=== PATIENT | female | born 1950 | race Caucasian/White ===

== ENCOUNTER 2019-07-18 16:20 | Emergency (ER) | payer MEDICARE, MEDICAID, SELFPAY ==
[2019-07-18 16:39] VITALS: BP 160/96; PULSE 93; RESP 16; TEMP 37.2; O2SAT 97; BMI 32.0
--- NOTE | 2019-07-18 17:11 | ED_ITS ---
Entered by Nicole Mejias, acting as scribe for Jul 18, 2019 16:20 HPI - Extremity Problem General: Chief complaint: Extremity Injury, Upper Stated complaint: LEFT ARM PAIN Time Seen by Provider: 07/18/19 17:11 Source: patient and family Mode of arrival: ambulatory Limitations: no limitations History of Present Illness: HPI Narrative: 69 yo female presents to ED with complaints of pain in her L bicep. She said she was getting inside her son's truck several times on (2 days ago) and reached up to pull herself into the truck and felt a pull on her L bicep. She has had a knot in her bicep. She said she has had no pain in the L shoulder or L elbow. MD Complaint: extremity pain Onset (ago): day(s) (2) Pain Consistency: constant Location: left and upper extremity Severity scale (1-10): 3 Quality: aching Radiation: none Relieving factors: rest Exacerbating factors: range of motion Associated symptoms: Reports no associated symptoms; Deny chest pain, fever(s) or rash Review of Systems Const: Denies: fever or chills Eyes: Denies: change in vision ENMT: Denies: throat pain or mouth pain Card: Denies: chest pain Resp: Denies: shortness of breath GI: Denies: abdominal pain, nausea, vomiting or diarrhea : Denies: difficulty urinating Musc: Denies: back pain or joint pain Skin/Breast: Denies: rash Neuro: Denies: headache or behavioral changes Psych: Denies: depression Endo: Denies: excessive urination Nilesh/Lymph: Denies: easy bruising All/Imm: Denies: hives PFSH ED PFSH: Statuses (acute, chronic, etc) shown below reflect problem list status as previously entered and may not be historically accurate Social History Smoking and tobacco status: current every day smoker Physical Exam Const: COMMON NORMALS: no apparent distress and healthy appearing HENMT: COMMON NORMALS: normocephalic and external nose normal HEAD & SCALP: normocephalic NOSE: external nose normal and no nasal discharge (nasal dischage) Eye: COMMON NORMALS: PERRL PUPIL: Yes PERRL Neck/C-Spine: COMMON NORMALS: full ROM and no lymphadenopathy Chest: COMMONS NORMALS: inspection of chest normal Resp: COMMON NORMALS: normal respiratory effort and clear to auscultation bilaterally AUSCULTATION: clear to auscultation bilaterally Cardio: COMMON NORMALS: regular rate and regular rhythm RATE: regular rate RHYTHM: regular rhythm GI: COMMON NORMALS: soft to palpation PALPATION: Yes soft Extremity: COMMON NORMALS: normal to inspection, full ROM and normal capillary refill OTHER: Tenderness to left bicep with no signs of tendon rupture. Patient has full range of motion. She has no bony tenderness. Psych: COMMON NORMALS: mental status grossly normal and cooperative Skin: COMMON NORMALS: no rashes or lesions noted GENERAL SKIN EXAM: no rashes or lesions noted Course Vital Signs: Vital signs: Vital Signs Temperature 98.9 F 07/18/19 16:39 Pulse Rate 87 07/18/19 17:23 Respiratory Rate 18 07/18/19 17:23 Blood Pressure 180/88 07/18/19 17:23 Pulse Oximetry 97 07/18/19 17:23 MDM - Extremity (Nontraumatic) MDM Narrative: Medical decision making narrative: Patient presents here with likely muscle strain of left biceps. Patient is well-appearing here and has no signs of tendon rupture or bony fracture. Patient is to ice area and is to fo llow-up with primary care doctor in 1 week and return if worsening. She understands and agrees to plan. Discharge Plan Discharge Patient Disposition: Home, Self-Care Clinical Impression: Biceps muscle strain Qualifiers: Encounter type: initial encounter Laterality: left Qualified Code(s): S46.212A - Strain of muscle, fascia and tendon of other parts of biceps, left arm, initial encounter Condition: Stable Discharge Orders: Discharge Order (Routine); Ordered 07/18/19 Ordered By: Varsha Fitzgerald Discharge Diet: Advance as tolerated Discharge Activity: Increase activity as tolerated Patient Instructions: Muscle Strain (ED) Discharge Date/Time: 07/18/19 17:20 Coding Level of Care Code ED Relay Telegrapher for Tyesha Crum The documentation recorded by the Randell choudhury Valerie R accurately reflects the service I personally performed and the decisions made by Amilcar joseph Korby, MD Jul 18, 2019 16:20
[2019-07-18 17:23] VITALS: BP 180/88; PULSE 87; RESP 18; O2SAT 97
== END 2019-07-18 17:20 | disposition home or self-care (01) ==
PROVIDERS: Emergency Provider Emergency Medicine
DX: S46.212A Strain of muscle, fascia and tendon of other parts of biceps, left arm, initial encounter (principal); X50.9XXA Other and unspecified overexertion or strenuous movements or postures, initial encounter; F17.210 Nicotine dependence, cigarettes, uncomplicated
CPT/HCPCS: 99281

== ENCOUNTER 2025-02-20 12:55 | Emergency (ER) | payer MEDICARE, MEDICAID, SELFPAY ==
--- OUTSIDE RECORDS SUMMARY | 2025-02-15 07:48 | XMS_ITS | Encounter Summary ---
Author Organization [facility] Address 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 Name Role Phone Steven Olivo MD Primary Care Provider [phone] Reason for Visit * Auth/Cert (Routine) Specialty Diagnoses / Procedures Referred By Maxx coello Referred To Contact Perioperative Diagnoses Diverticulitis of large intestine with abscess without bleeding Diverticulitis of large intestine with abscess without bleeding Procedures IA LAPS COLECTOMY PRTL W/COLOPXTSTMY LW ANAST IA LAPS COLECTMY PRTL W/COLOPXTSTMY LW ANAST W/CLST HCHG NEEDLE ECHO 20GAX5.0CM IA LAPS MOBLJ SPLENIC FLXR PFRMD W/PRTL COLECTOMY SIGMOID COLON RESECTION ROBOTIC XI SIGMOID COLON RESECTION ROBOTIC XI Nurys Pineda DO [address] [facility] [facility] [address] [place] [address] Phone: tel: fax: [facility] Operating Room [address] [place] [id number] Phone: tel: fax: Referral ID Status Reason Start Date Expiration Date Visits Re quested Visits Authorized [id number] 1 1 Encounter Details Date Type Department Care Team (Latest Contact Info) Description 02/15/2025 7:48 AM CDT - 02/19/2025 2:20 PM CDT Hospital Encounter [facility] 5B Gynecology [address] [place] [address] Nurys Pineda DO [address] [place] [address] JOVANI (acute kidney injury) Discharge Disposition: Home or Self Care Social History Tobacco Use Types Packs/Day Years Used Date Smoking Tobacco: Every Day Cigarettes Last attempted to quit: 03/23/2021 Passive Smoke Exposure: Past Smokeless Tobacco: Never Comments:A couple of cigaret gladys a day Alcohol Use Standard Drinks/Week Comments No 0 (1 standard drink = 0.6 oz pur e alcohol) Social Connections Answer Date Recorded In a typical week, how many times do you talk on the phone with family, friends, or neighbors? More than three times a week 06/06/2020 How often do you get togethe r with friends or relatives? More than three times a week 06/06/2020 How often do you attend [facility] or jainism services? Never 06/06/2020 Do you belong to any clubs o r organizations such as baptist groups, unions, fraternal or athletic groups, or school groups? Yes 06/06/2020 Attends Club or Organization Meetings Not on marek e 06/06/2020 Marital Status Not on file 06/06/2020 Financial Resource Strain Answer Date R ecorded How hard is it for you to pa y for the very basics like food, housing, medical care, and heating? Not hard at all 08/17/2022 Food Insecurity Answer Date Recorded In the past 12 months, have you worried that your food would run out before you had money to buy more? Never true 08/17/2022 In the past 12 months, did y ou run out of food and didn't have money to buy more? Never true 08/17/2022 Transportation Needs Answer Date Record ed In the past 12 months, has l ack of transportation kept you from medical appointments or from getting medications? No 08/17/2022 Lack of Transportation (Non-Medical) Not on file 08/17/2022 Feeling Safe Answer Date Recorded Are you in a relationship wi th someone who hurts you emotionally and/or physically? 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 Gender Identity Not on file Sexual Orientation Not on file documented as of this encounter Last Filed Vital Signs Vital Sign Reading Time Taken Comments Blood Pressure 157/96 02/19/2025 11:40 AM CDT Pulse 80 02/19/2025 11:40 AM CDT Temperature 37.1 C (98.8 F) 02/19/2025 11:40 AM CDT Respiratory Rate 16 02/19/2025 11:4 0 AM CDT Oxygen Saturation 93% 02/19/2025 11: 40 AM CDT Inhaled Oxygen Concentration - - Weight 66.6 kg (146 lb 14.4 oz) 02/15/2025 2:00 PM CDT Height 157.5 cm (5' 2 ) 02/15/2025 8:08 AM CDT Body Mass Index 26.87 02/15/2025 8:08 AM CDT documented in this encounter Discharge Summaries * Tiff Odom FNP - 02/19/2025 4:04 PM CDT Patient: Valerie Ferro / 74 y.o. / female : 1950 Admit date: 02/15/2025 Discharge date: 02/19/2025 Final Diagnosis: history of perforated diverticulitis Secondary diagnoses and conditions treated: Active Hospital Problems Diagnosis History of diverticulitis Ileostomy status ([facility]) S/P colon resection JOVANI (acute kidney injury) Resolved Hospital Problems No resolved problems to display. Attending Physician: Dr. Nurys Pineda, Colorectal Surgery Procedures Performed: With Dr. Pinedaaaaa; 1. Robotic low anterior resection with coloproctostomy 2. Mobilization of the splenic flexure 3. Diverting loop ileostomy 4. Flexible sigmoidoscopy 5. Bilateral TAP blocks With Dr. Ernandez: Cystoscopy with left retrograde pyelogram with interpretation Left ureter stent insertion Hospital Course: The patient was taken to the operating room on the day of admission where she underwent the above procedure, which she tolerated well. Postoperatively she was taken to the PACU and then the floor where she recovered. Elevated creatinine noted on labs. Urology and nephrology consulted. Patient underwent cystogram with left ureter stent placement for narrowing of the ureter and hydroureteronephrosis. Berger placed. Creatine improving. Ostomy teaching completed with ostomy nurse. she was able to quickly advance her diet, and had her pain well controlled, first on IV pain medication and then transitioned to PO pain medication. At the time of discharge the patient is able to ambulate without assistance, she is voiding urine without difficulty, demonstrating appropriate bowel function, tolerating her diet, and has her pain well controlled with oral pain medication. Discharge Condition: good. Disposition: home. Discharge medications: Medication List START taking these medications HYDROcodone-acetaminophen 5-325 mg tablet Commonly known as: NORCO Take 1 Tablet by mouth every 4 hours as needed for Pain, Moderate. Max Daily Amount: 6 Tablets Signed by: Nurse Practitioner Nestor Odom Quantity: 30 Tablet Refills: 0 walker Length of Need: 99 months Ht Readings from Last 1 Encounters: 02/15/25 : 5' 2 (1.575 m) , Weight: 66.6 kg (146 lb 14.4 oz) (02/15/25 1400). If over 300 lbs, patient requires heavy duty. Type of walker:walker with wheels Signed by: Dr. Tu Pineda Quantity: 1 Each Refills: 0 CONTINUE taking these medications ondansetron 4 mg Tablet, Rapid Dissolve Commonly known as: ZOFRAN ODT Take 1 Tablet (4 mg) by mouth every 8 hours as needed for Nausea/Emesis. Dissolve tablet on top of tongue, then swallow with saliva. Signed by: Nurse Lina Odom Quantity: 15 Tablet Refills: 0 STOP taking these medications levoFLOXacin 500 mg tablet Commonly known as: LEVAQUIN metroNIDAZOLE 500 mg tablet Commonly known as: FLAGYL neomycin 500 mg tablet Commonly known as: MYCIFRADIN peg 3350-electrolytes 236-22.74-6.74 -5.86 gram Recon Soln Commonly known as: GOLYTELY sodium, potassium and magnesium SULFATES 17.5-3.13-1.6 gram Recon Soln Commonly known as: Suprep Bowel Prep Kit Where to Get Your Medications These medications were sent to [address] [address] Hours: Saturday - Saturday: 7 am - 9 pm; Saturday - Saturday: 8 am - 4 pm HYDROcodone-acetaminophen 5-325 mg tablet ondansetron 4 mg Tablet, Rapid Dissolve walker Patient instructions: 1. Discharge to home. 2. Follow-up weeks with HEVER Patel 3. May shower without restrictions. 4. Routine wound care/teach wound care if applicable. 5. Activity no lifting greater than 10 pounds for 6 weeks. 6. Prescription on chart. Please give to patient. 7. Call if temperature is greater than 101.5, severe pain, nausea, vomiting, wound drainage, questions or concerns. 8. Diet: No restriction. Signed: SUN Alvarez 02/19/2025, 4:07 PM Cosigned by Nurys Pineda DO at 02/19/2025 5:11 PM CDT documented in this encounter Discharge Instructions * Discharge Instructions* Tiff Odom FNP - 02/19/2025 10:38 AM CDT [facility] Colorectal Surgery [address] [place] [address] [address] [place] [address] Follow up in 2-3 weeks with HEVER Patel. Please call the office at the above number to make an appointment. Berger up with urology for berger removal. Repeat BMP (lab) at follow up. Colon Surgery Post Operative Discharge Instructions Diet Low roughage diet (avoid raw vegetables and fibrous fruits like pineapple) and avoid constipating foods for 5-7 days. Then transition to a high fiber diet. Drink plenty of fluids, 64 oz (8 glasses) of water or other non-sugary fluids daily. Activity At least 30 minutes of physical activity daily such as brisk walking is recommended. Avoid heavy lifting (>15 lbs) or straining for 6 weeks after surgery to allow incisions time to heal fully and decrease risk of hernia. Pain Control Tylenol 650 mg every 6 hours as needed for pain relief. Prescribed pain medication maycontain Tylenol (acetaminophen); do not take more than 4000 mg in 24 hours. Ibuprofen 400 mg every 6 hours as needed for pain relief. Take with food to avoid GI upset and ulcers. Do not take if significant bleeding occurs. May combine with prescription pain medication. Take prescribed pain medication only when needed. Prescribed pain medication can be addictive. Do not drive while taking prescription pain medication. Bowel Function Monitor ileostomy output. Want around 1 Liter or less in 24 hours. Take imodium, 1-2tabs up to 4 times daily as needed to titrate. Take a stool softener (Docusate, Colace, Dulcolax, Generic) 100 mg 1-2 times daily while taking theprescription pain medication, as it can be constipating. You may add a fiber supplement (Metamucil, Benefiber) 1 tbsp daily. A small amount of blood in the first few bowel movements can be normal. Take Simethicone (Gas X) 80 mg every 6 hours if needed for gas pains. If no bowel movement for 2-3 days and feeling constipated, you may take prune juice, Miralax, or Milk of Magnesia per instructions daily until regular bowel habits resume. Wound Care If there is purple glue over your incisions, this will peel off in 5- 7 days. The stitches are beneath the skin and will absorb. You may shower 24h after surgery. If there is gauze or Bandaids over your incisions, you may remove these 24 hours after surgery, leaving the small white tapes (Steristrips) beneath. You may shower 48h after surgery. The Steristrips will fall off in 5-7 days. If you have karly, these will be removed in the office at the post-operative visit. You may keep these covered with a bandaid or gauze and tape to prevent snagging on clothing. Some bruising at the incision sites is normal. A small amount of bleeding or clear/yellow/pink drainage from the incisions can also be normal. Avoid swimming or soaking the incisions for 2 weeks after surgery. Medications Resume all home medications as previously prescribed. Do not take Plavix, Coumadin, Eloquis or other blood thinners for 5 days unless otherwise directed by your physician. Take an oral probiotic (Florastor, Culturelle, Align, etc) daily if you are taking antibiotics after discharge. Continue for 1-2 days after finishing the antibiotics, and then discontinue. If you have fever >101F, increasing abdominal pain, increased swelling, redness or drainage fromincisions, nausea/vomiting, constipation not relieved with medication, a large amount of rectal bleeding, shortness of breath, chest pain, leg pain or swelling, or difficulty urinating, please call the office or go to the emergency department for further evaluation. KEEP IN TOUCH WITH Robby Please consider using [email or web address] to communicate with Dr. Pineda's office. Messages are received inreal time by the nurse as fast, or faster, than phone messages, and you may expect a prompt reply. AFTER HOURS Prescriptions are not refilled after business hours. If you are in need of additional medications, call the office on the next business day at [phone]. There is a physician on-call after hours for emergency reasons only. DO NOT SMOKE AND AVOID SECOND-HAND SMOKE. Tobacco smoke can delay the healing process by decreasingthe oxygen supply to your wound, & may increase your risk of infection. Smoking irritates the breathing passages and increases the risk of pneumonia, bronchitis, asthma and risk of blood clots. * Attachments The following attachments cannot be sent through Care Everywhere. * Acute Kidney Injury (Panamanian) * Hydronephrosis: General Info (Panamanian) * Indwelling Urinary Catheter Care: General Info (Panamanian) * Caring for Your Urinary Catheter: Video (Panamanian) * Ureteral Stent Placement: Post op (Panamanian) * Hydrocodone Combination Products (Panamanian) * Ondansetron (Panamanian) documented in this encounter Medications at Time of Discharge HYDROcodone-acet aminophen (NORCO) 5-325 mg tabletIndication s:Acute diverticulitis,A KI (acute kidney injury) Take 1 Tablet by mouth every 4 hours as needed for Pain, Moderate. Max Daily Amount: 6 Tablets 30 Tablet 02/19/2025 11:22 AM CDT 02/19/2025 ondansetron (ZOFRAN ODT) 4 mg Tablet, Rapid Dissolve Take 1 Tablet (4 mg) by mouth every 8 hours as needed for Nausea/Emesis. Dissolve tablet on top of tongue, then swallow with saliva. 15 Tablet 02/19/2025 11:22 AM CDT 02/19/2025 walker Length of Need: 99 months Ht Readings from Last 1 Encounters: 02/15/25 : 5' 2 (1.575 m) , Weight: 66.6 kg (146 lb 14.4 oz) (02/15/25 1400). If over 300 lbs, patient requires heavy duty. Type of walker:walker with wheels 1 Each 02/17/2025 02/24/2025 documented as of this encounter Progress Notes * Vicki Trimble RN - 02/19/2025 8:09 PM CDT Valerie Ferro will be discharged via wheelchair to home. Valerie Ferro is accompaniedby family member(s) and will be transported via private vehicle. Provided verbal and written home care, medications (including side effects), and follow up instructions. Patient verbalized understanding. * Vicki Trimble RN - 02/19/2025 8:04 PM CDT As preceptor I have reviewed and agree with Luly Renee RN charting. * Ermelinda Austin RD - 02/19/2025 1:49 PM CDT Patient seen/chart reviewed during routine patient care/meal rounds. Nutritional status/assessment: PO intake is variable 0-100%. Pt is wanting to go home today. If pt stays and can offer supplement as meal replacement as needed. Following. Recommendation/Plan for follow up: Will continue to follow during weekly patient care/meal rounds, assisting with intake needs as appropriate. Current diet/nutrition support: DIET GENERAL Effective Now Food/Meal: Breakfast;Patient declined (02/19/25819),Intake (%): (!) 0% (02/19/25819) Weight status/changes: Weight: 66.6 kg (146 lb 14.4 oz) (02/15/25 1400) Admission :Weight: 64 kg (141 lb) (02/11/25 1138) Height: 5' 2 (157.5 cm) (02/15/25 0808) Body mass index is 26.87 kg/m??. Wt Readings from Last 8 Encounters: 02/15/25 66.6 kg (146 lb 14.4 oz) 12/30/24 68.9 kg (152 lb) 12/17/24 68.9 kg (152 lb) 12/09/24 68.9 kg (152 lb) 11/13/24 69.1 kg (152 lb 5.4 oz) 11/12/24 69.1 kg (152 lb 6.4 oz) 10/30/24 75.9 kg (167 lb 5.3 oz) 10/05/24 72.6 kg (160 lb) Additional assessment indices: Richie Score: 20 (02/19/25 0358) Last Bowel Movement (mm/dd/yyyy): (ostomy present) (02/18/25 0730) Allergies Allergies Allergen Reactions Penicillins Other (See Comments) Passed out Labs: Lab Results Component Value Date GLUCOSE 132 (H) 02/19/2025 * Luly Guerrero RN - 02/19/2025 1:[address] Ernandez called to speak with patient and she declined. Patient requested son speak with him. Patients son spoke with Awais for a short period before he refused to continue the conversation with Dr Ernandez. Son handed the phone to LEONARD Mauricio. Dr Ernandez stated that he shared with the son that complications from removing the berger catheter can lead to renal failure and . Nurse shared information to son and patient. Son was stating on the side that he wanted to remove the berger catheter because it is what his mom is wanting to happen. Dr Ernandez suggested to the nurse to let the patientand son know that they are welcome to seek out another Urologist for further evaluations. Son and patient were agreeable to the recommendation. * Moisés Ernandez MD - 02/19/2025 1:00 PM CDT Our nurse practitioner, Lucy Hall NP was called by nursing staff indicating this patient refused to leave the hospital with the catheter in place. I am out of town but was asked to get involved.I called the nurse on 5B and asked to speak with patient so I could reiterate the operative findings yesterday, but patient declined and had me talk to her son. I spoke with the son for a short time.I tried to explain the rationale for the berger and stent and maximal drainage in the setting of ureter stricture in a solitary kidney and how tenuous the situation is. Ultimately, he indicated he only wanted me to listen to what he had to say. He declined to speak with me further after stating his mother's wish was to have the berger removed and the stent removed in 2 weeks. I expressed my concernthat she could have worsening renal function, electrolyte abnormalities which could lead to cardiacarrhythmias and ultimately . Still, he indicated that the patient will have the catheter out and that for now, might still return to the clinic to discuss stent removal. I am still willing to see this patient in follow-up, but if none of my recommendations or medical/surgical advice is followed, it may be better for her to find a different urologist. Her ureter stricture is likely to persist and will probably require more surgical involvement. Will discuss further at follow-up. * Vicki Trimble RN - 02/19/2025 12:27 PM CDT Patient demanding to have berger catheter removed. Tried to educate patient on need for berger and stent to remain in place. Patient again stated she wants it removed now. Per patient she was told it would be removed prior to discharge and stent would be left in for awhile. Patient also requesting to speak with Dr. Ernandez. 2002 Dr. Ernandez returned call. Transferred phone call to [facility] phone Phone was given to son Kirill Ferro at request of patient. * Tiff Odom FNP - 02/19/2025 9:50 AM CDT Colon & Rectal Surgery Patient awake in bed. Pain controlled, tolerating PO. Ostomy working. Berger in place with good urine output. No acute events overnight. Vitals: 02/19/25 0820 BP: (!) 151/77 Pulse: 72 Resp: 18 Temp: 98.1 ??F (36.7 ??C) SpO2: 94% Gen: NAD, A&O Cardio: RRR Pulm: Nonlabored respirations Abd: Soft, ND, appropriate TTP. Incisions intact w/ dermabond applied. Skin well approximated w/ nodrainage/swelling/erythema. Ostomy intact and viable with output. Ext: Warm, well perfused, no edema Neuro: Neurologically intact A/P -general diet -Cr improving s/p cysto with stent placement. Nephrology following -Multimodal analgesics -Encourage ambulation, OOBTC -Ostomy teaching, monitor output Ppx: Heparin, SCDs Dispo: home today. Discussed with nephrology, ok for discharge as well. Continue berger, follow up with urology. All questions answered to patients satisfaction. Current hospital problem list: Active Hospital Problems Diagnosis JOVANI (acute kidney injury) Resolved Hospital Problems No resolved problems to display. HEVER Patel Cosigned by Nurys Pineda DO at 02/19/2025 10:36 AM CDT * Debra Sal FNP - 02/19/2025 9:31 AM CDT Admit Date: 02/15/2025 Length of Stay: 4 Reason for Consult: acute kidney injury Hospital Summary: Valerie Ferro is a 74 y.o. female seen in consultation for jovani due to obstruction as requested by Dr. Pineda. she is a 74 y.o. female admitted by Dr. Pineda for diverticulitis with colovaginal fistula on 02/15/2025. Had loop ileostomy on 02/15. At that time she had noted jovani with a creat of 3.5, her baseline is 9.9. On day of consult creat 3.12. 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 Noted to have hydroureter in November. She still has same and it is unchanged. She had normal gfr in October, no labs until this admit. No hydron on ct in October. Subjective: Patient awake in bed, eager to go home. ROS: Review of Systems Respiratory: Negative for shortness of breath. Gastrointestinal: Negative for abdominal pain. Genitourinary: Negative for dysuria. Objective: Vital Signs: BP (!) 151/77 (BP Location: Right arm, Patient Position (BP): Sitting) Comment: Rn notified Pulse 72 Temp 98.1 ??F (36.7 ??C) (Temporal) Resp 18 Ht 5' 2 (1.575 m) Wt 66.6 kg (146 lb 14.4 oz) SpO2 94% No BMI 26.87 kg/m?? The range of BP in the last 24 hours is: BP: (111-151)/(57-78) In and Out over last 24 hrs: Intake/Output Summary (Last 24 hours) at 02/19/2025 0931 Last data filed at 02/19/2025 0358 Gross per 24 hour Intake 1350 ml Output 2500 ml Net -1150 ml Medications: Reviewed in MAR by me today Physical Exam Constitutional: No distress. HENT: Nose: Nose normal. Mouth/Throat: Oropharynx is clear. Eyes: Pupils are equal, round, and reactive to light. Pulmonary/Chest: Effort normal. Musculoskeletal: General: No edema. Neurological: She is alert and oriented to person, place, and time. Skin: Skin is warm and dry. Labs and Imaging Reviewed: Lab Results Component Value Date NA 141 02/19/2025 K 3.9 02/19/2025 CL 107 02/19/2025 CO2 19 (L) 02/19/2025 CA 9.5 02/19/2025 BUN 47 (H) 02/19/2025 CREAT 2.66 (H) 02/19/2025 GLUCOSE 132 (H) 02/19/2025 ANIONGAP 15 02/19/2025 PO4 3.3 02/19/2025 ALBUMIN 3.2 (L) 02/19/2025 Lab Results Component Value Date WBC 17.2 (H) 02/17/2025 HGB 8.2 (L) 02/17/2025 HCT 24.2 (L) 02/17/2025 PLT 298 02/17/2025 MCV 91.0 02/17/2025 Assessment and Plan: Acute kidney injury - due to obstruction- the hydro has been there since November. She may have or be developing atn- unclear S/p cysto with left ureter stent and left retrograde pyelogram per urology Renal function with improvement today, Cr 2.66 with GFR 19 ml/min 1.6L UO /24 hrs recorded Continue Berger catheter per urology Avoid nsaids Stable for discharge from renal standpoint. BMP in 1 week if continues to improve to baseline, can follow up with PCP & urology Acidosis - mild, on LR SUN Bashir [facility] 02/19/25, 9:31 AM Cosigned by Maude Mayorga MD at 02/19/2025 11:07 AM CDT * Lucy Hall FNP - 02/19/2025 8:05 AM CDT 02/19/2025 Patient: Valerie Sosaaff / 74 y.o. / female : 1950 Urology Daily Progress Note Subjective: History of JOVANI, solitary left kidney, left hydronephrosis, nausea and vomiting. S/p Cystoscopy withleft retrograde pyelogram with interpretation, Left ureter stent insertion w Dr Ernandez 02/18/2025. No acute issues overnight. Her catheter is draining clear yellow fluid. Cr continues to improve. Objective: Intake/Output Summary (Last 24 hours) at 02/19/2025 0805 Last data filed at 02/19/2025 0358 Gross per 24 hour Intake 1350 ml Output 2900 ml Net -1550 ml Physical Exam General: Awake, alert, and in NAD. Lungs: Unlabored respirations on room air. No audible wheezes. Abdomen: Soft, appropriately tender : Catheter draining clear yellow urine Extremities: No LE edema or erythema. Skin: Warm, dry. Labs Recent Labs 02/17/25 0337 02/18/25 0612 02/19/25 0628 NA 139 139 141 K 3.4* 3.6 3.9 CL 106 104 107 CO2 19* 19* 19* CA 9.0 9.7 9.5 BUN 47* 45* 47* CREAT 3.53* 3.12* 2.66* GLUCOSE 155* 149* 132* Recent Labs 02/17/25 033 WBC 17.2* HGB 8.2* HCT 24.2* PLT 298 Imaging None recent Assessment 74-year-old female with history of solitary left kidney, recurrent diverticulitis and pelvic abscess. Underwent low anterior resection with elevated creatinine send surgery. Status post cystoscopy, left ureter stent insertion and left retrograde pyelogram. 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 No acute ureter or bladder injury from resection was seen. Will continue Berger catheter for the next couple of weeks and monitor creatinine to galen. She will likely need stent long-term and plan for 3-month exchanges. Will plan for renal bladder ultrasound outpatient if patient is discharged and follow-up in office to discuss ongoing plan of care. Plan: - Continue Berger catheter and stent to creatinine galen - Repeat renal ultrasound - Will send message to staff to follow-up within 2 weeks with ultrasound and blood work prior SUN Taylor 8:05 AM Portions of this document were created using DEQworkers compensation claims assistant software. Cosigned by Moisés Ernandez MD at 02/19/2025 12:10 PM CDT Associated attestation - Moisés Ernandez MD - 02/19/2025 12:10 PM CDT Agree with plan. All work can be done outpatient if she is being discharged. * Dianne Hinojosa, RN - 02/18/2025 1:56 PM CDT Physician was called through the OR. Notified That wound/ostomy nurse made this nurse and primary nurse aware that there was concerned about the characteristics of the ileostomy output that is was urine like and pictures are in the patient chart. Physician made aware, no new orders at this time. * Mai Metcalf, Manager Category - 02/18/2025 9:46 AM CDT Attempted to see patient for OT treatment. Patient unavailable for therapy session due to off floorat OR. Will continue with attempts for evaluation/established plan of care. Thank you, MAI METCALF, Manager Category * Nurys Pineda DO - 02/18/2025 7:20 AM CDT Colon & Rectal Surgery Patient awake in bed. Pain controlled, tolerating PO. Emesis x1 overnight, per her report due to taking a pain med. Denies nausea at this time. No acute events overnight. Vitals: 02/18/25 0220 BP: 115/62 Pulse: 62 Resp: 18 Temp: 97.4 ??F (36.3 ??C) SpO2: 98% Gen: NAD, A&O Cardio: RRR Pulm: Nonlabored respirations Abd: Soft, ND, appropriate TTP. Incisions intact w/ dermabond applied. Skin well approximated w/ nodrainage/swelling/erythema. Ostomy intact and viable with output. Ext: Warm, well perfused, no edema Neuro: Neurologically intact A/P -NPO for cysto today, Urology consulted -Cr elevated, small improvement today, will consult nephrology -Multimodal analgesics -Encourage ambulation, OOBTC -Ostomy teaching, monitor output Ppx: Heparin, SCDs Dispo: continue inpatient care Current hospital problem list: Active Hospital Problems Diagnosis JOVANI (acute kidney injury) Resolved Hospital Problems No resolved problems to display. Nurys Pineda DO * David Mann, Physical Therapist - 02/17/2025 12:43 PM CDT [facility] - Therapy Services 3K Ph. Acute Physical Therapy Evaluation 02/17/2025 Room: [address] [place] [address] Name: Valerie Ferro Age: 74 y.o. Date of : 1950 Insurance: Payor: [employer] MEDICARE ADVANTAGE / Plan: [employer] DSNP MCR / Product Type: HMO / Patient Class: Inpatient Onset of illness/injury or date of surgery: 02/15/2025 Subjective Information/History Subjective Information Provided By: Patient, Nurse, and Chart review Patient supine in bed when PT arrived to room. Son and daughter in law at bedside. Patient agreed to PT evaluation. Son lives right across the street. Patient states that sister lives next door. Prior level of Function: ADLS- independent IADLS- independent Patient does drive Functional mobility : independent without AD Patient does not report a history of falls - patient denies any falls in the last 6 months Home Environment: 2-Story home 3-4 steps into home no hand railing Tub/shower Available Adaptive Equipment: None Assistance available: an assist with ostomy care. Self-care assist available at home: Pt lives at home alone and states she has several family members who can provide daily assistance. Patient/Family Goals Statement: to be able to reduce my pain and go home Pain: Refer to Doc Flowsheet for documented pain levels. Consent To Treatment Given By: Patient and Nurse Safety Awareness Orientation: Person, Place, Date, and Situation Command Following: good Safety Awareness: Good Precautions Patient Precautions: Fall Risk, Abdominal and log roll in bed Bracing/Orthotics: none Weight Bearing: No Restrictions Objective Information/Examination Muscle Tone: Normal Coordination: Normal Sensation: Intact to light touch ROM: Right UE: Active: WFL Left UE: Active: WFL Right LE: Active: WFL Left LE: Active: WFL Strength: Right UE: 4+/5 Left UE: 4+/5 Right LE: 4/5 Left LE: 4/5 Functional Mobility: Rolling: supervision reviewed log roll technique Scooting: supervision use of bed railing Supine to sit: supervision log rolling techniques; use of bed rail bed at 30 degrees Sit to supine: supervision Sit to stand: supervision with verbal cues to press off sitting surface with 1 hand other hand on 2WW - keep abdominal tight Bed to chair: supervision verbal cues to back up to sitting surface reach back with 1 arm and sit down slowly Gait Trainin feet with rolling walker. supervision for safety / balance ,patient needing to rest in wheelchair prior to doing stairs . Deficits affecting function/Deviations noted: forward flexed posture , verbal cues to stand up straight as possible Gait training : 100 ft with 2 WW supervision for safety / balance Patient required verbal cues energy conservation, proper breathing techniques, proper techniques for ADL's and functional transfers, use of UE's in transfers, proper log roll technique, to get centerof gravity over KYLEIGH, and gait training cues provided Balance: Sitting: patient sat EOB x 4 min with good balance / safety supervision / independent Standing: patient able to stand with 2 WW with supervision Vitals Patient on room air Vital signs stable throughout session [facility] AM-PAC Basic Mobility How much help from another person does the patient currently need? Score 1. Turning from your back to your side while in a flat bed without using bedrails? 3 - A little (supervision to min assist) 2. Moving from lying on your back to sitting on the side of a flat bed without using bedrails? 3 - A little (supervision to min assist) 3. Moving to and from a bed to a chair (including a wheelchair)? 3 - A little (supervision to min assist) 4. Standing up from a chair using your arms (e.g., wheelchair, or bedside chair)? 3 - A little (supervision to min assist) 5. Walking in hospital room? 3 - A little (supervision to min assist) 6. Climbing 3-5 steps with a railing? 3 - A little (supervision to min assist) Total score 18/24 0-16 - indicates likely facility discharge 17-24 indicates likely community discharge * scores determined based on patient report, observation or professional expertise Assessment/Plan Valerie Ferro is a 74 y.o. female is referred for physical therapy following admission for diverticulitis of large intestine with abscess without bleeding. . Based on objective findings above,the patient presents with the following impairments: balance deficits, decreased activity tolerance, decreased strength, gait disturbance, pain, and risk for falls which impacts safety , functional mobility / independence. Additional pertinent diagnoses and past medical history related to this hospital stay are present in physician H&P and physician daily notes. Patient is currently functioning below her prior level of function. Patient would benefit from continued skilled acute care PT visits for gait training, functional transfer training, LE strengthening, HEP, equipment training, fall prevention, home safety instruction,patient / caregiver education Plan will include but is not limited to: Gait Training, Transfer Training, Patient/Family Education, Stair Training, Home & Safety Instruction, Balance Training, Neuromuscular Re-education, Equipment Training, and Functional Strengthening. Specific focus for next treatment session: gait training with 2 WW, functional transfer training , stair training, LE strengthening . PT Evaluation: low complexity Recommendations During acute hospitalization, recommend high frequency treatment (5-7 times per week). Current planof care to continue until goals met or patient discharges from facility. Functional Prognosis: Based on prior level of function and deficits, anticipate good. Based on PT assessment of and/or progress with physical function, AM-PAC Basic Mobility score, potential for improvement, available home support, participation in therapeutic intervention, tolerance for activity, and safety , anticipated discharge disposition once medically ready: Home with supervision;Home with assistance;Home with home health PT (02/17/25 1243). Pt needs intensive skilled PT services. Patient is actively engaged in therapy, has the potential to make progress toward goals * The final discharge location is determined through physician, case management, and patient/caregiver input along with insurance authorization of skilled services when appropriate Plan of care and/or discharge recommendations shared with: Patient, Artillery Specialist, and Nurse PT Recommended DME: Front Wheeled Walker (02/17/25 1243). Daily activity recommendations: Up with 1 assist, Ambulate to bathroom with staff, and Up in chair for meals Recommendations for referral to another service: none Education/Training Provided Education provided: basic time frames for healing, daily activity with nursing staff, discharge planning, functional mobility, home exercise program, plan of care, pain management, precautions duringhealing, proper body mechanics, rehabilitation principles, safety, and use of assistive device Exercise training provided: sitting: ankle pumps, hip flexion, hip abduction, hip adduction, and long arc quads Learner, method of education, and response to learning listed in Education tab in Epic. Reviewed with patient abdominal precautions ( log roll, hold pillow across abdomen and apply pressure to abdomen when coughing, sneezing), fall prevention, PT plan of care, PT HEP - patient able to verbalize understanding Disposition At start of session, patient found lying in bed At end of session, patient left seated in chair, call light in reach, phone in reach, multiple family members in room present in room, and staff notified of patient's location Current Diagnoses/Past Medical History Pertinent diagnoses and past medical history related to this hospital stay are present in physicianH&P and physician daily notes. Prior to PT session a thorough chart review was completed including prior PT notes as applicable. Further treatment notes and therapeutic goals can be found in Care Plan Notes. If the patient discharges from the facility before another therapy visit, this shall serve as the therapy discharge summary. Thank you for this referral, David Mann, Physical Therapist * Tiff Odom FNP - 02/17/2025 11:55 AM CDT Colon & Rectal Surgery Patient awake in bed. Pain controlled, tolerating PO. Ostomy working. Reports urinating without concerns. No acute events overnight. Vitals: 02/17/25 0836 BP: 127/49 Pulse: 72 Resp: 16 Temp: 98.2 ??F (36.8 ??C) SpO2: 94% Gen: NAD, A&O Cardio: RRR Pulm: Nonlabored respirations Abd: Soft, ND, appropriate TTP. Incisions intact w/ dermabond applied. Skin well approximated w/ nodrainage/swelling/erythema. Ostomy intact and viable with output. Ext: Warm, well perfused, no edema Neuro: Neurologically intact A/P -general diet -Cr elevated, renal US ordered to evaluate -Multimodal analgesics -Encourage ambulation, OOBTC -Ostomy teaching, monitor output Ppx: Heparin, SCDs Dispo: continue inpatient care Current hospital problem list: Active Hospital Problems Diagnosis JOVANI (acute kidney injury) Resolved Hospital Problems No resolved problems to display. HEVER Patel Cosigned by Nurys Pineda DO at 02/18/2025 9:28 AM CDT * Sr Nita Estefania - 02/17/2025 11:42 AM CDT Reason for Visit: Priority Patient List Patient spiritual issues identified summary of patient???s most significant issue(s): Valerie said she was in pain but doing better after surgery. She has problem with colon. Family: Valerie has 4 children and has good support. Wendy/values: Valerie is Restorationism. Needs/hopes resources: Valerie hoped pain gone soon Spiritual interventions Utilized presence and active listening to explore feelings, stressors, perceptions, questions/concerns, and coping patterns of Valerie . Comfort/reassurance provided;Emotional support; Prayer provided Introduction of Spiritual Care 14/01. DUMP GRADER???S ASSESSMENT OF PATIENT???S LEVEL OF DISTRESS: mild Outcomes of Care Patient was feel comfort and very appreciated for visit and prayer Goals of Spiritual Care Bring comfort for patient Social Science Analyst Plan: I will follow up patient and family to provide support and comfort or refer to evening clinical project coordinator to follow Spiritual Care Services remain available for referral PRN. Recommendations for Healthcare Team As spiritual needs/distress arise, please contact Spiritual Care Services. We will follow up as needed. Thank you for this referral. Social Science Analyst Sr. Estefania Moya Spiritual Care Team [phone] * Toño Damon, Occupational Therapist - 02/17/2025 9:50 AM CDT [facility] - Therapy Services Ph. Acute Occupational Therapy Evaluation 02/17/2025 Room: [facility]/02 Name: Valerie Ferro Age: 74 y.o. Patient Class: Inpatient Date of : 1950 Insurance: Payor: [facility] MEDICARE ADVANTAGE / Plan: [employer] DSNP MCR / Product Type: HMO / Prior to OT session thorough chart review completed, including prior OT notes as applicable. Consent to evaluate provided by patient and nurse Date of admission: 02/15/2025 SUBJECTIVE Occupational Profile Information provided by: patient, nurse, and chart Prior Level of Function ADLs: independent IADLs: independent Patient does drive Functional mobility: independent without AD Falls: None Home Information Employment/daily routine: Retired. Pt states her a few years ago and I lost all interest in leisure activities. Pt states she enjoys spending time with her family. Pt reports she has 4 kids, 11 grandkids, and 14 great-grandkids. Pt reports one [facility] [place], one son lives across the street as well, and another son lives right next door--also has a [id number] (Vanesa) who is an RNand lives in [place] (~ 10-12 miles away) who can assist with ostomy care. Self-care assist available at home: Pt lives at home alone and states she has several family members who can provide daily assistance. Home environment: Pt lives alone in a 2-level home (can live on main level), 3 TRUMAN with no HR, in [place], [place].Pt reports she has a full flight of stairs + 2 railings to ascend to 2nd floor, however, she does not typically need to go up there. Tub/shower and standard toilet. [facility]. Durable medical equipment already in home: None Additional Information Patient/family statement/goal(s): Be able to get up without pain. Comments: Pt supine in bed upon OT arrival and agreeable to OT evaluation. Pain: Refer to flowsheet for documentation of pain and interventions. OBJECTIVE Cognition Level of alertness: alert Orientation: x4 WNL Command following: good Safety awareness: good Memory: WFL conversationally Vision: wears glasses at baseline UE Function UE Assessment Right Left ROM Active: WFL Active: WFL Strength WFL; 4+/5 WFL; 4+/5 All additional UE assessments (including tone, coordination, sensation, and edema) not indicated ordeemed WFL. Occupational Performance Activities of Daily Living Feeding: NT; anticipate independent Grooming: NT; anticipate minimal assistance standing at sink Upper extremity dressing: minimal assistance for jacket style to bring gown around back side Lower extremity dressing: NT; anticipate moderate assistance to thread BLE through pants/briefs; patient able to don personal slide on shoes with setup/supervision while seated EOB Toileting: NT; anticipate supervision on toilet; pt/nursing report she has been completing urination in bathroom with supervision Toilet transfer: NT; anticipate supervision sit < > stand from toilet with 2ww All tasks not tested with anticipated assist levels are based on observed tasks and movement patterns. Functional Mobility All mobility completed with gait belt, walker, and personal shoes Bed mobility: supervision supine < > sit EOB with good carryover of log rolling techniques; use of bed rail and HOB mildly elevated Sit to stand: supervision from EOB Functional ambulation: supervision x 200 feet with 2ww; no overt LOB episodes, mildly flexed trunk posture d/t pain guarding in abdomen with activity. Patient requires the use of a 2ww to safely complete ambulation tasks and will need 2ww upon discharge to home. Chair transfer: NT; anticipate supervision with 2ww Sitting balance: supervision for static tasks and dynamic tasks Standing balance: supervision for static tasks and dynamic tasks with BUE support on AD Shower transfer: NT; anticipate minimal assistance for to step in/out of tub Patient required verbal cues for safety due to impulsivity and problem solving. [facility] Daily Activity How much help from another person does the patient currently need? Score 1. Putting on and taking off regular lower body clothing? 2 - A lot (max to mod assist) 2. Bathing (including washing, rinsing, drying)? 2 - A lot (max to mod assist) 3. Toileting, which includes using toilet, bedpan or urinal? 3 - A little (supervision to min assist) 4. Putting on and taking off regular upper body clothing? 3 - A little (supervision to min assist) 5. Taking care of personal grooming such as brushing teeth? 3 - A little (supervision to min assist) 6. Eating meals? 4 - None (independent) Total score 17/24 0-19 indicates likely facility discharge 19-24 indicates likely community discharge *Scores determined based on patient report, observation or professional expertise* Vitals Current O2 requirement: room air Vital signs stable throughout. Precautions Patient precautions: fall, abdominal, and log rolling in bed. Patient bracing: none Weight bearing: no restrictions ASSESSMENT & PLAN Evaluation Details Valerie Ferro is a 74 y.o. female referred for OT following admission for diverticulitis of large intestine with abscess without bleeding. Additional pertinent diagnoses and past medical history related to this hospital stay are present in physician H&P and physician daily notes. OT evaluation: Low complexity Assessment Patient is currently functioning near her prior level of function. Patient presents with acute functional deficits including: Functional balance Safety awareness Decreased endurance Pain Medical complexity Decreased knowledge of novel precautions These deficits impact patient ability to complete: Functional mobility Bathing Toileting Dressing Personal hygiene/grooming Home management Health management Meal preparation Community access Driving Patient would benefit from continued skilled OT services in order to increase occupational performance through modification and remediation approaches such as ADL training, endurance training, strength training, functional transfer training, home safety education, patient education, and equipment training Plan During acute hospitalization, recommend high frequency treatment (5-7 times/week). Current plan of care to continue until goals met or patient discharges from facility Anticipate ongoing OT treatment sessions with specific focus on home safety, ADL/MRADL engagement, balance challenges, pt education, AD/AE training, and d/c planning. Recommendations Based on OT assessment of patient's ability to complete self care tasks, AM-PAC Daily Activity Score, and available home support, anticipated discharge disposition, once medically ready: Home with assistance;Home with Home Health OT (02/17/25 0950). Rationale: Patient needs home environment assessment, DME recommendations, and modifications to improve functional performance for ADLs and IADLs within their typical environment. Assistance recommended for bathing, ostomy care, and IADLs from family as indicated. * The final discharge location is determined through physician, case management, and patient/caregiver input along with insurance authorization of skilled services when appropriate. Plan of care and discharge recommendations shared with patient, ocular care technician, PT, and nurse OT recommended DME and AE upon discharge: Tub/Shower Transfer Bench with a back;Shower Chair with a back (02/17/25 0950) Other (comment in note) (2WW) (02/17/25 0950) Education provided to patient regarding OT recommendations and plan of care, role of OT, d/c recommendations, log rolling techniques, abdominal precautions, ambulate/OOBTC with 2ww and staff supervision, and orientation to call light. Education response: verbalized understanding, would benefit from reinforcement, demonstrated understanding, and performed teach back Nursing Staff Mobility Recommendations Recommended daily activity during admission: toileting in bathroom, up with supervision, and up to chair for meals with 2ww Disposition At start of session, patient found lying in bed At end of session, patient left in bed, call light in reach, and phone in reach Further treatment notes and therapeutic goals can be found in Care Plan Notes. If the patient discharges from facility before another therapy visit, this shall serve as therapy discharge summary. Thank you for this referral, Karen Ochoa, Student Therapist * Nurys Pineda DO - 02/16/2025 7:33 AM CDT Colon & Rectal Surgery Patient sleeping in bed. Pain controlled, tolerating PO. Small amount of liquid stool in appliance.No acute events overnight. Vitals: 02/16/25 0404 BP: 111/46 Pulse: 78 Resp: 18 Temp: 97.7 ??F (36.5 ??C) SpO2: 96% Gen: NAD, A&O Cardio: RRR Pulm: Nonlabored respirations Abd: Soft, ND, appropriate TTP. Incisions intact w/ dermabond applied. Skin well approximated w/ nodrainage/swelling/erythema. Ostomy intact and viable with output. Ext: Warm, well perfused, no edema Neuro: Neurologically intact A/P -ADAT -Multimodal analgesics -Encourage ambulation, OOBTC -Ostomy teaching, monitor output Ppx: Lovenox, SCDs Dispo: D/c home tomorrow after more ostomy teaching Current hospital problem list: There are no hospital problems to display for this patient. Nurys Pineda DO * Marianna Valente RN - 02/15/2025 6:12 PM CDT Critical Labor Standards Director Note Sepsis Protocol Orders Entered: Laboratory Orders: Initial LA STAT and Blood Culture Panel STAT Marianna Valente RN * Ab Harkins RN - 02/15/2025 5:59 PM CDT Sepsis Coordinator Progress Note 02/15/25 6:01 PM Valerie Ferro [id number] Last documented weight: Weight: 66.6 kg (146 lb 14.4 oz) (02/15/25 1400) Body mass index is 26.87 kg/m??. ADT events: Sepsis alert called for elevated RR, elevated WBC, and elevated creatinine. R/O abdominal infection. Heart Rate >90 no Respiratory Rate >20 yes WBC >97938 or <4000 yes Temp >100.9 or <96.8 no Physician: Dr. Pineda Primary Nurses: LEONARD Samaniego Questionable SEVERE SEPSIS/SEPTIC SHOCK: yes TIME ZERO (V-Sepsis) IS: 1737 Bundle Elements: Lactic Acid / Repeat lactic acid (if 1st was >= 2): Initial LA Time: 1828 Result: 1.3 2nd LA Time: Result: Blood Cultures Drawn: 02/15/2025 Time: 1819, 1828 Antibiotics Administered: Yes 1. Antibiotic: Flagyl Ordered Time: 1232 Start Time: 1726 2. Antibiotic: Ancef Ordered Time: 0755 Start Time: 1002 3. Antibiotic: Flagyl Ordered Time: 0755 Start Time: 0915 30mL/kg IVF bolus (use IBW if BMI>30): Volume ordered: Volume administered: Start Time: End Time: Tissue perfusion re assessment completed by: Time: Vasopressors started: Time: * Ember Godinez RN - 02/15/2025 5:56 PM CDT [facility] Sepsis Surveillance note A positive vSepsis screen does not imply diagnosis. Potential vSepsis Time Zero: Yes (CR) (02/15/251737) Clinical Criteria documented at time of alert: Criteria A - Questionable Infection Present?: Yes (02/15/251737) Questionable source of infection: Risk for Abdominal Infection (02/15/251737) SIRS Criteria: Respiration > 20/min;WBC > 12 k/mcL (02/15/251737) Organ Dysfunction Criteria: Creatinine > 2.0 (02/15/251737) Questionable Severe Sepsis/Questionable Septic Shock/Other?: Questionable Severe Sepsis (per cms) (02/15/251737) Initial Lactic Acid?: Ordered - No (02/15/251737) [facility] SEP-1 Bundle Elements at time of alert: Blood Cultures?: Ordered - No (02/15/251737) Antibiotics?: Ordered - Yes;Administered - Yes (Within time frame) (prior to TZ) (02/15/251737) [facility] has notified the bedside team via secure chat. Please call [facility] if any assistance is needed. Please call [facility] if the patient does not have severe sepsis / septic shock and the sepsis alert needs to be cancelled. [facility] Ember Godinez RN documented in this encounter H&P Notes * Nurys PinedaDO - 02/15/2025 9:30 AM CDT Addendum: No interval changes, ready for OR today. All questions answered, consent obtained. Patient: Valerie Ferro / 74 y.o. / female : 1950 Chief Complaint: History of complicated diverticulitis History of Present Illness: Valerie Ferro is a very pleasant 74 y.o. female who presents with a history of complicated diverticulitis. Patient presented to the ED with 10/2024 for pain in the lower abdomen. CT abd/pelvis 10/30/24 revealed a 3 x 1.8 cm pericolonic abscess and a 4.6 x 1.9 cm fluid collection adjacent to the sigmoid colon and bladder. Patient underwent aspiration of the abscess and was managed conservatively on abx. Patient states she continues to do well. She is eating and having bowel function. She states there is still some pain in the lower abdomen, mostly with movement and then quickly resolves. She has not had a prior colonoscopy and denies a family history of colorectal cancer. Her abdominalsurgical history includes a hysterectomy. She denies a history of MT/stroke and is not on blood thinners. Past Medical Hx: Past Medical History Past Medical History: Diagnosis Date Diverticulitis of intestine with abscess 10/2024 GERD (gastroesophageal reflux disease) Past Surgical Hx: Past Surgical History Past Surgical History: Procedure Laterality Date HX KNEE ARTHROSCOPY 1981 HX VAGINAL HYSTERECTOMY W/ ANTERIOR AND POSTERIOR VAGINAL REPAIR 1981 IA CYSTO W/INSERT URETERAL STENT Left 10/31/2024 CYSTOURETHROSCOPY URETERAL STENT INSERTION performed by Romeo Mathias MD at [facility] MAIN OR XR RETROGRADE PYELOGRM W WO KUB Left 10/31/2024 PYELOGRAM RETROGRADE performed by Romeo Mathias MD at [facility] MAIN OR Medications: Current Medications Current Outpatient Medications Medication Sig Dispense Refill levoFLOXacin (LEVAQUIN) 500 mg tablet Take 1 Tablet (500 mg) by mouth daily. 10 Tablet 0 metroNIDAZOLE (FLAGYL) 500 mg tablet Take 1 Tablet (500 mg) by mouth 3 times daily. 30 Tablet 0 aspirin (CATHLEEN CHEWABLE) 81 mg Tablet, Chewable Take 81 mg by mouth daily. Current Facility-Administered Medications Medication Dose Route Frequency Provider Last Rate Last Admin ciprofloxacin HCl (CIPRO) tablet 500 mg 500 mg Oral ONE time only Julieta Roth FNP Allergies: Allergies Allergies Allergen Reactions Penicillins Other (See Comments) Passed out Family Hx: Family History Family History Problem Relation Name Age of Onset Colon Cancer Neg Hx Social Hx: Social History Socioeconomic History Marital status: Spouse name: Not on file Number of children: Not on file Years of education: Not on file Highest education level: Not on file Occupational History Not on file Tobacco Use Smoking status: Every Day Current packs/day: 0.00 Types: Cigarettes Last attempt to quit: 03/23/2021 Years since quittin.7 Passive exposure: Past Smokeless tobacco: Never Tobacco comments: A couple of cigarettes a day Vaping Use Vaping status: Never Used Substance and Sexual Activity Alcohol use: No Drug use: No Sexual activity: Not Currently Other Topics Concern Not on file Social History Narrative Not on file Social Drivers of Health Food Insecurity: Not on file (10/27/2024) Transportation Needs: No Transportation Needs (10/27/2024) Transportation Needs Patient needs follow up regarding:: 1 Feeling Safe: Not At Risk (10/27/2024) Feeling Safe Patient has indicated abuse: : No Housing Stability: Not on file Review of Systems: Complete review of systems was performed, empty boxes indicate negative responses. Gastrointestinal [] Constipation [] Blood in stool [] Diarrhea [x] Abdominal pain [] Nausea [] Vomiting Constitutional [] Fatigue [] fever [] Weakness [] Weight loss Genitourinary [] Blood in urine [] Frequency [] Painful urination [] Urgency Skin [] Itching [] Jaundice / Yellow skin [] Psoriasis / Ecxema [] Rash Musculoskeletal [] Back pain [] Joint pain [] Muscle weakness [] Neck pain Head/ENT [] Congestion [] Headaches [] Hearing loss [] Nose Bleeds [] Sore throat Hematologic [] Abnormal bleeding [] Abnormal brusing [] Enlarged lymph nodes [] Use of blood thinners Respiratory [] Cough [] Shortness of breath [] Sputum production [] Wheezing Neurological [] Dizziness [] Loss of consiousness [] Seizures [] Speech chage Cardiovascular [] Chest pain [] Heart failure [] Leg cramps with walking [] Palpitations Psychiatric [] Alcohol use [] Depression [] Nervousness / Anxiety [] Sleep disturbance Physical Exam: Vitals Vitals: 12/30/24 1247 BP: (!) 142/84 BP Location: Right arm Patient Position (BP): Sitting BP Cuff Size: Adult Pulse: 63 Temp: 98.3 ??F (36.8 ??C) TempSrc: Temporal SpO2: 98% Weight: 68.9 kg (152 lb) Height: 5' 2 (1.575 m) General appearance: awake, alert, oriented, answers questions appropriately. Body mass index is 27.8 kg/m??. Head: atraumatic, Normocephalic, without obvious abnormality Eyes: conjunctivae/corneas clear, sclera non icteric Neck: neck is supple, trachea is midline. No masses identified. Lungs: normal respiratory effort Heart: No JVD Abdomen: Soft, non-distended Extremities: extremities normal, atraumatic, no cyanosis or edema Neurologic: Grossly normal Musculoskeletal: no deformity or swelling Skin: Warm and dry without jaundice Anal: deferred Procedures: none Labs: Lab Results Component Value Date WBC 9.6 11/01/2024 HGB 9.4 (L) 11/01/2024 HCT 29.2 (L) 11/01/2024 PLT 385 11/01/2024 MCV 91.5 11/01/2024 Lab Results Component Value Date NA 141 11/01/2024 K 3.6 11/01/2024 CL 108 (H) 11/01/2024 CO2 22 11/01/2024 CA 8.3 (L) 11/01/2024 BUN 11 11/01/2024 CREAT 0.99 (H) 11/01/2024 GLUCOSE 133 (H) 11/01/2024 TOTALPROTEIN 6.1 (L) 11/01/2024 ALBUMIN 2.3 (L) 11/01/2024 BILITOTAL <0.2 11/01/2024 ALKPHOS 139 (H) 11/01/2024 AST 42 (H) 11/01/2024 ALT 19 11/01/2024 ANIONGAP 11 11/01/2024 Results for orders placed during the hospital encounter of 10/27/24 CT ABSCESS DRAIN PERCUTANEOUS Impression : Please see below. Date: 10/30/2024 11:11 AM . Reason For Exam: abscess, Other - Please see comments. Diagnosis: See Reason for Exam. . Insight Leader: Dr. Rivera . Moderate (conscious) sedation for this procedure was performed with continuous physician supervision. Medical history, physical exam, drug dosages, routes of drug administration, monitoring data, and precise times of service are documented in the medical record on the [facility]-approved form, 'Sedative/Analgesic Administration for Diagnostic and Therapeutic Procedures'. Please see separate nursing documentation for duration and drug dosages. PROCEDURE AND FINDINGS: Successful CT guided aspiration of a small fluid collection interposed between the sigmoid colon and bladder. . Access site: Left lower quadrant . Contrast: None. . Complication/s: None.. Estimated Blood Loss: Minimal. . Technique: Prior to the procedure, the risks of bleeding, infection, and damage to adjacent structures were explained to the patient. The patient stated an understanding of these risks and wished to continue with the procedure at that time. A time-out was obtained prior to procedure. The patient was placed supine on the CT table and the fluid collection between the sigmoid colon and bladder was localized under CT guidance. The patient was prepped and draped in the usual sterile fashion. 5 cc of 1% lidocaine was utilized to anesthetize the overlying skin and soft tissues. Thereafter, a 5 [place]gr[place] Yueh catheter was advanced through the skin and soft tissues to the fluid collection without difficulty. 5 to 6 mL of serous fluid was aspirated. The collection largely resolved. Given its small size and serous nature, no drain was placed. The Yueh catheter was removed. The patient tolerated the procedure well. ++++++++++++++++++++ IMPRESSION: Successful CT-guided aspiration of the small fluid collection between the sigmoid colon and bladder. Culture and gram stain of the aspirated material were sent. Assessment: 74 y.o.Female (BMI:Body mass index is 27.8 kg/m??.) with a history of complicated diverticulitis Plan: We had a lengthy discussion about the nature and treatment of diverticulitis. Specifically wediscussed situations in which surgery may be advisable. Severe attacks, especially those complicated by perforation or abscess, multiply recurrent attacks, or chronic diverticulitis are all acceptable indications. she does meet criteria to consider surgery for divertculitis We also discussed what surgery for diverticulitis entails. We discussed risks and benefits of a minimally invasive sigmoid colectomy. Risks including but not limited to bleeding, infection, damage toother structures (particularly the ureters), anastomotic leak resulting in sepsis/ostomy/, from medical or surgical problems. We also discussed that surgery decreases the risk of future diverticulitis but does not eliminate it entirely. I have emphasized that this is a major surgical procedure. Recovery discussed. The patient was given the option of avoiding the procedure. All questions answered. Consent obtained. Medical Decision Making: High complexity Signed: Nurys Pineda DO Colon & Rectal Surgery Office: documented in this encounter Procedure Notes * Colton Barry RN - 02/16/2025 1:26 AM CDT VASCULAR ACCESS NOTE Midline PATIENT NAME: Valerie Ferro DATE OF : 1950 [facility]: [id number] DATE: 02/16/2025 Room: [address] [place] [address] Admit Date: 02/15/2025 Hospital day: LOS: 1 day LINE STATUS: A Midline catheter was successfully inserted and can be used Adult Midline Catheter 02/16/25125 Left: basilic vein (Active) 02/16/25125 basilic vein Earliest Known Present: Present on Admission: Orientation: Left: Size: Number of Insertion Attempts: 1 Insertion: Patient Tolerance: tolerated well Insertion: Pain Prevention: distraction Power Injectable Compatable: Yes Earliest Known Removed: Removal Indication: Removal Interventions: *Procedural Assist Insertion of Midline catheter WO SQ port >5 yrs 02/16/25125 Midline Catheter (WDL) WDL 02/16/25125 Extremity Circumference, Mid-Upper (cm) 31 02/16/25125 Patency flushes w/o difficulty;positive blood return 02/16/25125 Line Interventions system flushed;antimicrobial cap/s in place or applied to line and/or tubing;IV capped;aspirate returned 02/16/25125 Dressing Type/Securement transparent semipermeable dressing;secured with tape;site adhesive 02/16/25125 Dressing Changed Date 02/16/25 02/16/25125 Needleless Connector Changed Date 02/16/25 02/16/25125 Line Criteria Poor venous access 02/16/25125 Number of days: 0 MIDLINE PROCEDURE A Time Out process was completed prior to the midline placement procedure confirming correct patient, correct procedure site, and correct procedure being performed. Ultrasound assessment was performed to assess adequacy of vascular anatomy Adequate vessel was located with less than 45% catheter to vein ratio. Insertion site cleansed for 30 seconds with Chlora-prep Allowed to dry before initial needle stick. A midline was inserted in the basilic vein of the left upper arm using ultrasound guidance under sterile technique. 18 gauge, 10 cm Secure port adhesive used Yes 1 attempts 45 minutes required to complete procedure Positive blood return visualized. Neutral pressure cap applied Catheter flushed easily with 5ml of Normal Saline Transparent antimicrobial stabilization dressing applied Antimicrobial cap placed Dressing with date, time and initials of RN Patient tolerated procedure well. Primary care nurse notified of catheter placement Colton Asha, RN CARE AND MAINTENANCE This is not a central line. NO BLOOD PRESSURES on arm with powerglide Requires physician order for blood draws The midline is indicated for use as a peripheral IV access only Can remain in place UP TO 29 DAYS as long as catheter insertion site and extremity remain asymptomatic The midline is CT injectable with a maximum pressure of 325psi with rate of 5ml/sec (20 gauge), and7ml/sec (18 gauge) Securely apply neutral OR positive pressure cap when not in use. Flush catheter with 10ml normal saline before blood draw, after every use, and EVERY 12 HOURS for all in-patients Flush catheter once weekly when not in use(outpatient setting). Flush catheter using pulsating start-stop technique Always use 10ml syringe After blood sampling, flush catheter with 20ml normal saline Change dressing every 7 days and as needed using sterile technique documented in this encounter Consult Notes * Silvia Weathers RN - 02/19/2025 3:18 PM CDT Images from the original note were not included. Ostomy Team Note Today's Date: 02/19/2025 Name: Valerie Frero Date of : 1950 Date/time of admission: 02/15/2025 7:48 AM Hospital day: LOS: 4 days Room: [address] [place] [address] Patient Seen For: Education Troubleshooting Site Evaluation Ileostomy 02/15/25 (Active) Stoma Appearance red;moist;protruding above skin level 02/19/25 1315 Appliance 2-piece;changed;per protocol 02/19/25 1315 Accessories/Skin Care cleansed w/ soap and water 02/19/25 1315 Stoma Function stool 02/19/25 1315 Peristomal Skin intact w/o breakdown 02/19/25 1315 Ileostomy Output (mL) 50 mL 02/19/25 1315 Stool Color-Ileostomy light brown 02/19/25 1315 Stool Consistency-Ileostomy seedy;liquid 02/19/25 1315 Tolerance no signs/symptoms of discomfort 02/19/25 1315 Number of days: 4 Current products used 2 piece coloplast red flat with ring Pt/caregiver Education Evaluation Legend 1 - patient and/or caregiver and do independently 2 - needs some help 3 - needs a lot of help, Recommend home care Skills Check-off Nurse evaluation Empty the pouch a. Empty pouch when it is 1/3 to ?? full b. Assemble supplies before emptying: toilet paper, pouch c. Raise and open the pouch d. Lower the opening into the toilet and empty e. Wipe the opening before resealing g. Close the pouch 1 Remove the old pouch a. Assemble supplies for pouch change: new pouch, towel, scissors, disposable bag b. Remove the outer adhesive by starting at one corner c. Place one hand on skin and push down while your other hand lifts up the barrier d. Place the old pouch in a garbage bag 1 Clean and inspect the skin a. Check the skin for color, bleeding, and irritation b. Clean the skin around the stoma with warm water c. Pat the skin dry 1 Measure and cut the Appliance c. Use the template to trace the correct size on the back of the pouch barrier d. Cut the traced opening e. Check for fit: center the pouch over stoma, ensuring it is close to the stoma edge 1 Apply the New Pouch a. Remove the backing from the pouch barrier b. Keep the backing to use as your next template d. Remove gauze or tissue placed over the stoma e. Center and apply the pouch skin barrier around the stoma f. Gently press onto the skin for at least 60 seconds, smoothing any creases g. Correctly close the bottom of the pouch 1 [place] for an ostomy program - contact one of the following companies [employer]: , www.[employer] Coloplast: , [email or web address]: , secure.[employer] Order supplies by contacting a DME company of your choice Notes: Patient did not want to participate in ostomy teaching or even look at ostomy at all. She did not want to know how to empty, burp, change, or order supplies. She stated son's girlfriend was going to care for ostomy. I explained the appliance may need to be emptied about 5 times or maybe more daily.She still did not want any education. Son and son's daughter live across the street from patient. Son's girlfriend did well with ostomy change and she asked appropriate questions. Reviewed sample/order sheet. Extra supplies at bedside. Reviewed how to use blaine supplies also. Bridge removed. Time with patient: 35 minutes Silvia Weathers RN Please call hospital long lines operator to have seafood service team member paged with questions or needs. [phone] * Shira Ramos RN - 02/18/2025 2:10 PM CDT Images from the original note were not included. Ostomy Team Note Today's Date: 02/18/2025 Name: Valerie Ferro Date of : 1950 Date/time of admission: 02/15/2025 7:48 AM Hospital day: LOS: 3 days Room: [address] [place] [address] Patient Seen For: Education Troubleshooting Supply Needs Site Evaluation Ileostomy 02/15/25 (Active) Stoma Appearance moist;swollen;pink;protruding above skin level;bridge in place 02/18/25 1400 Appliance 2-piece;intact;no leakage 02/18/25 1400 Peristomal Skin unable to assess, covered by appliance 02/18/25 1400 Ileostomy Output (mL) 275 ml 02/18/25 1400 Color-Ileostomy Watery yellow 02/18/25 1400 Tolerance no signs/symptoms of discomfort 02/18/25 1400 Number of days: 3 Current products used Coloplast red flat with barrier ring, Patient may benefit from Blaine product due to possible difficulty in applying pouch to wafer. Family caregiver Education Evaluation Legend 1 - patient and/or caregiver and do independently 2 - needs some help 3 - needs a lot of help, Recommend home care Skills Check-off Nurse evaluation Empty the pouch a. Empty pouch when it is 1/3 to ?? full b. Assemble supplies before emptying: toilet paper, pouch c. Raise and open the pouch d. Lower the opening into the toilet and empty e. Wipe the opening before resealing g. Close the pouch 2 Remove the old pouch a. Assemble supplies for pouch change: new pouch, towel, scissors, disposable bag b. Remove the outer adhesive by starting at one corner c. Place one hand on skin and push down while your other hand lifts up the barrier d. Place the old pouch in a garbage bag 2 Clean and inspect the skin a. Check the skin for color, bleeding, and irritation b. Clean the skin around the stoma with warm water c. Pat the skin dry 2 Measure and cut the Appliance c. Use the template to trace the correct size on the back of the pouch barrier d. Cut the traced opening e. Check for fit: center the pouch over stoma, ensuring it is close to the stoma edge 2 Apply the New Pouch a. Remove the backing from the pouch barrier b. Keep the backing to use as your next template d. Remove gauze or tissue placed over the stoma e. Center and apply the pouch skin barrier around the stoma f. Gently press onto the skin for at least 60 seconds, smoothing any creases g. Correctly close the bottom of the pouch 2 Order supplies by contacting a [employer] company of your choice 3 Notes: Ostomy nurse present in room for ostomy assessment. The bag was almost full of watery yellow fluid.Patient denies any discomfort at this time. Patient also has a Berger catheter present with yellow urine, but requested that staff notify Dr. Pineda or other provider of yellow appearing drainage. Patienthad just come back recently from a urologic procedure, but unaware of what her ostomy drainage looked like prior to procedure. Photos were taken and are in media tab. No family present today, but family had changed appliance yesterday . Patient has already stated that they will be able to help her when she is discharged to home. Patient states that she and her sonboth have very weak stomachs and she still thinks she will not be able to take care of it herself. Patient states that her family should be coming in tomorrow morning for additional education and shehopes to be discharged. Asked staff to have skin/ostomy team paged once family arrives tomorrow. Noquestions or concerns from patient. Skin and Ostomy Team will continue to follow for teaching opportunities. Patient would benefit from home health care to assist with patient and family ostomy care Time with patient: 45 minutes Jovana Ramos RN Please call hospital long lines operator to have seafood service team member paged with questions or needs. [phone] Fluid from ostomy Fluid from ostomy * Shira Ramos RN - 02/18/2025 10:09 AM CDT Ostomy nurse on 5B and attempted to see patient for Ostomy education. Patient is presently off floor for a procedure. Ostomy nurse will attempt to see patient later today. Jovana Ramos RN Ostomy/Skin/Burn Please call long lines operator at [phone] to page skin/ostomy team if needed. * Moisés Ernandez MD - 02/18/2025 9:13 AM CDT UROLOGY CONSULT/HISTORY & PHYSICAL EXAM Patient: Valerie Ferro / 74 y.o. / female : 1950 Chief Complaint: Left hydronephrosis, elevated creatinine post colon surgery History of Present Illness: Valerie Ferro is a 74 y.o. year-old female admitted following low anterior resection with diverting loop ileostomy on 02/15/2025. She has a known solitary left kidney and underwent ureter stentinsertion with retrograde pyelogram while admitted for abscess and acute diverticulitis a few months ago. The stent was then removed a few weeks later in our office. At that time, retrograde pyelogram showed a dilated ureter down to about the level of the juncture near the mid and distal region. Creatinine has been elevated since her colon surgery during this hospitalization but was normal at theend of her hospital stay in October. There are no comparisons since the previous hospitalization regarding her creatinine. There is low suspicion of ureter or bladder injury, but urology was consulted due to the solitary kidney and pelvic surgery. This morning, patient is having nausea and vomiting andfeels very poorly. She denies significant flank pain. 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 [place] COLONOSCOPY W/BIOPSY SINGLE/MULTIPLE N/A 01/06/2025 COLONOSCOPY performed by Nurys Pineda DO at [facility] [place] COLSC FLX W/RMVL OF TUMOR POLYP LESION SNARE TQ N/A 01/06/2025 COLONOSCOPY performed by Nurys Pineda DO at [facility] [place] CYSTO W/INSERT URETERAL STENT Left 10/31/2024 CYSTOURETHROSCOPY URETERAL STENT INSERTION performed by Romeo Mathias MD at [facility] MA[facility] OR XR RETROGRADE PYELOGRM W WO KUB Left 10/31/2024 PYELOGRAM RETROGRADE performed by Romeo Mathias MD at [facility] MA[facility] OR No current facility-administered medications on file prior to encounter. Current Outpatient Medications on File Prior to Encounter Medication Sig Dispense Refill metroNIDAZOLE (FLAGYL) 500 mg tablet Take 1 Tablet (500 mg) by mouth 3 times daily. 30 Tablet 0 levoFLOXacin (LEVAQUIN) 500 mg tablet Take 1 Tablet (500 mg) by mouth daily. 10 Tablet 0 Allergies Allergen Reactions Penicillins Other (See Comments) Passed out Family History Problem Relation Name Age of Onset Colon Cancer Neg Hx Social History Socioeconomic History Marital status: Spouse name: Not on file Number of children: Not on file Years of education: Not on file Highest education level: Not on file Occupational History Not on file Tobacco Use Smoking status: Every Day Current packs/day: 0.00 Types: Cigarettes Last attempt to quit: 03/23/2021 Years since quittin.9 Passive exposure: Past Smokeless tobacco: Never Tobacco comments: A couple of cigarettes a day Vaping Use Vaping status: Never Used Substance and Sexual Activity Alcohol use: No Drug use: No Sexual activity: Not Currently Other Topics Concern Not on file Social History Narrative Not on file Social Drivers of Health Food Insecurity: Not on file (10/27/2024) Transportation Needs: No Transportation Needs (10/27/2024) Transportation Needs Patient needs follow up regarding:: 1 Feeling Safe: Not At Risk (02/15/2025) Feeling Safe Patient has indicated abuse: : No Housing Stability: Not on file Review of Systems: 12 point ROS otherwise negative. Physical Examination: Constitutional: Nontoxic appearing. No acute distress. Head: Normocephalic, atraumatic. Eyes: Extraocular movements intact, no scleral icterus. Neck: Normal range of motion. Pulmonary: Respirations unlabored on room air. No audible wheezes. Back: No abnormal lesions or CVA tenderness. Abdomen: Soft, non-tender, mildly distended. No guarding or rebound tenderness. Incisions clean dryand intact. Dermabond in place. Neurological: Alert and awake. Skin: Skin is warm and dry. No petechiae or rashes. Psychiatric: Appropriate mood and affect. Normal behavior. Labs: Chemistry Lab Results Component Value Date NA 139 02/18/2025 K 3.6 02/18/2025 CL 104 02/18/2025 CO2 19 (L) 02/18/2025 CA 9.7 02/18/2025 BUN 45 (H) 02/18/2025 CREAT 3.12 (H) 02/18/2025 GLUCOSE 149 (H) 02/18/2025 ANIONGAP 16 02/18/2025 Hematology Lab Results Component Value Date WBC 17.2 (H) 02/17/2025 HGB 8.2 (L) 02/17/2025 HCT 24.2 (L) 02/17/2025 PLT 298 02/17/2025 MCV 91.0 02/17/2025 Imaging: Renal ultrasound and prior CT scans reviewed. Assessment: 74-year-old female with solitary left kidney, recurrent diverticulitis with pelvic abscess who underwent a low anterior resection a couple of days ago. Her creatinine has been significantly elevated since surgery, and she is having nausea and vomiting. Urology consulted for endoscopic evaluation. Idiscussed with the patient that there is concern for potential of ureter or bladder injury and absorption of creatinine into the abdomen through a urine leak. However, there may be obstruction as well given her prior retrograde pyelogram findings. Acute kidney injury from a medical perspective is also in the differential. Patient understands that there is a wide range of possibilities, and we will address those in the operating room. It could be as simple as left ureter stent insertion but could be as complex as cystorrhaphy or ureteral reimplantation. Patient verbalized understanding and elects to proceed. Plan: Cystoscopy, left retrograde pyelogram, ureter stent insertion Robotic cystorrhaphy and left ureteral reimplant, if indicated Signed: Moisés Ernandez MD 02/18/2025, 9:13 AM Portions of this document were created using DE[employer]workers compensation claims assistant software. * Génesis Bethea DO - 02/18/2025 8:44 AM CDT Nephrology Consult Patient is seen in consultation for jovani due to obstruction as requested by Dr. Pineda. she is a 74 y.o.female admitted by Dr. Pineda for diverticulitis with colovaginal fistula on 02/15/2025. Had loop ileostomy on 02/15. At that time she had noted jovani with a creat of 3.5, her baseline is 9.9. On day of consult creat 3.12. 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 Noted to have hydroureter in November. She still has same and it is unchanged. She had normal gfr in October, no labs until this admit. No hydron on ct in October. No urine studies available to review. Meds and allergies reviewed. Chart and problem list reviewed. Labs that are available reviewed. Past Surgical History: Procedure Laterality Date HX KNEE ARTHROSCOPY 1981 HX VAGINAL HYSTERECTOMY W/ ANTERIOR AND POSTERIOR VAGINAL REPAIR 1981 [place] COLONOSCOPY FLX DX W/COLLJ SPEC WHEN PFRMD N/A 01/06/2025 COLONOSCOPY performed by Nurys Pineda DO at [facility] [place] IA COLONOSCOPY W/BIOPSY SINGLE/MULTIPLE N/A 01/06/2025 COLONOSCOPY performed by Nurys Pineda DO at [facility] [place] IA COLSC FLX W/RMVL OF TUMOR POLYP LESION SNARE TQ N/A 01/06/2025 COLONOSCOPY performed by Nurys Pineda DO at [facility] [place] IA CYSTO W/INSERT URETERAL STENT Left 10/31/2024 CYSTOURETHROSCOPY URETERAL STENT INSERTION performed by Romeo Mathias MD at [facility] MAIN OR XR RETROGRADE PYELOGRM W WO KUB Left 10/31/2024 PYELOGRAM RETROGRADE performed by Romeo Mathias MD at [facility] MAIN OR Past Medical History: Diagnosis Date Diverticulitis of intestine with abscess 10/2024 GERD (gastroesophageal reflux disease) Single kidney has left kidney, right one missing by Social History Tobacco Use Smoking status: Every Day Current packs/day: 0.00 Types: Cigarettes Last attempt to quit: 03/23/2021 Years since quittin.9 Passive exposure: Past Smokeless tobacco: Never Tobacco comments: A couple of cigarettes a day Substance Use Topics Alcohol use: No Family History Problem Relation Name Age of Onset Colon Cancer Neg Hx Facility-Administered Medications Prior to Admission Medication Dose Route Frequency Provider Last Rate Last Admin ciprofloxacin HCl (CIPRO) tablet 500 mg 500 mg Oral ONE time only Julieta Roth FNP Medications Prior to Admission Medication Sig Dispense Refill Last Dose/Taking sodium, potassium and magnesium SULFATES (Suprep Bowel Prep Kit) 17.5-3.13-1.6 gram Recon Soln Follow directions from clinic 354 mL 0 02/14/2025 neomycin (MYCIFRADIN) 500 mg tablet Day before surgery take 1 tablet at 1pm, 2pm, 10pm 3 Tablet 0 02/14/2025 metroNIDAZOLE (FLAGYL) 500 mg tablet Take 1 Tablet (500 mg) by mouth 3 times daily. 30 Tablet 0 02/14/2025 peg 3350-electrolytes (GOLYTELY) 236-22.74-6.74 -5.86 gram Recon Soln Please follow instructions from clinic 1 Each 0 ondansetron (ZOFRAN ODT) 4 mg Tablet, Rapid Dissolve Take 1 Tablet (4 mg) by mouth every 8 hours asneeded for Nausea/Emesis. Dissolve tablet on top of tongue, then swallow with saliva. 6 Tablet 0 levoFLOXacin (LEVAQUIN) 500 mg tablet Take 1 Tablet (500 mg) by mouth daily. 10 Tablet 0 has a current medication list which includes the following prescription(s): walker, sodium, potassium and magnesium sulfates, neomycin, metronidazole, peg 3350-electrolytes, ondansetron, and levofloxacin, and the following Facility- Administered Medications: famotidine PF (PEPCID) 40 mg in sodium chloride 0.9% 10 mL injection, calcium as carbonate, sodium chloride, sodium chloride, heparin, naloxone, acetaminophen, ondansetron, prochlorperazine maleate, prochlorperazine maleate, magnesium oxide,alvimopan, oxycodone, oxycodone, and hydromorphone (pf). Review of Systems - General ROS: positive for - fatigue Respiratory ROS: negative for cough, shortness of breath, or wheezing Cardiovascular ROS: negative for chest pain or dyspnea on exertion Gastrointestinal ROS: positive for - nausea/vomiting Genito-Urinary ROS: negative for dysuria, trouble voiding, or hematuria Musculoskeletal ROS: negative for back pain, neck pain or joint pain or swelling All others are negative Physical Exam BP (!) 146/84 (BP Location: Right arm, Patient Position (BP): Supine) Pulse 82 Temp 98.3 ??F (36.8 ??C) (Temporal) Resp 16 Ht 5' 2 (1.575 m) Wt 66.6 kg (146 lb 14.4 oz) SpO2 95% No BMI 26.87 kg/m?? Intake/Output Summary (Last 24 hours) at 02/18/2025 0845 Last data filed at 02/18/2025 0220 Gross per 24 hour Intake 200 ml Output 1325 ml Net -1125 ml BP (!) 146/84 (BP Location: Right arm, Patient Position (BP): Supine) Pulse 82 Temp 98.3 ??F (36.8 ??C) (Temporal) Resp 16 Ht 5' 2 (1.575 m) Wt 66.6 kg (146 lb 14.4 oz) SpO2 95% No BMI 26.87 kg/m?? General: Alert, cooperative, no distress, appears stated age. Head: Normocephalic, without obvious abnormality, atraumatic. Eyes: Conjunctivae/corneas clear. PERRL, EOMs intact. Neck: Supple, symmetrical, trachea midline, no adenopathy, thyroid: no enlargment/tenderness/nodules, no carotid bruit and no JVD. Lungs: Clear to auscultation bilaterally. Chest wall: No deformity or tenderrnss Heart: Regular rate and rhythm, S1, S2 normal, no murmur, click, rub or gallop. Abdomen: Soft, non-tender. Bowel sounds normal. No masses, No organomegaly. : deferrd Extremities: Extremities normal, atraumatic, no cyanosis or edema. Pulses: 2+ and symmetric all extremities. Skin: Skin color, texture, turgor normal. No rashes or lesions. NEURO: nonfocal BACK: no kyphosis or scoliosis ASSESMENT/PLAN Jovani- due to obstruction- the hydro has been there since November. She may have or be developing atn- unclear Needs cysto per urology- this is planned Avoid nsaids Daily I and o Daily lab 2. Hypokalemia-repaced and improving Check mag 3. Acidosis - mild- getting lr, -continue bolus Génesis Bethea DO * Lainey Culver RN - 02/17/2025 2:27 PM CDT Images from the original note were not included. Ostomy Team Note Today's Date: 02/17/2025 Name: Valerie Ferro Date of : 1950 Date/time of admission: 02/15/2025 7:48 AM Hospital day: LOS: 2 days Room: [address] [place] [address] Patient Seen For: Education Troubleshooting Supply Needs Site Evaluation Ileostomy 02/15/25 (Active) Stoma Appearance moist;protruding above skin level;bridge in place;cocopah appearance 02/17/25 1215 Appliance 2-piece;changed 02/17/25 1215 Stoma Function flatus;stool 02/17/25 1215 Peristomal Skin intact w/o breakdown 02/17/25 1215 Ileostomy Output (mL) 25 mL 02/17/25 1215 Stool Color-Ileostomy light brown 02/17/25 1215 Stool Consistency-Ileostomy liquid 02/17/25 1215 Tolerance no signs/symptoms of discomfort 02/17/25 1215 Number of days: 2 Current products used 2 piece, Coloplast red flat with ring Pt/caregiver Education Evaluation Legend 1 - patient and/or caregiver and do independently 2 - needs some help 3 - needs a lot of help, Recommend home care Skills Check-off Nurse evaluation Empty the pouch a. Empty pouch when it is 1/3 to ?? full b. Assemble supplies before emptying: toilet paper, pouch c. Raise and open the pouch d. Lower the opening into the toilet and empty e. Wipe the opening before resealing g. Close the pouch 1 Remove the old pouch a. Assemble supplies for pouch change: new pouch, towel, scissors, disposable bag b. Remove the outer adhesive by starting at one corner c. Place one hand on skin and push down while your other hand lifts up the barrier d. Place the old pouch in a garbage bag 1 Clean and inspect the skin a. Check the skin for color, bleeding, and irritation b. Clean the skin around the stoma with warm water c. Pat the skin dry 1 Measure and cut the Appliance c. Use the template to trace the correct size on the back of the pouch barrier d. Cut the traced opening e. Check for fit: center the pouch over stoma, ensuring it is close to the stoma edge 1 Apply the New Pouch a. Remove the backing from the pouch barrier b. Keep the backing to use as your next template d. Remove gauze or tissue placed over the stoma e. Center and apply the pouch skin barrier around the stoma f. Gently press onto the skin for at least 60 seconds, smoothing any creases g. Correctly close the bottom of the pouch 1 [place] for an ostomy program - contact one of the following companies [employer]: , www.[employer] Coloplast: , www.[employer] Blaine: , [employer] 1 Order supplies by contacting a DME company of your choice 1 Notes: Patient's sons girlfriend, Breanne did ostomy appliance change with some coaching. She also had watched videos and did practice cutting of wafer yesterday. She has done the emptying of appliance and feels comfortable with that. I reviewed with her and patient when appliance needs emptying and when it needs to be changed completely. Also reviewed stoma care and when to notify physician. Reviewed ordering of samples and supplies and also ordered supplies from [facility] for first few weeks at home. Skin and Ostomy Team will continue to follow for teaching opportunities. Time with patient: 45 Lainey Culver RN Please call hospital long lines operator to have seafood service team member paged with questions or needs. [phone] * Shira Ramos RN - 02/16/2025 6:00 PM CDT Ostomy Team Note Today's Date: 02/16/2025 Name: Valerie Ferro Date of : 1950 Date/time of admission: 02/15/2025 7:48 AM Hospital day: LOS: 1 day Room: [address] [place] [address] Ostomy nurse was present in unit to give patient an ostomy teaching kit and family were present at bedside, requesting education. Patient feels like and plans to not take care of her ostomy. She and family states that they live very close , next door to her, so they will learn how to take care of ostomy and assist patient. Site Evaluation Current products used Salida 2 piece Pt/caregiver Education Evaluation Legend 1 - patient and/or caregiver and do independently 2 - needs some help 3 - needs a lot of help, Recommend home care Skills Check-off Nurse evaluation Empty the pouch a. Empty pouch when it is 1/3 to ?? full b. Assemble supplies before emptying: toilet paper, pouch c. Raise and open the pouch d. Lower the opening into the toilet and empty e. Wipe the opening before resealing g. Close the pouch 3 Remove the old pouch a. Assemble supplies for pouch change: new pouch, towel, scissors, disposable bag b. Remove the outer adhesive by starting at one corner c. Place one hand on skin and push down while your other hand lifts up the barrier d. Place the old pouch in a garbage bag 3 Clean and inspect the skin a. Check the skin for color, bleeding, and irritation b. Clean the skin around the stoma with warm water c. Pat the skin dry 3 Measure and cut the Appliance c. Use the template to trace the correct size on the back of the pouch barrier d. Cut the traced opening e. Check for fit: center the pouch over stoma, ensuring it is close to the stoma edge 3 Apply the New Pouch a. Remove the backing from the pouch barrier b. Keep the backing to use as your next template d. Remove gauze or tissue placed over the stoma e. Center and apply the pouch skin barrier around the stoma f. Gently press onto the skin for at least 60 seconds, smoothing any creases g. Correctly close the bottom of the pouch 3 [place] for an ostomy program - contact one of the following companies [employer]: , www.[email or web address] Coloplast: , [email or web address] [employer]'m Here Salida: , [employer] 3 Order supplies by contacting a DME company of your choice 3 Notes: Education provided to family regarding emptying and changing appliance. Her son's significant otheris the one who is planning to help take care of her, but will also try to get others involved sinceshe works. She was given ostomy appliance samples so she can take home to practice. She was given ademonstration of emptying the appliance and will plan to practice that when possible. Discussed Salida and Coloplast, and they feel Salida might be easier to do. Supplies were ordered from [facility] . Discussed how to order samples and supplies with them, but they might need assistance, since this is the first day post op and first time they have received education. Skin and Ostomy Team will continue to follow for teaching opportunities. Time with patient: 45 minutes Jovana Ramos RN Please call hospital long lines operator to have seafood service team member paged with questions or needs. [phone] * Shira Ramos RN - 02/16/2025 11:40 AM CDTAssociated Order(s): IP CONSULT TO OSTOMY NURSE Ostomy Team Note Today's Date: 02/16/2025 Name: Valerie Ferro Date of : 1950 Date/time of admission: 02/15/2025 7:48 AM Hospital day: LOS: 1 day Room: 5168/02 Patient Seen For: Education Site Evaluation Ileostomy 02/15/25 (Active) Stoma Appearance swollen;moist;pink;bridge in place;protruding above skin level 02/16/251124 Appliance 2-piece;intact;no leakage 02/16/251124 Stoma Function stool 02/16/251124 Peristomal Skin unable to assess, covered by appliance 02/16/251124 Stool Color-Ileostomy brown 02/16/251124 Stool Consistency-Ileostomy watery 02/16/25 112 Current products used Two piece [place], flat . Has bridge in place Pt/caregiver Education Evaluation Legend 1 - patient and/or caregiver and do independently 2 - needs some help 3 - needs a lot of help, Recommend home care Skills Check-off Nurse evaluation Empty the pouch a. Empty pouch when it is 1/3 to ?? full b. Assemble supplies before emptying: toilet paper, pouch c. Raise and open the pouch d. Lower the opening into the toilet and empty e. Wipe the opening before resealing g. Close the pouch 3 Remove the old pouch a. Assemble supplies for pouch change: new pouch, towel, scissors, disposable bag b. Remove the outer adhesive by starting at one corner c. Place one hand on skin and push down while your other hand lifts up the barrier d. Place the old pouch in a garbage bag 3 Clean and inspect the skin a. Check the skin for color, bleeding, and irritation b. Clean the skin around the stoma with warm water c. Pat the skin dry 3 Measure and cut the Appliance c. Use the template to trace the correct size on the back of the pouch barrier d. Cut the traced opening e. Check for fit: center the pouch over stoma, ensuring it is close to the stoma edge 3 Apply the New Pouch a. Remove the backing from the pouch barrier b. Keep the backing to use as your next template d. Remove gauze or tissue placed over the stoma e. Center and apply the pouch skin barrier around the stoma f. Gently press onto the skin for at least 60 seconds, smoothing any creases g. Correctly close the bottom of the pouch 3 [place] for an ostomy program - contact one of the following [employer]: , [email or web address] [employer]'m Here Coloplast: , [email or web address] Blaine: , secure.[employer] 3 Order supplies by contacting a [employer] company of your choice 3 Notes: Patient stated that she has been in a lot of pain, but doesn't want to take pain pills because she has heard of what those do to people . Patient did take Tylenol recently. Patient states she is having a hard time getting out of bed due to the pain. Discussed pain management with patient , but patient still declines any other pain management options. Patient was instructed on how to splint with pillow to help when she needs to cough . Patient was encouraged to discuss pain management issues with her nurse and physician. Patient states that she doesn't have anyone at home to help her with her ostomy care. Discussed possible home health nurse option and encouraged patient to also speak with staff regarding her options for assistance upon discharge. Teaching kit given to patient. Skin and Ostomy Team will continue to follow for teaching opportunities. Total time:45 minutes Jovana Ramos RN Please call hospital long lines operator to have seafood service team member paged with questions or needs. [phone] * Colton Barry RN - 02/16/2025 12:54 AM CDTAssociated Order(s): IP CONSULT TO IV TEAM VASCULAR ACCESS CONSULT PATIENT NAME: Valerie Ferro DATE OF : 1950 CSN: [id number] DATE: 02/16/2025 Room: [address] [place] [address] Admit Date: 02/15/2025 Hospital day: LOS: 1 day INDICATION: Poor Access, continuous IV fluids, IV fluid bolus ordered, IV antibiotics EXCLUSIONS/CONSIDERATIONS: none noted in chart LAST RECORDED TEMP: Temp: 97.2 ??F (36.2 ??C) (02/15/25 0236)] Assessment Allergies Allergen Reactions Penicillins Other (See Comments) Passed out Lab Results Component Value Date/Time CREAT 3.58 (H) 02/15/2025 04:45 PM BUN 51 (H) 02/15/2025 04:45 PM NA 138 02/15/2025 04:45 PM K 3.6 02/15/2025 04:45 PM CL 102 02/15/2025 04:45 PM CO2 17 (L) 02/15/2025 04:45 PM GFR 13 02/15/2025 04:45 PM Lab Results Component Value Date/Time WBC 14.2 (H) 02/15/2025 04:45 PM HGB 8.6 (L) 02/15/2025 04:45 PM HCT 26.4 (L) 02/15/2025 04:45 PM PLT 303 02/15/2025 04:45 PM MCV 95.0 02/15/2025 04:45 PM Lab Results Component Value Date/Time INR 1.3 (H) 10/30/2024 08:30 AM INR 0.97 12/28/2017 12:00 AM INR ^ 12/28/2017 12:00 AM INR ^ 12/28/2017 12:00 AM PT 17.0 (H) 10/30/2024 08:30 AM PT 13.0 12/28/2017 12:00 AM PT ^ 12/28/2017 12:00 AM Past Medical History: Diagnosis Date Diverticulitis of intestine with abscess 10/2024 GERD (gastroesophageal reflux disease) Single kidney has left kidney, right one missing by Past Surgical History: Procedure Laterality Date HX KNEE ARTHROSCOPY 1981 HX VAGINAL HYSTERECTOMY W/ ANTERIOR AND POSTERIOR VAGINAL REPAIR 1981 [place] COLONOSCOPY FLX DX W/COLLJ SPEC WHEN PFRMD N/A 01/06/2025 COLONOSCOPY performed by Nurys Pineda DO at [facility] [place] COLONOSCOPY W/BIOPSY SINGLE/MULTIPLE N/A 01/06/2025 COLONOSCOPY performed by Nurys Pineda DO at [facility] [place] IA COLSC FLX W/RMVL OF TUMOR POLYP LESION SNARE TQ N/A 01/06/2025 COLONOSCOPY performed by Nurys Pineda DO at [facility] [place] IA CYSTO W/INSERT URETERAL STENT Left 10/31/2024 CYSTOURETHROSCOPY URETERAL STENT INSERTION performed by Romeo Mathias MD at [facility] MAIN OR XR RETROGRADE PYELOGRM W WO KUB Left 10/31/2024 PYELOGRAM RETROGRADE performed by Romeo Mathias MD at [facility] MAIN OR Current Facility-Administered Medications: sodium chloride 0.9 % bolus solution 500 mL, 500 mL, IV, ONE time only, Javier Chavez PA-C lactated ringers infusion, , IV, continuous, Javire Chavez PA-C [COMPLETED] acetaminophen (TYLENOL) tablet 1,000 mg, 1,000 mg, Oral, pre-proc one time, Nurys Pineda DO, 1,000 mg at 02/15/25 08 [COMPLETED] celecoxib (CeleBREX) capsule 200 mg, 200 mg, Oral, pre-proc one time, Nurys Pineda DO,200 mg at 02/15/25 08 [COMPLETED] alvimopan (ENTEREG) capsule 12 mg, 12 mg, Oral, pre-proc one time, Nurys Pineda DO, 12mg at 02/15/25827 [COMPLETED] heparin injection 5,000 Units, 5,000 Units, subCUT, intra-proc ONE time, Nurys Pineda DO, 5,000 Units at 02/15/25 1007 [COMPLETED] ceFAZolin in sterile water (ANCEF) 2 gram/20 mL IV Syringe (PREMIX) 2,000 mg, 2,000 mg,IV, pre-proc one time, 2,000 mg at 02/15/25 1002 AND [COMPLETED] metroNIDAZOLE (FLAGYL) IVPB 500 mg, 500 mg, IV, pre-proc one time, Nurys Pineda DO, Stopped at 02/15/25 0945 naloxone (NARCAN) 0.4 mg/mL injection 0.1-0.4 mg, 0.1-0.4 mg, IV, see admin instructions, Adnrew Mancini DO [COMPLETED] ondansetron (ZOFRAN) 4 mg/2 mL injection 4 mg, 4 mg, IV, post-proc one time PRN, Andrew Mancini DO, 4 mg at 02/15/25 1244 acetaminophen (TYLENOL) tablet 650 mg, 650 mg, Oral, every 6 hours, Nurys Pineda DO ondansetron (ZOFRAN) 4 mg/2 mL injection 4 mg, 4 mg, IV, every 6 hours PRN, Nurys Pineda DO prochlorperazine maleate (COMPAZINE) tablet 10 mg, 10 mg, Oral, every 6 hours PRN, Nurys Pineda DO prochlorperazine maleate (COMPAZINE) tablet 10 mg, 10 mg, Oral, every 6 hours PRN, Nurys Pineda DO magnesium OXIDE (MAG-OX) tablet 400 mg, 400 mg, Oral, daily, Nurys Pineda DO, 400 mg at 02/15/25 2219 alvimopan (ENTEREG) capsule 12 mg, 12 mg, Oral, BID, Nurys Pineda DO oxyCODONE (ROXICODONE) tablet 5 mg, 5 mg, Oral, every 4 hours PRN, Nurys Pineda DO oxyCODONE (ROXICODONE) tablet 10 mg, 10 mg, Oral, every 4 hours PRN, Nurys Pineda DO HYDROmorphone (PF) (DILAUDID) injection 0.5 mg, 0.5 mg, IV, every 1 hour PRN, Nurys Pineda DO, 0.5mg at 02/15/25 1425 enoxaparin (LOVENOX) injection 40 mg, 40 mg, subCUT, see admin instructions, Nurys Pineda DO [COMPLETED] levoFLOXacin (LEVAQUIN) 500 mg/100 mL in D5W IVPB 500 mg, 500 mg, IV, every 24 hours, Nurys Pineda DO, Stopped at 02/15/25 1654 metroNIDAZOLE (FLAGYL) IVPB 500 mg, 500 mg, IV, every 8 hours, Nurys Pineda DO, Stopped at 02/16/25 0030 [DISCONTINUED] lactated ringers infusion, , IV, continuous, Nurys Pineda DO, Stopped at 02/15/25 1401 [DISCONTINUED] sodium chloride flush injection 10 mL, 10 mL, IV, see admin instructions, Nurys Pineda DO [DISCONTINUED] lactated ringers infusion, , IV, post-proc continuous, Andrew Mancini DO [DISCONTINUED] fentaNYL PF (SUBLIMAZE) 50 mcg/mL injection 50 mcg, 50 mcg, IV, post-proc every 3 minutes PRN, Andrew Mancini DO [DISCONTINUED] HYDROmorphone (PF) (DILAUDID) injection 0.5 mg, 0.5 mg, IV, post- proc every 5 minutes PRN, Andrew Mancini DO [DISCONTINUED] BUPivacaine PF (SENSORCAINE MPF) 30 mL, sodium chloride 0.9 % 100 mL INJECTION, , , intra-proc PRN, Nurys Pineda DO, 130 mL at 02/15/25 1025 Facility-Administered Medications Ordered in Other Encounters: [DISCONTINUED] phenylephrine syringe, , IV, intra-proc PRN, Murphy Reynoso [employer]IOR CORPORATE ACCOUNTANT, 300 mcg at 02/15/25 1135 [DISCONTINUED] midazolam (VERSED) injection, , IV, intra-proc PRN, LeonidasnMurphy SENIOR CORPORATE ACCOUNTANT, 2mg at 02/15/25 0948 [DISCONTINUED] fentaNYL PF (SUBLIMAZE) 50 mcg/mL injection, , IV, intra-proc PRN, SilviaalanMurphy, SENIOR CORPORATE ACCOUNTANT, 50 mcg at 02/15/25 1227 [DISCONTINUED] lidocaine 2 % (XYLOCAINE) injection, , IV, intra-proc PRN, SilviaalanMurphy, SENIOR CORPORATE ACCOUNTANT, 20 mg at 02/15/25 1025 [DISCONTINUED] propofoL (DIPRIVAN) injection, , IV, intra-proc PRN, Murphy Reynoso, SENIOR CORPORATE ACCOUNTANT, 100 mg at 02/15/25 0957 [DISCONTINUED] rocuronium injection, , IV, intra-proc PRN, SilviaalanMurphy, SENIOR CORPORATE ACCOUNTANT, 10 mg at 02/15/25 1025 [DISCONTINUED] albumin, human (BUMINATE) 5 % injection, , IV, intra-proc PRN, Murphy Reynoso SENIOR CORPORATE ACCOUNTANT, Stopped at 02/15/25 1150 [DISCONTINUED] glycopyrrolate (ROBINUL) injection, , IV, intra-proc PRN, Murphy Reynoso, SENIOR CORPORATE ACCOUNTANT, 0.4 mg at 02/15/25 1206 [DISCONTINUED] neostigmine (BLOXIVERZ) 1 mg/mL injection, , IV, intra-proc PRN, BandalanMurphy, SENIOR CORPORATE ACCOUNTANT, 2 mg at 02/15/25 1210 [DISCONTINUED] acetaminophen (OFIRMEV) 10 mg/mL injection, , IV, intra-proc PRN, BandMurphy luke, SENIOR CORPORATE ACCOUNTANT, Stopped at 02/15/25 1225 PLAN Insert PIV Addendum: No adequate veins for a PIV. Left basilic vein good for a midline IV. New order received for a midline IV. Colton Barry RN documented in this encounter OR Notes * Operative Report - Moisés Ernandez MD - 02/18/2025 10:43 AM CDT Valerie Ferro 1950 [id number] OPERATIVE REPORT Procedure Date: 02/18/2025 Pre-op Diagnosis: Acute kidney injury Solitary left kidney Left hydronephrosis Nausea and vomiting Post-op Diagnosis: Same Procedures Performed: Cystoscopy with left retrograde pyelogram with interpretation Left ureter stent insertion Surgeon: Moisés Ernandez MD Pediatric Audiologist: None Anesthesia: General Estimated Blood Loss: 0 mL Drains: None Specimens: None Implants: 6 Montenegrin by 26 Demeter left double-J ureteral stent without strings Complications: None apparent Disposition: To recovery room Condition: Stable Findings: Normal bladder without evidence of perforation or injury. Urine seen effluxing from the left ureteric orifice on initial examination. Retrograde pyelogram showed similar findings seen back in October at the time of her stent insertion which included a mostly normal caliber distal ureter with narrowing at the juncture of the mid and distal ureter with upstream hydroureteronephrosis. There was no extravasation of contrast or evidence of ureter injury. Description of Procedure: After informed consent was obtained, the patient was taken to the OR and placed in supine position.Ancef antibiotic prophylaxis was administered. General anesthesia was administered. Patient was then transferred to the low lithotomy position, and the genitalia were prepped and draped in usual sterile fashion. A time out was performed verifying correct patient, procedure, and laterality. First, a 22 Montenegrin rigid cystoscope was advanced into the bladder without difficulty. There were noabnormalities of the urethra or bladder. The bladder was emptied of its urine. The bladder was thendistended with the irrigation fluid from the cystoscope. Careful examination was performed. The mucosa was intact. There was no ecchymosis, lesions, masses, suture material, or other concerning findings of the bladder mucosa. I do not suspect a bladder injury. We then examined the left ureteric orifice. On careful observation, it was effluxing clear urine. There was no blood. A left retrograde pyelogram was performed with a 5 Montenegrin open-ended ureteral catheter. There was normal filling of the distal ureter, and near the juncture of the mid and distal ureter, there was narrowing in relatively short segment and then upstream significant hydroureteronephrosis. When compared to the prior exam findings back in 10/2024 at the time of her initial stent insertion, it appears essentially unchanged. There was no evidence of contrast extravasation. A wire wasadvanced up to the kidney. The 5 Montenegrin catheter was then advanced into the proximal ureter. A retrograde pyelogram was performed here as well demonstrating moderately dilated renal pelvis and calyces. We instilled more contrast in the mid to proximal region of the ureter to ensure there was no extravasation here and there was not. A wire was then advanced up into the upper pole calyx. After this, a 6 Fr x 26 cm double J ureteral stent without strings was deployed under fluoroscopic guidance. There was good coil under fluoroscopy in the upper pole calyx and directly visualized coil within thebladder on cystoscopy. The bladder was drained and the scope was removed. A Uro-Jet was instilled into the urethra and an 18 Montenegrin catheter was placed. This was left to gravity drainage. This concluded the procedure. Patient was cleaned, awakened, extubated, and transferred to PACU in stable condition. Plan: - Continue Berger catheter and stent to creatinine galen. - We will then repeat a renal ultrasound to see if there has been any improvement in hydronephrosis. 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 Portions of this document were created using [employer] compensation claims assistant software. * Operative Report - Nurys Pineda DO - 02/15/2025 12:33 PM CDT Preoperative diagnosis: Hx of perforated diverticulitis Postoperative diagnosis: Chronic diverticulitis and colovaginal fistula Procedure(s) performed: 1. Robotic low anterior resection with coloproctostomy 2. Mobilization of the splenic flexure 3. Diverting loop ileostomy 4. Flexible sigmoidoscopy 5. Bilateral TAP blocsk Surgeon: Nurys Pineda DO Pediatric Audiologist: Tiff Odom NP Pediatric Audiologist Role: Bedside robotic assist, suction, retraction, incision closure. Anesthesia: General endotracheal anesthesia EBL: 15cc Drains: None Complications: None Specimens: Sigmoid and rectum Findings: Severe thickening of the distal sigmoid colon to the level of the rectosigmoid junction. Colon was greatly adherent to the left pelvic wall. Colovaginal fistula noted. This was a dirty/infected case for an abscess found the time of surgery with purulent fluid and focal peritonitis. Details of procedure: The patient was brought to the operating room and positioned supine on the operating room table. Preoperative antibiotics were given and general endotracheal anesthesia was induced. The patient was placed in lithotomy position. Care was taken to pad all pressure points. The abdomen was prepped and draped in the usual sterile fashion. A preoperative time-out was conducted. A Pfannenstiel incision for extraction site was created using monopolar cautery. The Gavino wound protector was inserted. The abdomen was insufflated to 15mmHg. Under direct visualization, four 8 mm robotic trocars and a 12mm robotic trochar were placed. Bilateral TAP block was placed under direct laparoscopic visualization. The robot was then docked to the patient. The patient was moved into reverse trendelenburg. Splenic flexure mobilization was performed by the splenic flexure of the colon from its lateral and posterior attachments using the vessel-sealer for hemostasis. The lateral aspect of the omentum was also off the transverse colon to provide additional mobility and complete the splenic flexure mobilization. The patient was placed in Trendelenburg position with the left side up. The omentum and small bowelwere retracted into the right upper quadrant, and the da Franco robot was docked. Dissection commenced in medial to lateral fashion beginning at the sacral promontory. A small window in the mesentery was created adjacent to the vessels and the peritoneum was opened cranially and caudally in a superficial fashion using the monopolar cautery. A sub-mesenteric plane was developed medially, directed towards the lateral wall. The ureter and the vessels were able to be identified and dissected posteriorly away from the resection plane. The ISAÍAS was then isolated from surrounding mesenteric fat proximal to the origin of the left colic artery by sweeping associated román tissue toward the specimen, and taken by triply ligating using a bipolar vessel- sealer and then dividing between. Adequate hemostasis was noted after division of the vessels. Dissection proceeded superiorly in medial to lateral fashion underneath the mesentery up the left paracolic gutter towards the splenic flexure, taking care to protect critical structures in the retroperitoneum. Attention was then turned to the lateral aspect of the dissection, accomplished by the colon from its abdominal wall attachments along the white line of Toldt using monopolar cautery. Attention was then turned back towards the pelvis. The peritoneum was scored down to the peritonealreflection on both sides of the mesentery with difficulty given significant disease and infection of the distal sigmoid colon. The colon was greatly adherent to the left pelvic wall and a colovaginalfistula was encountered. There was a contained abscess in this area with purulent fluid and focal peritonitis. This was a dirty/infected case. Care was taken to identify and protect the ureters throughout the course of this dissection. The posterior mesentery and mesorectum were taken using the vessel-sealer for hemostasis. Care was taken to avoid entering the presacral venous plexus and to avoidviolation of the mesorectal envelope. Hypogastric nerves were identified and preserved. Dissection was carried laterally and the anteriorly at each level until the rectum had been freed to an adequate margin below the area of disease at the upper rectum. At this selected point of distal transection, the remaining mesentery was minimal, and was divided using the vessel-sealer off of the bowel wall. The rectum was divided using 1 firing of the green load 60 mm robotic stapler. Proximal colon was then reexamined, and an appropriate point of proposed proximal transection was identified within soft, normal appearing colon which reached easily into the pelvis. The proximal mesentery was divided with the vessel sealer for hemostasis up to the level of the bowel wall at this site. The distal aspect of the divided specimen was grasped through the opening gently with a Zainab grasper and the specimen and proximal colon were extracorporealized through the extraction site. The colon divided at the previously marked proximal transection point and passed off the table as a specimen for pathology. Prolene pursestring was placed with a purse string clamp and the anvil of a 29 mm EEA stapler device was then placed in the end of the proximal colon and the purse-string suture tiedsnugly around the anvil. Remaining mesentery was gently cleared from the proposed circular staple line using Bovie electrocautery for hemostasis. Proximal colon containing the anvil was then returned into the intraperitoneal cavity. The distal rectal stump was identified and the EEA stapler was inserted through the anus and advanced under direct laparoscopic visualization. The spike was then advanced through the rectal stump andcoupled to the anvil, taking care to maintain appropriate orientation of the colon. The stapler wasthen closed and fired. Two complete anastomotic doughnuts were noted after withdrawal of stapler, and these were also passed off the table as specimen for pathology. The pelvis was filled with fluid and a colonoscope was inserted using insufflation. The mucosa was inspected for ischemic changes andthe anastomosis was inspected endoluminally as well as for air leak. No bubbling was noted and the anastomosis appeared to be patent. Intraperitoneal fluid was then suctioned. The anastomosis was noted to be low at approximately 5cm from the anal verge. Given infection, poor bowel prep and low anastomosis, it was decided to divert with a loop ileostomy. A distal portion of small bowel was chosen for the site. A circular excision of skin was made and the abdomen was entered. The small bowel was delivered through the site, tension free. Gowns and gloves were changed and the patient was redraped for closing. The peritoneum at the extraction site was closed using a running Vicryl. The fascia of the extraction site was closed using a running suture of 1 PDS. The subcutaneous tissues of all incision sites were irrigated and hemostasisachieved with Bovie electrocautery.The skin over all trocar sites were then closed using interrupted subcuticular sutures of 4-0 Monocryl, and the skin over the extraction site was closed using a running subcuticular suture of 4-0 Monocryl. Dermabond was placed. An incision was made in the ileostomy and the ostomy was everted and brooked with interrupted 3-0 vicryl suture. The ostomy was patent an d viable at the end of the case. An ostomy appliance was applied. The patient was awakened from general endotracheal anesthesia and extubated having tolerated this operation well, and was transferred to the PACU in stable condition. Nurys Pineda DO Colorectal Surgery documented in this encounter Miscellaneous Notes * Care Plan - Mague John, Manager Category - 02/19/2025 9:48 AM CDT [facility] - Therapy Services 3K Ph. Acute Occupational Therapy Treatment 02/19/2025 Room: [address] [place] [address] Name: Valerie Ferro Age: 74 y.o. Patient Class: Inpatient Date of : 1950 Insurance: Payor: [employer] MEDICARE ADVANTAGE / Plan: [employer] HMO DSNP MCR / Product Type: HMO / Prior to OT session thorough chart review completed, including prior OT notes as applicable. Consent to treat provided by patient and nurse Date of admission: 02/15/2025 SUBJECTIVE Patient Statements Information provided by: patient Patient/family comments: Pt lying in bed upon arrival, agreeable to therapy session. Pt stating that she hopes to go home today. Two different physicians entered room during session to discuss followup information. Pain: Refer to flowsheet for documentation of pain and interventions. OBJECTIVE Cognition Level of alertness: alert Orientation: x4 WNL Command following: good Safety awareness: good Memory: WFL conversationally Occupational Performance Activities of Daily Living Feeding: independent Grooming: modified independent standing at sink to wash face and brush teeth/partial Lower extremity dressing: modified independent seated EOB and in standing to don slip on shoes Toileting: dependent assistance with berger catheter Functional Mobility All mobility completed with gait belt and non-skid socks Bed mobility: independent supine < > sit EOB Sit to stand: modified independent from EOB Functional ambulation: modified independent x ~30 feet with 2WW, pt required VC for safety d/t impulse and forgetting catheter. Standing balance: supervision for dynamic tasks including reaching outside KYLEIGH and retrieving itemsfrom floor level. Patient required verbal cues for attention to task, safety awareness while retrieving items from floor and performing dynamic standing tasks, and safety due to impulsivity. [facility] Daily Activity How much help from another person does the patient currently need? Score 1. Putting on and taking off regular lower body clothing? 4 - None (independent) 2. Bathing (including washing, rinsing, drying)? 3 - A little (supervision to min assist) 3. Toileting, which includes using toilet, bedpan or urinal? 1 - Total assist or cannot do at all 4. Putting on and taking off regular upper body clothing? 4 - None (independent) 5. Taking care of personal grooming such as brushing teeth? 4 - None (independent) 6. Eating meals? 4 - None (independent) Total score 20/24 0-19 indicates likely facility discharge 19-24 indicates likely community discharge *Scores determined based on patient report, observation or professional expertise* Additional Interventions No additional treatment provided during this session Education provided to patient regarding treatment plan, session goals, and BUE HEP to maintain and improve UB strength and endurance once returning home. Education response: verbalized understanding Vitals Current O2 requirement: room air Vital signs stable throughout. Additional vitals comments: Patient resting comfortably. Precautions Patient precautions: fall Patient bracing/orthotics: none Weight bearing: no restrictions ASSESSMENT & PLAN Assessment Patient is progressing towards care plan goals. Patient is currently functioning near her prior level of function. Plan Continue with plan of care as previously established until patient goals are met or the patient discharges as decreased activity tolerance, decreased safety awareness, and pain continue to limit patient's occupational performance. Anticipate ongoing OT treatment sessions with specific focus on dynamic standing balance and safetyawareness. For ongoing assessment of current treatment plan: chart, goals and treatment plan reviewed. Goals, treatment plan and plan of care frequency remain appropriate. Recommendations Based on OT assessment of patient's ability to complete self-care tasks and their [facility] Daily Activity Score, anticipated discharge disposition: Home with assistance;Home with Home Health OT (02/19/251048) Rationale: Patient needs home environment assessment, DME recommendations, and modifications to improve functional performance for ADLs and IADLs within their typical environment.. * The final discharge location is determined through physician, case management, and patient/caregiver input along with insurance authorization of skilled services when appropriate OT recommended DME and AE upon discharge: Shower Chair with a back (08/29/25 1049) Grab Bars (02/19/25 1049) Nursing Staff Mobility Recommendations Recommended daily activity during admission: toileting in bathroom and up to chair for meals Disposition At start of session, patient found lying in bed At end of session, patient left seated EOB, call light in reach, phone in reach, and staff notifiedof patient location/events of session Further treatment notes and therapeutic goals can be found in Care Plan Notes. If the patient discharges from facility before another therapy visit, this shall serve as therapy discharge summary. Thank you for this referral, Mague John, Manager Category * Care Plan - Aneta Graf Precision Agronomist - 02/19/2025 8:41 AM CDT [facility] - Therapy Services 3K Ph. Acute Physical Therapy Treatment 02/19/2025 Room: [address] [place] [address] Name: Valerie Ferro Age: 74 y.o. Date of : 1950 Insurance: Payor: [employer] MEDICARE ADVANTAGE / Plan: [employer] HMO DSNP MCR / Product Type: HMO / Subjective Information Comments: Patient is agreeable to therapy. Nausea reported intermittently throughout session. Pain: Refer to Doc. Flowsheet for documented pain levels. Vitals Patient on room air Vital signs stable throughout session Functional Mobility/Treatment Functional Mobility: Supine to sit: supervision for safety Sit to supine: supervision for safety Sit to stand: minimal assistance to reach upright position Gait Trainin' feet with rolling walker. supervision for safety. Deficits affecting function/Deviations noted: deviated path, decreased pace Patient required verbal cues energy conservation, proper posture, proper techniques for ADL's and functional transfers, use of UE's in transfers, for assistive device placement with regards to feet/trunk, and gait training cues provided Stair Trainin steps with minimal assistance. Handrails: right. Minimal assistance for line management and steadying Functional exercise: Functional exercise: sit to stand x 1, with minimal assistance Balance exercise: sitting: at EOB x 5 minutes: supervision verbal and tactile cues required to perform exercises correctly [facility] Basic Mobility How much help from another person does the patient currently need? Score 1. Turning from your back to your side while in a flat bed without using bedrails? 3 - A little (supervision to min assist) 2. Moving from lying on your back to sitting on the side of a flat bed without using bedrails? 3 - A little (supervision to min assist) 3. Moving to and from a bed to a chair (including a wheelchair)? 3 - A little (supervision to min assist) 4. Standing up from a chair using your arms (e.g., wheelchair, or bedside chair)? 3 - A little (supervision to min assist) 5. Walking in hospital room? 3 - A little (supervision to min assist) 6. Climbing 3-5 steps with a railing? 3 - A little (supervision to min assist) Total score 18/24 0-16 - indicates likely facility discharge 17-24 indicates likely community discharge * scores determined based on patient report, observation or professional expertise Assessment and Plan Functional Progress: Patient is progressing towards the goal(s) for improved ambulation and transfer ability. Patient does require skilled PT. Specific focus for next treatment session: BLE strengthening, transfer training. Continue with plan of care as previously established until goals met or patient discharges from facility Recommendations Based on PT assessment of and/or progress with physical function and [facility] Basic Mobility score, anticipated discharge disposition: Home with supervision;Home with assistance;Home with home health PT (02/19/25 3341). Safety concerns if patient is without supervision/assistance. . * The final discharge location is determined through physician, case management, and patient/caregiver input along with insurance authorization of skilled services when appropriate PT Recommended DME: Front Wheeled Walker (02/17/25 1243). No new recommendations Daily activity recommendations: Up with 1 assist, Ambulate to bathroom with staff, and Up in chair for meals Precautions Patient Precautions: Fall Risk and abdominal Bracing/Orthotics: none Weight Bearing: No Restrictions Education/Training Provided Additional education provided: basic time frames for healing, daily activity with nursing staff, discharge planning, plan of care, rehabilitation principles, safety, and use of assistive device Learner, method of education, and response to learning listed in Education tab in Epic. Disposition At start of session, patient found lying in bed At end of session, patient left lying in bed, call light in reach, phone in reach, and staff notified of patient's location Consent to treatment given by: Patient and Nurse Prior to PT session a thorough chart review was completed, including prior therapy notes, as applicable. Further treatment notes and therapeutic goals can be found in Care Plan Notes. If the patient discharges from the facility before another therapy visit, this shall serve as the therapy discharge summary. Thank you for this referral, Aneta Graf Precision Agronomist Problem: Physical Mobility, Impaired Goal: Mobility goal: Improve transfer ability by discharge Description: Patient will transfer supine to sit with independent. Patient will transfer bed to/from chair and to/from toilet with modified independent. Outcome: Progressing Goal: Mobility goal: Improve ambulation by discharge Description: Patient will ambulate 300 feet on level surface, using rolling walker assistive device, with modified independent so patient can navigate discharge environment. Outcome: Progressing * Care Plan - Mai Metcalf, Manager Category - 02/18/2025 4:00 PM CDT [facility] - Therapy Services 3K Ph. Acute Occupational Therapy Treatment 02/18/2025 Room: [address] [place] [address] Name: Valerie Ferro Age: 74 y.o. Patient Class: Inpatient Date of : 1950 Insurance: Payor: T MEDICARE ADVANTAGE / [facility] / Product Type: HMO / Prior to OT session thorough chart review completed, including prior OT notes as applicable. Consent to treat provided by patient and nurse Date of admission: 02/15/2025 SUBJECTIVE Patient Statements Information provided by: patient Patient/family comments: Pt lying in bed upon arrival to room. Pt agreeable to OT Tx. Pain: Refer to flowsheet for documentation of pain and interventions. OBJECTIVE Cognition Level of alertness: alert Orientation: x4 WNL Command following: good Safety awareness: good Memory: WFL conversationally Occupational Performance Activities of Daily Living Feeding: independent for [id number]-[id number] excursion Grooming: independent standing at sink performing oral care and facial hygiene Lower extremity dressing: independent seated EOB to doff socks and to don slip on sandals Toileting: dependent assistance with berger and ostomy Functional Mobility All mobility completed with gait belt and non-skid socks Pt ambulated up in room and hallway ~400 with use of FWW for steadying throughout. No LOB noted. Ptstood at sink for ~5 minutes during grooming tasks. Pt completed chair transfer with modified independence with use of FWW for steadying while loweringself down. V/c provided to reach back for arm rests of recliner. [facility] Daily Activity How much help from another person does the patient currently need? Score 1. Putting on and taking off regular lower body clothing? 4 - None (independent) 2. Bathing (including washing, rinsing, drying)? 3 - A little (supervision to min assist) 3. Toileting, which includes using toilet, bedpan or urinal? 2 - A lot (max to mod assist) 4. Putting on and taking off regular upper body clothing? 4 - None (independent) 5. Taking care of personal grooming such as brushing teeth? 4 - None (independent) 6. Eating meals? 4 - None (independent) Total score 21/24 0-19 indicates likely facility discharge 19-24 indicates likely community discharge *Scores determined based on patient report, observation or professional expertise* Additional Interventions No additional treatment provided during this session Education provided to patient regarding treatment plan and session goals Education response: verbalized understanding Vitals Current O2 requirement: room air Vital signs stable throughout. Precautions Patient precautions: fall and ostomy Patient bracing/orthotics: none Weight bearing: no restrictions ASSESSMENT & PLAN Assessment Patient is progressing towards care plan goals. Patient is currently functioning near her prior level of function. Plan Continue with plan of care as previously established until patient goals are met or the patient discharges as decreased activity tolerance continue to limit patient's occupational performance. Anticipate 1 more OT treatment session with specific focus on shower, item retrieval task. Recommendations Based on OT assessment of patient's ability to complete self-care tasks and their [facility] Daily Activity Score, anticipated discharge disposition: Home with assistance;Home with Home Health OT (02/18/25 1600) Rationale: Assistance recommended for ADLs PRN.. * The final discharge location is determined through physician, case management, and patient/caregiver input along with insurance authorization of skilled services when appropriate OT recommended DME and AE upon discharge: Shower Chair with a back (02/18/25 1600) No new additional adaptive equipment necessary (02/18/25 1600) Nursing Staff Mobility Recommendations Recommended daily activity during admission: up to chair for meals Disposition At start of session, patient found lying in bed At end of session, patient left seated in chair, call light in reach, phone in reach, and patient instructed not to get up without staff assistance Further treatment notes and therapeutic goals can be found in Care Plan Notes. If the patient discharges from facility before another therapy visit, this shall serve as therapy discharge summary. Thank you for this referral, MAI METCALF, Manager Category * Care Plan - Aneta Graf Precision Agronomist - 02/18/2025 1:15 PM CDT [facility] - Therapy Services 3K Ph. Acute Physical Therapy Treatment 02/18/2025 Room: [address] [place] [address] Name: Valerie Ferro Age: 74 y.o. Date of : 1950 Insurance: Payor: [employer] MEDICARE ADVANTAGE / Plan: [employer] DSNP MCR / Product Type: HMO / Subjective Information Comments: Patient is agreeable to therapy. Pain: Refer to Doc. Flowsheet for documented pain levels. Vitals Patient on room air Vital signs stable throughout session Functional Mobility/Treatment Functional Mobility: Supine to sit: supervision for safety Sit to supine: supervision for safety Sit to stand: supervision for safety Gait Trainin feet with rolling walker. supervision for safety. Deficits affecting function/Deviations noted: varied pace, varied step size, patient hyperextends LLE, patient pace slows as she fatigues Patient required verbal cues energy conservation, proper posture, proper techniques for ADL's and functional transfers, use of UE's in transfers, for assistive device placement with regards to feet/trunk, and gait training cues provided Functional exercise: Functional exercise: sit to stand x 1, with supervision timed standin minutes with rolling walker, supervision for safety Balance exercise: sitting: at EOB x 3 minutes: supervision verbal and tactile cues required to perform exercises correctly [employer] [facility] Basic Mobility How much help from another person does the patient currently need? Score 1. Turning from your back to your side while in a flat bed without using bedrails? 3 - A little (supervision to min assist) 2. Moving from lying on your back to sitting on the side of a flat bed without using bedrails? 3 - A little (supervision to min assist) 3. Moving to and from a bed to a chair (including a wheelchair)? 3 - A little (supervision to min assist) 4. Standing up from a chair using your arms (e.g., wheelchair, or bedside chair)? 3 - A little (supervision to min assist) 5. Walking in hospital room? 3 - A little (supervision to min assist) 6. Climbing 3-5 steps with a railing? 3 - A little (supervision to min assist) Total score 18/24 0-16 - indicates likely facility discharge 17-24 indicates likely community discharge * scores determined based on patient report, observation or professional expertise Assessment and Plan Functional Progress: Patient is progressing towards the goal(s) for improved ambulation and transfer ability. Patient does require skilled PT. Specific focus for next treatment session: stair training, BLE strengthening, gait training. Continue with plan of care as previously established until goals met or patient discharges from facility Recommendations Based on PT assessment of and/or progress with physical function, -[facility] Basic Mobility score, available home support, and safety , anticipated discharge disposition: Home with supervision;Home with assistance;Home with home health PT (02/18/25 1315). Safety concerns if patient is without supervision/assistance. . * The final discharge location is determined through physician, case management, and patient/caregiver input along with insurance authorization of skilled services when appropriate PT Recommended DME: Front Wheeled Walker (02/17/25 1243). No new recommendations Daily activity recommendations: Up with 1 assist, Ambulate to bathroom with staff, and Up in chair for meals Precautions Patient Precautions: Fall Risk, log roll, and abdominal precautions Bracing/Orthotics: none Weight Bearing: No Restrictions Education/Training Provided Additional education provided: basic time frames for healing, daily activity with nursing staff, discharge planning, home exercise program, plan of care, rehabilitation principles, safety, and use ofassistive device Learner, method of education, and response to learning listed in Education tab in Epic. Disposition At start of session, patient found lying in bed At end of session, patient left lying in bed, call light in reach, phone in reach, Ostomy care staff present in room, and staff notified of patient's location Consent to treatment given by: Patient and Nurse Prior to PT session a thorough chart review was completed, including prior therapy notes, as applicable. Further treatment notes and therapeutic goals can be found in Care Plan Notes. If the patient discharges from the facility before another therapy visit, this shall serve as the therapy discharge summary. Thank you for this referral, Aneta Graf Precision Agronomist Problem: Physical Mobility, Impaired Goal: Mobility goal: Improve transfer ability by discharge Description: Patient will transfer supine to sit with independent. Patient will transfer bed to/from chair and to/from toilet with modified independent. Outcome: Progressing Goal: Mobility goal: Improve ambulation by discharge Description: Patient will ambulate 300 feet on level surface, using rolling walker assistive device, with modified independent so patient can navigate discharge environment. Outcome: Progressing * Care Plan - Shira Vera RN - 02/16/2025 12:00 PM CDT Problem: Discharge Planning Goal: Identify discharge needs upon admission and through discharge Description: Outcome: Progressing Artillery Specialist Discharge Planning Progress: Patient admitted for chronic diverticulitis and colovaginal fistula. S/P robotic low anterior resection with coloproctostomy, diverting loop ileostomy on 02/15. Plan: Awaiting PT/OT recommendations. Patient lives alone and does not have anyone to help her. Patient is alert and oriented. CM spoke with her about potential discharge to [facility] and home with home healthcare. List provide of SNF and [facility] for her to review. Prior to admission the patient lives independently at home alone. CM will continue to follow and assist with discharge. Expected Discharge Date Feb 17, 2025 Plan Discharge To: Shelter Facility (02/16/25 1208) Plan Discharge To - Alternate: Home Health Services (02/16/25 1208) Referrals Status: Preferred Pharmacy: [facility] - [facility] [address] [facility] [address] [place] [address] [address] Patient / Family Communications: Patient/Family Communications: Plan Discharge To Update (02/16/25 120) Discharge Plan Agreed Upon: Patient (02/16/251207) Resources Provided: Resource List Given: Home health agencies;Care facilities (SNF) (02/16/25 1208) Information Given Concerning: Medicare benefits (02/16/25 120) Transportation Plan TBD Follow Up Appointments Scheduled Shira Vera RN * Care Plan - Colton Barry RN - 02/16/2025 1:38 AM CDT Problem: Infection, Risk/Actual (Adult) Goal: Infection, Risk/Actual: Infection Prevention/Resolution/Control Description: Patient will demonstrate the desired outcomes. Note: Valerie 's midline IV will remain free from infection. * Care Plan - Ninfa Weber RN - 02/15/2025 8:09 AM CDT Clinical documentation reviewed. Comprehensive Discharge Planning Risk Assessment was completed. Documentation Related to CDPA score CDPA Documentation Ambulation: independent Transferring: independent Toileting: independent Bathing: independent Dressing: independent Eating: independent Communication: understands/communicates w/o difficulty Weight-Bearing Status: no weight-bearing restrictions Living Arrangements: Lives alone Total Score of 9 or below does not identify immediate needs for discharge. CDPA Risk Assessment Total Score: 9 6 Age 5 Prior Living Status Criteria that do not apply: Self-reported walking limitation Disability Please place consult if needs for discharge are identified. Care Management will continue to follow for discharge planning. documented in this encounter Plan of Treatment Upcoming Encounters Date Type Department Care Team (Late st Contact Info) Description 02/23/2025 12:00 PM CDT Appointment [facility] Nuclear Medicine [address] [place] [phone] Julieta Roth, [facility] [address] [place] [address] 03/04/2025 8:00 AM CDT Office Visit [facility] Gen Spec Surg [place] [address] [place] [address] Tiff Odom, [facility] [address] [place] [address] Pending Results Name Type Priority Associated Diagnoses Date /Time BLOOD CULTURE Microbiology Stat 5 6:20 PM CDT BLOOD CULTURE Microbiology Stat 5 6:29 PM CDT BLOOD CULTURE Microbiology Stat 5 6:20 PM CDT BLOOD CULTURE Microbiology Stat 5 6:29 PM CDT Scheduled Orders Name Type Priority Associated Diagnoses Orde r Schedule BLOOD CULTURE Microbiology Stat ONE TIME for 1 Occurrences starting 02/15/2025 until 02/15/2025 BLOOD CULTURE Microbiology Stat ONE TIME for 1 Occurrences starting 02/15/2025 until 02/15/2025 documented as of this encounter Procedures Procedure Name Priority Date/Time Associated Diagnosis Comments RENAL FUNCTION PANEL Routine 02/19/2025 6:28 AM CDT POC GLUCOSE Routine 02/18/2025 2:28 PM CDT POC GLUCOSE Routine 02/18/2025 10:53 AM CDT XR FLUORO LESS THAN 1 HOUR Routine 02/18/2025 10:29 AM CDT IA CYSTO W/INSERT URETERAL STENT 02/18/2025 8:35 AM CDT PYELOGRAM RETROGRADE 02/18/2025 8:35 AM CDT URIC ACID Routine 02/18/2025 6:12 AM CDT BASIC METABOLIC PANEL Stat 02/18/2025 6:12 AM CDT US RENAL Stat 02/17/2025 2:21 PM CDT CBC WITH DIFFERENTIAL Routine 02/17/2025 3:37 AM CDT BASIC METABOLIC PANEL Routine 02/17/2025 3:37 AM CDT CBC WITH DIFFERENTIAL Routine 02/16/2025 4:19 AM CDT BASIC METABOLIC PANEL Routine 02/16/2025 4:19 AM CDT LACTIC ACID Stat 02/15/2025 6:29 PM CDT BLOOD CULTURE Stat 02/15/2025 6:29 PM CDT BLOOD CULTURE Stat 02/15/2025 6:20 PM CDT CBC WITHOUT DIFFERENTIAL Routine 02/15/2025 4:45 PM CDT BASIC METABOLIC PANEL Routine 02/15/2025 4:45 PM CDT POC GLUCOSE Routine 02/15/2025 4:00 PM CDT POC GLUCOSE Routine 02/15/2025 12:37 PM CDT PATHOLOGY Pathology 02/15/2025 11:10 AM CDT Diverticulitis of large intestine with abscess without bleeding URINE CULTURE Routine 02/15/2025 10:51 AM CDT Diverticulitis of large intestine with abscess without bleeding EKG 12-LEAD Routine 02/15/2025 8:29 AM CDT VERIFICATION BLOOD GROUP Stat 02/15/2025 8:29 AM CDT CBC WITHOUT DIFFERENTIAL Routine 02/15/2025 8:25 AM CDT TYPE AND SCREEN Stat 02/15/2025 8:20 AM CDT PREPARE RED BLOOD CELLS Routine 02/15/2025 7:55 AM CDT PREPARE RED BLOOD CELLS Routine 02/15/2025 7:55 AM CDT documented in this encounter Results * (ABNORMAL) RENAL FUNCTION PANEL (02/19/2025 6:28 AM CDT) SODIUM 141 136 - 145 mmol/L 02/19/2025 7:23 AM T [facility] POTASSIUM 3.9 3.5 - 5.1 mmol/L 02/19/2025 7:23 AM [facility] CHLORIDE 107 98 - 107 mmol/L 02/19/2025 7:23 AM [facility] CO2 19(L) 22 - 29 mmol/L 02/19/2025 7:23 AM [facility] CALCIUM 9.5 8.8 - 10.2 mg/dL 02/19/2025 7:23 AM [facility] BUN 47(H) 8 - 23 mg/dL 02/19/2025 7:23 AM [facility] CREATININE 2.66(H) 0.51 - 0.95 mg/dL 02/19/2025 7:23 AM [facility] Comment:The GFR result is no t clinically significant on patients <18 or >70 years of age. GLUCOSE 132(H) 74 - 99 mg/dL 02/19/2025 7:23 AM [facility] ALBUMIN 3.2(L) 3.5 - 5.2 g/dL 02/19/2025 7:23 AM [facility] PHOSPHORUS 3.3 2.5 - 4.5 mg/dL 02/19/2025 7:23 AM [facility] GFR 19 mL/min/1. 73 sq meter 02/19/2025 7:23 AM [facility] Comment:eGFR calculated with 2020 CKD-EPI equation. Vegetarian diet, extremely high or low muscle mass, and may affect results. Cystatin C with Glomerular Filtration Rate is a suitable alternative for these patients. ANION GAP 15 9 - 20 mmol/L 02/19/2025 7:23 AM CDT [facility] Blood Venipuncture / Unknown 02/19/2025 6:28 AM CDT 02/19/2025 6:42 AM CDT Moisés Ernandez MD CHEMISTRY ORDERABLES Final Result Performing Organization Address [facility] Co de Phone Number [facility] CLIA # [id number] [address] [address] [place] [address] * (ABNORMAL) POC GLUCOSE (02/18/2025 2:28 PM CDT) GLUCOSE POC 157(H) 74 - 99 mg/dL 02/18/2025 2:28 PM CDT [facility] SPECIMEN SOURCE, GLUCOSE POC Capillary 02/18/2025 2:28 PM CDT [facility] Blood, whole 02/18/2025 2:28 PM CDT 02/18/2025 2:39 PM CDT us Nurys Pineda DO POINT OF CARE TESTING Final Resu lt Performing Organization Address [facility] Co de Phone Number [facility] CLIA # [id number] [address] [address] * (ABNORMAL) POC GLUCOSE (02/18/2025 10:53 AM CDT) GLUCOSE POC 114(H) 74 - 99 mg/dL 02/18/2025 10:53 AM CDT [facility] SPECIMEN SOURCE, GLUCOSE POC Capillary 02/18/2025 10:53 AM CDT [facility] Blood, whole 02/18/2025 10:5 3 AM CDT 02/18/2025 11:01 AM CDT Nurys Pineda DO POINT OF CARE TESTING Final Resu lt Performing Organization Address [facility]/ZIP Co de Phone Number [facility] Define [employer] [facility] CLIA # [id number] [address] [id number] * XR FLUORO LESS THAN 1 HOUR (02/18/2025 10:29 AM CDT) Narrative 02/18/2025 10:29 AM CDT Order information only. Exam was auto-finalized. Moisés Ernandez MD DIAGNOSTIC IMAGING O RDERABLES Final Result * (ABNORMAL) URIC ACID (02/18/2025 6:12 AM CDT) URIC ACID 5.8(H) 2.4 - 5.7 mg/dL 02/18/2025 9:22 AM CDT [facility] [employer] [facility] Blood Venipuncture / Unknown 02/18/2025 6:12 AM CDT 02/18/2025 6:17 AM CDT Génesis Bethea DO CHEMISTRY ORDERABLES Final Resu lt Performing Organization Address [facility] Co de Phone Number [facility] [employer] [facility] CLIA # [id number] [facility] [address] * (ABNORMAL) BASIC METABOLIC PANEL (02/18/2025 6:12 AM CDT) SODIUM 139 136 - 145 mmol/L 02/18/2025 7:05 AM CDT [facility] [employer] [facility] POTASSIUM 3.6 3.5 - 5.1 mmol/L 02/18/2025 7:05 AM CDT [facility] [employer] [facility] CHLORIDE 104 98 - 107 mmol/L 02/18/2025 7:05 AM CDT [facility] [employer] [facility] CO2 19(L) 22 - 29 mmol/L 02/18/2025 7:05 AM CDT [facility] CALCIUM 9.7 8.8 - 10.2 mg/dL 02/18/2025 7:05 AM T [facility] BUN 45(H) 8 - 23 mg/dL 02/18/2025 7:05 AM T [facility] CREATININE 3.12(H) 0.51 - 0.95 mg/dL 02/18/2025 7:05 AM T [facility] Comment:The GFR result is no t clinically significant on patients <18 or >70 years of age. GLUCOSE 149(H) 74 - 99 mg/dL 02/18/2025 7:05 AM T [facility] GFR 15 mL/min/1. 73 sq meter 02/18/2025 7:05 AM T [facility] Comment:eGFR calculated with 2020 CKD-EPI equation. Vegetarian diet, extremely high or low muscle mass, and may affect results. Cystatin C with Glomerular Filtration Rate is a suitable alternative for these patients. ANION GAP 16 9 - 20 mmol/L 02/18/2025 7:05 AM T [facility] Blood Venipuncture / Unknown 02/18/2025 6:12 AM CDT 02/18/2025 6:17 AM CDT us Nurys Pineda DO CHEMISTRY ORDERABLES Final Resul t [facility] CLIA # [id number] [address] [place] [phone] * US RENAL (02/17/2025 2:21 PM CDT) Anatomical Region Laterality Modality Abdomen Ultrasound 02/17/2025 2:21 PM CDT Impressions 02/17/2025 3:00 PM CDT IMPRESSION: 1. Mild grade 1 left hydronephrosis, unchanged since 12/14/2024. 2. Right kidney is congenitally absent. Narrative 02/17/2025 3:00 PM CDT Exam: US RENAL Date/Time of Exam: 02/17/2025 2:21 PM Reason For Exam: Other - Please see comments Diagnosis: Acute diverticulitis; Diverticulitis of large intestine with abscess without bleeding An ultrasound study was performed on the kidneys. Comparison is to a study from 12/14/2024. The right kidney apparently is congenitally absent. Mild grade 1 hydronephrosis is present in the left kidney, similar to that seen in the prior study. The left renal parenchyma shows normal echogenicity and parenchymal thickness is well maintained throughout. There is no evidence of shadowing renal stones, renal soft tissue masses in the left kidney. Procedure Note Adolph Hu MD - 02/17/2025 Exam: US RENAL Date/Time of Exam: 02/17/2025 2:21 PM Reason For Exam: Other - Please see comments Diagnosis: Acute diverticulitis; Diverticulitis of large intestine with abscess without bleeding An ultrasound study was performed on the kidneys. Comparison is to a study from 12/14/2024. The right kidney apparently is congenitally absent. Mild grade 1 hydronephrosis is present in the left kidney, similar to that seen in the prior study. The left renal parenchyma shows normal echogenicity and parenchymal thickness is well maintained throughout. There is no evidence of shadowing renal stones, renal soft tissue masses in the left kidney. IMPRESSION: 1. Mild grade 1 left hydronephrosis, unchanged since 12/14/2024. 2. Right kidney is congenitally absent. Tiff Odom [facility] US ORDERABLES Final Res ult * (ABNORMAL) BASIC METABOLIC PANEL (02/17/2025 3:37 AM CDT) SODIUM 139 136 - 145 mmol/L 02/17/2025 4:26 AM CDT [facility] [place] POTASSIUM 3.4(L) 3.5 - 5.1 mmol/L 02/17/2025 4:26 AM CDT [facility] CHLORIDE 106 98 - 107 mmol/L 02/17/2025 4:26 AM CDT [facility] CO2 19(L) 22 - 29 mmol/L 02/17/2025 4:26 AM CDT [facility] CALCIUM 9.0 8.8 - 10.2 mg/dL 02/17/2025 4:26 AM T [facility] BUN 47(H) 8 - 23 mg/dL 02/17/2025 4:26 AM T [facility] CREATININE 3.53(H) 0.51 - 0.95 mg/dL 02/17/2025 4:26 AM T [facility] Comment:The GFR result is no t clinically significant on patients <18 or >70 years of age. GLUCOSE 155(H) 74 - 99 mg/dL 02/17/2025 4:26 AM T [facility] GFR 13 mL/min/1. 73 sq meter 02/17/2025 4:26 AM T [facility] Comment:eGFR calculated with 2020 CKD-EPI equation. Vegetarian diet, extremely high or low muscle mass, and may affect results. Cystatin C with Glomerular Filtration Rate is a suitable alternative for these patients. ANION GAP 14 9 - 20 mmol/L 02/17/2025 4:26 AM T [facility] Blood Venipuncture / Unknown 02/17/2025 3:37 AM CDT 02/17/2025 3:54 AM CDT us Nurys Pineda DO CHEMISTRY ORDERABLES Final Resul t [facility] CLIA # [id number] [address] [place] [id number] * (ABNORMAL) CBC WITH DIFFERENTIAL (02/17/2025 3:37 AM CDT) WBC 17.2(H) 4.8 - 10.8 K/uL 02/17/2025 4:00 AM T [facility] RBC 2.66(L) 4.20 - 5.40 M/uL 02/17/2025 4:00 AM T [facility] HEMOGLOBIN 8.2(L) 12.0 - 16.0 g/dL 02/17/2025 4:00 AM [facility] HEMATOCRIT 24.2(L) 36.0 - 46.0 % 02/17/2025 4:00 AM [facility] MCV 91.0 84.0 - 103.0 fL 02/17/2025 4:00 AM [facility] MCH 30.8 27.0 - 34.0 pg 02/17/2025 4:00 AM [facility] MCHC 33.9 30.0 - 35.0 g/dL 02/17/2025 4:00 AM [facility] PLATELETS 298 140 - 440 K/uL 02/17/2025 4:00 AM [facility] MPV 9.4 8.9 - 12.8 fL 02/17/2025 4:00 AM [facility] RDW 16.0(H) 11.0 - 14.5 % 02/17/2025 4:00 AM [facility] RDW-STDEV 53.1 37.0 - 54.0 fL 02/17/2025 4:00 AM [facility] NEUTROPHILS 89(H) 42 - 75 % 02/17/2025 4:00 AM [facility] LYMPHOCYTES 6(L) 24 - 44 % 02/17/2025 4:00 AM [facility] MONOCYTES 4 2 - 10 % 02/17/2025 4:00 AM [facility] EOSINOPHILS 0 0 - 7 % 02/17/2025 4:00 AM [facility] BASOPHILS 0 0 - 1 % 02/17/2025 4:00 AM [facility] IMMATURE GRANULOCYTES 1 0 - 2 % 02/17/2025 4:00 AM [facility] NEUTROPHIL ABSOLUTE 15.29(H) 2.00 - 8.00 K/uL 02/17/2025 4:00 AM [facility] LYMPHOCYTE ABSOLUTE 1.10(L) 1.20 - 4.00 K/uL 02/17/2025 4:00 AM CDT [facility] MONOCYTE ABSOLUTE 0.62(H) 0.10 - 0.60 K/uL 02/17/2025 4:00 AM T [facility] EOSINOPHIL ABSOLUTE 0.00 0.00 - 0.70 K/uL 02/17/2025 4:00 AM T [facility] BASOPHILS ABSOLUTE 0.02 0.00 - 0.20 K/uL 02/17/2025 4:00 AM [facility] IMMATURE GRANULOCYTES ABSOLUTE 0.13(H) 0.00 - 0.10 K/uL 02/17/2025 4:00 AM [facility] SMEAR REVIEWED: NA - Not Applicable 02/17/2025 4:00 AM [facility] Blood Venipuncture / Unknown 02/17/2025 3:37 AM CDT 02/17/2025 3:54 AM CDT us Nurys Pineda DO HEMATOLOGY ORDERABLES Final Resu lt [facility] CLIA # [id number] [address] [place] [address] [id number] * (ABNORMAL) BASIC METABOLIC PANEL (02/16/2025 4:19 AM CDT) SODIUM 140 136 - 145 mmol/L 02/16/2025 5:05 AM [facility] POTASSIUM 3.6 3.5 - 5.1 mmol/L 02/16/2025 5:05 AM [facility] CHLORIDE 106 98 - 107 mmol/L 02/16/2025 5:05 AM [facility] CO2 15(L) 22 - 29 mmol/L 02/16/2025 5:05 AM [facility] CALCIUM 8.6(L) 8.8 - 10.2 mg/dL 02/16/2025 5:05 AM [facility] BUN 49(H) 8 - 23 mg/dL 02/16/2025 5:05 AM CDT [facility] CREATININE 3.51(H) 0.51 - 0.95 mg/dL 02/16/2025 5:05 AM T [facility] Comment:The GFR result is no t clinically significant on patients <18 or >70 years of age. GLUCOSE 124(H) 74 - 99 mg/dL 02/16/2025 5:05 AM T [facility] GFR 13 mL/min/1. 73 sq meter 02/16/2025 5:05 AM T [facility] Comment:eGFR calculated with 2020 CKD-EPI equation. Vegetarian diet, extremely high or low muscle mass, and may affect results. Cystatin C with Glomerular Filtration Rate is a suitable alternative for these patients. ANION GAP 19 9 - 20 mmol/L 02/16/2025 5:05 AM T [facility] Blood Venipuncture / Unknown 02/16/2025 4:19 AM CDT 02/16/2025 4:29 AM CDT us Nurys Pineda DO CHEMISTRY ORDERABLES Final Resul t [facility] CLIA # [id number] [address] [place] [address] * (ABNORMAL) CBC WITH DIFFERENTIAL (02/16/2025 4:19 AM CDT) WBC 13.4(H) 4.8 - 10.8 K/uL 02/16/2025 4:34 AM T [facility] RBC 2.55(L) 4.20 - 5.40 M/uL 02/16/2025 4:34 AM T [facility] HEMOGLOBIN 7.9(L) 12.0 - 16.0 g/dL 02/16/2025 4:34 AM T [facility] HEMATOCRIT 23.6(L) 36.0 - 46.0 % 02/16/2025 4:34 AM [facility] MCV 92.5 84.0 - 103.0 fL 02/16/2025 4:34 AM [facility] MCH 31.0 27.0 - 34.0 pg 02/16/2025 4:34 AM [facility] MCHC 33.5 30.0 - 35.0 g/dL 02/16/2025 4:34 AM [facility] PLATELETS 265 140 - 440 K/uL 02/16/2025 4:34 AM [facility] MPV 9.0 8.9 - 12.8 fL 02/16/2025 4:34 AM [facility] RDW 15.7(H) 11.0 - 14.5 % 02/16/2025 4:34 AM [facility] RDW-STDEV 52.9 37.0 - 54.0 fL 02/16/2025 4:34 AM [facility] NEUTROPHILS 87(H) 42 - 75 % 02/16/2025 4:34 AM [facility] LYMPHOCYTES 6(L) 24 - 44 % 02/16/2025 4:34 AM [facility] MONOCYTES 6 2 - 10 % 02/16/2025 4:34 AM [facility] EOSINOPHILS 0 0 - 7 % 02/16/2025 4:34 AM [facility] BASOPHILS 0 0 - 1 % 02/16/2025 4:34 AM [facility] IMMATURE GRANULOCYTES 1 0 - 2 % 02/16/2025 4:34 AM [facility] NEUTROPHIL ABSOLUTE 11.67(H) 2.00 - 8.00 K/uL 02/16/2025 4:34 AM [facility] LYMPHOCYTE ABSOLUTE 0.85(L) 1.20 - 4.00 K/uL 02/16/2025 4:34 AM [facility] MONOCYTE ABSOLUTE 0.80(H) 0.10 - 0.60 K/uL 02/16/2025 4:34 AM [facility] EOSINOPHIL ABSOLUTE 0.00 0.00 - 0.70 K/uL 02/16/2025 4:34 AM CDT [facility] BASOPHILS ABSOLUTE 0.01 0.00 - 0.20 K/uL 02/16/2025 4:34 AM CDT [facility] IMMATURE GRANULOCYTES ABSOLUTE 0.09 0.00 - 0.10 K/uL 02/16/2025 4:34 AM CDT [facility] SMEAR REVIEWED: NA - Not Applicable 02/16/2025 4:34 AM CDT [facility] Blood Venipuncture / Unknown 02/16/2025 4:19 AM CDT 02/16/2025 4:29 AM CDT Nurys Pineda DO HEMATOLOGY ORDERABLES Final Resu lt Performing Organization Address [facility] Co de Phone Number [facility] CLIA # [id number] [address] [address] * LACTIC ACID (02/15/2025 6:29 PM CDT) LACTIC ACID 1.3 <=2.0 mmol/L 02/15/2025 7:19 PM CDT [facility] Blood Venipuncture / Unknown 02/15/2025 6:29 PM CDT 02/15/2025 6:34 PM CDT Nurys Pineda DO CHEMISTRY ORDERABLES Final Resul t Performing Organization Address [facility] Co de Phone Number [facility] CLIA # [id number] [address] [place] [address] * (ABNORMAL) CBC WITHOUT DIFFERENTIAL (02/15/2025 4:45 PM CDT) WBC 14.2(H) 4.8 - 10.8 K/uL 02/15/2025 5:11 PM CDT [facility] RBC 2.78(L) 4.20 - 5.40 M/uL 02/15/2025 5:11 PM CDT [facility] HEMOGLOBIN 8.6(L) 12.0 - 16.0 g/dL 02/15/2025 5:11 PM CDT [facility] HEMATOCRIT 26.4(L) 36.0 - 46.0 % 02/15/2025 5:11 PM CDT [facility] MCV 95.0 84.0 - 103.0 fL 02/15/2025 5:11 PM CDT [facility] MCH 30.9 27.0 - 34.0 pg 02/15/2025 5:11 PM CDT [facility] MCHC 32.6 30.0 - 35.0 g/dL 02/15/2025 5:11 PM CDT [facility] PLATELETS 303 140 - 440 K/uL 02/15/2025 5:11 PM CDT [facility] MPV 9.0 8.9 - 12.8 fL 02/15/2025 5:11 PM CDT [facility] RDW 15.7(H) 11.0 - 14.5 % 02/15/2025 5:11 PM CDT [facility] RDW-STDEV 55.1(H) 37.0 - 54.0 fL 02/15/2025 5:11 PM CDT [facility] Blood Venipuncture / Unknown 02/15/2025 4:45 PM CDT 02/15/2025 5:01 PM CDT us Lex Morales MD HEMATOLOGY ORDERABLES Final Res ult [facility] CLIA # [id number] [address] [address] [place] [address] * (ABNORMAL) BASIC METABOLIC PANEL (02/15/2025 4:45 PM CDT) SODIUM 138 136 - 145 mmol/L 02/15/2025 5:38 PM CDT [facility] POTASSIUM 3.6 3.5 - 5.1 mmol/L 02/15/2025 5:38 PM T [facility] CHLORIDE 102 98 - 107 mmol/L 02/15/2025 5:38 PM T [facility] CO2 17(L) 22 - 29 mmol/L 02/15/2025 5:38 PM T [facility] CALCIUM 8.8 8.8 - 10.2 mg/dL 02/15/2025 5:38 PM CDT [facility] BUN 51(H) 8 - 23 mg/dL 02/15/2025 5:38 PM T [facility] CREATININE 3.58(H) 0.51 - 0.95 mg/dL 02/15/2025 5:38 PM T [facility] Comment:The GFR result is no t clinically significant on patients <18 or >70 years of age. GLUCOSE 126(H) 74 - 99 mg/dL 02/15/2025 5:38 PM T [facility] GFR 13 mL/min/1. 73 sq meter 02/15/2025 5:38 PM [facility] Comment:eGFR calculated with 2020 CKD-EPI equation. Vegetarian diet, extremely high or low muscle mass, and may affect results. Cystatin C with Glomerular Filtration Rate is a suitable alternative for these patients. ANION GAP 19 9 - 20 mmol/L 02/15/2025 5:38 PM T [facility] Blood Venipuncture / Unknown 02/15/2025 4:45 PM CDT 02/15/2025 5:02 PM CDT us Lex Morales MD CHEMISTRY ORDERABLES Final Resu lt [facility] CLIA # [id number] [address] [place] [address] * (ABNORMAL) POC GLUCOSE (02/15/2025 4:00 PM CDT) GLUCOSE POC 111(H) 74 - 99 mg/dL 02/15/2025 4:00 PM CDT [facility] SPECIMEN SOURCE, GLUCOSE POC Capillary 02/15/2025 4:00 PM CDT [facility] Blood, whole 02/15/2025 4:00 PM CDT 02/15/2025 4:08 PM CDT Nurys Pineda DO POINT OF CARE TESTING Final Resu lt Performing Organization Address [facility]/ZIP Co de Phone Number [facility] CLIA # [id number] [address] [address] * (ABNORMAL) POC GLUCOSE (02/15/2025 12:37 PM CDT) GLUCOSE POC 151(H) 74 - 99 mg/dL 02/15/2025 12:37 PM CDT [facility] SPECIMEN SOURCE, GLUCOSE POC Capillary 02/15/2025 12:37 PM CDT [facility] Blood, whole 02/15/2025 12:3 7 PM CDT 02/15/2025 12:45 PM CDT Nurys Pineda DO POINT OF CARE TESTING Final Resu lt Performing Organization Address City/[facility]/ZIP Co de Phone Number [facility] CLIA # [id number] [address] [address] * PATHOLOGY (02/15/2025 11:10 AM CDT) CASE REPORT Surgical Pathology Report Case: [id number] Authorizing Provider: Nurys Pineda DO Collected: 02/15/2025 11:10 AM Ordering Location: [facility] Received: 02/15/2025 12:37 PM Operating Room Pathologist: Parveen Moura MD Specimen: Sigmoid colon and rectum 1:12 PM T [facility] FINAL DIAGNOSIS A. Sigmoid colon and rectum, low anterior resection - perforated diverticulitis with pericolonic abscess - resection margins viable. Parveen Moura MD [id number] 1:12 PM T [facility] at 1312 CDT GROSS DESCRIPTION A. Received in a container of formalin labeled [place] -sigmoid colon and rectum is a 21 cm in length by 4.8 cm in diameter segment of sigmoid colon/proximal rectum. The serosa is remarkable for a large approximately 10 cm in greatest dimension area of dense hemorrhagic and purulent adhesions with roughened pericolonic fat. There is significant surrounding erythema and fibrinous exudate extending throughout the entirety of the serosal surface. Opening reveals pale-vital, smooth and distended mucosa with submucosal edema. The mucosa is serially sectioned to reveal a perforated abscess cavity that is directly communicating with the roughened serosa. Due to the extensive amount of abscess and inflammatory debris, a discrete diverticulum is difficult to appreciate. The bowel wall is diffusely thickened and tortuous. No discrete masses or polyps are appreciated. Separately within the container on a silver-metallic anastomotic ring is a single mucosal donut. Spare Person sections are submitted as follows: A1-proximal margin, en face A2-distal margin, en face A3-mucosal donut [id number]-thickness cross-section of perforated abscess, bisected (bisected point inked blue) A6-thickened bowel wall with abscess Grossed by: Zamzam Pino MS, PA ([facility])CM2 5 1:12 PM T [facility] OPERATIVE PROCEDURE 1: SIGMOID COLON RESECTION ROBOTIC XI 2: TRANSVERSUS ABDOMINIS PLANE BLOCK: BILATERAL 3: ILEOSTOMY ROBOTIC XI 4: SIGMOIDOSCOPY FLEXIBLE 5: SPLENIC FLEXURE MOBILIZATION 5 1:12 PM T [facility] CLINICAL INFORMATION K57.20-Diverticulitis of large intestine with abscess without bleeding 5 1:12 PM T [facility] COMMENT The Dragon voice-activated dictation system may have been used in the creation of this report. Inherent to this system is the possibility of errors in syntax, grammar, punctuation, or other areas that could impact interpretation. If there are interpretive questions about the report, please contact the performing pathologist. Unless gross only is specified in the diagnosis, the microscopic examination substantiates the above cited diagnosis. The performance characteristics of all immunohistochemical stains cited in this report (if any) were determined by the Diagnostic Immunohistochemistry Laboratory of [facility] in compliance with CLIA'88 regulations. Some of these tests rely on the use of analyte specific reagents and are subject to specific labeling requirements by the FDA. All controls show appropriate reactivity. This testing was developed by the Diagnostic Immunohist[facility] of [facility]. It has not been cleared or approved by the FDA. The FDA has determined that such clearance or approval is not necessary. 1:12 PM CDT [facility] Tissue Collection / Unknown 02/15/2025 11:10 AM CDT 02/15/2025 12:37 PM CDT Comment:OR 6 us Nurys Pineda DO PATHOLOGY/CYTOLOGY ORDERABLES Fi nal Result Performing Organization Address City/[facility]/ZIP Co de Phone Number [facility] CLIA # [id number] [address] [facility] [place] [address] * URINE CULTURE (02/15/2025 10:51 AM CDT) CULTURE No growth 02/16/2025 8:21 AM CDT [facility] Urine (Urine, indwelling (Berger) catheter) Collection / Unknown 02/15/2025 10:51 AM CDT 02/15/2025 10:58 AM CDT Comment:OR 6 Nurys Pineda DO MICROBIOLOGY - GENERAL ORDERABLE S Final Result [facility] CLIA # [id number] [address] [place] [address] * EKG 12-LEAD (02/15/2025 8:29 AM CDT) 02/15/2025 8:29 AM CDT Narrative INTERFACE SYSTEM - 02/15/2025 7:11 [place] [address] Test Date: 2025-02-15 Pat Name: [facility] Department: 12 Room: PREOP LOCATED [facility]IN [facility] PREOP PHAS 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 Department: 12 Room: PREOP LOCATED [facility]IN [facility] PREOP PHAS Gender: Female Mill Worker: [id number] : 1950 Requested By: Order Number: [id number] Reading MD: Serge Hutchins Measurements Intervals Wagner Rate: 75 P: 80 IA: 162 QRS: 13 QRSD: 86 T: 40 QT: 376 QTc: 419 Interpretive Statements Normal sinus rhythm T wave abnormality, consider anterolateral ischemia Abnormal ECG Electronically Signed On 02-15-2025 19:11:02 CDT by Serge Hutchins us Nurys Pineda DO ECG ORDERABLES Final Result INTERFACE SYSTEM Refer to clinic/hospital department * VERIFICATION BLOOD GROUP (02/15/2025 8:29 AM CDT) Pathologist [facility] ABO GROUP A 02/15/2025 8:57 AM CDT [facility] [employer] [facility] RH (D) TYPE Positive 02/15/2025 8:57 AM CDT [facility] [employer] [facility] Blood Venipuncture / Unknown 02/15/2025 8:29 AM CDT 02/15/2025 8:33 AM CDT us Nurys Pineda DO BLOOD BANK ORDERABLES Final Resu lt [facility] [employer] [facility] CLIA#[id number] [address] [place] [address], * (ABNORMAL) CBC WITHOUT DIFFERENTIAL (02/15/2025 8:25 AM CDT) Pathologist [facility] WBC 12.5(H) 4.8 - 10.8 K/uL 02/15/2025 8:34 AM CDT [facility] RBC 3.31(L) 4.20 - 5.40 M/uL 02/15/2025 8:34 AM CDT [facility] HEMOGLOBIN 10.2(L) 12.0 - 16.0 g/dL 02/15/2025 8:34 AM T [facility] HEMATOCRIT 30.6(L) 36.0 - 46.0 % 02/15/2025 8:34 AM CDT [facility] [employer] [facility] MCV 92.4 84.0 - 103.0 fL 02/15/2025 8:34 AM CDT [facility] MCH 30.8 27.0 - 34.0 pg 02/15/2025 8:34 AM CDT [facility] MCHC 33.3 30.0 - 35.0 g/dL 02/15/2025 8:34 AM CDT [facility] PLATELETS 370 140 - 440 K/uL 02/15/2025 8:34 AM T [facility] [employer] [facility] MPV 8.9 8.9 - 12.8 fL 02/15/2025 8:34 AM CDT [facility] [employer] [facility] RDW 15.9(H) 11.0 - 14.5 % 02/15/2025 8:34 AM CDT [facility] [employer] [facility] RDW-STDEV 53.7 37.0 - 54.0 fL 02/15/2025 8:34 AM CDT [facility] [place] Blood Venipuncture / Unknown 02/15/2025 8:25 AM CDT 02/15/2025 8:28 AM CDT Nurys Pineda DO HEMATOLOGY ORDERABLES Final Resu lt [facility] [employer] [facility] CLIA # [id number] [address] [place] [address] * TYPE AND SCREEN (02/15/2025 8:20 AM CDT) ANTIBODY SCREEN Negative 02/15/2025 9:37 AM CDT [facility] LAB[facility]ORY [facility] ABO GROUP A 02/15/2025 9:37 AM CDT [facility] [employer] [facility] RH (D) TYPE Positive 02/15/2025 9:37 AM CDT [facility] [employer] [facility] Blood Venipuncture / Unknown 02/15/2025 8:20 AM CDT 02/15/2025 8:28 AM CDT Nurys Pineda DO BLOOD BANK ORDERABLES Edited Res ult - Final [facility] [employer] [facility] CLIA#[id number] [facility] [place] [address], * PREPARE RED BLOOD CELLS (02/15/2025 7:55 AM CDT) COMPONENT TYPE [id number] [facility] [employer] [facility] COMPONENT IDENTIFICATION [id number] [facility] [place] UNIT ABO A [employer] [facility]ORATORY SERVICES -- [place] UNIT RH POS [facility] [place] CROSSMATCH Compatible [facility] [place] COMPONENT STATUS Returned [facility] [place] COMPONENT EXPIRATION DATE/TIME [phone] [facility] [place] COMPONENT CODING SYSTEM 6200 [facility] [place] VOLUME, BLOOD PRODUCT 350 [facility] [place] 02/15/2025 7:55 AM CDT Nurys Pineda DO LAB TRANSFUSION ORDERABLES Edite d Result - Final Performing Organization Address City/[facility]/ZIP Co de Phone Number [facility] [place] CLIA#[id number] [address] [place] [address], [place] [phone] * PREPARE RED BLOOD CELLS (02/15/2025 7:55 AM CDT) [facility] COMPONENT TYPE [id number] [facility] [place] COMPONENT IDENTIFICATION [id number] [facility] [place] UNIT ABO A [facility] [place] UNIT RH POS [facility] [place] CROSSMATCH Compatible [facility] [place] COMPONENT STATUS Returned [facility] -- [place] COMPONENT EXPIRATION DATE/TIME [id number] [facility] [place] COMPONENT CODING SYSTEM 6200 [facility] [place] VOLUME, BLOOD PRODUCT 350 [facility] [place] Other, specify 02/15/2025 7: 55 AM CDT Nurys Pineda DO LAB TRANSFUSION ORDERABLES Edite d Result - Final Performing Organization Address City/[facility]/ZIP Co de Phone Number [facility] [employer] SERVICES -- [place] CLIA#[id number] [address] [place] [address], [place] [phone] documented in this encounter Visit Diagnoses Diagnosis Acute diverticulitis- Primary Diverticulitis of large intestine with abscess without bleeding JOVANI (acute kidney injury) Acute kidney failure, unspecified JOVANI (acute kidney injury) Acute kidney failure, unspecified documented in this encounter Administered Medications Inactive Administered Medications - up to 3 most recent administrations Medication Order MAR Action Action Date Dose Rate Site acetaminophen (TYLENOL) tablet 1,000 mg 1,000 mg, Oral, PRE-PROCEDURE ONCE, 1 dose, Starting on Sat02/15/25 at 0755, Until Sat02/15/25 at 0828, Routine, Pre-opIndications:Diverticulitis of large intestine with abscess without bleeding Given 02/15/2025 8:28 AM CDT 1,000 mg acetaminophen (TYLENOL) tablet 650 mg 650 mg, Oral, EVERY 6 HOURS, First dose on Sat02/15/25 at 1800, Until Discontinued, Routine Given 02/19/2025 8:27 AM CDT 650 mg Given 02/19/2025 3:58 AM CDT 650 mg Given 02/18/2025 9:09 PM CDT 650 mg alvimopan (ENTEREG) capsule 12 mg 12 mg, Oral, PRE-PROCEDURE ONCE, 1 dose, Starting on Sat02/15/25 at 0755, Until Sat02/15/25 at 0828, Routine, Pre-op, The ordering provider acknowledges review of the [employer]S education on the benefits and risks of alvimopan? (see reference links above): YesIndications:Diverticulitis of large intestine with abscess without bleeding Given 02/15/2025 8:28 AM CDT 12 m g alvimopan (ENTEREG) capsule 12 mg 12 mg, Oral, TWO TIMES DAILY, 14 doses, First dose on Sat02/16/25 at 0900, Last dose on Sat02/22/25 at 2100, Routine, The ordering provider acknowledges review of the REMS education on the benefits and risks of alvimopan? (see reference links above): Yes Given 02/19/2025 8:27 AM CDT 12 mg Given 02/17/2025 9:09 PM CDT 12 mg Given 02/17/2025 8:20 AM CDT 12 mg calcium as CARBONATE (TUMS) 500 mg (200 mg elemental) chewable tablet 300 mg 300 mg, Oral, EVERY 6 HOURS PRN, Starting on Tiffanie 02/18/25 at 0555, Until Sat02/19/25 at 1713, Indigestion, Routine Given 02/18/2025 11:40 PM CDT 300 mg celecoxib (CeleBREX) capsule 200 mg 200 mg, Oral, PRE-PROCEDURE ONCE, 1 dose, Starting on Sat02/15/25 at 0755, Until Sat02/15/25 at 0828, Routine, Pre-opIndications:Diverticulitis of large intestine with abscess without bleeding Given 02/15/2025 8:28 AM CDT 200 mg famotidine PF (PEPCID) 40 mg in sodium chloride 0.9% 10 mL injection 40 mg, IV, DAILY, First dose on Sat02/18/25 at 0600, Until Discontinued, Routine Given 02/19/2025 8:27 AM CDT 40 mg Given 02/18/2025 6:01 AM CDT 40 mg heparin injection 5,000 Units 5,000 Units, subCUT, EVERY 8 HOURS, First dose on Sat02/16/25 at 1300, Until Discontinued, Routine Given 02/19/2025 6:32 AM CDT 5,000 Units Abdomen, Left Lower Quadrant Given 02/18/2025 9:09 PM CDT 5,000 Units A bdomen, Left Lower Quadrant Given 02/18/2025 5:25 AM CDT 5,000 Units A bdomen, Left Lower Quadrant HYDROmorphone (PF) (DILAUDID) injection 0.5 mg 0.5 mg, IV, EVERY 1 HOUR PRN, Starting on Sat02/15/25 at 1401, Until Sat02/19/25 at 1713, Pain, Break-Through, Routine Given 02/16/2025 8:46 PM CDT 0.5 mg Given 02/16/2025 4:22 PM CDT 0.5 mg Given 02/15/2025 2:25 PM CDT 0.5 mg lactated ringers bolus solution 1,000 mL 1,000 mL, IV, ONE TIME ONLY, 1 dose, On Sat02/18/25 at 0730, at 2,000 mL/hr, Administer over 30 Minutes, Stat New Bag 02/18/2025 7:36 AM CDT 1,000 mL 2000 mL/hr lactated ringers infusion IV, at 75 mL/hr, CONTINUOUS, Starting on Sat02/15/25 at 0800, Until Sat02/15/25 at 1401, Stat, Pre-op New Bag 02/15/2025 11:50 AM CDT 75 mL/hr Continue from Pre-Op 02/15/2025 9:45 AM CDT 75 mL/hr New Bag 02/15/2025 8:27 AM CDT 75 mL/hr lactated ringers infusion IV, at 75 mL/hr, CONTINUOUS, Starting on Sat02/16/25 at 0045, Until Sat02/16/25 at 0734, Routine New Bag 02/16/2025 6:13 AM CDT 75 mL/hr levoFLOXacin (LEVAQUIN) 500 mg/100 mL in D5W IVPB 500 mg 500 mg, IV, EVERY 24 HOURS, 1 dose, First dose on Sat02/15/25 at 1415, Routine, Antibiotic Indication: Surgical prophylaxis New Bag 02/15/2025 3:54 PM CDT 500 mg 100 mL/hr magnesium OXIDE (MAG-OX) tablet 400 mg 400 mg, Oral, DAILY, First dose on Sat02/15/25 at 1415, Until Discontinued, Routine Given 02/19/2025 8:28 AM CDT 400 mg Given 02/17/2025 8:20 AM CDT 400 mg Given 02/16/2025 8:51 AM CDT 400 mg metroNIDAZOLE (FLAGYL) IVPB 500 mg 500 mg, IV, PRE-PROCEDURE ONCE, 1 dose, Starting on Sat02/15/25 at 0755, Until Sat02/15/25 at 0945, Routine, Pre-op, Antibiotic Indication: Surgical prophylaxisIndications:Divertic ulitis of large intestine with abscess without bleeding New Bag 02/15/2025 9:15 AM CDT 500 mg 200 mL/hr Right Arm metroNIDAZOLE (FLAGYL) IVPB 500 mg 500 mg, IV, EVERY 8 HOURS, 3 doses, First dose on Sat02/15/25 at 1700, Last dose on Sat02/16/25 at 0900, Routine, Antibiotic Indication: Surgical prophylaxis New Bag 02/16/2025 8:56 AM CDT 500 mg 100 mL/hr Restarted 02/16/2025 1:45 AM CDT 100 mL/hr New Bag 02/16/2025 12:11 AM CDT 500 mg 100 mL/hr naloxone (NARCAN) 0.4 mg/mL injection 0.1-0.4 mg 0.1-0.4 mg, IV, SEE ADMIN INSTRUCTIONS, Starting on Sat02/15/25 at 0914, Until Sat02/19/25 at 1713, Routine, PACU ondansetron (ZOFRAN) 4 mg/2 mL injection 4 mg 4 mg, IV, POST-PROCEDURE ONCE PRN, 1 dose, Starting on Sat02/15/25 at 0914, Until Sat02/15/25 at 1244, Nausea/Emesis, Routine, PACU Given 02/15/2025 12: 44 PM CDT 4 mg ondansetron (ZOFRAN) 4 mg/2 mL injection 4 mg 4 mg, IV, EVERY 6 HOURS PRN, Starting on Sat02/15/25 at 1401, Until Sat02/19/25 at 1713, Nausea/Emesis, Routine Given 02/18/2025 9:08 AM CDT 4 mg Given 02/18/2025 12:58 AM CDT 4 mg Given 02/16/2025 5:45 PM CDT 4 mg oxyCODONE (ROXICODONE) tablet 5 mg 5 mg, Oral, EVERY 4 HOURS PRN, Starting on Sat02/15/25 at 1401, Until Sat02/19/25 at 1713, Pain (See admin instructions), Routine Given 02/17/2025 7:05 PM CDT 5 mg prochlorperazine maleate (COMPAZINE) tablet 10 mg 10 mg, Oral, EVERY 6 HOURS PRN, Starting on Sat02/15/25 at 1401, Until Sat02/19/25 at 1713, Nausea/Emesis, Routine Given 02/17/2025 8:05 PM CDT 10 mg Given 02/16/2025 8:46 PM CDT 10 mg sodium chloride 0.9 % bolus solution 500 mL 500 mL, IV, ONE TIME ONLY, 1 dose, On Sat02/16/25 at 0045, at 999 mL/hr, Administer over 30 Minutes, Routine New Bag 02/16/2025 3:44 AM CDT 500 mL 999 mL/hr sodium chloride flush injection 10 mL 10 mL, IV, TWO TIMES DAILY, First dose on Sat02/16/25 at 0900, Until Discontinued, Routine Given 02/19/2025 8:28 AM CDT 10 mL Given 02/18/2025 9:13 PM CDT 10 mL Given 02/18/2025 8:53 AM CDT 10 mL sodium chloride flush injection 10 mL 10 mL, IV, SEE ADMIN INSTRUCTIONS, Starting on Sat02/16/25 at 0137, Until Sat02/19/25 at 1713, Routine documented in this encounter Active and Recently Administered Medications Times are shown in CDT. Scheduled Medication Order 02/17/2025 02/18/2025 02/19/2025 acetaminophen (TYLENOL) tablet 650 mg 650 mg, Oral, EVERY 6 HOURS, First dose on Sat02/15/25 at 1800, Until Discontinued, Routine 0530 (Given - Provider: ROBB Hyatt)08 (Given - Provider: Vicki Trimble RN)1422 (Given - Provider: Vicki Trimble RN)2108 (Given - Provider: ROBB Odom) 0221 (Given - Provider: ROBB Odom)0900 (Not Given - Provider: Jennifer Munguia RN - Reason: Strict NPO)1500 (Refused - Provider: Jennifer Munguia RN - Comment: pt refused, no pain)2108 (Given - Provider: Latoya Morales RN) 0358 (Given - Provider: Latoya Morales RN)0827 (Given - Provider: Luly Guerrero RN)1500 (Not Given - Provider: Vicki Trimble RN - Reason: Other - See Comment - Comment: Patient discharging) alvimopan (ENTEREG) capsule 12 mg 12 mg, Oral, TWO TIMES DAILY, 14 doses, First dose on Sat02/16/25 at 0900, Last dose on Sat02/22/25 at 2100, Routine, The ordering provider acknowledges review of the [facility] education on the benefits and risks of alvimopan? (see reference links above): Yes 08 (Given - Provider: Vicki Trimble RN)2108 (Given - Provider: ROBB Odom) 0900 (Not Given - Provider: Jennifer Munguia RN - Reason: Strict NPO)2100 (Not Given - Provider: Latoya Morales RN - Reason: Clarify-Other (Comment) - Comment: frequent watery output from ostomy) 0827 (Given - Provider: Luly Guerrero, LEONARD) famotidine PF (PEPCID) 40 mg in sodium chloride 0.9% 10 mL injection 40 mg, IV, DAILY, First dose on Sat02/18/25 at 0600, Until Discontinued, Routine 0601 (Given - Provider: ROBB Odom) 0827 (Given - Provider: Luly Guerrero, LEONARD) heparin injection 5,000 Units 5,000 Units, subCUT, EVERY 8 HOURS, First dose on Sat02/16/25 at 1300, Until Discontinued, Routine 0530 (Given - Provider: ROBB Hyatt)1423 (Given - Provider: Vicki Trimble, LEONARD)2004 (Given - Provider: ROBB Odom) 0525 (Given - Provider: ROBB Odom)1300 (Not Given - Provider: Jennifer Munguia RN - Reason: Other - See Comment - Comment: pt just had a stent placed and is abmbulating in the halls with PT, OT and by herself. Will start at next dose.)2108 (Given - Provider: Latoya Morales RN) 0632 (Given - Provider: Latoya Morales, LEONARD)1300 (Refused - Provider: Vicki Trimble, RN) Iopamidol (ISOVUE-M 300) 300 mg iodine /mL (61 %) injection 15 mL (COMPLETED) 15 mL, See Admin Instructions, INTRA-PROCEDURE ONCE, 1 dose, Starting on Sat02/18/25 at 1030, Until Sat02/18/25 at 1030, Routine, Intra-op 1030 (Given - Provider: Moisés Ernandez MD) lactated ringers bolus solution 1,000 mL (COMPLETED) 1,000 mL, IV, ONE TIME ONLY, 1 dose, On Sat02/18/25 at 0730, at 2,000 mL/hr, Administer over 30 Minutes, Stat 0736 (New Bag - Provider: Jennifer Munguia, LEONARD)0806 (Stopped - Provider: Jennifer Munguia, LEONARD) magnesium OXIDE (MAG-OX) tablet 400 mg 400 mg, Oral, DAILY, First dose on Sat02/15/25 at 1415, Until Discontinued, Routine 0820 (Given - Provider: Vicki Trimble RN) 0900 (Not Given - Provider: Jennifer Munguia, LEONARD - Reason: Strict NPO) 0828 (Given - Provider: Luly Guerrero, LEONARD) naloxone (NARCAN) 0.4 mg/mL injection 0.1-0.4 mg 0.1-0.4 mg, IV, SEE ADMIN INSTRUCTIONS, Starting on Sat02/15/25 at 0914, Until Sat02/19/25 at 1713, Routine, PACU sodium chloride flush injection 10 mL 10 mL, IV, TWO TIMES DAILY, First dose on Sat02/16/25 at 0900, Until Discontinued, Routine 0822 (Given - Provider: Vicki Trimble RN)2108 (Given - Provider: ROBB Odom) 0853 (Given - Provider: Jennifer Munguia RN)2113 (Given - Provider: Latoay Morales, LEONARD) 0828 (Given - Provider: Luly Guerrero RN) sodium chloride flush injection 10 mL 10 mL, IV, SEE ADMIN INSTRUCTIONS, Starting on Sat02/16/25 at 0137, Until Sat02/19/25 at 1713, Routine PRN Medication Order 02/17/2025 02/18/2025 02/19/2025 calcium as CARBONATE (TUMS) 500 mg (200 mg elemental) chewable tablet 300 mg 300 mg, Oral, EVERY 6 HOURS PRN, Starting on Sat02/18/25 at 0555, Until Sat02/19/25 at 1713, Indigestion, Routine 2340 (Given - Provider: Latoya Morales RN) HYDROmorphone (PF) (DILAUDID) injection 0.5 mg 0.5 mg, IV, EVERY 1 HOUR PRN, Starting on Sat02/15/25 at 1401, Until Sat02/19/25 at 1713, Pain, Break-Through, Routine lidocaine 2% jelly (CANCELED) INTRA-PROCEDURE PRN, Starting on Sat02/18/25 at 1030, Until Tiffanie 02/18/25 at 1039, Routine, Intra-op 1030 (Given - Provider: Moisés Ernandez MD) ondansetron (ZOFRAN) 4 mg/2 mL injection 4 mg 4 mg, IV, EVERY 6 HOURS PRN, Starting on Sat02/15/25 at 1401, Until Sat02/19/25 at 1713, Nausea/Emesis, Routine 0058 (Given - Provider: Latoya Morales, RN)0908 (Given - Provider: Jennifer Munguia RN) oxyCODONE (ROXICODONE) tablet 10 mg 10 mg, Oral, EVERY 4 HOURS PRN, Starting on Sat02/15/25 at 1401, Until Sat02/19/25 at 1713, Pain (See admin instructions), Routine oxyCODONE (ROXICODONE) tablet 5 mg 5 mg, Oral, EVERY 4 HOURS PRN, Starting on Sat02/15/25 at 1401, Until Sat02/19/25 at 1713, Pain (See admin instructions), Routine 190 (Given - Provider: RBOB Odom) prochlorperazine maleate (COMPAZINE) tablet 10 mg 10 mg, Oral, EVERY 6 HOURS PRN, Starting on Sat02/15/25 at 1401, Until Sat02/19/25 at 1713, Nausea/Emesis, Routine 2004 (Given - Provider: ROBB Odom) prochlorperazine maleate (COMPAZINE) tablet 10 mg 10 mg, Oral, EVERY 6 HOURS PRN, Starting on Sat02/15/25 at 1401, Until Sat02/19/25 at 1713, Nausea/Emesis, Routine documented in this encounter Care Teams Print Graphic Designer Relationship Specialty Start Date End Date Steven Olivo MD [address] [place] [id number] PCP - General Family Practice 11/12/24 documented as of this encounter
--- OUTSIDE RECORDS SUMMARY | 2025-02-15 09:45 | XMS_ITS | Encounter Summary ---
Author Organization [email or web address] Address [address] [place] [address] Care Team Providers Care Addiction Counselor Name Role Phone Steven Olivo MD Primary Care Provider [phone] Reason for Visit * Auth/Cert (Routine) Specialty Diagnoses / Procedures Referred By Maxx coello Referred To Contact Perioperative Diagnoses Diverticulitis of large intestine with abscess without bleeding Diverticulitis of large intestine with abscess without bleeding Procedures CO LAPS COLECTOMY PRTL W/COLOPXTSTMY LW ANAST CO LAPS COLECTMY PRTL W/COLOPXTSTMY LW ANAST W/CLST HCHG NEEDLE ECHO 20GAX5.0CM CO LAPS MOBLJ SPLENIC FLXR PFRMD W/PRTL COLECTOMY SIGMOID COLON RESECTION ROBOTIC XI SIGMOID COLON RESECTION ROBOTIC XI Nurys Pineda DO [address] [facility] [address] [place] [phone] Phone: tel: fax: [facility] Operating Room [facility] [place] [address] Phone: tel: fax: Referral ID Status Reason Start Date Expiration Date Visits Re quested Visits Authorized [id number] 1 1 Encounter Details Date Type Department Care Team (Late st Contact Info) Description 02/15/2025 9:45 AM CDT Anesthesia Event [facility] Operating Room [address] [place] [phone] Andrew Mancini, DO [address] [place] [phone] Murphy Reynoso, HEALTH SCIENCE SPECIALIST [address] [facility] [place] [phone] Anesthesia Record Procedure Summary Procedure Name Responsible Anesthesiologist Anesthesia Start Time Anesthesia Stop Time LOW ANTERIOR COLON RESECTION ROBOTIC XI (Abdomen) Andrew Mancini, DO 02/15/25 0945 02/15/25 1229 Events Date Time Event Comment 02/15/2025 0914 0931 AN Equip Check Anesthesia eq uipment and materials checked in accordance with local policy. 0945 An Start Flagyl hanging and infusion started 0950 In Room This event disp lays the In Room time documented in the Surgical Log. Deleting this event will not remove it from the log but will remove it from the Grid and Graph timeline. 0950 An Start Data 0955 Pre-Induction Immediate pre- induction anesthetic assessment performed. Vital signs as noted on graphic. 0957 An Induction 1000 An Intubation 1013 Anesthesia Ready 1017 Procedure Start This event d isplays the Procedure Start time documented in the Surgical Log. Deleting this event will not remove it from the log but will remove it from the Grid and Graph timeline. 1213 Procedure Stop This event di splays the Procedure Stop time documented in the Surgical Log. Deleting this event will not remove it from the log but will remove it from the Grid and Graph timeline. 1217 An Extubation Emergence unev entful Awake, spontaneous respirations. Adequate muscle strength demonstrated Adequate tidal volume. Orapharynx suctioned. Extubated with positive pressure ventilation. 1219 an stop data 1220 Out of Room This event disp lays the Out of Room time documented in the Surgical Log. Deleting this event will not remove it from the log but will remove it from the Grid and Graph timeline. 1229 An Stop 1229 Hand-off to Receiving Clinic estefania Meds Name Total midazolam (VERSED) 1 mg/mL injection 2 mg fentaNYL (SUBLIMAZE) PF 50 mcg/mL injection 200 mcg lidocaine (XYLOCAINE) 2% injection 100 m g propofol (DIPRIVAN) 10 mg/mL injection 100 mg rocuronium (ZEMURON) 10mg/mL injection 5 0 mg phenylephrine 1 mg/10 mL (100 mcg/mL) sy ringe 700 mcg ceFAZolin in sterile water ( ANCEF) 2 gram/20 mL IV Syringe (PREMIX) 2,000 mg 2,000 mg heparin injection 5,000 Units 5,000 Unit s acetaminophen (OFIRMEV) 1000 mg/100 mL I V 1,000 mg albumin, human (BUMINATE) 5% injection 2 5 Gram glycopyrrolate (ROBINUL) 0.2 mg/mL injec tion 0.4 mg neostigmine (BLOXIVERZ) 1 mg/mL injectio n 2 mg lactated ringers infusion 1,100 mL * Agents Name Air O2 O2 * Blood No blood administrations on file. Lines, Drains, and Airways Type Details Placement Removal Ileostomy 02/15/25 02/15/25 0000 by Estefania Huddleston RN Wound 02/15/25; 1200; othe r (comment); abdomen; Surgical 02/15/25 1200 by Arlene Phelps RN Peripheral IV Pre-Hospital Start: No; Orientation: Right, Lower; Location: Arm; Device: Angiocath; Gauge: 18 gauge; Needle Length: 1.16 in length; Insertion Attempts: 1; Patient Tolerance: tolerated well; Removal Indication: site symptomatic; Removal Interventions: pressure dressing, direct pressure, catheter intact 02/15/25 0824 by Stephany Acuna, PCT 02/16/25 0036 by Isha Brumfield GN Endotracheal Airway Type: ETT; Size: 7; Attempts: 1; Verification: Auscultated bilateral breath sounds, Equal chest movement, Continuous waveform capnography 02/15/25 1000 by Murphy Reynoso CRNA 02/15/25 1217 by Murphy Reynoso CRNA Indwelling Urethral Catheter 02/15/25; 1000; 02/15/25; No; Indwelling double lumen catheter; 100% silicone; 16 Fr; inserted (Dr. Miriam floresey); 1; 5; 10; 02/16/25; 0615; 02/16/25 02/15/25 1000 by Arlene Phelps RN 02/16/25 0615 by Isha Brumfield GN documented in this encounter Social History Tobacco Use Types Packs/Day Years [...] week 06/06/2020 How often do you attend [facility] or yazidism services? 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 Stable cardiovascular and respiratory status. Appropriate mental status. Overall clinical condition satisfactory relative to the procedure performed and patient's comorbidities. No apparent anesthesia complications. Anesthesia Post Evaluation No notable events documented. Andrew Mancini DO * Anesthesia Handoff - Murphy Reynoso CRNA - 02/15/2025 12:29 PM CDT Post-Anesthetic transfer of care report elements to appropriate post-anesthesia recovery environment completed in accordance with procedure. I completed my handoff to the receiving nurse during which we: 1. Identified the patient 2. Identified the responsible provider 3. Reviewed the pertinent medical history 4. Discussed the surgical course 5. Reviewed intra-op anesthesia management and issues during anesthesia 6. Set expectations for post-procedure period 7. Orders as necessary and appropriate for continuation of care are present in Epic. 8. Allowed opportunity for questions and acknowledgement of understanding. Snoring but Spont awakens. Vital Signs: Vitals Value Taken Time BP 139/65 02/15/25 12:25 Temp 36.6 ??C 02/15/25 12:25 Resp 26 02/15/25 12:25 SpO2 100 % 02/15/25 12:25 Pulse 95 02/15/25 12:25 Heart Rate 92 bpm 02/15/25 12:25 12:29 PM Murphy Reynoso CRNA * Anesthesia Procedure Notes - Murphy Reynoso CRNA - 02/15/2025 10:16 AM CDTAssociated Order(s): Airway Airway Date/Time: 02/15/2025 10:00 AM Location: OR Plan: routine intubation Patient Identity Confirmed by: Verbally with patient and armband Airway: not difficult Staffing Performed: KUN/RADHA Authorized by: Andrew Mancini DO Performed by: Murphy Reynoso CRNA Indications and Patient Condition: Indications for Airway Management: Anesthesia Sedation Level: general anesthesia Preoxygenated: yes Patient Position: Sniffing Mask Difficulty Assessment: 1 - vent by mask Plan to extubate at end of case: Yes Final Airway Details: Final Airway Type: Endotracheal airway ETT Cuffed: Yes Cuff Volume (mL): 8 Technique Used for Successful ETT Placement: Direct laryngoscopy Devices/Methods Used in Placement: Intubating stylet Blade Type: curved blade Blade Size: 3 Insertion Site: Oral ETT Size (mm): 7.0 Measured from: Teeth ETT to Teeth (cm): 22 Tube secured with: Tape Placement Verified by: auscultation, end tidal CO2 and chest rise Cormack-Lehane Classification: Grade I - full view of glottis Number of Attempts at Approach: 1 Additional Procedure Information: atraumatic and dentition unchanged * Anesthesia Preprocedure Evaluation - Andrew Mancini DO - 02/15/2025 9:13 AM CDT Anesthesia Evaluation Anesthesia Plan ASA Final: 3 General Preanesthesia Evaluation Valerie Ferro is a 74 y.o. 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 [place] COLONOSCOPY W/BIOPSY SINGLE/MULTIPLE N/A 01/06/2025 COLONOSCOPY performed by Nurys Pineda DO at [facility] [place] CO COLSC FLX W/RMVL OF TUMOR POLYP LESION SNARE TQ N/A 01/06/2025 COLONOSCOPY performed by Nurys Pineda DO at [facility] [place] CO CYSTO W/INSERT URETERAL STENT Left 10/31/2024 CYSTOURETHROSCOPY URETERAL STENT INSERTION performed by Romeo Mathias MD at [facility] OR XR RETROGRADE PYELOGRM W WO KUB Left 10/31/2024 PYELOGRAM RETROGRADE performed by Romeo Mathias MD at [facility] OR No current facility-administered medications on file prior to encounter. Current Outpatient Medications on File Prior to Encounter Medication Sig Dispense Refill metroNIDAZOLE (FLAGYL) 500 mg tablet Take 1 Tablet (500 mg) by mouth 3 times daily. 30 Tablet 0 levoFLOXacin (LEVAQUIN) 500 mg tablet Take 1 Tablet (500 mg) by mouth daily. 10 Tablet 0 Physical Exam: Airway Class: II (soft palate, uvula, fauces visible) Dentition: fair Pulmonary: clear to auscultation, no wheezes or rales, and unlabored breathing Cardiac: regular rate and rhythm, S1, S2 normal, no murmur, click, rub or gallop Neuro: alert Pertinent lab: Results for orders placed or performed during the hospital encounter of 02/15/25 (from the past 24 hours) CBC WITHOUT DIFFERENTIAL Result Value Ref Range WBC 12.5 (H) 4.8 - 10.8 K/uL RBC 3.31 (L) 4.20 - 5.40 M/uL HEMOGLOBIN 10.2 (L) 12.0 - 16.0 g/dL HEMATOCRIT 30.6 (L) 36.0 - 46.0 % MCV 92.4 84.0 - 103.0 fL MCH 30.8 27.0 - 34.0 pg MCHC 33.3 30.0 - 35.0 g/dL PLATELETS 370 140 - 440 K/uL MPV 8.9 8.9 - 12.8 fL RDW 15.9 (H) 11.0 - 14.5 % RDW-STDEV 53.7 37.0 - 54.0 fL VERIFICATION BLOOD GROUP Result Value Ref Range ABO GROUP A RH (D) TYPE Positive Pertinent lab: Lab Results Component Value Date/Time WBC 12.5 (H) 02/15/2025 08:25 AM HGB 10.2 (L) 02/15/2025 08:25 AM HCT 30.6 (L) 02/15/2025 08:25 AM PLT 370 02/15/2025 08:25 AM MCV 92.4 02/15/2025 08:25 AM Lab Results Component Value Date/Time NA 141 11/01/2024 02:01 AM K 3.6 11/01/2024 02:01 AM CL 108 (H) 11/01/2024 02:01 AM CO2 22 11/01/2024 02:01 AM CA 8.3 (L) 11/01/2024 02:01 AM BUN 11 11/01/2024 02:01 AM CREAT 0.99 (H) 11/01/2024 02:01 AM GLUCOSE 133 (H) 11/01/2024 02:01 AM TOTALPROTEIN 6.1 (L) 11/01/2024 02:01 AM ALBUMIN 2.3 (L) 11/01/2024 02:01 AM BILITOTAL <0.2 11/01/2024 02:01 AM ALKPHOS 139 (H) 11/01/2024 02:01 AM AST 42 (H) 11/01/2024 02:01 AM ALT 19 11/01/2024 02:01 AM ANIONGAP 11 11/01/2024 02:01 AM The risks and benefits of the proposed anesthetic have been discussed. The patient has agreed to General with General as a backup. Anesthesia guideline orders initiated. Andrew Mancini DO documented in this encounter Plan of Treatment Upcoming Encounters Date Type Department Care Team (Late st Contact Info) Description 02/23/2025 12:00 PM CDT Appointment [facility] Nuclear Medicine [address] [place] [phone] Julieta Roth, PERSONAL LINES UNDERWRITER [address] [place] [address] 03/04/2025 8:00 AM CDT Office Visit [facility] Gen Spec S[facility] [address] [place] [address] Tiff Odom, PERSONAL LINES UNDERWRITER [address] [place] [phone] documented as of this encounter Procedures Procedure Name Priority Date/Time Associated Diagnosis Comments CO ANES INSERT ENDOTRACHEAL AIRWAY Routine 02/15/2025 10:00 AM CDT documented in this encounter Results * CO ANES INSERT ENDOTRACHEAL AIRWAY (02/15/2025 10:00 AM CDT) Narrative Murphy Reynoso CRNA - 02/15/2025 10:00 AM CDT Murphy Reynoso CRNA 02/15/2025 10:17 AM Airway Date/Time: 02/15/2025 10:00 AM Location: OR Plan: routine intubation Patient Identity Confirmed by: Verbally with patient and armband Airway: not difficult Staffing Performed: KUN/CAA Authorized by: Andrew Mancini DO Performed by: Murphy Reynoso CRNA Indications and Patient Condition: Indications for Airway Management: Anesthesia Sedation Level: general anesthesia Preoxygenated: yes Patient Position: Sniffing Mask Difficulty Assessment: 1 - vent by mask Plan to extubate at end of case: Yes Final Airway Details: Final Airway Type: Endotracheal airway ETT Cuffed: Yes Cuff Volume (mL): 8 Technique Used for Successful ETT Placement: Direct laryngoscopy Devices/Methods Used in Placement: Intubating stylet Blade Type: curved blade Blade Size: 3 Insertion Site: Oral ETT Size (mm): 7.0 Measured from: Teeth ETT to Teeth (cm): 22 Tube secured with: Tape Placement Verified by: auscultation, end tidal CO2 and chest rise Cormack-Lehane Classification: Grade I - full view of glottis Number of Attempts at Approach: 1 Additional Procedure Information: atraumatic and dentition unchanged Andrew Mancini DO PROCEDURE/MINOR SURGICA L ORDERABLES Final Result documented in this encounter Visit Diagnoses Not on filedocumented in this encounter Administered Medications Inactive Administered Medications - up to 3 most recent administrations Medication Order MAR Action Action Date Dose Rate Site acetaminophen (OFIRMEV) 10 mg/mL injection IV, INTRA-PROCEDURE PRN, Starting on Sat02/15/25 at 1210, Until Sat02/15/25 at 1229, Routine, Anesthesia Intra-op Given 02/15/2025 12:10 PM CDT 1,000 mg albumin, human (BUMINATE) 5 % injection IV, INTRA-PROCEDURE PRN, Starting on Sat02/15/25 at 1130, Until Sat02/15/25 at 1229, Routine, Anesthesia Intra-op Given 02/15/2025 11:30 AM CDT 25 Grams ceFAZolin in sterile water (ANCEF) 2 gram/20 mL IV Syringe (PREMIX) 2,000 mg 2,000 mg, IV, PRE-PROCEDURE ONCE, 1 dose, Starting on Sat02/15/25 at 0755, Until Sat02/15/25 at 1002, Routine, Pre-op, Antibiotic Indication: Surgical prophylaxisIndications:Divertic ulitis of large intestine with abscess without bleeding Given 02/15/2025 10:02 AM CDT 2,000 mg fentaNYL PF (SUBLIMAZE) 50 mcg/mL injection IV, INTRA-PROCEDURE PRN, Starting on Sat02/15/25 at 0955, Until Sat02/15/25 at 1229, Routine, Anesthesia Intra-op Given 02/15/2025 12:27 PM CDT 50 mcg Given 02/15/2025 11:27 AM CDT 50 mcg Given 02/15/2025 10:20 AM CDT 50 mcg glycopyrrolate (ROBINUL) injection IV, INTRA-PROCEDURE PRN, Starting on Sat02/15/25 at 1206, Until Sat02/15/25 at 1229, Routine, Anesthesia Intra-op Given 02/15/2025 12:06 PM CDT 0.4 mg heparin injection 5,000 Units 5,000 Units, subCUT, INTRA-PROCEDURE ONCE, 1 dose, Starting on Sat02/15/25 at 0755, Until Sat02/15/25 at 1007, Routine, Pre-opIndications:Diverticuliti s of large intestine with abscess without bleeding Given 02/15/2025 10:07 AM CDT 5,000 Units lactated ringers infusion IV, at 75 mL/hr, CONTINUOUS, Starting on Sat02/15/25 at 0800, Until Sat02/15/25 at 1401, Stat, Pre-op New Bag 02/15/2025 11:50 AM CDT 75 mL/hr Continue from Pre-Op 02/15/2025 9:45 AM CDT 75 mL/hr New Bag 02/15/2025 8:27 AM CDT 75 mL/hr lidocaine 2 % (XYLOCAINE) injection IV, INTRA-PROCEDURE PRN, Starting on Sat02/15/25 at 0957, Until Sat02/15/25 at 1229, Routine, Anesthesia Intra-op Given 02/15/2025 10:25 AM CDT 20 mg Given 02/15/2025 9:57 AM CDT 80 mg midazolam (VERSED) injection IV, INTRA-PROCEDURE PRN, Starting on Sat02/15/25 at 0948, Until Sat02/15/25 at 1229, Routine, Anesthesia Intra-op Given 02/15/2025 9:48 AM CDT 2 mg neostigmine (BLOXIVERZ) 1 mg/mL injection IV, INTRA-PROCEDURE PRN, Starting on Sat02/15/25 at 1210, Until Sat02/15/25 at 1229, Routine, Anesthesia Intra-op Given 02/15/2025 12:10 PM CDT 2 mg phenylephrine syringe IV, INTRA-PROCEDURE PRN, Starting on Sat02/15/25 at 1015, Until Sat02/15/25 at 1229, Routine, Anesthesia Intra-op Given 02/15/2025 11:35 AM CDT 300 mcg Given 02/15/2025 10:15 AM CDT 200 mcg Given 02/15/2025 10:02 AM CDT 200 mcg propofoL (DIPRIVAN) injection IV, INTRA-PROCEDURE PRN, Starting on Sat02/15/25 at 0957, Until Sat02/15/25 at 1229, Anesthesia Intra-op Given 02/15/2025 9:57 AM CDT 100 mg rocuronium injection IV, INTRA-PROCEDURE PRN, Starting on Sat02/15/25 at 0957, Until Sat02/15/25 at 1229, Routine, Anesthesia Intra-op Given 02/15/2025 10:25 AM CDT 10 mg Given 02/15/2025 9:57 AM CDT 40 mg documented in this encounter Care Teams Addiction Counselor Relationship Specialty Start Date End Date Steven Olivo MD [address] [place] [phone] PCP - General Family Practice 11/12/24 documented as of this encounter
--- OUTSIDE RECORDS SUMMARY | 2025-02-15 10:32 | XMS_ITS | Encounter Summary ---
Author Organization [facility] Address [address] [place] [address] Care Team Providers Care Physician General Internal Medicine Name Role Phone Steven Olivo MD Primary Care Provider [phone] Reason for Visit * Auth/Cert (Routine) Specialty Diagnoses / Procedures Referred By Maxx coello Referred To Contact Perioperative Diagnoses Diverticulitis of large intestine with abscess without bleeding Diverticulitis of large intestine with abscess without bleeding Procedures IN LAPS COLECTOMY PRTL W/COLOPXTSTMY LW ANAST IN LAPS COLECTMY PRTL W/COLOPXTSTMY LW ANAST W/CLST HCHG NEEDLE ECHO 20GAX5.0CM IN LAPS MOBLJ SPLENIC FLXR PFRMD W/PRTL COLECTOMY SIGMOID COLON RESECTION ROBOTIC XI SIGMOID COLON RESECTION ROBOTIC XI Nurys Pineda DO [address] [facility] [address] [place] [address] Phone: tel: fax: [facility] Operating Room [address] [place] [phone] Phone: tel: fax: Referral ID Status Reason Start Date Expiration Date Visits Re quested Visits Authorized [id number] 1 1 Encounter Details Date Type Department Care Team (Late st Contact Info) Description 02/15/2025 10:32 AM CDT - 02/15/2025 1:24 PM CDT Surgery [facility] Operating Room [address] [place] [address] Nurys Pineda DO [address] [place] [address] LOW ANTERIOR COLON RESECTION ROBOTIC XI Social History Tobacco Use Types Packs/Day Years [...] week 06/06/2020 How often do you attend [facility] or gnosticism services? Never 06/06/2020 Do you belong to any clubs o r organizations such as jain groups, unions, fraternal or athletic groups, or [...] on file Legal Sex Female 4:18 AM HOME SPECIALIST Gender Identity Not on file Sexual Orientation Not on file documented as of this encounter Last Filed Vital Signs Vital Sign Reading Time Taken Comments Blood Pressure 120/67 02/15/2025 1:15 PM CDT Pulse 68 02/15/2025 1:20 PM CDT Temperature 36.2 C (97.2 F) 02/15/2025 1:20 PM CDT Respiratory Rate 18 02/15/2025 1:20 PM CDT Oxygen Saturation 93% 02/15/2025 1:20 PM CDT Inhaled Oxygen Concentration - - Weight 66.1 kg (145 lb 12.8 oz) 02/15/2025 8:08 AM CDT Height 157.5 cm (5' 2 ) 02/15/2025 8:08 AM CDT Body Mass Index 26.87 02/15/2025 8:08 AM CDT documented in this encounter Discharge Summaries * Tiff Odom, SUN - 02/19/2025 4:04 PM CDT Patient: Valerie Ferro / 74 y.o. / female : 1950 Admit date: 02/15/2025 Discharge date: 02/19/2025 Final Diagnosis: history of perforated diverticulitis Secondary diagnoses and conditions treated: Active Hospital Problems Diagnosis History of diverticulitis Ileostomy status ([facility]) S/P colon resection JOVANI (acute kidney injury) [...] Your Medications These medications were sent to [address] [address] Hours: Saturday - Saturday: 7 am - [...] Odom FNP - 02/19/2025 10:38 AM CDT [facility] Colorectal Surgery [address] [place] [address] [address] [place] [address] Follow up in 2-3 weeks with HEVER [...] IN TOUCH WITH Robby Please consider using [email or web address] to communicate with Dr. Pineda's office. Messages [...] through Care Everywhere. * Acute Kidney Injury (Chinese) * Hydronephrosis: General Info (Chinese) * Indwelling Urinary Catheter Care: General Info (Chinese) * Caring for Your Urinary Catheter: Video (Chinese) * Ureteral Stent Placement: Post op (Chinese) * Hydrocodone Combination Products (Chinese) * Ondansetron (Chinese) documented in this encounter Medications at Time [...] also requesting to speak with Dr. Ernandez. 30[address] Dr. Ernandez returned call. Transferred phone call to [facility] [employer] Phone was given to son Kirill Ferro [...] Acidosis - mild, on LR SUN [facility] 02/19/25, 9:31 AM Cosigned by Maude Mayorga MD at 02/19/2025 11:07 AM CDT * Lucy Hall FNP - 02/19/2025 8:05 AM CDT 02/19/2025 Patient: Valerie Ferro / 74 y.o. / [...] Portions of this document were created using Justworksseals engraver software. Cosigned by Moisés Ernandez MD at 02/19/2025 12:10 PM CDT Associated attestation - Moisés Ernandez MD - 02/19/2025 12:10 PM CDT Agree with plan. All work can be done outpatient if she is being discharged. * Dianne Hinojosa RN - 02/18/2025 1:56 PM CDT Physician was called through the OR. Notified That wound/ostomy nurse made this nurse and primary nurse aware that there was concerned about the characteristics of the ileostomy output that is was urine like and pictures are in the patient chart. Physician made aware, no new orders at this time. * Mai Metcalf, Operating Engineer Apprentice - 02/18/2025 9:46 AM CDT Attempted to see patient for OT treatment. Patient unavailable for therapy session due to off floor at OR. Will continue with attempts for evaluation/established plan of care. Thank you, MAI METCALF, Operating Engineer Apprentice * Nurys Pineda DO - 02/18/2025 7:20 [...] Physical Therapist - 02/17/2025 12:43 PM CDT [facility] - Therapy Services 3K Ph. Acute Physical Therapy Evaluation 02/17/2025 Room: [address] [place] [address] Name: Valerie Ferro Age: 74 y.o. Date of : 1950 Insurance: Payor: [employer] MEDICARE ADVANTAGE / Plan: Deep DomainO DSNP MCR / Product Type: HMO / [...] room air Vital signs stable throughout session [facility] AM-PAC Basic Mobility How much help [...] care and/or discharge recommendations shared with: Patient, Cleaning Attendant, and Nurse PT Recommended DME: Front Wheeled [...] at 02/18/2025 9:28 AM CDT * Sr Estefania Moya - 02/17/2025 11:42 AM CDT Reason for Visit: Priority Patient List Patient spiritual issues identified summary of patient???s most significant issue(s): Valerie said she was in pain but doing better after surgery. She has problem with colon. Family: Valerie has 4 children and has good support. Wendy/values: Valerie is Ep[employer]opalian. Needs/hopes resources: Valerie hoped pain gone soon Spiritual interventions Utilized presence and active listening to explore feelings, stressors, perceptions, questions/concerns, and coping patterns of Valerie . Comfort/reassurance provided;Emotional support; Prayer provided Introduction of Spiritual Care 14/01. BOARD MILL SUPERVISOR???S ASSESSMENT OF PATIENT???S LEVEL OF DISTRESS: mild Outcomes of Care Patient was feel comfort and very appreciated for visit and prayer Goals of Spiritual Care Bring comfort for patient Street Supervisor Plan: I will follow up patient and family to provide support and comfort or refer to evening paster operator to follow Spiritual Care Services remain available for referral PRN. Recommendations for Healthcare Team As spiritual needs/distress arise, please contact Spiritual Care Services. We will follow up as needed. Thank you for this referral. Street Supervisor Sr. Estefania Moya Spiritual Care Team [phone] * Toño Damon Occupational Therapist - 02/17/2025 9:50 AM CDT [facility] - Therapy Services 3K Ph. Acute Occupational Therapy Evaluation 02/17/2025 Room: [address] [place] [address] Name: Valerie Ferro Age: 74 y.o. Patient Class: Inpatient Date of : 1950 Insurance: Payor: [employer] MEDICARE ADVANTAGE / Plan: MatchboxTPurplle O DSNP MCR / Product Type: HMO [...] 14 great-grandkids. Pt reports one [facility] [place], one son lives across the street as well, and another son lives right next door--also has a [id number] (Vanesa) who is an RNand lives in [place] (~ 10-12 miles away) who can assist with ostomy care. Self-care assist available at home: Pt lives at home alone and states she has several family members who can provide daily assistance. Home environment: Pt lives alone in a 2-level home (can live on main level), 3 TRUMAN with no HR, in [place], [place].Pt reports she has a full flight of stairs + 2 railings to ascend to 2nd floor, however, she does not typically need to go up there. Tub/shower and standard toilet. [facility]. Durable medical equipment already in home: None [...] safety due to impulsivity and problem solving. [facility] AM-PAC Daily Activity How much help from another [...] Home with assistance;Home with Home Health OT (02/17/25949). Rationale: Patient needs home environment assessment, DME [...] care and discharge recommendations shared with patient, child care cook, PT, and nurse OT recommended DME and AE upon discharge: Tub/Shower Transfer Bench with a back;Shower Chair with a back (02/17/25 0950) Other (comment in note) (2WW) (02/17/2550) Education provided to patient regarding OT recommendations [...] RN - 02/15/2025 6:12 PM CDT Critical Library Acquisitions Technician Note Sepsis Protocol Orders Entered: Laboratory Orders: Initial LA STAT and Blood Culture Panel STAT Marianna Valente RN * Ab Harkins, RN - 02/15/2025 5:59 PM CDT Sepsis Coordinator Progress Note 02/15/25 6:01 PM Valerie Ferro [id number] Last documented weight: Weight: 66.6 kg (146 lb 14.4 oz) (02/15/25 1400) Body mass index is 26.87 kg/m??. ADT events: Sepsis alert called for elevated RR, elevated WBC, and elevated creatinine. R/O abdominal infection. Heart Rate >90 no Respiratory Rate >20 yes WBC >04157 or <4000 yes Temp >100.9 or <96.8 [...] Godinez RN - 02/15/2025 5:56 PM CDT [facility] Sepsis Surveillance note A positive vSepsis screen [...] Initial Lactic Acid?: Ordered - No (02/15/251737) [facility] SEP-1 Bundle Elements at time of alert: Blood Cultures?: Ordered - No (02/15/251737) Antibiotics?: Ordered - Yes;Administered - Yes (Within time frame) (prior to TZ) (02/15/251737) [facility] has notified the bedside team via secure chat. Please call [facility] if any assistance is needed. Please call [employer] Sepsis if the patient does not have severe sepsis / septic shock and the sepsis alert needs to be cancelled. [employer] [facility]eps[facility] Ember Godinez RN documented in this encounter H&P Notes * MiriamNurys, DO - 02/15/2025 9:30 AM CDT Addendum: No [...] a hysterectomy. She denies a history of RI/stroke and is not on blood thinners. Past Medical Hx: Past Medical History Past Medical History: Diagnosis Date Diverticulitis of intestine with abscess 10/2024 GERD (gastroesophageal reflux disease) Past Surgical Hx: Past Surgical History Past Surgical History: Procedure Laterality Date HX KNEE ARTHROSCOPY 1981 HX VAGINAL HYSTERECTOMY W/ ANTERIOR AND POSTERIOR VAGINAL REPAIR 1981 IN CYSTO W/INSERT URETERAL STENT Left 10/31/2024 CYSTOURETHROSCOPY URETERAL STENT INSERTION performed by Romeo Mathias MD at [facility] MAIN OR XR RETROGRADE PYELOGRM W WO KUB Left 10/31/2024 PYELOGRAM RETROGRADE performed by Romeo Mathias MD at [facility] MAIN OR Medications: Current Medications Current Outpatient [...] comments. Diagnosis: See Reason for Exam. . Sharepoint Architect: Dr. Rivera . Moderate (conscious) sedation for this procedure was performed with continuous physician supervision. Medical history, physical exam, drug dosages, routes of drug administration, monitoring data, and precise times of service are documented in the medical record on the [facility]-approved form, 'Sedative/Analgesic Administration for Diagnostic and Therapeutic [...] skin and soft tissues. Thereafter, a 5 Belizean Yueh catheter was advanced through the skin [...] Valerie Ferro DATE OF : 1950 CSN: [id number] DATE: 02/16/2025 Room: [address] [place] [address] Admit Date: 02/15/2025 Hospital day: LOS: 1 [...] Primary care nurse notified of catheter placement Coltno Barry RN CARE AND MAINTENANCE This is not [...] Team Note Today's Date: 02/19/2025 Name: Valerie Ferro Date of : 1950 Date/time of admission: 02/15/2025 7:48 AM Hospital day: LOS: 4 days Room: [address] [place] [address] Patient Seen For: Education Troubleshooting Site Evaluation [...] close the bottom of the pouch 1 [place] for an ostomy program - contact one of the following companies [employer]: , www.[employer] Coloplast: , www.[place]: , secureScrap Connection Order supplies by contacting a DME company [...] removed. Time with patient: 35 minutes Silvia Weathers, RN Please call hospital seismometer operator to have steam crane operator paged with questions or needs. [phone] * Shira Ramos RN - 02/18/2025 2:10 PM CDT Images from the original note were not included. Ostomy Team Note Today's Date: 02/18/2025 Name: Valerie Ferro Date of : 1950 Date/time of admission: 02/15/2025 7:48 AM Hospital day: LOS: 3 days Room: [address] [place] [address] Patient Seen For: Education Troubleshooting Supply Needs [...] with barrier ring, Patient may benefit from [place] product due to possible difficulty in applying [...] pouch 2 Order supplies by contacting a [employer] company of your choice 3 Notes: Ostomy [...] minutes Jovana Ramos RN Please call hospital seismometer operator to have steam crane operator paged with questions or needs. [phone] Fluid from ostomy Fluid from ostomy * Shira Ramos RN - 02/18/2025 10:09 AM CDT Ostomy nurse on 5B and attempted to see patient for Ostomy education. Patient is presently off floor for a procedure. Ostomy nurse will attempt to see patient later today. Jovana Ramos RN Ostomy/Skin/Burn Please call seismometer operator at [phone] to page skin/ostomy team if needed. * [...] W/ ANTERIOR AND POSTERIOR VAGINAL REPAIR 1982 IN COLONOSCOPY FLX DX W/COLLJ SPEC WHEN PFRMD N/A 01/06/2025 COLONOSCOPY performed by Nurys Pineda DO at [facility] ENDOSCOPY ROBERT IN COLONOSCOPY W/BIOPSY SINGLE/MULTIPLE N/A 01/06/2025 COLONOSCOPY performed by Nurys Pineda DO at [facility] ENDOSCOPY [place] IN COLSC FLX W/RMVL OF TUMOR POLYP LESION SNARE TQ N/A 01/06/2025 COLONOSCOPY performed by Nurys Pineda DO at [facility] ENDOSCOPY [place] IN CYSTO W/INSERT URETERAL STENT Left 10/31/2024 CYSTOURETHROSCOPY URETERAL STENT INSERTION performed by Romeo Mathias MD at [facility] MAIN OR XR RETROGRADE PYELOGRM W WO KUB Left 10/31/2024 PYELOGRAM RETROGRADE performed by Romeo Mathias MD at [facility] MAIN OR No current facility-administered medications [...] Portions of this document were created using Justworksseals engraver software. * Génesis Bethea DO - 02/18/2025 [...] W/ ANTERIOR AND POSTERIOR VAGINAL REPAIR 1981 IN COLONOSCOPY FLX DX W/COLLJ SPEC WHEN PFRMD N/A 01/06/2025 COLONOSCOPY performed by Nurys Pineda DO at [facility] ENDOSCOPY [place] IN COLONOSCOPY W/BIOPSY SINGLE/MULTIPLE N/A 01/06/2025 COLONOSCOPY performed by Nurys Pineda DO at [facility] ENDOSCOPY [place] IN COLSC FLX W/RMVL OF TUMOR POLYP LESION SNARE TQ N/A 01/06/2025 COLONOSCOPY performed by Nurys Pineda DO at [facility] ENDOSCOPY [place] IN CYSTO W/INSERT URETERAL STENT Left 10/31/2024 CYSTOURETHROSCOPY URETERAL STENT INSERTION performed by Stew, Romeo, MD at [facility] MAIN OR XR RETROGRADE PYELOGRM W WO KUB Left 10/31/2024 PYELOGRAM RETROGRADE performed by Romeo Mathias MD at [facility] MAIN OR Past Medical History: Diagnosis Date [...] AM Hospital day: LOS: 2 days Room: [address] [place] [address] Patient Seen For: Education Troubleshooting Supply Needs Site Evaluation Ileostomy 02/15/25 (Active) Stoma Appearance moist;protruding above skin level;bridge in place;[place] appearance 02/17/25 1215 Appliance 2-piece;changed 02/17/25 1215 [...] close the bottom of the pouch 1 [place] for an ostomy program - contact one of the following companies [employer]: , www.[employer] Coloplast: , wwwCool Lumens [place]: , secureScrap Connection 1 Order supplies by contacting a DME [...] and supplies and also ordered supplies from [facility] for first few weeks at home. Skin and Ostomy Team will continue to follow for teaching opportunities. Time with patient: 45 Aliney Rietkerk, RN Please call hospital seismometer operator to have steam crane operator paged with questions or needs. [phone] * Shira Ramos RN - 02/16/2025 6:00 PM CDT Ostomy Team Note Today's Date: 02/16/2025 Name: Valerie Ferro Date of : 1950 Date/time of admission: 02/15/2025 7:48 AM Hospital day: LOS: 1 day Room: [address] [place] [address] Ostomy nurse was present in unit to [...] assist patient. Site Evaluation Current products used PsyQic 2 piece Pt/caregiver Education Evaluation Legend 1 [...] close the bottom of the pouch 3 [place] for an ostomy program - contact one of the following companies [employer]: , wwwArtklikk Coloplast: , www.coloplast.Woodpecker Education [place]: , Clipboard 3 Order supplies by contacting a DME [...] plan to practice that when possible. Discussed [place] and Coloplast, and they feel [place] might be easier to do. Supplies were ordered from [facility] . Discussed how to order samples and supplies with them, but they might need assistance, since this is the first day post op and first time they have received education. Skin and Ostomy Team will continue to follow for teaching opportunities. Time with patient: 45 minutes Jovana Ramos RN Please call hospital seismometer operator to have steam crane operator paged with questions or needs. [phone] * Shira Ramos RN - 02/16/2025 11:40 AM CDTAssociated Order(s): IP CONSULT TO OSTOMY NURSE Ostomy Team Note Today's Date: 02/16/2025 Name: Valerie Ferro Date of : 1950 Date/time of admission: 02/15/2025 7:48 AM Hospital day: LOS: 1 day Room: [address] [place] [address] Patient Seen For: Education Site Evaluation Ileostomy 02/15/25 (Active) Stoma Appearance swollen;moist;pink;bridge in place;protruding above skin level 02/16/251124 Appliance 2-piece;intact;no leakage 02/16/251124 Stoma Function stool 02/16/251124 Peristomal Skin unable to assess, covered by appliance 02/16/251124 Stool Color-Ileostomy brown 02/16/251124 Stool Consistency-Ileostomy watery 02/16/251124 Current products used Two piece [place], flat . Has bridge in place Pt/caregiver [...] close the bottom of the pouch 3 [place] for an ostomy program - contact one of the following companies [employer]: , www.[employer] Coloplast: , www.coloplast.com [place]: , secure.Plated 3 Order supplies by contacting a DME company of your choice 3 Notes: Patient [...] minutes Jovana Ramos RN Please call hospital seismometer operator to have steam crane operator paged with questions or needs. [phone] * Colton Barry RN - 02/16/2025 12:54 AM CDTAssociated Order(s): IP CONSULT TO IV TEAM VASCULAR ACCESS CONSULT PATIENT NAME: Valerie Ferro DATE OF : 1950 [facility]: [id number] DATE: 02/16/2025 Room: [address] [place] [address] Admit Date: 02/15/2025 Hospital day: LOS: 1 day INDICATION: Poor Access, continuous IV fluids, IV fluid bolus ordered, IV antibiotics EXCLUSIONS/CONSIDERATIONS: none noted in chart LAST RECORDED TEMP: Temp: 97.2 ??F (36.2 ??C) (02/15/252355)] Assessment Allergies Allergen Reactions Penicillins Other (See [...] W/ ANTERIOR AND POSTERIOR VAGINAL REPAIR 1981 IN COLONOSCOPY FLX DX W/COLLJ SPEC WHEN PFRMD N/A 01/06/2025 COLONOSCOPY performed by Nurys Pineda DO at [facility] ENDOSCOPY [place] IN COLONOSCOPY W/BIOPSY SINGLE/MULTIPLE N/A 01/06/2025 COLONOSCOPY performed by Nurys Pineda DO at [facility] ENDOSCOPY [place] IN COLSC FLX W/RMVL OF TUMOR POLYP LESION SNARE TQ N/A 01/06/2025 COLONOSCOPY performed by Nurys Pineda DO at [facility] ENDOSCOPY [place] IN CYSTO W/INSERT URETERAL STENT Left 10/31/2024 CYSTOURETHROSCOPY URETERAL STENT INSERTION performed by Romeo Mathias MD at [facility] MAIN OR XR RETROGRADE PYELOGRM W WO KUB Left 10/31/2024 PYELOGRAM RETROGRADE performed by Romeo Mathias MD at [facility] MAIN OR Current Facility-Administered Medications: sodium chloride 0.9 % bolus solution 500 mL, 500 mL, IV, ONE time only, Javier Chavez PA-C lactated ringers infusion, , IV, continuous, Javier Chavez PA-C [COMPLETED] acetaminophen (TYLENOL) tablet 1,000 mg, 1,000 mg, Oral, pre-proc one time, Nurys Pineda DO, 1,000 mg at 02/15/25 0828 [COMPLETED] celecoxib (CeleBREX) capsule 200 mg, 200 mg, Oral, pre-proc one time, Nurys Pineda DO,200 mg at 02/15/25 0828 [COMPLETED] alvimopan (ENTEREG) capsule 12 mg, 12 mg, Oral, pre-proc one time, Nurys Pineda DO, 12mg at 02/15/25 08 [COMPLETED] heparin injection 5,000 Units, 5,000 Units, [...] mg, 0.1-0.4 mg, IV, see admin instructions, Andrew Mancini DO [COMPLETED] ondansetron (ZOFRAN) 4 mg/2 [...] [DISCONTINUED] phenylephrine syringe, , IV, intra-proc PRN, BandjatindernMurphy, TATTOOER, 300 mcg at 02/15/25 1135 [DISCONTINUED] midazolam (VERSED) injection, , IV, intra-proc PRN, Bandalan, Murphy Shant, TATTOOER, 2mg at 02/15/25 0948 [DISCONTINUED] fentaNYL PF (SUBLIMAZE) 50 mcg/mL injection, , IV, intra-proc PRN, Bandalan, Murphy Shant, TATTOOER, 50 mcg at 02/15/25 1227 [DISCONTINUED] lidocaine 2 % (XYLOCAINE) injection, , IV, intra-proc PRN, Bandalan, Murphy Bran, TATTOOER, 20 mg at 02/15/25 1025 [DISCONTINUED] propofoL (DIPRIVAN) injection, , IV, intra-proc PRN, Bandalan, Murphy Bran, TATTOOER, 100 mg at 02/15/25 0957 [DISCONTINUED] rocuronium injection, , IV, intra-proc PRN, Bandalan, Murphy Shant, TATTOOER, 10 mg at 02/15/25 1025 [DISCONTINUED] albumin, human (BUMINATE) 5 % injection, , IV, intra-proc PRN, BandalanMurphy, TATTOOER, Stopped at 02/15/25 1150 [DISCONTINUED] glycopyrrolate (ROBINUL) injection, , IV, intra-proc PRN, Bandalan, Murphy Bran, TATTOOER, 0.4 mg at 02/15/25 1206 [DISCONTINUED] neostigmine (BLOXIVERZ) 1 mg/mL injection, , IV, intra-proc PRN, Bandalan, Murphy Bran, TATTOOER, 2 mg at 02/15/25 1210 [DISCONTINUED] acetaminophen (OFIRMEV) 10 mg/mL injection, , IV, intra-proc PRN, BandalanMurphy, TATTOOER, Stopped at 02/15/25 1225 PLAN Insert PIV Addendum: No adequate veins for a PIV. Left basilic vein good for a midline IV. New order received for a midline IV. Colton Barry RN documented in this encounter OR Notes * Operative Report - Moisés Ernandez MD - 02/18/2025 10:43 AM CDT Valerie Ferro 1950 [id number] OPERATIVE REPORT Procedure Date: 02/18/2025 Pre-op Diagnosis: Acute kidney injury Solitary left kidney Left hydronephrosis Nausea and vomiting Post-op Diagnosis: Same Procedures Performed: Cystoscopy with left retrograde pyelogram with interpretation Left ureter stent insertion Surgeon: Moisés Ernandez MD Factory Assembler: None Anesthesia: General Estimated Blood Loss: 0 mL Drains: None Specimens: None Implants: 6 [place]an by 26 [place]eter left double-J ureteral stent [...] patient, procedure, and laterality. First, a 22 [place]an rigid cystoscope was advanced into the bladder [...] retrograde pyelogram was performed with a 5 [place]an open-ended ureteral catheter. There was normal filling [...] wasadvanced up to the kidney. The 5 Belizean catheter was then advanced into the proximal [...] instilled into the urethra and an 18 [place]an catheter was placed. This was left to [...] Portions of this document were created using Justworksseals engraver software. * Operative Report - Nurys Pineda DO - 02/15/2025 12:33 PM CDT Preoperative diagnosis: Hx of perforated diverticulitis Postoperative diagnosis: Chronic diverticulitis and colovaginal fistula Procedure(s) performed: 1. Robotic low anterior resection with coloproctostomy 2. Mobilization of the splenic flexure 3. Diverting loop ileostomy 4. Flexible sigmoidoscopy 5. Bilateral TAP blocsk Surgeon: Nurys Pineda DO Factory Assembler: Tiff Odom NP Factory Assembler Role: Bedside robotic assist, suction, retraction, incision [...] Proximal colon containing the anvil was then returnedinto the intraperitoneal cavity. The distal rectal stump [...] Notes * Care Plan - Mague John, Operating Engineer Apprentice - 02/19/2025 9:48 AM CDT [facility] - Therapy Services 3K Ph. Acute Occupational Therapy Treatment 02/19/2025 Room: [address] [place] [address] Name: Valerie Ferro Age: 74 y.o. Patient Class: Inpatient Date of : 1950 Insurance: Payor: [employer] MEDICARE ADVANTAGE / Plan: AETNA HMO DSNP [...] standing tasks, and safety due to impulsivity. [facility] Daily Activity How much help from [...] ability to complete self-care tasks and their [facility] Daily Activity Score, anticipated discharge disposition: Home [...] upon discharge: Shower Chair with a back (02/19/251048) Grab Bars (02/19/251048) Nursing Staff Mobility Recommendations Recommended daily activity [...] Thank you for this referral, Mague John, Operating Engineer Apprentice * Care Plan - Aneta Graf Breaker Tender - 02/19/2025 8:41 AM CDT [facility] - Therapy Services 3K Ph. Acute Physical Therapy Treatment 02/19/2025 Room: [address] [place] [address] Name: Valerie Ferro Age: 74 y.o. Date of : 1950 Insurance: Payor: AETNA MEDICARE ADVANTAGE / Plan: AETPurplle HMO DSNP MCR / Product Type: HMO [...] tactile cues required to perform exercises correctly [facility] Basic Mobility How much help from [...] of and/or progress with physical function and [facility] Basic Mobility score, anticipated discharge disposition: Home with supervision;Home with assistance;Home with home health PT (02/19/25 1342). Safety concerns if patient is without supervision/assistance. [...] Thank you for this referral, Aneta Graf Breaker Tender Problem: Physical Mobility, Impaired Goal: Mobility goal: [...] Progressing * Care Plan - Mai Metcalf, Operating Engineer Apprentice - 02/18/2025 4:00 PM CDT [facility] - Therapy Services 3K Ph. Acute Occupational Therapy Treatment 02/18/2025 Room: [address] [place] [address] Name: Valerie Ferro Age: 74 y.o. Patient Class: Inpatient Date of : 1950 Insurance: Payor: T MEDICARE ADVANTAGE / [facility] M[facility] / Product Type: HMO / [...] Activities of Daily Living Feeding: independent for [id number] excursion Grooming: independent standing at sink performing [...] reach back for arm rests of recliner. [facility] Daily Activity How much help from [...] ability to complete self-care tasks and their [facility] Daily Activity Score, anticipated discharge disposition: [...] Thank you for this referral, MAI METCALF, Operating Engineer Apprentice * Care Plan - Aneta Graf Breaker Tender - 02/18/2025 1:15 PM CDT [facility] - Therapy Services Ph. Acute Physical Therapy Treatment 02/18/2025 Room: [address] [place] [address] Name: Valerie Ferro Age: 74 y.o. 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 S/P robotic low anterior resection with coloproctostomy, diverting loop ileostomy on 02/15. Plan: Awaiting PT/OT recommendations. Patient lives alone and does not have anyone to help her. Patient is alert and oriented. CM spoke with her about potential discharge to custodial and home with home healthcare. List provide of SNF and [facility] for her to review. Prior to admission the patient lives independently at home alone. CM will continue to follow and assist with discharge. Expected Discharge Date Feb 17, 2025 Plan Discharge To: [facility] (02/16/25 1208) Plan Discharge To - Alternate: Home Health Services (02/16/25 1208) Referrals Status: Preferred Pharmacy: [facility] - [place], [place] - [address] [facility] [address] [place] [address] [address] [facility] Patient / Family Communications: Patient/Family Communications: Plan Discharge To Update (02/16/25 120) Discharge Plan Agreed Upon: Patient (02/16/25 120) Resources Provided: Resource List Given: Home health [...] Info) Description 02/23/2025 12:00 PM CDT Appointment [facility] Nuclear Medicine [address] [place] [phone] Julieta Roth, [facility] [address] [place] [phone] 03/04/2025 8:00 AM CDT Office Visit [facility] Gen Spec Surg [address] [place] [address] Tiff Odom, [facility] [address] [place] [address] Pending Results Name Type Priority [...] 1 HOUR Routine 02/18/2025 10:29 AM CDT URIC ACID Routine 02/18/2025 6:12 [...] 136 - 145 mmol/L 02/19/2025 7:23 AM [facility] POTASSIUM 3.9 3.5 - 5.1 mmol/L 02/19/2025 7:23 AM [facility] CHLORIDE 107 98 - 107 mmol/L 02/19/2025 7:23 AM [facility] CO2 19(L) 22 - 29 mmol/L 02/19/2025 7:23 AM [facility] CALCIUM 9.5 8.8 - 10.2 mg/dL 02/19/2025 7:23 AM [facility] BUN 47(H) 8 - 23 mg/dL 02/19/2025 7:23 AM [facility] CREATININE 2.66(H) 0.51 - 0.95 mg/dL 02/19/2025 7:23 AM [facility] Comment:The GFR result is no t clinically significant on patients <18 or >70 years of age. GLUCOSE 132(H) 74 - 99 mg/dL 02/19/2025 7:23 AM [facility] ALBUMIN 3.2(L) 3.5 - 5.2 g/dL 02/19/2025 7:23 AM [facility] PHOSPHORUS 3.3 2.5 - 4.5 mg/dL 02/19/2025 7:23 AM [facility] GFR 19 mL/min/1. 73 sq meter 02/19/2025 7:23 AM [facility] Comment:eGFR calculated with 2020 CKD-EPI equation. Vegetarian diet, extremely high or low muscle mass, and may affect results. Cystatin C with Glomerular Filtration Rate is a suitable alternative for these patients. ANION GAP 15 9 - 20 mmol/L 02/19/2025 7:23 AM [facility] Blood Venipuncture / Unknown 02/19/2025 6:28 AM CDT 02/19/2025 6:42 AM CDT us Moisés Ernandez MD CHEMISTRY ORDERABLES Final Result Performing Organization Address City/[facility]/ZIP Co de Phone Number [facility] [employer] [facility] CLIA # [id number] [address] [address] [place] [address] * (ABNORMAL) POC GLUCOSE (02/18/2025 2:28 PM CDT) GLUCOSE POC 157(H) 74 - 99 mg/dL 02/18/2025 2:28 PM CDT [facility] [facility] SPECIMEN SOURCE, GLUCOSE POC Capillary 02/18/2025 2:28 PM CDT [facility] Blood, whole 02/18/2025 2:28 PM CDT 02/18/2025 2:39 PM CDT us Nurys Pineda DO POINT OF CARE TESTING Final Resu lt Performing Organization Address [facility] Co de Phone Number [facility] CLIA # [id number] [address] [address] * (ABNORMAL) POC GLUCOSE (02/18/2025 10:53 AM CDT) GLUCOSE POC 114(H) 74 - 99 mg/dL 02/18/2025 10:53 AM CDT [facility] [employer] [facility] SPECIMEN SOURCE, GLUCOSE POC Capillary 02/18/2025 10:53 AM CDT [facility] [employer] [facility] Blood, whole 02/18/2025 10:5 3 AM CDT 02/18/2025 11:01 AM CDT us Nurys Pineda DO POINT OF CARE TESTING Final Resu lt Performing Organization Address City/[facility]/ZIP Co de Phone Number [facility] [employer] [facility] CLIA # [id number] [address] [id number] * XR FLUORO LESS THAN 1 HOUR (02/18/2025 10:29 AM CDT) Narrative 02/18/2025 10:29 AM CDT Order information only. Exam was auto-finalized. Moisés Ernandez MD DIAGNOSTIC IMAGING O RDERABLES Final Result * (ABNORMAL) URIC ACID (02/18/2025 6:12 AM CDT) URIC ACID 5.8(H) 2.4 - 5.7 mg/dL 02/18/2025 9:22 AM CDT [facility] Blood Venipuncture / Unknown 02/18/2025 6:12 AM CDT 02/18/2025 6:17 AM CDT Génesis Bethea DO CHEMISTRY ORDERABLES Final Resu lt [facility] [employer] [facility] CLIA # [id number] [facility] [address] * (ABNORMAL) BASIC METABOLIC PANEL (02/18/2025 6:12 AM CDT) SODIUM 139 136 - 145 mmol/L 02/18/2025 7:05 AM CDT [facility] POTASSIUM 3.6 3.5 - 5.1 mmol/L 02/18/2025 7:05 AM CDT [facility] CHLORIDE 104 98 - 107 mmol/L 02/18/2025 7:05 AM CDT [facility] CO2 19(L) 22 - 29 mmol/L 02/18/2025 7:05 AM CDT [facility] CALCIUM 9.7 8.8 - 10.2 mg/dL 02/18/2025 7:05 AM CDT [facility] [employer] [facility] BUN 45(H) 8 - 23 mg/dL 02/18/2025 7:05 AM T [facility] CREATININE 3.12(H) 0.51 - 0.95 mg/dL 02/18/2025 7:05 AM T [facility] Comment:The GFR result is no t clinically significant on patients <18 or >70 years of age. GLUCOSE 149(H) 74 - 99 mg/dL 02/18/2025 7:05 AM T [facility] GFR 15 mL/min/1. 73 sq meter 02/18/2025 7:05 AM T [facility] Comment:eGFR calculated with 2020 CKD-EPI equation. Vegetarian diet, extremely high or low muscle mass, and may affect results. Cystatin C with Glomerular Filtration Rate is a suitable alternative for these patients. ANION GAP 16 9 - 20 mmol/L 02/18/2025 7:05 AM T [facility] Blood Venipuncture / Unknown 02/18/2025 6:12 AM CDT 02/18/2025 6:17 AM CDT us Nurys Pineda DO CHEMISTRY ORDERABLES Final Resul t [facility] CLIA # [id number] [address] [place] [address] * US RENAL (02/17/2025 2:21 PM CDT) [...] Right kidney is congenitally absent. Tiff Odom [facility] ORDERABLES Final Res ult * (ABNORMAL) BASIC METABOLIC PANEL (02/17/2025 3:37 AM CDT) SODIUM 139 136 - 145 mmol/L 02/17/2025 4:26 AM T [facility] POTASSIUM 3.4(L) 3.5 - 5.1 mmol/L 02/17/2025 4:26 AM T [facility] CHLORIDE 106 98 - 107 mmol/L 02/17/2025 4:26 AM T [facility] CO2 19(L) 22 - 29 mmol/L 02/17/2025 4:26 AM T [facility] CALCIUM 9.0 8.8 - 10.2 mg/dL 02/17/2025 4:26 AM T [facility] BUN 47(H) 8 - 23 mg/dL 02/17/2025 4:26 AM CDT [facility] CREATININE 3.53(H) 0.51 - 0.95 mg/dL 02/17/2025 4:26 AM T [facility] Comment:The GFR result is no t clinically significant on patients <18 or >70 years of age. GLUCOSE 155(H) 74 - 99 mg/dL 02/17/2025 4:26 AM T [facility] GFR 13 mL/min/1. 73 sq meter 02/17/2025 4:26 AM T [facility] Comment:eGFR calculated with 2020 CKD-EPI equation. Vegetarian diet, extremely high or low muscle mass, and may affect results. Cystatin C with Glomerular Filtration Rate is a suitable alternative for these patients. ANION GAP 14 9 - 20 mmol/L 02/17/2025 4:26 AM T [facility] Blood Venipuncture / Unknown 02/17/2025 3:37 AM CDT 02/17/2025 3:54 AM CDT us Nurys Pineda DO CHEMISTRY ORDERABLES Final Resul t [facility] CLIA # [id number] [address] [place] [address] * (ABNORMAL) CBC WITH DIFFERENTIAL (02/17/2025 3:37 AM CDT) WBC 17.2(H) 4.8 - 10.8 K/uL 02/17/2025 4:00 AM T [facility] RBC 2.66(L) 4.20 - 5.40 M/uL 02/17/2025 4:00 AM T [facility] HEMOGLOBIN 8.2(L) 12.0 - 16.0 g/dL 02/17/2025 4:00 AM T [facility] HEMATOCRIT 24.2(L) 36.0 - 46.0 % 02/17/2025 4:00 AM [facility] MCV 91.0 84.0 - 103.0 fL 02/17/2025 4:00 AM [facility] MCH 30.8 27.0 - 34.0 pg 02/17/2025 4:00 AM [facility] MCHC 33.9 30.0 - 35.0 g/dL 02/17/2025 4:00 AM [facility] PLATELETS 298 140 - 440 K/uL 02/17/2025 4:00 AM [facility] MPV 9.4 8.9 - 12.8 fL 02/17/2025 4:00 AM [facility] RDW 16.0(H) 11.0 - 14.5 % 02/17/2025 4:00 AM [facility] RDW-STDEV 53.1 37.0 - 54.0 fL 02/17/2025 4:00 AM [facility] NEUTROPHILS 89(H) 42 - 75 % 02/17/2025 4:00 AM [facility] LYMPHOCYTES 6(L) 24 - 44 % 02/17/2025 4:00 AM [facility] MONOCYTES 4 2 - 10 % 02/17/2025 4:00 AM [facility] EOSINOPHILS 0 0 - 7 % 02/17/2025 4:00 AM [facility] BASOPHILS 0 0 - 1 % 02/17/2025 4:00 AM [facility] IMMATURE GRANULOCYTES 1 0 - 2 % 02/17/2025 4:00 AM [facility] NEUTROPHIL ABSOLUTE 15.29(H) 2.00 - 8.00 K/uL 02/17/2025 4:00 AM [facility] LYMPHOCYTE ABSOLUTE 1.10(L) 1.20 - 4.00 K/uL 02/17/2025 4:00 AM [facility] MONOCYTE ABSOLUTE 0.62(H) 0.10 - 0.60 K/uL 02/17/2025 4:00 AM [facility] EOSINOPHIL ABSOLUTE 0.00 0.00 - 0.70 K/uL 02/17/2025 4:00 AM T [facility] BASOPHILS ABSOLUTE 0.02 0.00 - 0.20 K/uL 02/17/2025 4:00 AM [facility] IMMATURE GRANULOCYTES ABSOLUTE 0.13(H) 0.00 - 0.10 K/uL 02/17/2025 4:00 AM T [facility] SMEAR REVIEWED: NA - Not Applicable 02/17/2025 4:00 AM [facility] Blood Venipuncture / Unknown 02/17/2025 3:37 AM CDT 02/17/2025 3:54 AM CDT us Nurys Pineda DO HEMATOLOGY ORDERABLES Final Resu lt [facility] CLIA # [id number] [address] [place] [address] * (ABNORMAL) BASIC METABOLIC PANEL (02/16/2025 4:19 AM CDT) SODIUM 140 136 - 145 mmol/L 02/16/2025 5:05 AM [facility] POTASSIUM 3.6 3.5 - 5.1 mmol/L 02/16/2025 5:05 AM [facility] CHLORIDE 106 98 - 107 mmol/L 02/16/2025 5:05 AM [facility] CO2 15(L) 22 - 29 mmol/L 02/16/2025 5:05 AM [facility] CALCIUM 8.6(L) 8.8 - 10.2 mg/dL 02/16/2025 5:05 AM [facility] BUN 49(H) 8 - 23 mg/dL 02/16/2025 5:05 AM [facility] CREATININE 3.51(H) 0.51 - 0.95 mg/dL 02/16/2025 5:05 AM T [facility] Comment:The GFR result is no t clinically significant on patients <18 or >70 years of age. GLUCOSE 124(H) 74 - 99 mg/dL 02/16/2025 5:05 AM T [facility] GFR 13 mL/min/1. 73 sq meter 02/16/2025 5:05 AM T [facility] Comment:eGFR calculated with 2020 CKD-EPI equation. Vegetarian diet, extremely high or low muscle mass, and may affect results. Cystatin C with Glomerular Filtration Rate is a suitable alternative for these patients. ANION GAP 19 9 - 20 mmol/L 02/16/2025 5:05 AM [facility] Blood Venipuncture / Unknown 02/16/2025 4:19 AM CDT 02/16/2025 4:29 AM CDT us Nurys Pineda DO CHEMISTRY ORDERABLES Final Resul t [facility] CLIA # [id number] [address] [place] [address] * (ABNORMAL) CBC WITH DIFFERENTIAL (02/16/2025 4:19 AM CDT) WBC 13.4(H) 4.8 - 10.8 K/uL 02/16/2025 4:34 AM T [facility] RBC 2.55(L) 4.20 - 5.40 M/uL 02/16/2025 4:34 AM T [facility] HEMOGLOBIN 7.9(L) 12.0 - 16.0 g/dL 02/16/2025 4:34 AM T [facility] HEMATOCRIT 23.6(L) 36.0 - 46.0 % 02/16/2025 4:34 AM T [facility] MCV 92.5 84.0 - 103.0 fL 02/16/2025 4:34 AM T [facility] MCH 31.0 27.0 - 34.0 pg 02/16/2025 4:34 AM [facility] MCHC 33.5 30.0 - 35.0 g/dL 02/16/2025 4:34 AM [facility] PLATELETS 265 140 - 440 K/uL 02/16/2025 4:34 AM [facility] MPV 9.0 8.9 - 12.8 fL 02/16/2025 4:34 AM [facility] RDW 15.7(H) 11.0 - 14.5 % 02/16/2025 4:34 AM [facility] RDW-STDEV 52.9 37.0 - 54.0 fL 02/16/2025 4:34 AM [facility] NEUTROPHILS 87(H) 42 - 75 % 02/16/2025 4:34 AM [facility] LYMPHOCYTES 6(L) 24 - 44 % 02/16/2025 4:34 AM [facility] MONOCYTES 6 2 - 10 % 02/16/2025 4:34 AM [facility] EOSINOPHILS 0 0 - 7 % 02/16/2025 4:34 AM [facility] BASOPHILS 0 0 - 1 % 02/16/2025 4:34 AM [facility] IMMATURE GRANULOCYTES 1 0 - 2 % 02/16/2025 4:34 AM [facility] NEUTROPHIL ABSOLUTE 11.67(H) 2.00 - 8.00 K/uL 02/16/2025 4:34 AM [facility] LYMPHOCYTE ABSOLUTE 0.85(L) 1.20 - 4.00 K/uL 02/16/2025 4:34 AM [facility] MONOCYTE ABSOLUTE 0.80(H) 0.10 - 0.60 K/uL 02/16/2025 4:34 AM [facility] EOSINOPHIL ABSOLUTE 0.00 0.00 - 0.70 K/uL 02/16/2025 4:34 AM [facility] BASOPHILS ABSOLUTE 0.01 0.00 - 0.20 K/uL 02/16/2025 4:34 AM CDT [facility] IMMATURE GRANULOCYTES ABSOLUTE 0.09 0.00 - 0.10 K/uL 02/16/2025 4:34 AM CDT [facility] SMEAR REVIEWED: NA - Not Applicable 02/16/2025 4:34 AM CDT [facility] Blood Venipuncture / Unknown 02/16/2025 4:19 AM CDT 02/16/2025 4:29 AM CDT Nurys Pineda DO HEMATOLOGY ORDERABLES Final Resu lt Performing Organization Address City/[facility]/ZIP Co de Phone Number [facility] CLIA # [id number] [address] [address] * LACTIC ACID (02/15/2025 6:29 PM CDT) Pathologist [facility] LACTIC ACID 1.3 <=2.0 mmol/L 02/15/2025 7:19 PM CDT [facility] Blood Venipuncture / Unknown 02/15/2025 6:29 PM CDT 02/15/2025 6:34 PM CDT Nurys Pineda DO CHEMISTRY ORDERABLES Final Resul t [facility] CLIA # [id number] [address] [address] * (ABNORMAL) CBC WITHOUT DIFFERENTIAL (02/15/2025 4:45 PM CDT) WBC 14.2(H) 4.8 - 10.8 K/uL 02/15/2025 5:11 PM CDT [facility] RBC 2.78(L) 4.20 - 5.40 M/uL 02/15/2025 5:11 PM CDT [facility] HEMOGLOBIN 8.6(L) 12.0 - 16.0 g/dL 02/15/2025 5:11 PM CDT [facility] HEMATOCRIT 26.4(L) 36.0 - 46.0 % 02/15/2025 5:11 PM CDT [facility] MCV 95.0 84.0 - 103.0 fL 02/15/2025 5:11 PM CDT [facility] MCH 30.9 27.0 - 34.0 pg 02/15/2025 5:11 PM CDT [facility] MCHC 32.6 30.0 - 35.0 g/dL 02/15/2025 5:11 PM CDT [facility] PLATELETS 303 140 - 440 K/uL 02/15/2025 5:11 PM CDT [facility] MPV 9.0 8.9 - 12.8 fL 02/15/2025 5:11 PM T [facility] RDW 15.7(H) 11.0 - 14.5 % 02/15/2025 5:11 PM [facility] RDW-STDEV 55.1(H) 37.0 - 54.0 fL 02/15/2025 5:11 PM [facility] Blood Venipuncture / Unknown 02/15/2025 4:45 PM CDT 02/15/2025 5:01 PM CDT us Lex Morales MD HEMATOLOGY ORDERABLES Final Res ult [facility] CLIA # [id number] [address] [place] [address] [place], [place] [id number] * (ABNORMAL) BASIC METABOLIC PANEL (02/15/2025 4:45 PM CDT) SODIUM 138 136 - 145 mmol/L 02/15/2025 5:38 PM CDT [facility] POTASSIUM 3.6 3.5 - 5.1 mmol/L 02/15/2025 5:38 PM CDT [facility] CHLORIDE 102 98 - 107 mmol/L 02/15/2025 5:38 PM CDT [facility] CO2 17(L) 22 - 29 mmol/L 02/15/2025 5:38 PM CDT [facility] CALCIUM 8.8 8.8 - 10.2 mg/dL 02/15/2025 5:38 PM CDT [facility] BUN 51(H) 8 - 23 mg/dL 02/15/2025 5:38 PM CDT [facility] CREATININE 3.58(H) 0.51 - 0.95 mg/dL 02/15/2025 5:38 PM CDT [facility] Comment:The GFR result is no t clinically significant on patients <18 or >70 years of age. GLUCOSE 126(H) 74 - 99 mg/dL 02/15/2025 5:38 PM CDT [facility] GFR 13 mL/min/1. 73 sq meter 02/15/2025 5:38 PM CDT [facility] Comment:eGFR calculated with 2020 CKD-EPI equation. Vegetarian diet, extremely high or low muscle mass, and may affect results. Cystatin C with Glomerular Filtration Rate is a suitable alternative for these patients. ANION GAP 19 9 - 20 mmol/L 02/15/2025 5:38 PM CDT [facility] Blood Venipuncture / Unknown 02/15/2025 4:45 PM CDT 02/15/2025 5:02 PM CDT us Lex Morales MD CHEMISTRY ORDERABLES Final Resu lt [facility] CLIA # [id number] [address] [place] [address] * (ABNORMAL) POC GLUCOSE (02/15/2025 4:00 PM CDT) [facility] Signature GLUCOSE POC 111(H) 74 - 99 mg/dL 02/15/2025 4:00 PM CDT [facility] SPECIMEN SOURCE, GLUCOSE POC Capillary 02/15/2025 4:00 PM CDT [facility] Blood, whole 02/15/2025 4:00 PM CDT 02/15/2025 4:08 PM CDT Nurys Pineda DO POINT OF CARE TESTING Final Resu lt Performing Organization Address [facility] Co de Phone Number [facility] CLIA # [id number] [address] [address] [place] [address] * (ABNORMAL) POC GLUCOSE (02/15/2025 12:37 PM CDT) GLUCOSE POC 151(H) 74 - 99 mg/dL 02/15/2025 12:37 PM CDT [facility] SPECIMEN SOURCE, GLUCOSE POC Capillary 02/15/2025 12:37 PM CDT [facility] Blood, whole 02/15/2025 12:3 7 PM CDT 02/15/2025 12:45 PM CDT Nurys Pineda DO POINT OF CARE TESTING Final Resu lt Performing Organization Address [facility] Co de Phone Number [facility] CLIA # [id number] [address] [address] * PATHOLOGY (02/15/2025 11:10 AM CDT) CASE REPORT Surgical Pathology Report Case: [id number] Authorizing Provider: Nurys Pineda DO Collected: 02/15/2025 11:10 AM Ordering Location: [facility] Received: 02/15/2025 12:37 PM Operating Room Pathologist: Parveen Moura MD Specimen: Sigmoid colon and rectum 1:12 PM CDT [facility] FINAL DIAGNOSIS A. Sigmoid colon and rectum, low anterior resection - perforated diverticulitis with pericolonic abscess - resection margins viable. Parveen Moura MD [id number] 1:12 PM T [facility] at 1312 CDT GROSS DESCRIPTION A. Received [...] anastomotic ring is a single mucosal donut. Head Pumper sections are submitted as follows: A1-proximal margin, en face A2-distal margin, en face A3-mucosal donut G9-J7-oxxz-thickness cross-section of perforated abscess, bisected (bisected point inked blue) A6-thickened bowel wall with abscess Grossed by: Zamzam Pino MS, ERIKA ([facility])CM2 5 1:12 PM T [facility] OPERATIVE PROCEDURE 1: SIGMOID COLON RESECTION ROBOTIC XI 2: TRANSVERSUS ABDOMINIS PLANE BLOCK: BILATERAL 3: ILEOSTOMY ROBOTIC XI 4: SIGMOIDOSCOPY FLEXIBLE 5: SPLENIC FLEXURE MOBILIZATION 5 1:12 PM T [facility] CLINICAL INFORMATION K57.20-Diverticulitis of large intestine with abscess without bleeding 5 1:12 PM T [facility] COMMENT The [employer] voice-activated dictation system may have been used [...] determined by the Diagnostic Immunohist[facility] Laboratory of [facility] in compliance with CLIA'88 regulations. Some of these tests rely on the use of analyte specific reagents and are subject to specific labeling requirements by the FDA. All controls show appropriate reactivity. This testing was developed by the [facility] [facility]. It has not been cleared or approved by the FDA. The FDA has determined that such clearance or approval is not necessary. 1:12 PM CDT [facility] Tissue Collection / Unknown 02/15/2025 11:10 AM CDT 02/15/2025 12:37 PM CDT Comment:OR 6 Nurys Pineda DO PATHOLOGY/CYTOLOGY ORDERABLES Fi nal Result Performing Organization Address City/[facility]/ZIP Co de Phone Number [facility] CLIA # [id number] [address] [place] [address] * URINE CULTURE (02/15/2025 10:51 AM CDT) CULTURE No growth 02/16/2025 8:21 AM CDT [facility] Urine (Urine, indwelling (Berger) catheter) Collection / Unknown 02/15/2025 10:51 AM CDT 02/15/2025 10:58 AM CDT Comment:OR 6 Nurys Pineda DO MICROBIOLOGY - GENERAL ORDERABLE S Final Result Performing Organization Address City/[facility]/ZIP Co de Phone Number [facility] CLIA # [id number] [address] 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: [id number] : 1950 Requested By: Order Number: [id number] Reading MD: Serge Hutchins Measurements Intervals Tenmile Rate: 75 P: 80 IN: 162 QRS: 13 QRSD: 86 T: 40 QT: 376 QTc: 419 Interpretive Statements Normal sinus rhythm T wave abnormality, consider anterolateral ischemia Abnormal ECG Electronically Signed On 02-15-2025 19:11:02 CDT by Serge Hutchins Nurys Pineda DO ECG ORDERABLES Final Result INTERFACE SYSTEM Refer to clinic/hospital department * VERIFICATION BLOOD GROUP (02/15/2025 8:29 AM CDT) ABO GROUP A 02/15/2025 8:57 AM CDT [facility] RH (D) TYPE Positive 02/15/2025 8:57 AM CDT [facility] Blood Venipuncture / Unknown 02/15/2025 8:29 AM CDT 02/15/2025 8:33 AM CDT uNrys Pineda DO BLOOD BANK ORDERABLES Final Resu lt [facility] CLIA#[id number] [address] [place] [address], * (ABNORMAL) CBC WITHOUT DIFFERENTIAL (02/15/2025 8:25 AM CDT) WBC 12.5(H) 4.8 - 10.8 K/uL 02/15/2025 8:34 AM CDT [facility] RBC 3.31(L) 4.20 - 5.40 M/uL 02/15/2025 8:34 AM CDT [facility] HEMOGLOBIN 10.2(L) 12.0 - 16.0 g/dL 02/15/2025 8:34 AM CDT [facility] HEMATOCRIT 30.6(L) 36.0 - 46.0 % 02/15/2025 8:34 AM CDT [facility] MCV 92.4 84.0 - 103.0 fL 02/15/2025 8:34 AM CDT [facility] MCH 30.8 27.0 - 34.0 pg 02/15/2025 8:34 AM CDT [facility] MCHC 33.3 30.0 - 35.0 g/dL 02/15/2025 8:34 AM CDT [facility] PLATELETS 370 140 - 440 K/uL 02/15/2025 8:34 AM CDT [facility] MPV 8.9 8.9 - 12.8 fL 02/15/2025 8:34 AM CDT [facility] RDW 15.9(H) 11.0 - 14.5 % 02/15/2025 8:34 AM CDT [facility] [place] RDW-STDEV 53.7 37.0 - 54.0 fL 02/15/2025 8:34 AM CDT [facility] [place] Blood Venipuncture / Unknown 02/15/2025 8:25 AM CDT 02/15/2025 8:28 AM CDT Nurys Pineda DO HEMATOLOGY ORDERABLES Final Resu lt Performing Organization Address [facility] Co de Phone Number [facility] [place] CLIA # [id number] [address] [place] [address] * TYPE AND SCREEN (02/15/2025 8:20 AM CDT) ANTIBODY SCREEN Negative 02/15/2025 9:37 AM CDT [facility] [place] ABO GROUP A 02/15/2025 9:37 AM CDT [facility] [place] RH (D) TYPE Positive 02/15/2025 9:37 AM CDT [facility] [place] Blood Venipuncture / Unknown 02/15/2025 8:20 AM CDT 02/15/2025 8:28 AM CDT Nurys Pineda DO BLOOD BANK ORDERABLES Edited Res ult - Final Performing Organization Address City/[facility] Co de Phone Number [facility] [place] CLIA#[id number] [address] [place] [address], * PREPARE RED BLOOD CELLS (02/15/2025 7:55 AM CDT) COMPONENT TYPE [id number] [facility] [place] COMPONENT IDENTIFICATION [id number] [facility] [place] UNIT ABO A [facility] [place] UNIT RH POS [facility] [place] CROSSMATCH Compatible [facility] [place] COMPONENT STATUS Returned [facility] [place] COMPONENT EXPIRATION DATE/TIME [id number] [facility] [place] COMPONENT CODING SYSTEM [address] [facility] [place] VOLUME, BLOOD PRODUCT 350 [facility] [place] 02/15/2025 7:55 AM CDT Nurys Pineda DO LAB TRANSFUSION ORDERABLES Edite d Result - Final Performing Organization Address [facility]/ZIP Co de Phone Number [facility] [place] CLIA#[id number] [address] [place] [address], * PREPARE RED BLOOD CELLS (02/15/2025 7:55 AM CDT) Pathologist [facility] COMPONENT TYPE [id number] [facility] [place] COMPONENT IDENTIFICATION [id number] [facility] [place] UNIT ABO A [facility] [place] UNIT RH POS [facility] [place] [employer]OS[employer]ATCH Compatible [facility] [place] COMPONENT STATUS Returned [facility] [employer] LAB[facility]AT[facility] SERVICES -- [place] COMPONENT EXPIRATION DATE/TIME [id number] [facility] [place] COMPONENT CODING SYSTEM [address] [facility] [place] VOLUME, BLOOD PRODUCT 350 [facility] [place] Other, specify 02/15/2025 7: 55 AM CDT Nurys Pineda DO LAB TRANSFUSION ORDERABLES Edite d Result - Final Performing Organization Address [facility] de Phone Number [facility] [place] CLIA#[id number] [address] [place] [address], [place] [phone] documented in this encounter Visit Diagnoses Diagnosis Acute diverticulitis- Primary Diverticulitis of large intestine with abscess without bleeding JOVANI (acute kidney injury) Acute kidney failure, unspecified Diverticulitis of large intestine with abscess without bleeding documented in this encounter Administered Medications Inactive Administered Medications - up to 3 most recent administrations Medication Order MAR Action Action Date Dose Rate Site acetaminophen (TYLENOL) tablet 650 mg 650 mg, [...] Given 02/17/2025 8:20 AM CDT 12 mg BUPivacaine PF (SENSORCAINE MPF) 30 mL, sodium chloride 0.9 % 100 mL INJECTION INTRA-PROCEDURE PRN, Starting on Sat02/15/25 at 1025, Until Sat02/15/25 at 1220, Routine, Intra-op Given 02/15/2025 10:25 AM CDT 130 mL Oper ative Site calcium as CARBONATE (TUMS) 500 mg (200 mg elemental) chewable tablet 300 mg 300 mg, Oral, EVERY 6 HOURS PRN, Starting on Sat02/18/25 at 0555, Until Sat02/19/25 at 1713, Indigestion, Routine Given 02/18/2025 11:40 PM CDT 300 mg famotidine PF (PEPCID) 40 mg in [...] Given 02/15/2025 2:25 PM CDT 0.5 mg magnesium OXIDE (MAG-OX) tablet 400 mg 400 mg, Oral, DAILY, First dose on Sat02/15/25 at 1415, Until Discontinued, Routine Given 02/19/2025 8:28 AM CDT 400 mg Given 02/17/2025 8:20 AM CDT 400 mg Given 02/16/2025 8:51 AM CDT 400 mg naloxone (NARCAN) 0.4 mg/mL injection 0.1-0.4 mg [...] 8:46 PM CDT 10 mg sodium chloride flush injection 10 mL 10 [...] Discontinued, Routine 0530 (Given - Provider: ROBB Hyatt)0820 (Given - Provider: Vicki Trimble RN)1422 (Given - Provider: Vicki Trimble RN)2109 (Given - Provider: ROBB Odom) 0221 (Given - Provider: ROBB Odom)0900 (Not Given - Provider: Jennifer Munguia RN - Reason: Strict NPO)1500 (Refused - Provider: Jennifer Munguia RN - Comment: pt refused, no pain)210 (Given - Provider: Latoya Morales RN) 0358 [...] - Comment: frequent watery output from ostomy) 08 (Given - Provider: Luly Guerrero RN) famotidine PF (PEPCID) 40 mg in sodium chloride 0.9% 10 mL injection 40 mg, IV, DAILY, First dose on Sat02/18/25 at 0600, Until Discontinued, Routine 06 (Given - Provider: ROBB Odom) 08 (Given - Provider: Luly Guerrero RN) heparin injection 5,000 Units 5,000 Units, subCUT, EVERY 8 HOURS, First dose on Sat02/16/25 at 1300, Until Discontinued, Routine 0530 (Given - Provider: ROBB Hyatt)1423 (Given - Provider: Vicki Trimble RN)2004 (Given - Provider: ROBB Odom) 0525 (Given - Provider: ROBB Odom)1300 (Not Given - Provider: Jennifer Munguia RN - Reason: Other - See Comment - Comment: pt just had a stent placed and is abmbulating in the halls with PT, OT and by herself. Will start at next dose.)2108 (Given - Provider: Latoya Morales RN) 0632 (Given - Provider: Latoya Morales RN)1300 (Refused - Provider: Vicki Trimble RN) Iopamidol (ISOVUE-M 300) 300 mg iodine /mL (61 %) injection 15 mL (COMPLETED) 15 mL, See Admin Instructions, INTRA-PROCEDURE ONCE, 1 dose, Starting on Sat02/18/25 at 1030, Until Tiffanie 02/18/25 at 1030, Routine, Intra-op 1030 (Given - Provider: Moisés Ernandez MD) lactated ringers bolus solution 1,000 mL (COMPLETED) 1,000 mL, IV, ONE TIME ONLY, 1 dose, On Sat02/18/25 at 0730, at 2,000 mL/hr, Administer over 30 Minutes, Stat 0736 (New Bag - Provider: Jennifer Munguia RN)0806 (Stopped - Provider: Jennifer Munguia RN) magnesium OXIDE (MAG-OX) tablet 400 mg 400 mg, Oral, DAILY, First dose on Sat02/15/25 at 1415, Until Discontinued, Routine 0820 (Given - Provider: Vicki Trimble RN) 0900 (Not Given - Provider: Jennifer Munguia RN - Reason: Strict NPO) 0828 (Given - [...] Odom) 0853 (Given - Provider: Jennifer Munguia RN)2112 (Given - Provider: Latoya Morales, LEONARD) 0828 (Given - Provider: Luly Guerrero, LEONARD) sodium chloride flush injection 10 mL 10 [...] Indigestion, Routine 2340 (Given - Provider: Latoya Morales, LEONARD) HYDROmorphone (PF) (DILAUDID) injection 0.5 mg 0.5 mg, IV, EVERY 1 HOUR PRN, Starting on Sat02/15/25 at 1401, Until Sat02/19/25 at 1713, Pain, Break-Through, Routine lidocaine 2% jelly (CANCELED) INTRA-PROCEDURE PRN, Starting on Tiffanie 02/18/25 at 1030, Until Tiffanie 02/18/25 at 1039, Routine, Intra-op 1030 (Given - Provider: Moisés Ernandez MD) ondansetron (ZOFRAN) 4 mg/2 mL injection 4 mg 4 mg, IV, EVERY 6 HOURS PRN, Starting on Sat02/15/25 at 1401, Until Sat02/19/25 at 1713, Nausea/Emesis, Routine 0058 (Given - Provider: Latoya Morales RN)0908 (Given - Provider: Jennifer Munguia RN) oxyCODONE (ROXICODONE) tablet 10 mg 10 mg, Oral, EVERY 4 HOURS PRN, Starting on Sat02/15/25 at 1401, Until Sat02/19/25 at 1713, Pain (See admin instructions), Routine oxyCODONE (ROXICODONE) tablet 5 mg 5 mg, Oral, EVERY 4 HOURS PRN, Starting on Sat02/15/25 at 1401, Until Sat02/19/25 at 1713, Pain (See admin instructions), Routine 1904 (Given - Provider: ROBB Odom) prochlorperazine maleate [...] Routine documented in this encounter Care Teams Physician General Internal Medicine Relationship Specialty Start Date End Date Steven Olivo MD [address] [place] [address] [phone] PCP - General Family Practice 11/12/24 documented as of this encounter
--- OUTSIDE RECORDS SUMMARY | 2025-02-18 08:35 | XMS_ITS | Encounter Summary ---
Author Organization [email or web address] Address [address] [place] [address] Care Team Providers Care Wheel Mill Operator Name Role Phone Steven Olivo MD Primary Care Provider [phone] Reason for Visit * Auth/Cert (Routine) Specialty Diagnoses / Procedures Referred By Maxx coello Referred To Contact Perioperative Diagnoses Diverticulitis of large intestine with abscess without bleeding Diverticulitis of large intestine with abscess without bleeding Procedures ME LAPS COLECTOMY PRTL W/COLOPXTSTMY LW ANAST ME LAPS COLECTMY PRTL W/COLOPXTSTMY LW ANAST W/CLST HCHG NEEDLE ECHO 20GAX5.0CM ME LAPS MOBLJ SPLENIC FLXR PFRMD W/PRTL COLECTOMY SIGMOID COLON RESECTION ROBOTIC XI SIGMOID COLON RESECTION ROBOTIC XI Nurys Pineda DO [address] [facility] [address] [place] [address] Phone: tel: fax: [facility] Operating Room [address] [place] [id number] Phone: tel: fax: Referral ID Status Reason Start Date Expiration Date Visits Re quested Visits Authorized [id number] 1 1 Encounter Details Date Type Department Care Team (Late st Contact Info) Description 02/18/2025 8:35 AM CDT - 02/18/2025 12:00 PM CDT Surgery [facility] Operating Room [address] [place] [address] Moisés Ernandez MD [facility] [address] [place] [address] CYSTOURETHROSCOPY URETERAL STENT INSERTION Surgery Details Date/Time Status Location OR Service Patient Class Case Class Case Type Trauma Case? 02/18/2025 8:35 AM Posted [facility] MAIN OR OR 05 - Robot Urology Inpatient Elective No Panel 1 Procedure LRB Anes Op Region Wound Class Comments PYELOGRAM RETROGRADE Left General Ureter Shea n Contaminated-II CYSTOURETHROSCOPY URETERAL S TENT INSERTION Left General Bladder Clean Contaminated-II Surgeon Surgeon Role Service Panel Moisés Ernandez MD Primary Urology 1 documented in this encounter Social History Tobacco [...] week 06/06/2020 How often do you attend chur ch or latter day services? 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 Gender Identity Not on file Sexual Orientation Not on file documented as of this encounter Last Filed Vital Signs Vital Sign Reading Time Taken Comments Blood Pressure 127/57 02/18/2025 12:00 PM CDT Pulse 76 02/18/2025 12:00 PM CDT Temperature 36.3 C (97.3 F) 02/18/2025 12:00 PM CDT Respiratory Rate 18 02/18/2025 12:0 0 PM CDT Oxygen Saturation 91% 02/18/2025 12: 00 PM CDT Inhaled Oxygen Concentration - - Weight 66.6 kg (146 lb 14.4 oz) 02/15/2025 2:00 PM CDT Height 157.5 cm (5' 2 ) 02/15/2025 8:08 AM CDT Body Mass Index 26.87 02/15/2025 8:08 AM CDT documented in this encounter Discharge Summaries * Tiff Odom FNP - 02/19/2025 4:04 PM CDT Patient: Valerie Sosaaff / 74 y.o. / female : 1950 Admit date: 02/15/2025 Discharge date: 02/19/2025 Final Diagnosis: history of perforated diverticulitis Secondary diagnoses and conditions treated: Active Hospital Problems Diagnosis History of diverticulitis Ileostomy status ([facility]) S/P colon resection JOVANI (acute kidney injury) Resolved Hospital Problems No resolved problems to display. Attending Physician: Dr. Nurys Pineda, Colorectal Surgery Procedures Performed: With Dr. Partida; 1. Robotic low anterior resection with coloproctostomy [...] Daily Amount: 6 Tablets Signed by: Nurse iLna Odom Quantity: 30 Tablet Refills: 0 walker [...] Your Medications These medications were sent to [facility] [address] [address] Hours: Saturday - Saturday: 7 am - [...] Odom FNP - 02/19/2025 10:38 AM CDT [facility] [place] Colorectal Surgery [address] [place] [address] Follow up in 2-3 weeks with HEVER [...] for further evaluation. KEEP IN TOUCH WITH CONSTRVCTGian Please consider using [email or web address] to communicate with Dr. Pineda's office. Messages [...] through Care Everywhere. * Acute Kidney Injury (Croatian) * Hydronephrosis: General Info (Croatian) * Indwelling Urinary Catheter Care: General Info (Croatian) * Caring for Your Urinary Catheter: Video (Croatian) * Ureteral Stent Placement: Post op (Croatian) * Hydrocodone Combination Products (Croatian) * Ondansetron (Croatian) documented in this encounter Medications at Time [...] DIET GENERAL Effective Now Food/Meal: Breakfast;Patient declined (02/19/25 0820),Intake (%): (!) 0% (02/19/25 0820) Weight status/changes: Weight: 66.6 kg (146 lb [...] also requesting to speak with Dr. Ernandez. 125[address] Dr[address] Ernandez returned call. Transferred phone call to [facility] phone Phone was given to son Kirill [...] at 02/19/2025 10:36 AM CDT * Debra Sal, MOTORIZED SQUAD CAPTAIN - 02/19/2025 9:31 AM CDT Admit Date: [...] Acidosis - mild, on LR SUN Bashir [facility] 02/19/25, 9:31 AM Cosigned by [...] GLUCOSE 155* 149* 132* Recent Labs 02/17/25 0337 WBC 17.2* HGB 8.2* HCT 24.2* PLT [...] Portions of this document were created using [employer] nut tapper software. Cosigned by Moisés Ernandez MD at [...] orders at this time. * Mai Metcalf, Material Handling Supervisor - 02/18/2025 9:46 AM CDT Attempted to see patient for OT treatment. Patient unavailable for therapy session due to off floorat OR. Will continue with attempts for evaluation/established plan of care. Thank you, MAI METCALF, Material Handling Supervisor * Nurys Pineda DO - 02/18/2025 7:20 [...] Physical Therapist - 02/17/2025 12:43 PM CDT [facility] - Therapy Services 3K Ph. Acute Physical Therapy Evaluation 02/17/2025 Room: [address] [place] [address] Name: Valerie Ferro Age: 74 y.o. Date of : 1950 Insurance: Payor: AETNA MEDICARE ADVANTAGE / Plan: AETRedLassoO DSNP MCR / Product Type: HMO / [...] room air Vital signs stable throughout session [facility] AM-PAC Basic Mobility How much help [...] with assistance;Home with home health PT (02/17/25 3263). Pt needs intensive skilled PT services. Patient is actively engaged in therapy, has the potential to make progress toward goals * The final discharge location is determined through physician, case management, and patient/caregiver input along with insurance authorization of skilled services when appropriate Plan of care and/or discharge recommendations shared with: Patient, Automatic I Threading Machine Feeder, and Nurse PT Recommended DME: Front Wheeled [...] summary. Thank you for this referral, David Mann Physical Therapist * Tiff Odom FNP - [...] and has good support. Wendy/values: Valerie is Scientology. Needs/hopes resources: Valerie hoped pain gone soon Spiritual interventions Utilized presence and active listening to explore feelings, stressors, perceptions, questions/concerns, and coping patterns of Valerie . Comfort/reassurance provided;Emotional support; Prayer provided Introduction of Spiritual Care 14/01. HEMATOLOGIST???S ASSESSMENT OF PATIENT???S LEVEL OF DISTRESS: mild Outcomes of Care Patient was feel comfort and very appreciated for visit and prayer Goals of Spiritual Care Bring comfort for patient Seasonal Driver Plan: I will follow up patient and family to provide support and comfort or refer to evening can line examiner to follow Spiritual Care Services remain available for referral PRN. Recommendations for Healthcare Team As spiritual needs/distress arise, please contact Spiritual Care Services. We will follow up as needed. Thank you for this referral. Seasonal Driver Sr. Estefania Moya Spiritual Care Team [phone] * Toño Damon, Occupational Therapist - 02/17/2025 9:50 AM CDT [facility] - Therapy Services 3K Ph. Acute Occupational Therapy Evaluation 02/17/2025 Room: [address] [place] [address] Name: Valerie Ferro Age: 74 y.o. Patient Class: Inpatient Date of : 1950 Insurance: Payor: [id number] MEDICARE ADVANTAGE / Plan: AETNA HMO DSNP [...] 14 great-grandkids. Pt reports one granddaughter lives [facility] [place] the street, one son lives across the street as well, and another son lives right next door--also has a [id number] (Vanesa) who is an RNand lives in [place] (~ 10-12 miles away) who can assist with ostomy care. Self-care assist available at home: Pt lives at home alone and states she has several family members who can provide daily assistance. Home environment: Pt lives alone in a 2-level home (can live on main level), [address] with no HR, in [place], [place].Pt reports she has a full flight of stairs + 2 railings to ascend to 2nd floor, however, she does not typically need to go up there. Tub/shower and standard toilet. [facility]. Durable medical equipment already in home: None [...] safety due to impulsivity and problem solving. [facility] AM-PAC Daily Activity How much help [...] with assistance;Home with Home Health OT (02/17/25 5897). Rationale: Patient needs home environment assessment, DME [...] care and discharge recommendations shared with patient, school child care attendant, PT, and nurse OT recommended DME and [...] RN - 02/15/2025 6:12 PM CDT Critical Skidder Operator Note Sepsis Protocol Orders Entered: Laboratory Orders: Initial LA STAT and Blood Culture Panel STAT Marianna Valente RN * Ab Harkins RN - 02/15/2025 5:59 PM CDT Sepsis Coordinator Progress Note 02/15/25 6:01 PM Valerie Ferro [id number] Last documented weight: Weight: 66.6 kg (146 lb 14.4 oz) (02/15/25 1400) Body mass index is 26.87 kg/m??. ADT events: Sepsis alert called for elevated RR, elevated WBC, and elevated creatinine. R/O abdominal infection. Heart Rate >90 no Respiratory Rate >20 yes WBC >04963 or <4000 yes Temp >100.9 or <96.8 [...] Antibiotic: Flagyl Ordered Time: 1232 Start Time: 172 2. Antibiotic: Ancef Ordered Time: 075 Start Time: 1002 3. Antibiotic: Flagyl Ordered Time: 075 Start Time: 0915 30mL/kg IVF bolus (use IBW if BMI>30): Volume ordered: Volume administered: Start Time: End Time: Tissue perfusion re assessment completed by: Time: Vasopressors started: Time: * Ember Godinez RN - 02/15/2025 5:56 PM CDT [facility] Sepsis Surveillance note A positive vSepsis screen [...] Sepsis/Questionable Septic Shock/Other?: Questionable Severe Sepsis (per [facility]) (02/15/251737) Initial Lactic Acid?: Ordered - No (02/15/251737) [facility] SEP-1 Bundle Elements at time of alert: Blood Cultures?: Ordered - No (02/15/251737) Antibiotics?: Ordered - Yes;Administered - Yes (Within time frame) (prior to TZ) (02/15/251737) [facility] Sepsis has notified the bedside team via secure chat. Please call [facility] Sepsis if any assistance is needed. Please call [facility] Sepsis if the patient does not have severe sepsis / septic shock and the sepsis alert needs to be cancelled. [facility] Sepsis Ember Godinez RN documented in this encounter H&P Notes * Nurys Pineda DO - 02/15/2025 9:30 AM CDT Addendum: [...] a hysterectomy. She denies a history of [place]/stroke and is not on blood thinners. Past Medical Hx: Past Medical History Past Medical History: Diagnosis Date Diverticulitis of intestine with abscess 10/2024 GERD (gastroesophageal reflux disease) Past Surgical Hx: Past Surgical History Past Surgical History: Procedure Laterality Date HX KNEE ARTHROSCOPY 1981 HX VAGINAL HYSTERECTOMY W/ ANTERIOR AND POSTERIOR VAGINAL REPAIR 1981 ME CYSTO W/INSERT URETERAL STENT Left 10/31/2024 CYSTOURETHROSCOPY URETERAL STENT INSERTION performed by Romeo Mathias MD at [facility] MAIN OR XR RETROGRADE PYELOGRM W WO KUB Left 10/31/2024 PYELOGRAM RETROGRADE performed by Romeo Mathias MD at [facility] OR Medications: Current Medications Current Outpatient Medications [...] comments. Diagnosis: See Reason for Exam. . Crystal Inspector: Dr. Rivera . Moderate (conscious) sedation for this procedure was performed with continuous physician supervision. Medical history, physical exam, drug dosages, routes of drug administration, monitoring data, and precise times of service are documented in the medical record on the [facility]-approved form, 'Sedative/Analgesic Administration for Diagnostic and Therapeutic [...] skin and soft tissues. Thereafter, a 5 Tunisian Yueh catheter was advanced through the skin [...] Valerie Ferro DATE OF : 1950 CSN: [id number] DATE: 02/16/2025 Room: [address] [place] [address] Admit Date: 02/15/2025 Hospital day: LOS: 1 [...] care nurse notified of catheter placement Colton Barry RN CARE AND MAINTENANCE This is [...] AM Hospital day: LOS: 4 days Room: [address] [place] [address] Patient Seen For: Education Troubleshooting Site Evaluation [...] 1315 Tolerance no signs/symptoms of discomfort 02/19/25 131 Number of days: 4 Current products used [...] close the bottom of the pouch 1 [place] for an ostomy program - contact one of the following companies WorkSnug: , [email or web address] Coloplast: , www.[email or web address].App [place] [employer].: , secure.The ADEX Order supplies by contacting a DME company [...] minutes Silvia Weathers RN Please call hospital roller presser operator to have project manager/team coach paged with questions or needs. [phone] * Shira aRmos RN - 02/18/2025 2:10 PM CDT Images from the original note were not included. Ostomy Team Note Today's Date: 02/18/2025 Name: Valerie Ferro Date of : 1950 Date/time of admission: 02/15/2025 7:48 AM Hospital day: LOS: 3 days Room: [address] [place] [address] Patient Seen For: Education Troubleshooting Supply Needs [...] with barrier ring, Patient may benefit from [place] product due to possible difficulty in applying [...] pouch 2 Order supplies by contacting a [employer] company of your choice 3 Notes: Ostomy [...] minutes Jovana Ramos RN Please call hospital roller presser operator to have project manager/team coach paged with questions or needs. [phone] Fluid from ostomy Fluid from ostomy * Shira Ramos RN - 02/18/2025 10:09 AM CDT Ostomy nurse on 5B and attempted to see patient for Ostomy education. Patient is presently off floor for a procedure. Ostomy nurse will attempt to see patient later today. Jovana Ramos RN Ostomy/Skin/Burn Please call roller presser operator at [phone] to page skin/ostomy team if needed. * [...] W/ ANTERIOR AND POSTERIOR VAGINAL REPAIR 1981 ME COLONOSCOPY FLX DX W/COLLJ SPEC WHEN PFRMD N/A 01/06/2025 COLONOSCOPY performed by Nurys Pineda DO at [facility] ENDOSCOPY SNELLING ME COLONOSCOPY W/BIOPSY SINGLE/MULTIPLE N/A 01/06/2025 COLONOSCOPY performed by Nurys Pineda DO at [facility] ME COLSC FLX W/RMVL OF TUMOR POLYP LESION SNARE TQ N/A 01/06/2025 COLONOSCOPY performed by Nurys Pineda DO at [facility] ENDOSCOPY SNELLING ME CYSTO W/INSERT URETERAL STENT Left 10/31/2024 CYSTOURETHROSCOPY URETERAL STENT INSERTION performed by Romeo Mathias MD at [facility] OR XR RETROGRADE PYELOGRM W WO KUB Left 10/31/2024 PYELOGRAM RETROGRADE performed by Romeo Mathias MD at [facility] OR No current facility-administered medications on file [...] Portions of this document were created using Renal Solutionsnut tapper software. * Génesis Bethea DO - 02/18/2025 [...] W/ ANTERIOR AND POSTERIOR VAGINAL REPAIR 1981 ME COLONOSCOPY FLX DX W/COLLJ SPEC WHEN PFRMD N/A 01/06/2025 COLONOSCOPY performed by Nurys Pineda DO at [facility] ENDOSCOPY ROBERT ME COLONOSCOPY W/BIOPSY SINGLE/MULTIPLE N/A 01/06/2025 COLONOSCOPY performed by Nurys Pineda DO at [facility] ENDOSCOPY ROBERT ME COLSC FLX W/RMVL OF TUMOR POLYP LESION SNARE TQ N/A 01/06/2025 COLONOSCOPY performed by Nurys Pineda DO at [facility] ENDOSCOPY ROBERT ME CYSTO W/INSERT URETERAL STENT Left 10/31/2024 CYSTOURETHROSCOPY URETERAL STENT INSERTION performed by Romeo Mathias MD at [facility] MAIN OR XR RETROGRADE PYELOGRM W WO KUB Left 10/31/2024 PYELOGRAM RETROGRADE performed by Romeo Mathias MD at [facility] MAIN OR Past Medical History: Diagnosis Date [...] AM Hospital day: LOS: 2 days Room: [address] [place] [address] Patient Seen For: Education Troubleshooting Supply Needs Site Evaluation Ileostomy 02/15/25 (Active) Stoma Appearance moist;protruding above skin level;bridge in place;eagle appearance 02/17/25 1215 Appliance 2-piece;changed 02/17/25 1215 [...] close the bottom of the pouch 1 [place] for an ostomy program - contact one of the following companies [employer]: , www.You.i Coloplast: , wwwPacket [place]: , secureHita 1 Order supplies by contacting a DME company of your choice 1 Notes: Patient's sons girlfriendBreanne did ostomy appliance change with some coaching. [...] and supplies and also ordered supplies from [facility] for first few weeks at home. Skin and Ostomy Team will continue to follow for teaching opportunities. Time with patient: 45 Lainey Culver RN Please call hospital roller presser operator to have project manager/team coach paged with questions or needs. [phone] * Shira Ramos RN - 02/16/2025 6:00 PM CDT Ostomy Team Note Today's Date: 02/16/2025 Name: Valerie Ferro Date of : 1950 Date/time of admission: 02/15/2025 7:48 AM Hospital day: LOS: 1 day Room: [address] [place] [address] Ostomy nurse was present in unit to [...] assist patient. Site Evaluation Current products used Blaine 2 piece Pt/caregiver Education Evaluation Legend 1 [...] close the bottom of the pouch 3 [place] for an ostomy program - contact one of the following companies [employer]ug: , [employer] Coloplast: , [employer] [place]: , secureHita 3 Order supplies by contacting a DME [...] plan to practice that when possible. Discussed [place] and Coloplast, and they feel Blaine might be easier to do. Supplies were ordered from [facility] . Discussed how to order samples and supplies with them, but they might need assistance, since this is the first day post op and first time they have received education. Skin and Ostomy Team will continue to follow for teaching opportunities. Time with patient: 45 minutes Jovana Ramos RN Please call hospital roller presser operator to have project manager/team coach paged with questions or needs. [phone] * Shira Ramos RN - 02/16/2025 11:40 AM CDTAssociated Order(s): IP CONSULT TO OSTOMY NURSE Ostomy Team Note Today's Date: 02/16/2025 Name: Valerie Ferro Date of : 1950 Date/time of admission: 02/15/2025 7:48 AM Hospital day: LOS: 1 day Room: [address] [place] [address] Patient Seen For: Education Site Evaluation Ileostomy 02/15/25 (Active) Stoma Appearance swollen;moist;pink;bridge in place;protruding above skin level 02/16/25 112 Appliance 2-piece;intact;no leakage 02/16/251124 Stoma Function stool 02/16/251124 Peristomal Skin unable to assess, covered by appliance 02/16/25 112 Stool Color-Ileostomy brown 02/16/25 112 Stool Consistency-Ileostomy watery 02/16/25 112 Current products used Two piece [place], flat . Has bridge in place Pt/caregiver [...] close the bottom of the pouch 3 [place] for an ostomy program - contact one of the following companies WorkSnug: , wwwAddus [facility]Care Coloplast: , [email or web address] Blaine: , secureHita 3 Order supplies by contacting a DME [...] minutes Jovana Ramos RN Please call hospital roller presser operator to have project manager/team coach paged with questions or needs. [phone] * Colton Barry RN - 02/16/2025 12:54 AM CDTAssociated Order(s): IP CONSULT TO IV TEAM VASCULAR ACCESS CONSULT PATIENT NAME: Valerie Ferro DATE OF : 1950 CSN: [id number] DATE: 02/16/2025 Room: [address] [place] [address] Admit Date: 02/15/2025 Hospital day: LOS: 1 [...] W/ ANTERIOR AND POSTERIOR VAGINAL REPAIR 1981 ME COLONOSCOPY FLX DX W/COLLJ SPEC WHEN PFRMD N/A 01/06/2025 COLONOSCOPY performed by Nurys Pineda DO at [facility] ENDOSCOPY ROBERT ME COLONOSCOPY W/BIOPSY SINGLE/MULTIPLE N/A 01/06/2025 COLONOSCOPY performed by Nurys Pineda DO at [facility] ENDOSCOPY ROBERT ME COLSC FLX W/RMVL OF TUMOR POLYP LESION SNARE TQ N/A 01/06/2025 COLONOSCOPY performed by Nurys Pineda DO at [facility] ENDOSCOPY ROBERT ME CYSTO W/INSERT URETERAL STENT Left 10/31/2024 CYSTOURETHROSCOPY URETERAL STENT INSERTION performed by Romeo Mathias MD at [facility] MAIN OR XR RETROGRADE PYELOGRM W WO KUB Left 10/31/2024 PYELOGRAM RETROGRADE performed by Romeo Mathias MD at [facility] MAIN OR Current Facility-Administered Medications: sodium chloride [...] mcg, IV, post-proc every 3 minutes PRN, nAdrew Mancini DO [DISCONTINUED] HYDROmorphone (PF) (DILAUDID) injection 0.5 mg, 0.5 mg, IV, post- proc every 5 minutes PRN, Andrew Mancini DO [DISCONTINUED] BUPivacaine PF (SENSORCAINE MPF) 30 mL, sodium chloride 0.9 % 100 mL INJECTION, , , intra-proc PRN, Nurys Pineda DO, 130 mL at 02/15/25 1025 Facility-Administered Medications Ordered in Other Encounters: [DISCONTINUED] phenylephrine syringe, , IV, intra-proc PRN, Murphy Reynoso ORACLE DATABASE DEVELOPER, 300 mcg at 02/15/25 1135 [DISCONTINUED] midazolam (VERSED) injection, , IV, intra-proc PRN, Murphy Reynoso ORACLE DATABASE DEVELOPER, 2mg at 02/15/25 0948 [DISCONTINUED] fentaNYL PF (SUBLIMAZE) 50 mcg/mL injection, , IV, intra-proc PRN, Murphy Reynoso ORACLE DATABASE DEVELOPER, 50 mcg at 02/15/25 1227 [DISCONTINUED] lidocaine 2 % (XYLOCAINE) injection, , IV, intra-proc PRN, Murphy Reynoso ORACLE DATABASE DEVELOPER, 20 mg at 02/15/25 1025 [DISCONTINUED] propofoL (DIPRIVAN) injection, , IV, intra-proc PRN, LeonidasnMurphy ORACLE DATABASE DEVELOPER, 100 mg at 02/15/25 0957 [DISCONTINUED] rocuronium injection, , IV, intra-proc PRN, SilviaalanMurphy ORACLE DATABASE DEVELOPER, 10 mg at 02/15/25 1025 [DISCONTINUED] albumin, human (BUMINATE) 5 % injection, , IV, intra-proc PRN, BandalanMurphy ORACLE DATABASE DEVELOPER, Stopped at 02/15/25 1150 [DISCONTINUED] glycopyrrolate (ROBINUL) injection, , IV, intra-proc PRN, Bandalan, Murphy Shant, ORACLE DATABASE DEVELOPER, 0.4 mg at 02/15/25 1206 [DISCONTINUED] neostigmine (BLOXIVERZ) 1 mg/mL injection, , IV, intra-proc PRN, Bandalan, Murphy Shant, ORACLE DATABASE DEVELOPER, 2 mg at 02/15/25 1210 [DISCONTINUED] acetaminophen (OFIRMEV) 10 mg/mL injection, , IV, intra-proc PRN, Bandalan, Murphy Shant, ORACLE DATABASE DEVELOPER, Stopped at 02/15/25 1225 PLAN Insert PIV Addendum: No adequate veins for a PIV. Left basilic vein good for a midline IV. New order received for a midline IV. Colton Barry RN documented in this encounter OR Notes * Operative Report - Moisés Ernandez MD - 02/18/2025 10:43 AM CDT Valerie Ferro 1950 [id number] OPERATIVE REPORT Procedure Date: 02/18/2025 Pre-op Diagnosis: Acute kidney injury Solitary left kidney Left hydronephrosis Nausea and vomiting Post-op Diagnosis: Same Procedures Performed: Cystoscopy with left retrograde pyelogram with interpretation Left ureter stent insertion Surgeon: Moisés Ernandez MD Medical Director Of Hospice: None Anesthesia: General Estimated Blood Loss: 0 mL Drains: None Specimens: None Implants: 6 Tunisian by 26 [place]eter left double-J ureteral stent [...] patient, procedure, and laterality. First, a 22 Tunisian rigid cystoscope was advanced into the bladder [...] retrograde pyelogram was performed with a 5 Tunisian open-ended ureteral catheter. There was normal filling [...] wasadvanced up to the kidney. The 5 Tunisian catheter was then advanced into the proximal [...] instilled into the urethra and an 18 Tunisian catheter was placed. This was left to [...] Portions of this document were created using [employer] tapper software. * Operative Report - Nurys Pineda DO - 02/15/2025 12:33 PM CDT Preoperative diagnosis: Hx of perforated diverticulitis Postoperative diagnosis: Chronic diverticulitis and colovaginal fistula Procedure(s) performed: 1. Robotic low anterior resection with coloproctostomy 2. Mobilization of the splenic flexure 3. Diverting loop ileostomy 4. Flexible sigmoidoscopy 5. Bilateral TAP blocsk Surgeon: Nurys Pineda DO Medical Director Of Hospice: Tiff Odom NP Medical Director Of Hospice Role: Bedside robotic assist, suction, retraction, incision [...] grasped through the opening gently with a Mehama grasper and the specimen and proximal colon [...] Notes * Care Plan - Mague John, Material Handling Supervisor - 02/19/2025 9:48 AM CDT [facility] - Therapy Services Ph. Acute Occupational Therapy Treatment 02/19/2025 Room: [address] [place] [address] Name: Valerie Ferro Age: 74 y.o. Patient Class: Inpatient Date of : 1950 Insurance: Payor: TNA MEDICARE ADVANTAGE / Plan: AET HMO DSNP MCR / Product Type: HMO [...] standing tasks, and safety due to impulsivity. [facility] Daily Activity How much help from [...] ability to complete self-care tasks and their -PAC Daily Activity Score, anticipated discharge disposition: Home with assistance;Home with Home Health OT (02/19/25 104) Rationale: Patient needs home environment assessment, DME recommendations, and modifications to improve functional performance for ADLs and IADLs within their typical environment.. * The final discharge location is determined through physician, case management, and patient/caregiver input along with insurance authorization of skilled services when appropriate OT recommended DME and AE upon discharge: Shower Chair with a back (02/19/25 104) Grab Bars (02/19/251048) Nursing Staff Mobility Recommendations [...] Thank you for this referral, Mague John, Material Handling Supervisor * Care Plan - Aneta Graf Lens Coater - 02/19/2025 8:41 AM CDT [facility] - Therapy Services Ph. Acute Physical Therapy Treatment 02/19/2025 Room: [address] [place] [address] Name: Valerie Ferro Age: 74 y.o. Date of : 1950 Insurance: Payor: AET MEDICARE ADVANTAGE / Plan: AETNA HMO DSNP [...] tactile cues required to perform exercises correctly [facility] Basic Mobility How much help from another [...] of and/or progress with physical function and [facility] Basic Mobility score, anticipated discharge disposition: Home with supervision;Home with assistance;Home with home health PT (02/19/25 0892). Safety concerns if patient is without supervision/assistance. [...] Thank you for this referral, Aneta Graf Lens Coater Problem: Physical Mobility, Impaired Goal: Mobility goal: [...] Progressing * Care Plan - Mai Metcalf, Material Handling Supervisor - 02/18/2025 4:00 PM CDT [facility] - Therapy Services 3K Ph. Acute Occupational Therapy Treatment 02/18/2025 Room: [address] [place] [address] Name: Valerie Ferro Age: 74 y.o. Patient Class: Inpatient Date of : 1950 Insurance: Payor: AETNA MEDICARE ADVANTAGE / Plan: AETNA HMO DSNP [...] Activities of Daily Living Feeding: independent for [id number] excursion Grooming: independent standing at sink performing [...] reach back for arm rests of recliner. [facility] AM-PAC Daily Activity How much help [...] ability to complete self-care tasks and their AM-PAC Daily Activity Score, anticipated discharge disposition: Home [...] 1600) No new additional adaptive equipment necessary (02/18/251599) Nursing Staff Mobility Recommendations Recommended daily activity [...] Thank you for this referral, MAI METCALF, Material Handling Supervisor * Care Plan - Aneta Graf Lens Coater - 02/18/2025 1:15 PM CDT [facility] - Therapy Services 3K Ph. Acute Physical Therapy Treatment 02/18/2025 Room: [address] [place] [address] Name: Valerie Ferro Age: 74 y.o. Date of : 1950 Insurance: Payor: [id number] MEDICARE ADVANTAGE / Plan: AETNA HMO DSNP [...] tactile cues required to perform exercises correctly [facility] Basic Mobility How much help from another [...] assessment of and/or progress with physical function, [facility] Basic Mobility score, available home support, [...] Thank you for this referral, Aneta Graf Lens Coater Problem: Physical Mobility, Impaired Goal: Mobility goal: [...] admission and through discharge Description: Outcome: Progressing Automatic I Threading Machine Feeder Discharge Planning Progress: Patient admitted for chronic diverticulitis and colovaginal fistula. S/P robotic low anterior resection with coloproctostomy, diverting loop ileostomy on 02/15. Plan: Awaiting PT/OT recommendations. Patient lives alone and does not have anyone to help her. Patient is alert and oriented. CM spoke with her about potential discharge to group home and home with home healthcare. List provide of SNF and HHC for her to review. Prior to admission the patient lives independently at home alone. CM will continue to follow and assist with discharge. Expected Discharge Date Feb 17, 2025 Plan Discharge To: Long-Term Facility (02/16/25 120) Plan Discharge To - Alternate: Home Health Services (02/16/251207) Referrals Status: Preferred Pharmacy: [facility] - [facility] [address] [facility] - [place], [place] - [address] Patient / Family Communications: Patient/Family Communications: Plan Discharge To Update (02/16/251207) Discharge Plan Agreed Upon: Patient (02/16/251207) Resources Provided: Resource List Given: Home health agencies;Care facilities (SNF) (02/16/251207) Information Given Concerning: Medicare benefits (02/16/251207) Transportation Plan TBD Follow Up Appointments Scheduled [...] Info) Description 02/23/2025 12:00 PM CDT Appointment [facility] Nuclear Medicine [address] [place] [address] Julieta Roth, [facility] [address] [facility] [address] [place] [address] 03/04/2025 8:00 AM CDT Office Visit [facility] [place] Gen Spec Surg [address] [place] [address] Tiff Odom [address] [facility] [address] [place] [address] Pending Results Name Type Priority [...] 1 HOUR Routine 02/18/2025 10:29 AM CDT ME CYSTO W/INSERT URETERAL STENT 02/18/2025 8:35 AM [...] 136 - 145 mmol/L 02/19/2025 7:23 AM CDT [facility] POTASSIUM 3.9 3.5 - 5.1 mmol/L 02/19/2025 7:23 AM CDT [facility] CHLORIDE 107 98 - 107 mmol/L 02/19/2025 7:23 AM CDT [facility] CO2 19(L) 22 - 29 mmol/L 02/19/2025 7:23 AM CDT [facility] CALCIUM 9.5 8.8 - 10.2 mg/dL 02/19/2025 7:23 AM CDT [facility] BUN 47(H) 8 - 23 mg/dL 02/19/2025 7:23 AM CDT [facility] CREATININE 2.66(H) 0.51 - 0.95 mg/dL 02/19/2025 7:23 AM CDT [facility] Comment:The GFR result is no t clinically significant on patients <18 or >70 years of age. GLUCOSE 132(H) 74 - 99 mg/dL 02/19/2025 7:23 AM T [facility] ALBUMIN 3.2(L) 3.5 - 5.2 g/dL 02/19/2025 7:23 AM CDT [facility] PHOSPHORUS 3.3 2.5 - 4.5 mg/dL 02/19/2025 7:23 AM CDT [facility] GFR 19 mL/min/1. 73 sq meter 02/19/2025 7:23 AM CDT [facility] Comment:eGFR calculated with 2020 CKD-EPI equation. Vegetarian diet, extremely high or low muscle mass, and may affect results. Cystatin C with Glomerular Filtration Rate is a suitable alternative for these patients. ANION GAP 15 9 - 20 mmol/L 02/19/2025 7:23 AM CDT [facility] Blood Venipuncture / Unknown 02/19/2025 6:28 AM CDT 02/19/2025 6:42 AM CDT us Moisés Ernandez MD CHEMISTRY ORDERABLES Final Result Performing Organization Address [facility] Co de Phone Number [facility] CLIA # [id number] [facility] [address] * (ABNORMAL) POC GLUCOSE (02/18/2025 2:28 PM CDT) GLUCOSE POC 157(H) 74 - 99 mg/dL 02/18/2025 2:28 PM CDT [facility] SPECIMEN SOURCE, GLUCOSE POC Capillary 02/18/2025 2:28 PM CDT [facility] Blood, whole 02/18/2025 2:28 PM CDT 02/18/2025 2:39 PM CDT us Nurys Pineda DO POINT OF CARE TESTING Final Resu lt Performing Organization Address [facility] Co de Phone Number [facility] CLIA # [id number] [address] [address] * (ABNORMAL) POC GLUCOSE (02/18/2025 10:53 AM CDT) GLUCOSE POC 114(H) 74 - 99 mg/dL 02/18/2025 10:53 AM CDT [facility] SPECIMEN SOURCE, GLUCOSE POC Capillary 02/18/2025 10:53 AM CDT [facility] Blood, whole 02/18/2025 10:5 3 AM CDT 02/18/2025 11:01 AM CDT us Nurys Pineda DO POINT OF CARE TESTING Final Resu lt [facility] CLIA # [id number] [address] [address] [place], [place] [id number] * XR FLUORO LESS THAN 1 HOUR (02/18/2025 10:29 AM CDT) Narrative 02/18/2025 10:29 AM CDT Order information only. Exam was auto-finalized. us Moisés Ernandez MD DIAGNOSTIC IMAGING O RDERABLES Final Result * (ABNORMAL) URIC ACID (02/18/2025 6:12 AM CDT) Pathologist [facility] URIC ACID 5.8(H) 2.4 - 5.7 mg/dL 02/18/2025 9:22 AM CDT [facility] Blood Venipuncture / Unknown 02/18/2025 6:12 AM CDT 02/18/2025 6:17 AM CDT Génesis Bethea DO CHEMISTRY ORDERABLES Final Resu lt Performing Organization Address City/[facility]/ZIP Co de Phone Number [facility] CLIA # [id number] [address] [place], [place] [address] * (ABNORMAL) BASIC METABOLIC PANEL (02/18/2025 6:12 AM CDT) Pathologist [facility] SODIUM 139 136 - 145 mmol/L 02/18/2025 7:05 AM [facility] POTASSIUM 3.6 3.5 - 5.1 mmol/L 02/18/2025 7:05 AM [facility] CHLORIDE 104 98 - 107 mmol/L 02/18/2025 7:05 AM [facility] CO2 19(L) 22 - 29 mmol/L 02/18/2025 7:05 AM [facility] CALCIUM 9.7 8.8 - 10.2 mg/dL 02/18/2025 7:05 AM [facility] BUN 45(H) 8 - 23 mg/dL 02/18/2025 7:05 AM [facility] CREATININE 3.12(H) 0.51 - 0.95 mg/dL 02/18/2025 7:05 AM [facility] Comment:The GFR result is no t clinically significant on patients <18 or >70 years of age. GLUCOSE 149(H) 74 - 99 mg/dL 02/18/2025 7:05 AM [facility] GFR 15 mL/min/1. 73 sq meter 02/18/2025 7:05 AM [facility] Comment:eGFR calculated with 2020 CKD-EPI equation. Vegetarian diet, extremely high or low muscle mass, and may affect results. Cystatin C with Glomerular Filtration Rate is a suitable alternative for these patients. ANION GAP 16 9 - 20 mmol/L 02/18/2025 7:05 AM [facility] Blood Venipuncture / Unknown 02/18/2025 6:12 AM CDT 02/18/2025 6:17 AM CDT us Nurys Pineda DO CHEMISTRY ORDERABLES Final Resul t [facility] CLIA # [id number] [facility] [address] * US RENAL (02/17/2025 2:21 PM CDT) [...] Right kidney is congenitally absent. Tiff Odom [facility] US ORDERABLES Final Res ult * (ABNORMAL) BASIC METABOLIC PANEL (02/17/2025 3:37 AM CDT) SODIUM 139 136 - 145 mmol/L 02/17/2025 4:26 AM CDT [facility] POTASSIUM 3.4(L) 3.5 - 5.1 mmol/L 02/17/2025 4:26 AM [facility] CHLORIDE 106 98 - 107 mmol/L 02/17/2025 4:26 AM T [facility] CO2 19(L) 22 - 29 mmol/L 02/17/2025 4:26 AM T [facility] CALCIUM 9.0 8.8 - 10.2 mg/dL 02/17/2025 4:26 AM T [facility] BUN 47(H) 8 - 23 mg/dL 02/17/2025 4:26 AM [facility] CREATININE 3.53(H) 0.51 - 0.95 mg/dL 02/17/2025 4:26 AM [facility] Comment:The GFR result is no t clinically significant on patients <18 or >70 years of age. GLUCOSE 155(H) 74 - 99 mg/dL 02/17/2025 4:26 AM [facility] GFR 13 mL/min/1. 73 sq meter 02/17/2025 4:26 AM [facility] Comment:eGFR calculated with 2020 CKD-EPI equation. Vegetarian diet, extremely high or low muscle mass, and may affect results. Cystatin C with Glomerular Filtration Rate is a suitable alternative for these patients. ANION GAP 14 9 - 20 mmol/L 02/17/2025 4:26 AM [facility] Blood Venipuncture / Unknown 02/17/2025 3:37 AM CDT 02/17/2025 3:54 AM CDT us Nurys Pineda DO CHEMISTRY ORDERABLES Final Resul t [facility] CLIA # [id number] [address] [address] * (ABNORMAL) CBC WITH DIFFERENTIAL (02/17/2025 3:37 AM CDT) [facility] WBC 17.2(H) 4.8 - 10.8 K/uL 02/17/2025 4:00 AM T [facility] RBC 2.66(L) 4.20 - 5.40 M/uL 02/17/2025 4:00 AM [facility] HEMOGLOBIN 8.2(L) 12.0 - 16.0 g/dL 02/17/2025 4:00 AM [facility] HEMATOCRIT 24.2(L) 36.0 - 46.0 % 02/17/2025 4:00 AM [facility] MCV 91.0 84.0 - 103.0 fL 02/17/2025 4:00 AM [facility] MCH 30.8 27.0 - 34.0 pg 02/17/2025 4:00 AM [facility] MCHC 33.9 30.0 - 35.0 g/dL 02/17/2025 4:00 AM [facility] PLATELETS 298 140 - 440 K/uL 02/17/2025 4:00 AM [facility] MPV 9.4 8.9 - 12.8 fL 02/17/2025 4:00 AM [facility] RDW 16.0(H) 11.0 - 14.5 % 02/17/2025 4:00 AM [facility] RDW-STDEV 53.1 37.0 - 54.0 fL 02/17/2025 4:00 AM [facility] NEUTROPHILS 89(H) 42 - 75 % 02/17/2025 4:00 AM [facility] LYMPHOCYTES 6(L) 24 - 44 % 02/17/2025 4:00 AM [facility] MONOCYTES 4 2 - 10 % 02/17/2025 4:00 AM [facility] EOSINOPHILS 0 0 - 7 % 02/17/2025 4:00 AM [facility] BASOPHILS 0 0 - 1 % 02/17/2025 4:00 AM CDT [facility] IMMATURE GRANULOCYTES 1 0 - 2 % 02/17/2025 4:00 AM T [facility] NEUTROPHIL ABSOLUTE 15.29(H) 2.00 - 8.00 K/uL 02/17/2025 4:00 AM CDT [facility] LYMPHOCYTE ABSOLUTE 1.10(L) 1.20 - 4.00 K/uL 02/17/2025 4:00 AM CDT [facility] MONOCYTE ABSOLUTE 0.62(H) 0.10 - 0.60 K/uL 02/17/2025 4:00 AM CDT [facility] EOSINOPHIL ABSOLUTE 0.00 0.00 - 0.70 K/uL 02/17/2025 4:00 AM CDT [facility] BASOPHILS ABSOLUTE 0.02 0.00 - 0.20 K/uL 02/17/2025 4:00 AM CDT [facility] IMMATURE GRANULOCYTES ABSOLUTE 0.13(H) 0.00 - 0.10 K/uL 02/17/2025 4:00 AM T [facility] SMEAR REVIEWED: NA - Not Applicable 02/17/2025 4:00 AM [facility] Blood Venipuncture / Unknown 02/17/2025 3:37 AM CDT 02/17/2025 3:54 AM CDT us Nurys Pineda DO HEMATOLOGY ORDERABLES Final Resu lt [facility] CLIA # [id number] [facility] [address] [place] [address] * (ABNORMAL) BASIC METABOLIC PANEL (02/16/2025 4:19 AM CDT) SODIUM 140 136 - 145 mmol/L 02/16/2025 5:05 AM CDT [facility] POTASSIUM 3.6 3.5 - 5.1 mmol/L 02/16/2025 5:05 AM CDT [facility] CHLORIDE 106 98 - 107 mmol/L 02/16/2025 5:05 AM [facility] CO2 15(L) 22 - 29 mmol/L 02/16/2025 5:05 AM [facility] CALCIUM 8.6(L) 8.8 - 10.2 mg/dL 02/16/2025 5:05 AM [facility] BUN 49(H) 8 - 23 mg/dL 02/16/2025 5:05 AM [facility] CREATININE 3.51(H) 0.51 - 0.95 mg/dL 02/16/2025 5:05 AM [facility] Comment:The GFR result is no t clinically significant on patients <18 or >70 years of age. GLUCOSE 124(H) 74 - 99 mg/dL 02/16/2025 5:05 AM [facility] GFR 13 mL/min/1. 73 sq meter 02/16/2025 5:05 AM [facility] Comment:eGFR calculated with 2020 CKD-EPI equation. Vegetarian diet, extremely high or low muscle mass, and may affect results. Cystatin C with Glomerular Filtration Rate is a suitable alternative for these patients. ANION GAP 19 9 - 20 mmol/L 02/16/2025 5:05 AM [facility] Blood Venipuncture / Unknown 02/16/2025 4:19 AM CDT 02/16/2025 4:29 AM CDT us Nurys Pineda DO CHEMISTRY ORDERABLES Final Resul t [facility] CLIA # [id number] [address] [place] [id number] * (ABNORMAL) CBC WITH DIFFERENTIAL (02/16/2025 4:19 AM CDT) WBC 13.4(H) 4.8 - 10.8 K/uL 02/16/2025 4:34 AM [facility] RBC 2.55(L) 4.20 - 5.40 M/uL 02/16/2025 4:34 AM [facility] HEMOGLOBIN 7.9(L) 12.0 - 16.0 g/dL 02/16/2025 4:34 AM [facility] HEMATOCRIT 23.6(L) 36.0 - 46.0 % 02/16/2025 4:34 AM [facility] MCV 92.5 84.0 - 103.0 fL 02/16/2025 4:34 AM [facility] MCH 31.0 27.0 - 34.0 pg 02/16/2025 4:34 AM [facility] MCHC 33.5 30.0 - 35.0 g/dL 02/16/2025 4:34 AM [facility] PLATELETS 265 140 - 440 K/uL 02/16/2025 4:34 AM [facility] MPV 9.0 8.9 - 12.8 fL 02/16/2025 4:34 AM [facility] RDW 15.7(H) 11.0 - 14.5 % 02/16/2025 4:34 AM [facility] RDW-STDEV 52.9 37.0 - 54.0 fL 02/16/2025 4:34 AM [facility] NEUTROPHILS 87(H) 42 - 75 % 02/16/2025 4:34 AM [facility] LYMPHOCYTES 6(L) 24 - 44 % 02/16/2025 4:34 AM [facility] MONOCYTES 6 2 - 10 % 02/16/2025 4:34 AM [facility] EOSINOPHILS 0 0 - 7 % 02/16/2025 4:34 AM [facility] BASOPHILS 0 0 - 1 % 02/16/2025 4:34 AM [facility] IMMATURE GRANULOCYTES 1 0 - 2 % 02/16/2025 4:34 AM [facility] NEUTROPHIL ABSOLUTE 11.67(H) 2.00 - 8.00 K/uL 02/16/2025 4:34 AM CDT [facility] LYMPHOCYTE ABSOLUTE 0.85(L) 1.20 - 4.00 K/uL 02/16/2025 4:34 AM CDT [facility] MONOCYTE ABSOLUTE 0.80(H) 0.10 - 0.60 K/uL 02/16/2025 4:34 AM CDT [facility] EOSINOPHIL ABSOLUTE 0.00 0.00 - 0.70 K/uL 02/16/2025 4:34 AM CDT [facility] BASOPHILS ABSOLUTE 0.01 0.00 - 0.20 K/uL 02/16/2025 4:34 AM CDT [facility] IMMATURE GRANULOCYTES ABSOLUTE 0.09 0.00 - 0.10 K/uL 02/16/2025 4:34 AM CDT [facility] SMEAR REVIEWED: NA - Not Applicable 02/16/2025 4:34 AM CDT [facility] Blood Venipuncture / Unknown 02/16/2025 4:19 AM CDT 02/16/2025 4:29 AM CDT us Nurys Pineda DO HEMATOLOGY ORDERABLES Final Resu lt Performing Organization Address [facility]/ZIP Co de Phone Number [facility] CLIA # [id number] [address] [place] [id number] * LACTIC ACID (02/15/2025 6:29 PM CDT) LACTIC ACID 1.3 <=2.0 mmol/L 02/15/2025 7:19 PM CDT [facility] Blood Venipuncture / Unknown 02/15/2025 6:29 PM CDT 02/15/2025 6:34 PM CDT us Nurys Pineda DO CHEMISTRY ORDERABLES Final Resul t [facility] CLIA # [id number] [address] [facility] [place], [place] [phone] * (ABNORMAL) CBC WITHOUT DIFFERENTIAL (02/15/2025 4:45 PM CDT) [facility] WBC 14.2(H) 4.8 - 10.8 K/uL 02/15/2025 5:11 PM CDT [facility] RBC 2.78(L) 4.20 - 5.40 M/uL 02/15/2025 5:11 PM CDT [facility] HEMOGLOBIN 8.6(L) 12.0 - 16.0 g/dL 02/15/2025 5:11 PM CDT [facility] HEMATOCRIT 26.4(L) 36.0 - 46.0 % 02/15/2025 5:11 PM CDT [facility] MCV 95.0 84.0 - 103.0 fL 02/15/2025 5:11 PM CDT [facility] MCH 30.9 27.0 - 34.0 pg 02/15/2025 5:11 PM CDT [facility] MCHC 32.6 30.0 - 35.0 g/dL 02/15/2025 5:11 PM CDT [facility] PLATELETS 303 140 - 440 K/uL 02/15/2025 5:11 PM CDT [facility] MPV 9.0 8.9 - 12.8 fL 02/15/2025 5:11 PM CDT [facility] RDW 15.7(H) 11.0 - 14.5 % 02/15/2025 5:11 PM CDT [facility] RDW-STDEV 55.1(H) 37.0 - 54.0 fL 02/15/2025 5:11 PM CDT [facility] Blood Venipuncture / Unknown 02/15/2025 4:45 PM CDT 02/15/2025 5:01 PM CDT Lex Morales MD HEMATOLOGY ORDERABLES Final Res ult [facility] CLIA # [id number] [facility] [address] [place] [address] * (ABNORMAL) BASIC METABOLIC PANEL (02/15/2025 4:45 PM CDT) SODIUM 138 136 - 145 mmol/L 02/15/2025 5:38 PM CDT [facility] POTASSIUM 3.6 3.5 - 5.1 mmol/L 02/15/2025 5:38 PM CDT [facility] CHLORIDE 102 98 - 107 mmol/L 02/15/2025 5:38 PM CDT [facility] CO2 17(L) 22 - 29 mmol/L 02/15/2025 5:38 PM T [facility] CALCIUM 8.8 8.8 - 10.2 mg/dL 02/15/2025 5:38 PM CDT [facility] BUN 51(H) 8 - 23 mg/dL 02/15/2025 5:38 PM CDT [facility] CREATININE 3.58(H) 0.51 - 0.95 mg/dL 02/15/2025 5:38 PM T [facility] Comment:The GFR result is no t clinically significant on patients <18 or >70 years of age. GLUCOSE 126(H) 74 - 99 mg/dL 02/15/2025 5:38 PM T [facility] GFR 13 mL/min/1. 73 sq meter 02/15/2025 5:38 PM T [facility] Comment:eGFR calculated with 2020 CKD-EPI equation. Vegetarian diet, extremely high or low muscle mass, and may affect results. Cystatin C with Glomerular Filtration Rate is a suitable alternative for these patients. ANION GAP 19 9 - 20 mmol/L 02/15/2025 5:38 PM T [facility] Blood Venipuncture / Unknown 02/15/2025 4:45 PM CDT 02/15/2025 5:02 PM CDT us Lex Morales MD CHEMISTRY ORDERABLES Final Resu lt Performing Organization Address City/[facility]/ZIP Co de Phone Number [facility] CLIA # [id number] [address] [place] [address] * (ABNORMAL) POC GLUCOSE (02/15/2025 4:00 PM CDT) GLUCOSE POC 111(H) 74 - 99 mg/dL 02/15/2025 4:00 PM CDT [facility] SPECIMEN SOURCE, GLUCOSE POC Capillary 02/15/2025 4:00 PM CDT [facility] Blood, whole 02/15/2025 4:00 PM CDT 02/15/2025 4:08 PM CDT us Nurys Pineda DO POINT OF CARE TESTING Final Resu lt Performing Organization Address [facility] Co de Phone Number [facility] CLIA # [id number] [address] [place] [address] * (ABNORMAL) POC GLUCOSE (02/15/2025 12:37 PM CDT) GLUCOSE POC 151(H) 74 - 99 mg/dL 02/15/2025 12:37 PM CDT [facility] SPECIMEN SOURCE, GLUCOSE POC Capillary 02/15/2025 12:37 PM CDT [facility] Blood, whole 02/15/2025 12:3 7 PM CDT 02/15/2025 12:45 PM CDT us Nurys Pineda DO POINT OF CARE TESTING Final Resu lt Performing Organization Address City/[facility]/ZIP Co de Phone Number [facility] CLIA # [id number] [address] [place] [address] * PATHOLOGY (02/15/2025 11:10 AM CDT) CASE REPORT Surgical Pathology Report Case: [id number] Authorizing Provider: Nurys Pineda DO Collected: 02/15/2025 11:10 AM Ordering Location: [facility] Received: 02/15/2025 12:37 PM Operating Room Pathologist: Parveen Moura MD Specimen: Sigmoid colon and rectum 1:12 PM CDT [facility] FINAL DIAGNOSIS A. Sigmoid colon and rectum, low anterior resection - perforated diverticulitis with pericolonic abscess - resection margins viable. Parveen Moura MD [id number] 1:12 PM CDT [facility] at 1312 CDT GROSS DESCRIPTION A. Received [...] anastomotic ring is a single mucosal donut. Electrical [employer] sections are submitted as follows: A1-proximal margin, en face A2-distal margin, en face A3-mucosal donut G3-F7-yuli-thickness cross-section of perforated abscess, bisected (bisected point inked blue) A6-thickened bowel wall with abscess Grossed by: Zamzam Pino MS, PA (ASCP)CM2 08/26/202 5 1:12 PM CDT [facility] OPERATIVE PROCEDURE 1: SIGMOID COLON RESECTION ROBOTIC XI 2: TRANSVERSUS ABDOMINIS PLANE BLOCK: BILATERAL 3: ILEOSTOMY ROBOTIC XI 4: SIGMOIDOSCOPY FLEXIBLE 5: SPLENIC FLEXURE MOBILIZATION 5 1:12 PM CDT [facility] CLINICAL INFORMATION K57.20-Diverticulitis of large intestine with abscess without bleeding 5 1:12 PM CDT [facility] COMMENT The [employer] voice-activated dictation system may have been used [...] determined by the [facility] in compliance with CLIA'88 regulations. Some of these tests rely on the use of analyte specific reagents and are subject to specific labeling requirements by the FDA. All controls show appropriate reactivity. This testing was developed by the [facility]. It has not been cleared or approved by the FDA. The FDA has determined that such clearance or approval is not necessary. 5 1:12 PM CDT [facility] Tissue Collection / Unknown 02/15/2025 11:10 AM CDT 02/15/2025 12:37 PM CDT Comment:OR 6 Nurys Pineda DO PATHOLOGY/CYTOLOGY ORDERABLES Fi nal Result [facility] CLIA # [id number] [address] [place] [id number] * URINE CULTURE (02/15/2025 10:51 AM CDT) CULTURE No growth 02/16/2025 8:21 AM CDT [facility] Urine (Urine, indwelling (Berger) catheter) Collection / Unknown 02/15/2025 10:51 AM CDT 02/15/2025 10:58 AM CDT Comment:OR 6 us Nurys Pineda DO MICROBIOLOGY - GENERAL ORDERABLE S Final Result Performing Organization Address City/State/[facility] Co de Phone Number [facility] # [id number] [address] [place] [address] * EKG 12-LEAD (02/15/2025 8:29 AM CDT) 02/15/2025 8:29 AM CDT Narrative INTERFACE SYSTEM - 02/15/2025 7:11 [place] [address] Test Date: 2025-02-15 Pat Name: VALERIE FERRO Department: 12 Room: PREOP PHAS PREOP PHAS 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: [id number] : 1950 Requested By: Order Number: [id number] Reading MD: Serge Hutchins Measurements Intervals [place] Rate: 75 P: 80 ME: 162 QRS: 13 QRSD: 86 T: 40 QT: 376 QTc: 419 Interpretive Statements Normal sinus rhythm T wave abnormality, consider anterolateral ischemia Abnormal ECG Electronically Signed On 02-15-2025 19:11:02 CDT by Serge Hutchins Procedure Note Serge Hutchins MD - 02/15/[address] [address] Test Date: 2025-02-15 Pat Name: VALERIE FERRO Department: 12 Room: PREOP PHAS PREOP PHAS 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: [id number] : 1950 Requested By: Order Number: [id number] Reading MD: Serge Hutchins Measurements Intervals [place] Rate: 75 P: 80 ME: 162 QRS: 13 QRSD: 86 T: 40 QT: 376 QTc: 419 Interpretive Statements Normal sinus rhythm T wave abnormality, consider anterolateral ischemia Abnormal ECG Electronically Signed On 02-15-2025 19:11:02 CDT by Serge Hutchins Nurys Pineda DO ECG ORDERABLES Final Result Performing Organization Address City/[facility]/ZIP Co de Phone Number INTERFACE SYSTEM Refer to clinic/hospital department * VERIFICATION BLOOD GROUP (02/15/2025 8:29 AM CDT) Pathologist [facility] ABO GROUP A 02/15/2025 8:57 AM CDT [facility] RH (D) TYPE Positive 02/15/2025 8:57 AM CDT [facility] Blood Venipuncture / Unknown 02/15/2025 8:29 AM CDT 02/15/2025 8:33 AM CDT Nurys Pineda DO BLOOD BANK ORDERABLES Final Resu lt Performing Organization Address [facility] de Phone Number [facility] CLIA#[id number] [address] [place] [address], * (ABNORMAL) CBC WITHOUT DIFFERENTIAL (02/15/2025 8:25 AM CDT) WBC 12.5(H) 4.8 - 10.8 K/uL 02/15/2025 8:34 AM CDT [facility] RBC 3.31(L) 4.20 - 5.40 M/uL 02/15/2025 8:34 AM CDT [facility] HEMOGLOBIN 10.2(L) 12.0 - 16.0 g/dL 02/15/2025 8:34 AM CDT [facility] HEMATOCRIT 30.6(L) 36.0 - 46.0 % 02/15/2025 8:34 AM CDT [facility] MCV 92.4 84.0 - 103.0 fL 02/15/2025 8:34 AM CDT [facility] MCH 30.8 27.0 - 34.0 pg 02/15/2025 8:34 AM CDT [facility] MCHC 33.3 30.0 - 35.0 g/dL 02/15/2025 8:34 AM CDT [facility] PLATELETS 370 140 - 440 K/uL 02/15/2025 8:34 AM CDT [facility] MPV 8.9 8.9 - 12.8 fL 02/15/2025 8:34 AM CDT [facility] RDW 15.9(H) 11.0 - 14.5 % 02/15/2025 8:34 AM CDT [facility] RDW-STDEV 53.7 37.0 - 54.0 fL 02/15/2025 8:34 AM CDT [facility] Blood Venipuncture / Unknown 02/15/2025 8:25 AM CDT 02/15/2025 8:28 AM CDT us Nurys Pineda DO HEMATOLOGY ORDERABLES Final Resu lt [facility] CLIA # [id number] [address] [place] [id number] * TYPE AND SCREEN (02/15/2025 8:20 AM CDT) [facility] Signature ANTIBODY SCREEN Negative 02/15/2025 9:37 AM CDT [facility] ABO GROUP A 02/15/2025 9:37 AM CDT [facility] [place] RH (D) TYPE Positive 02/15/2025 9:37 AM CDT [facility] Blood Venipuncture / Unknown 02/15/2025 8:20 AM CDT 02/15/2025 8:28 AM CDT Nurys Pineda DO BLOOD BANK ORDERABLES Edited Res ult - Final [facility] [place] CLIA#[id number] [address] [place] [address], * PREPARE RED BLOOD CELLS (02/15/2025 7:55 AM CDT) COMPONENT TYPE [id number] [facility] [place] COMPONENT IDENTIFICATION [id number] [facility] [place] UNIT ABO A [id number] [facility] [place] [facility] RH POS [facility] [place] CROSSMATCH Compatible [facility] [place] COMPONENT STATUS Returned [facility] [place] COMPONENT EXPIRATION DATE/TIME [facility] [place] COMPONENT CODING SYSTEM Pin or Peg [facility] [place] VOLUME, BLOOD PRODUCT 350 [facility] [place] 02/15/2025 7:55 AM CDT Nurys Pineda DO LAB TRANSFUSION ORDERABLES Edite d Result - Final Performing Organization Address [facility] Co de Phone Number [facility] [place] CLIA#[id number] [address] [place] [address], * PREPARE RED BLOOD CELLS (02/15/2025 7:55 AM CDT) COMPONENT TYPE [id number] [facility] [place] COMPONENT IDENTIFICATION [id number] [facility] [place] UNIT ABO A [employer] [facility] -- [place] UN[facility] RH POS [facility] [place] CROSSMATCH Compatible [facility] [place] COMPONENT STATUS Returned [facility] [place] COMPONENT EXPIRATION DATE/TIME [facility] [place] COMPONENT CODING SYSTEM Pin or Peg [facility] [place] VOLUME, BLOOD PRODUCT 350 [facility] [place] Other, specify 02/15/2025 7: 55 AM CDT Nurys Pineda DO LAB TRANSFUSION ORDERABLES Edite d Result - Final [id number] [place] [address], documented in this encounter Visit Diagnoses Not [...] Given 02/15/2025 2:25 PM CDT 0.5 mg Iopamidol (ISOVUE-M 300) 300 mg iodine /mL (61 %) injection 15 mL 15 mL, See Admin Instructions, INTRA-PROCEDURE ONCE, 1 dose, Starting on Sat02/18/25 at 1030, Until Sat02/18/25 at 1030, Routine, Intra-op Given 02/18/2025 10:30 AM CDT 15 mL Operative Site lidocaine 2% jelly INTRA-PROCEDURE PRN, Starting on Sat02/18/25 at 1030, Until Sat02/18/25 at 1039, Routine, Intra-op Given 02/18/2025 10:30 AM CDT 10 mL magnesium OXIDE (MAG-OX) tablet 400 mg 400 [...] from ostomy) 0827 (Given - Provider: Luly Guerrero RN) famotidine PF (PEPCID) 40 mg in sodium chloride 0.9% 10 mL injection 40 mg, IV, DAILY, First dose on Sat02/18/25 at 0600, Until Discontinued, Routine 0601 (Given - Provider: ROBB Odom) 0827 (Given - Provider: Luly Guerrero RN) heparin [...] stent placed and is abmbulating in the [place] with PT, OT and by herself. Will [...] Jennifer Munguia RN)2112 (Given - Provider: Latoya Morales RN) 0828 (Given - Provider: Luly Guerrero, LEONARD) [...] PRN, Starting on Sat02/18/25 at 1030, Until Sat02/18/25 at 1039, Routine, Intra-op 1030 (Given - [...] at 1713, Pain (See admin instructions), Routine 1905 (Given - Provider: ROBB Odom) prochlorperazine maleate [...] Routine documented in this encounter Care Teams Wheel Mill Operator Relationship Specialty Start Date End Date Steven Olivo MD [address] [place] [phone] PCP - General Family Practice 11/12/24 documented as of this encounter
--- OUTSIDE RECORDS SUMMARY | 2025-02-18 09:35 | XMS_ITS | Encounter Summary ---
Author Organization [facility] Address [address] [place] [address] Care Team Providers Care Lpn Per Diem Name Role Phone Steven Olivo MD Primary Care Provider [phone] Reason for Visit * Auth/Cert (Routine) Specialty Diagnoses / Procedures Referred By Maxx coello Referred To Contact Perioperative Diagnoses Diverticulitis of large intestine with abscess without bleeding Diverticulitis of large intestine with abscess without bleeding Procedures CT LAPS COLECTOMY PRTL W/COLOPXTSTMY LW ANAST CT LAPS COLECTMY PRTL W/COLOPXTSTMY LW ANAST W/CLST HCHG NEEDLE ECHO 20GAX5.0CM CT LAPS MOBLJ SPLENIC FLXR PFRMD W/PRTL COLECTOMY SIGMOID COLON RESECTION ROBOTIC XI SIGMOID COLON RESECTION ROBOTIC XI Nurys Pineda DO [address] [facility] [address] [place] [address] Phone: tel: fax: [facility] Operating Room [facility] [place] [address] Phone: tel: fax: Referral ID Status Reason Start Date Expiration Date Visits Re quested Visits Authorized [id number] 1 1 Encounter Details Date Type Department Care Team (Late st Contact Info) Description 02/18/2025 9:35 AM CDT Anesthesia Event [facility] Operating Room [address] [place] [address] Parveen Shane MD [address] [place], [place] [phone] Cassidy Elinaanahi Rock CRNA [address] [place] [phone] Anesthesia Record Procedure Summary Procedure Name Responsible Anesthesiologist Anesthesia Start Time Anesthesia Stop Time PYELOGRAM RETROGRADE (Left: Ureter) Parveen Shane MD 02/18/25 0935 02/18/25 1046 Events Date Time Event Comment 02/18/2025 0910 AN Equip Check Anesthesia eq uipment and materials checked in accordance with local policy. 0935 An Start 0942 0945 In Room This event disp lays the In Room time documented in the Surgical Log. Deleting this event will not remove it from the log but will remove it from the Grid and Graph timeline. 0945 An Start Data 0951 Pre-Induction Immediate pre- induction anesthetic assessment performed. Vital signs as noted on graphic. 0956 An Induction 0958 An Intubation 1000 Anesthesia Ready 1012 Procedure Start This event d isplays the Procedure Start time documented in the Surgical Log. Deleting this event will not remove it from the log but will remove it from the Grid and Graph timeline. 1026 Procedure Stop This event di splays the Procedure Stop time documented in the Surgical Log. Deleting this event will not remove it from the log but will remove it from the Grid and Graph timeline. 1031 An Extubation Emergence unev entful Awake, spontaneous respirations. Adequate muscle strength demonstrated Adequate tidal volume. Orapharynx suctioned. Extubated with positive pressure ventilation. 1033 Quick Note On PACU hold. C RNA monitoring patient in OR until bed becomes available. 1039 an stop data 1039 Out of Room This event disp lays the Out of Room time documented in the Surgical Log. Deleting this event will not remove it from the log but will remove it from the Grid and Graph timeline. 1046 An Stop 1046 Hand-off to Receiving Clinic estefania Meds Name Total midazolam (VERSED) 1 mg/mL injection 2 mg lidocaine PF (XYLOCAINE MPF) 2% injectio n 2.5 mL propofol (DIPRIVAN) 10 mg/mL injection 110 mg rocuronium (ZEMURON) 10mg/mL injection 4 0 mg fentaNYL (SUBLIMAZE) PF 50 mcg/mL injection 100 mcg esmolol (BREVIBLOC) 10 mg/mL injection 10 mg dexamethasone (DECADRON) 4 mg/mL injecti on 4 mg ondansetron (ZOFRAN) 4 mg/2 mL injection 4 mg ceFAZolin (ANCEF) 1000 mg vial 2,000 mg lidocaine (XYLOCAINE) 4% laryngotracheal solution 4 mL phenylephrine 1 mg/10 mL (100 mcg/mL) sy ringe 700 mcg sugammadex (BRIDION) 100 mg/mL injection 200 mg lactated ringers infusion 800 mL * Agents Name Air Sevoflurane % Sevoflurane O2 N2O Inspired N2O O2 * Blood No blood administrations on file. Lines, Drains, and Airways Type Details Placement Removal Ileostomy 02/15/25 02/15/25 0000 by Estefania Huddleston RN Wound 02/15/25; 1200; othe r (comment); abdomen; Surgical 02/15/25 1200 by Arlene Phelps RN Wound 02/18/25; 0904; urethral meatus; Surgical 02/18/25 0904 by Elizabeth Fonseca RN Adult Midline Catheter: Single Lumen Orientation: Left:; Location: basilic vein; Size: (18 ga 10 cm [id number]); Insertion Attempts: 1; Patient Tolerance: tolerated well; Pain Prevention: distraction; Power Injectable Compatible: Yes; Removal Indication: no longer indicated; Removal Interventions: direct pressure 02/16/25 0126 by Colton Barry RN 02/19/25 1410 by Luly Guerrero RN Endotracheal Airway Type: ETT; Size: 7; Attempts: 1; Verification: Auscultated bilateral breath sounds, Equal chest movement, Continuous waveform capnography 02/18/25 0958 by Sheba Benjamin CRNA 02/18/25 1031 by Sheba Benjamin CRNA Indwelling Urethral Catheter 02/18/25; 1028; Indwelling double lumen catheter; latex; 18 Fr; inserted; 1; 5; 10; 02/19/25 (Patient was informed per Dr Ernandez, nurse reducated, that removal can lead to kidney damage, electrolyte embalances and cardiac complications.); 1405 08/28/25 1028 by Elizabeth Fonseca RN 02/19/25 1405 by Luly Guerrero RN documented in this encounter Social History Tobacco [...] 06/06/2020 How often do you attend chur or gnosticist services? 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 Gender Identity Not on file Sexual Orientation Not on file documented as of this encounter OR Notes * Anesthesia Postprocedure Evaluation - Parveen Shane MD - 02/18/2025 12:12 PM CDT Post Anesthesia Evaluation Vitals: Vitals Value Taken Time BP 120/58 02/18/25 11:25 Temp 36.6 ??C 02/18/25 11:00 Resp 19 02/18/25 11:30 SpO2 94 % 02/18/25 11:30 Pulse 78 02/18/25 11:30 Heart Rate 78 bpm 02/18/25 11:30 Pain Rating: Pain Rating: Rest: 0 (02/18/25 0221) Pain Rating: Activity: 7 (02/17/25 1243) Presence of Pain: denies pain/discomfort (02/18/25 1115) Score: FLACC (rest): 0 (02/18/25 1115) Score: FLACC (activity): 3 (02/17/25 0950) Anesthesia Post Evaluation No notable events documented. Post Operative Anesthesia Note Patient: Valerie Ferro Medical record: [id number] Post: PYELOGRAM RETROGRADE, CYSTOURETHROSCOPY URETERAL STENT INSERTION Vitals: 02/18/25 1130 BP: Pulse: 78 Resp: 19 Temp: SpO2: 94% Anesthesia Problems: No anesthesia problems/complications and Satisfactory post anesthesia course Appropriate mental status given rubio-operative condition. 02/18/2025, 12:12 PM Parveen Shane MD * Anesthesia Handoff - Sheba Benjamin CRNA - 02/18/2025 10:45 AM CDT Patient transported to PACU via cart, O2 8L/mask, Vital signs stable, Report to RN Post-Anesthetic transfer of care report elements to [...] opportunity for questions and acknowledgement of understanding. Vital Signs: Vitals Value Taken Time BP 115/58 02/18/25 10:43 Temp 37.2 ??C 02/18/25 10:41 Resp 19 02/18/25 10:41 SpO2 100 % 02/18/25 10:41 Pulse 83 02/18/25 10:45 Heart Rate 94 bpm 02/18/25 10:41 Vitals shown include unfiled device data. 10:45 AM Sheba Benjamin CRNA * Anesthesia Procedure Notes - Sheba Benjamin CRNA - 02/18/2025 10:12 AM CDT Associated Order(s): Airway Airway Date/Time: 02/18/2025 9:58 AM Location: OR Plan: routine intubation Patient Identity Confirmed by: Verbally with patient and armband Airway: not difficult Staffing Performed: HELP DESK ANALYST/CAA Authorized by: Parveen Shane MD Performed by: Sheba Benjamin CRNA Indications and Patient Condition: Indications for Airway Management: Anesthesia Sedation Level: general anesthesia Preoxygenated: yes Patient Position: Sniffing Mask Difficulty Assessment: 1 - vent by mask Plan to extubate at end of case: Yes Final Airway Details: Final Airway Type: Endotracheal airway ETT Cuffed: Yes Technique Used for Successful ETT Placement: Direct laryngoscopy Devices/Methods Used in Placement: Intubating stylet Blade Type: curved blade Blade Size: 3 Insertion Site: Oral ETT Size (mm): 7.0 Measured from: Teeth ETT to Teeth (cm): 20 Tube secured with: Tape Placement Verified by: auscultation, end tidal CO2 and chest rise Cormack-Lehane Classification: Grade IIa - partial view of glottis Number of Attempts at Approach: 1 Additional Procedure Information: atraumatic and dentition unchanged * Anesthesia Preprocedure Evaluation - Parveen Shane MD - 02/18/2025 9:41 AM CDT Relevant Problems RENAL (+) DELANO (acute kidney injury) (+) Hydronephrosis Anesthesia Evaluation Patient summary reviewed Airway Mallampati: I TM distance: >3 FB Neck ROM: full Dental - normal exam Pulmonary - normal exam Cardiovascular - normal exam Neuro/Psych GI/Hepatic/Renal (+) chronic renal disease Endo/Other Abdominal Anesthesia History Anesthesia Plan ASA Final: 3 General Intravenous induction Oral ETT airway maintenance NPO status > 8 hours Anesthetic plan and risks discussed with Patient. Use of blood products: consented to blood products. Plan discussed with Automotive Assembler. Preanesthesia Evaluation Valerie Ferro is a 74 y.o. 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, right one missing by Past Surgical History: Procedure Laterality Date HX KNEE ARTHROSCOPY 1981 HX VAGINAL HYSTERECTOMY W/ ANTERIOR AND POSTERIOR VAGINAL REPAIR 1981 CT COLONOSCOPY FLX DX W/COLLJ SPEC WHEN PFRMD N/A 01/06/2025 COLONOSCOPY performed by Nurys Pineda DO at [facility] [place] COLONOSCOPY W/BIOPSY SINGLE/MULTIPLE N/A 01/06/2025 COLONOSCOPY performed by Nurys Pineda DO at [facility] [place] COLSC FLX W/RMVL OF TUMOR POLYP LESION SNARE TQ N/A 01/06/2025 COLONOSCOPY performed by Nurys Pineda DO at [facility] [place] CYSTO W/INSERT URETERAL STENT Left 10/31/2024 CYSTOURETHROSCOPY URETERAL STENT INSERTION performed by Romeo Mathias MD at [facility] MAIN OR XR RETROGRADE PYELOGRM W WO KUB Left 10/31/2024 PYELOGRAM RETROGRADE performed by Romeo Mathias MD at [facility] MAIN OR No current facility-administered medications on file prior to encounter. Current Outpatient Medications on File Prior to Encounter Medication Sig Dispense Refill metroNIDAZOLE (FLAGYL) 500 mg tablet Take 1 Tablet (500 mg) by mouth 3 times daily. 30 Tablet 0 levoFLOXacin (LEVAQUIN) 500 mg tablet Take 1 Tablet (500 mg) by mouth daily. 10 Tablet 0 Physical Exam: Airway Class: I (soft palate, uvula, fauces, tonsillar pillars visible) Pulmonary: clear to auscultation, no wheezes or rales, and unlabored breathing Cardiac: regular rate and rhythm, S1, S2 normal, no murmur, click, rub or gallop Pertinent lab: Lab Results Component Value Date LDLCALC 51 12/28/2017 LDLCALC ^ 12/28/2017 CREAT 3.12 (H) 02/18/2025 Lab Results Component Value Date CHOLTOT 212 12/28/2017 CHOLTOT ^ 12/28/2017 HDL 143 12/28/2017 HDL ^ 12/28/2017 LDLCALC 51 12/28/2017 LDLCALC ^ 12/28/2017 TRIGLYCERIDE 92 12/28/2017 TRIGLYCERIDE ^ 12/28/2017 ALT 19 11/01/2024 AST 42 (H) 11/01/2024 Lab Results Component Value Date CREAT 3.12 (H) 02/18/2025 BUN 45 (H) 02/18/2025 NA 139 02/18/2025 K 3.6 02/18/2025 CL 104 02/18/2025 CO2 19 (L) 02/18/2025 GFR 15 02/18/2025 Lab Results Component Value Date WBC 17.2 (H) 02/17/2025 HGB 8.2 (L) 02/17/2025 HCT 24.2 (L) 02/17/2025 PLT 298 02/17/2025 MCV 91.0 02/17/2025 Lab Results Component Value Date ALT 19 11/01/2024 AST 42 (H) 11/01/2024 ALKPHOS 139 (H) 11/01/2024 BILITOTAL <0.2 11/01/2024 No results found for: TSH , TSHULTRA , THYROIDSTIM , T3 , T3FREE , H1YFHUJG , T4 , T4FREE , TPO , THROIDAB , THYROIDMI Lab Results Component Value Date INR 1.3 (H) 10/30/2024 INR 0.97 12/28/2017 INR ^ 12/28/2017 INR ^ 12/28/2017 PT 17.0 (H) 10/30/2024 PT 13.0 12/28/2017 PT ^ 12/28/2017 No results found for: PSA ASA Class: ASA 3 - Patient with moderate systemic disease with functional limitations Emergency: no The risks and benefits of the proposed anesthetic have been discussed with patient. The patient/designee has agreed to GETA with GETA as a backup. Anesthesia guideline orders initiated. Parveen Shane MD documented in this encounter Plan of Treatment Upcoming Encounters Date Type Department Care Team (Late st Contact Info) Description 02/23/2025 12:00 PM CDT Appointment [facility] Nuclear Medicine [address] [place] [phone] Julieta Roth [address] [place] [phone] 03/04/2025 8:00 AM CDT Office Visit [facility] Gen Spec Surg [address] [place] [address] [place] [address] Tiff Odom, [address] [place] [address] documented as of this encounter Procedures Procedure Name Priority Date/Time Associated Diagnosis Comments CT ANES INSERT ENDOTRACHEAL AIRWAY Routine 02/18/2025 9:58 AM CDT documented in this encounter Results * CT ANES INSERT ENDOTRACHEAL AIRWAY (02/18/2025 9:58 AM CDT) Narrative Sheba Benjamin CRNA - 02/18/2025 9:58 AM CDT Sheba Benjamin CRNA 02/18/2025 10:13 AM Airway Date/Time: 02/18/2025 9:58 AM Location: OR Plan: routine intubation Patient Identity Confirmed by: Verbally with patient and armband Airway: not difficult Staffing Performed: HELP DESK ANALYST/CAA Authorized by: Parveen Shane MD Performed by: Sheba Benjamin CRNA Indications and Patient Condition: Indications for Airway Management: Anesthesia Sedation Level: general anesthesia Preoxygenated: yes Patient Position: Sniffing Mask Difficulty Assessment: 1 - vent by mask Plan to extubate at end of case: Yes Final Airway Details: Final Airway Type: Endotracheal airway ETT Cuffed: Yes Technique Used for Successful ETT Placement: Direct laryngoscopy Devices/Methods Used in Placement: Intubating stylet Blade Type: curved blade Blade Size: 3 Insertion Site: Oral ETT Size (mm): 7.0 Measured from: Teeth ETT to Teeth (cm): 20 Tube secured with: Tape Placement Verified by: auscultation, end tidal CO2 and chest rise Cormack-Lehane Classification: Grade IIa - partial view of glottis Number of Attempts at Approach: 1 Additional Procedure Information: atraumatic and dentition unchanged Parveen Shane MD PROCEDURE/MINOR SURGICAL ORDER ERASMO Final Result documented in this encounter Visit Diagnoses Not on filedocumented in this encounter Administered Medications Inactive Administered Medications - up to 3 most recent administrations Medication Order MAR Action Action Date Dose Rate Site ceFAZolin (ANCEF,KEFZOL) vial IV, INTRA-PROCEDURE PRN, Starting on Tiffanie 02/18/25 at 1002, Until Tiffanie 02/18/25 at 1046, Routine, Anesthesia Intra-op Given 02/18/2025 10:02 AM CDT 2,000 mg dexAMETHasone (DECADRON) injection IV, INTRA-PROCEDURE PRN, Starting on Tiffanie 02/18/25 at 1005, Until Tiffanie 02/18/25 at 1046, Routine, Anesthesia Intra-op Given 02/18/2025 10:05 AM CDT 4 mg esmoloL (BREVIBLOC) 100 mg/10 mL (10 mg/mL) injection IV, INTRA-PROCEDURE PRN, Starting on Tiffanie 02/18/25 at 1001, Until Tiffanie 02/18/25 at 1046, Routine, Anesthesia Intra-op Given 02/18/2025 10:01 AM CDT 10 mg fentaNYL PF (SUBLIMAZE) 50 mcg/mL injection IV, INTRA-PROCEDURE PRN, Starting on Tiffanie 02/18/25 at 0951, Until Tiffanie 02/18/25 at 1046, Routine, Anesthesia Intra-op Given 02/18/2025 9:51 AM CDT 100 mcg lactated ringers infusion IV, INTRA-PROCEDURE CONTINUOUS PRN, Starting on Tiffanie 02/18/25 at 0936, Until Tiffanie 02/18/25 at 1046, Routine, Anesthesia Intra-op New Bag 02/18/2025 9:36 AM CDT lidocaine (XYLOCAINE) 4 % topical solution Topical, INTRA-PROCEDURE PRN, Starting on Tiffanie 02/18/25 at 0958, Until Tiffanie 02/18/25 at 1046, Routine, Anesthesia Intra-op Given 02/18/2025 9:58 AM CDT 4 mL lidocaine PF 2% (XYLOCAINE MPF) injection IV, INTRA-PROCEDURE PRN, Starting on Tiffanie 02/18/25 at 0956, Until Tiffanie 02/18/25 at 1046, Routine, Anesthesia Intra-op Given 02/18/2025 9:56 AM CDT 2.5 mL midazolam (VERSED) injection IV, INTRA-PROCEDURE PRN, Starting on Tiffanie 02/18/25 at 0943, Until Tiffanie 02/18/25 at 1046, Routine, Anesthesia Intra-op Given 02/18/2025 9:43 AM CDT 2 mg ondansetron (ZOFRAN) 4 mg/2 mL injection IV, INTRA-PROCEDURE PRN, Starting on Tiffanie 02/18/25 at 1016, Until Tiffanie 02/18/25 at 1046, Routine, Anesthesia Intra-op Given 02/18/2025 10:16 AM CDT 4 mg phenylephrine syringe IV, INTRA-PROCEDURE PRN, Starting on Tiffanie 02/18/25 at 1000, Until Tiffanie 02/18/25 at 1046, Routine, Anesthesia Intra-op Given 02/18/2025 10:32 AM CDT 100 mcg Given 02/18/2025 10:23 AM CDT 100 mcg Given 02/18/2025 10:16 AM CDT 100 mcg propofoL (DIPRIVAN) injection IV, INTRA-PROCEDURE PRN, Starting on Tiffanie 02/18/25 at 0956, Until Tiffanie 02/18/25 at 1046, Anesthesia Intra-op Given 02/18/2025 9:56 AM CDT 110 mg rocuronium injection IV, INTRA-PROCEDURE PRN, Starting on Tiffanie 02/18/25 at 0956, Until Tiffanie 02/18/25 at 1046, Routine, Anesthesia Intra-op Given 02/18/2025 9:56 AM CDT 40 mg sugammadex (BRIDION) 100 mg/mL injection IV, INTRA-PROCEDURE PRN, Starting on Tiffanie 02/18/25 at 1025, Until Tiffanie 02/18/25 at 1046, Routine, Anesthesia Intra-op Given 02/18/2025 10:25 AM CDT 200 mg documented in this encounter Care Teams Lpn Per Diem Relationship Specialty Start Date End Date Steven Olivo MD [address] [place] [phone] PCP - General Family Practice 11/12/24 documented as of this encounter
[2025-02-20 13:03] VITALS: BP 115/71; PULSE 124; RESP 16; TEMP 36.3; O2SAT 96
--- OUTSIDE RECORDS SUMMARY | 2025-02-20 13:22 | XMS_ITS | Encounter Summary ---
Author Organization [employer] Address [address] [facility] Attn: Epic Prelude ADT FALGUNI [place]CHAVARRIA [address] Care Team Providers Care Osha Inspector Name Role Phone Steven Olivo MD Primary Care Provider [phone] Encounter Details Date Type Department Care Team (Latest Contact Info) Description 02/15/2025 Travel Social History Tobacco Use Types Packs/Day Years [...] often do you attend chur ch or sabianism services? 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 [address] Julieta Roth FNP [address] [place] [address] [address] [place] [address] 03/04/2025 8:00 AM CDT Office Visit [facility] Gen Spec Surg [address] [place] [address] Tiff Odom FNP [address] [place] [address] [address] [place] [address] documented as of this encounter Visit Diagnoses Not on filedocumented in this encounter Care Teams Osha Inspector Relationship Specialty Start Date End Date Steven Olivo MD [address] [place] [phone] PCP - General Family Practice 11/12/24 documented as of this encounter
--- OUTSIDE RECORDS SUMMARY | 2025-02-20 13:22 | XMS_ITS | Encounter Summary ---
Author Organization [employer] Address [address] [place] [address] Care Team Providers Care Machine Binder Stripper Name Role Phone Steven Olivo MD Primary Care Provider [phone] Encounter Details Date Type Department Care Team (Late st Contact Info) Description 02/17/2025 External Device Data STL ABSTRACTION Provider, Abstract NO ADDRESS ON FILE Social History Tobacco Use Types Packs/Day Years [...] often do you attend chur ch or tenriism services? 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 [address] Julieta Roth FNP [address] [place] [phone] 03/04/2025 8:00 AM CDT Office Visit [facility] Gen Spec Surg [address] [place] [address] Tiff Odom [address] [place] [address] documented as of this encounter Visit Diagnoses Not on filedocumented in this encounter Care Teams Machine Binder Stripper Relationship Specialty Start Date End Date Steven Olivo MD [address] [place] [phone] PCP - General Family Practice 11/12/24 documented as of this encounter
--- OUTSIDE RECORDS SUMMARY | 2025-02-20 13:23 | XMS_ITS | Encounter Summary ---
Author Organization [employer] Address [address] [place] [address] Care Team Providers Care Senior Marketing Analyst Name Role Phone Steven Olivo MD Primary Care Provider [phone] Encounter Details Date Type Department Care Team (Late st Contact Info) Description 02/16/2025 External Device Data STL ABSTRACTION Provider, Abstract [...] often do you attend chur ch or moravian services? 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 [address] Julieta Roth FNP [address] [place] [phone] 03/04/2025 8:00 AM CDT Office Visit [facility] Gen Spec Surg [address] [place] [address] Tiff Odom [address] [place] [address] documented as of this encounter Visit Diagnoses Not on filedocumented in this encounter Care Teams Senior Marketing Analyst Relationship Specialty Start Date End Date Steven Olivo MD [address] [place] [phone] PCP - General Family Practice 11/12/24 documented as of this encounter
--- OUTSIDE RECORDS SUMMARY | 2025-02-20 13:23 | XMS_ITS | Clinical Summary ---
Author Organization [employer] Address [address] 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 If over 300 lbs, patient requires heavy duty. Type of walker:walker with wheels 1 Each 02/18/20 25 025 Active HYDROcodone-ac etaminophen (NORCO) 5-325 mg tabletIndicati ons:Acute diverticulitis ,DELANO (acute kidney injury) Take 1 Tablet by mouth every 4 hours as needed for Pain, Moderate. Max Daily Amount: 6 Tablets 30 Tablet 5 11:22 AM CDT 02/20/20 25 Active ondansetron (ZOFRAN ODT) 4 mg Tablet, Rapid Dissolve Take 1 Tablet (4 mg) by mouth every 8 hours as needed for Nausea/Emesis. Dissolve tablet on top of tongue, then swallow with saliva. 15 Tablet 5 11:22 AM CDT 02/20/20 25 Active levoFLOXacin (LEVAQUIN) 500 mg tablet Take 1 Tablet (500 mg) by mouth daily. 10 Tablet 12/10/19 25 025 Discontinued metroNIDAZOLE (FLAGYL) 500 mg tablet Take 1 Tablet (500 mg) by mouth 3 times daily. 30 Tablet 12/10/19 25 025 Discontinued neomycin (MYCIFRADIN) 500 mg tablet Day before surgery take 1 tablet at 1pm, 2pm, 10pm 3 Tablet 12/31/19 25 025 Discontinued ondansetron (ZOFRAN ODT) 4 mg Tablet, Rapid Dissolve Take 1 Tablet (4 mg) by mouth every 8 hours as needed for Nausea/Emesis. Dissolve tablet on top of tongue, then swallow with saliva. 6 Tablet 12/31/19 25 025 Discontinued peg 3350-electroly gladys (GOLYTELY) 236-22.74-6.74 -5.86 gram Recon Soln Please follow instructions from clinic 1 Each 02/09/20 25 025 Discontinued sodium, potassium and magnesium SULFATES (Suprep Bowel Prep Kit) 17.5-3.13-1.6 gram Recon Soln Follow directions from clinic 354 mL 02/11/20 25 025 Discontinued Hospital, Clinic, or Other Facility Administered Medication Ordered Dose Route Frequency Start Date End Date Status ciprofloxacin HCl (CIPRO) tablet 500 mgIndications:Enco unter for removal of ureteral stent 500 mg Oral ONE TIME ONLY 11/26/2024 02/19/2025 Disc ontinued Active Problems Problem Noted Date Diagnosed Date History of diverticulitis 02/19/2025 Ileostomy status 02/19/2025 S/P colon resection 02/19/2025 DELANO (acute kidney injury) 02/17/2025 S/P cystoscopy with ureteral stent placement 04/2025 Hydronephrosis 10/31/2024 Solitary kidney, acquired 10/31/2024 UTI (urinary tract infection) 10/27/2024 Acute diverticulitis 10/27/2024 Current every day smoker 01/03/2018 Resolved Problems Problem Noted Date Diagnosed Date Resolved Date Encounter for colorectal cancer screening 09/25/2024 09/25/2024 Encounters Date Type Department Care Team Description 02/18/2025 9:35 AM CDT Anesthesia Event [facility] Operating Room [address] [place] [address] Parveen Shane MD Bliss, Jenetta D, MULTIPLEX OPERATOR 02/18/2025 8:35 AM CDT - 02/18/2025 12:00 PM CDT Surgery [facility] Operating Room [address] [place] [address] Moisés Ernandez MD CYSTOURETHROSCOPY URETERAL STENT INSERTION 02/17/2025 External Device Data STL ABSTRACTION Provider, Abstract 02/16/2025 External Device Data STL ABSTRACTION Provider, Abstract 02/16/2025 External Device Data STL ABSTRACTION Provider, Abstract 02/15/2025 10:32 AM CDT - 02/15/2025 1:24 PM CDT Surgery [facility] Operating Room [address] [place] [address] Nurys Pineda DO LOW ANTERIOR COLON RESECTION ROBOTIC XI 02/15/2025 9:45 AM CDT Anesthesia Event [facility] Operating Room [facility] [place] [address] Andrew Mancini, Murphy Arthur, MULTIPLEX OPERATOR 02/15/2025 7:48 AM CDT - 02/19/2025 2:20 PM CDT Hospital Encounter [facility] 5B Gynecology [address] [place] [phone] Nurys Pineda DO DELANO (acute kidney injury) Discharge Disposition: Home or Self Care 02/15/2025 Travel 02/10/2025 External Device Data STL ABSTRACTION Provider, Abstract 02/10/2025 Orders Only [facility] Gen Spec Surg [address] [place] [address] Nurys Pineda DO 02/10/2025 Telephone [facility] 3A Surgical [address] [place] [address] Nurys Pineda DO Nurse Navigation 02/09/2025 External Device Data STL ABSTRACTION Provider, Abstract 02/08/2025 Telephone [facility] Gen Spec Surg [address] [facility] [address] [place] [address] Nurys Pineda DO Surgery 02/08/2025 Orders Only [facility] Gen Spec Surg [address] [facility] [address] [place] [address] Nurys Pineda DO 01/14/2025 Telephone [facility] Gen Spec Surg [address] [facility] [address] [place] [address] Linda Moser RN Information 01/13/2025 Telephone [facility] Gen Spec Surg [facility]. [address] [place] [address] Nurys Pineda DO Pt Miriam 01/06/2025 7:40 AM CDT - 01/06/2025 8:00 AM CDT Surgery [facility] Endoscopy [place] [address] [place] [phone] Nurys Pineda DO COLONOSCOPY 01/06/2025 6:39 AM CDT - 01/06/2025 9:33 AM CDT Hospital Encounter [facility] Endoscopy [place] [address] [place] [phone] Nurys Pineda DO Acute diverticulitis Discharge Disposition: Home or Self Care 01/06/2025 External Device Data STL ABSTRACTION Provider, Abstract 01/06/2025 External Device Data STL ABSTRACTION Provider, Abstract 01/01/2025 Orders Only [facility] [address] [facility] [address] [place] [phone] Julieta Roth, SUN Other hydronephrosis (Primary Dx); Solitary kidney, acquired 12/30/2024 2:45 PM CDT Office Visit [facility] Gen Spec Surg [address] [facility] [address] [place] [address] Johnathan Chapman, MD Miriam Palomares Jennifer, DO Diverticulitis of large intestine with abscess without bleeding (Primary Dx) 12/30/2024 Orders Only [facility] Gen Spec Surg [address] [facility] [address] [place] [address] [phone] Nurys Pineda DO 12/30/2024 Orders Only [facility] Gen Spec Surg [address] [facility] [address] [place] [address] Nurys Pineda DO 12/30/2024 Orders Only [facility] Gen Spec Surg [address] [facility] [address] [place] [address] Nurys Pineda DO 12/30/2024 Orders Only [facility] Gen Spec Surg [address] [facility] [address] [place] [phone] Nurys Pineda DO 12/18/2024 Results Follow-Up [facility] [address] [place] [phone] Zamzam Petty LPN US RENAL AND BLADDER 12/17/2024 2:00 PM CDT Office Visit [facility] General and Trauma Surgery[address] [place] [phone] Dar Mann Jr., MD Acute diverticulitis (Primary Dx) 12/15/2024 External Device Data STL ABSTRACTION Provider, Abstract 12/15/2024 Telephone [facility] Family Medicine [address] [phone] Steven Olivo MD Needs Appointment 12/15/2024 Telephone [facility] General and Trauma Surgery[address] [place] [phone] Breanne Calle NP Needs Appointment 12/14/2024 9:00 AM CDT - 12/14/2024 11:59 PM CDT Hospital Encounter [facility] Ul[facility] [place] [address] [place] [address] Julieta Roth FNP Discharge Disposition: Home or Self Care 12/09/2024 1:00 PM CDT - 12/09/2024 11:59 PM CDT Hospital Encounter [facility] Surgery [facility] [address] [place] [phone] Nicholas Cervantes MD Discharge Disposition: Home or Self Care 12/07/2024 External Device Data Initial Department [address] [facility] [address] VORA: [place] [address] [facility], 12/01/2024 External Device Data STL ABSTRACTION Provider, Abstract 12/01/2024 External Device Data STL ABSTRACTION Provider, Abstract 12/01/2024 External Device Data STL ABSTRACTION Provider, Abstract 11/26/2024 1:15 PM CDT Office Visit [facility] Urology- [address] Entrance B, 3rd [place] [address] Julieta Roth FNP Other hydronephrosis (Primary Dx); Solitary kidney, acquired; Encounter for removal of ureteral stent 11/23/2024 Telephone [facility] [address] [address] Steven Olivo MD Medication Assistance from Last 3 Months Immunizations Immunization Administration Dates Next Due (PNEUMOVAX 23)(50 YRS UP) PN EUMOCOCCAL POLYSACCHARIDE (PPV23) 0.5 ML, IM 10/26/2020 (PREVNAR 13)(6 WKS UP) PNEUM OCOCCAL CONJUGATE (PCV13) 0.5 ML, IM 04/09/2019 (SHINGRIX)(50 YRS UP) ZOSTER VACCINE RECOMBINANT, 0.5 ML, IM 08/27/2019,05/14/2019 INFLUENZA VACCINE QUADRIVALENT RECOMB 18 YR UP P F IM 03/31/2020,04/09/2019 Influenza Seasonal Unspecified Formulation IM ,04/24/2021 Pneumococcal 13-willian Conj Vacc Patient Supplied 1 Family History Medical History Relation Name Comments Colon Cancer Neg Hx Social History Tobacco Use Types Packs/Day Years Used Date Smoking Tobacco: Every Day Cigarettes Last attempted to quit: 03/23/2021 Passive Smoke Exposure: Past Smokeless Tobacco: Never Tobacco Cessation:Ready to Q uit: Not Asked; Counseling Given: Not Answered Comments:A couple of cigarettes a day Alcohol Use Standard Drinks/Week Comments [...] week 06/06/2020 How often do you attend [facility] or yarsani services? 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 Gender Identity Not on file Sexual Orientation Not on file Last Filed Vital Signs Vital Sign Reading [...] Mass Index 26.87 02/15/2025 8:08 AM CDT Plan of Treatment Upcoming Encounters Date Type Department Care Team (Late st Contact Info) Description 02/23/2025 12:00 PM CDT Appointment [facility] Nuclear Medicine [facility] [place] [phone] Julieta Roth, [address] [place] [phone] 03/04/2025 8:00 AM CDT Office Visit [facility] Gen Spec Surg [address] [place] [address] Tiff Odom, [place] [address] [address] [facility] [address] [place] [address] Health Maintenance Due Date Last Done Comments FIT/ DNA Q 3 YEARS (AUTO ORDER) 1970 FIT/FOBT Q 1 YEAR (AUTO ORDER) 1970 FLEX SIG/CT COLONOGRAPHY Q 5 YEARS (AUTO ORDER) 1970 DTAP/TDAP/TD VACCINES (1 - Tdap) 1971 BREAST CANCER SCREENING 1992 FIT-DNA Q 3 years 1997 FIT/FOBT Q 1 year 1997 Flex Sig/CT Colonography Q 5 years 1997 OSTEOPOROSIS SCREENING 2017 [place] Preventative Visit/Annual Wellness Visit 06/24/2024 08/17/2022, 06/22/2021 INFLUENZA VACCINE (#1) 2025 , 03/24/2022, 04/24/2021, Additional history exists RSV VACCINE (60+ or ) (1 - 1-dose 75+ series) 2027 COLORECTAL CANCER SCREENING (AUTO ORDER) 01/06/2035 01/06/2025, 01/06/2025, 01/06/2025 COLORECTAL SCREENING 01/06/2035 01/06/2025, 01/06/2025, 01/06/2025 Colorectal Cancer Screening (AUTO ORDER) 01/06/2035 Colorectal Cancer Screening 01/06/2035 ZOSTER VACCINE Completed 08/27/2019, 05/14/2019 PNEUMOCOCCAL VACCINE 50+ YEARS Completed 0 10/26/2020, 04/09/2019, 04/09/2019 Medical Devices Implanted Type Area Suction Worker Device Identifier Shelf Expiration Date Model / Serial / Lot Clip Hemolok Ml [id number] - Csc - [id number] Implanted:Qty: 1 on 02/16/2025 by Nurys Pineda DO at [facility] Clip N/A: Abdomen TELEFLEX- WECK CLOSURE SYS [id number] 11/21/2029 [id number] / / [id number] 1 Stent Contour [id number] - [id number] Implanted:Qty: 1 on 02/18/2025 by Moisés Ernandez MD at [facility] Stent Left: Ureter [employer]/CUSTOMER BUSINESS MANAGER [id number] 10/19/2027 [id number] Description:no string. Explanted Type Area Suction Worker Device Identifier Shelf Expiration Date Model / Serial / Lot Stent Contour [id number] - [id number] Implanted:Qty: 1 on 10/31/2024 by Romeo Mathias MD at [facility] Explanted:Qty: 1 on 02/18/2025 at [facility] Stent Left: Ureter [employer]/CUSTOMER BUSINESS MANAGER [id number] 07/06/2027 [id number] 20 / / [id number] Description:NO STRING ON MILO NT not in place during procedure. Procedures Procedure Name Priority Date/Time Associated Diagnosis Comments RENAL FUNCTION PANEL Routine 02/19/2025 6:28 AM CDT POC GLUCOSE Routine 02/18/2025 2:28 PM CDT POC GLUCOSE Routine 02/18/2025 10:53 AM CDT XR FLUORO LESS THAN 1 HOUR Routine 02/18/2025 10:29 AM CDT FL ANES INSERT ENDOTRACHEAL AIRWAY Routine 02/18/2025 9:58 AM CDT FL CYSTO W/INSERT URETERAL STENT 02/18/2025 8:35 AM CDT PYELOGRAM RETROGRADE 02/18/2025 8:35 AM CDT URIC ACID Routine 02/18/2025 6:12 AM CDT BASIC METABOLIC PANEL Stat 02/18/2025 6:12 AM CDT US RENAL Stat 02/17/2025 2:21 PM CDT BASIC METABOLIC PANEL Routine 02/17/2025 3:37 AM CDT CBC WITH DIFFERENTIAL Routine 02/17/2025 3:37 AM CDT BASIC METABOLIC PANEL Routine 02/16/2025 4:19 AM CDT CBC WITH DIFFERENTIAL Routine 02/16/2025 4:19 AM CDT LACTIC ACID [...] of large intestine with abscess without bleeding FL ANES INSERT ENDOTRACHEAL AIRWAY Routine 02/15/2025 10:00 AM CDT EKG 12-LEAD Routine 02/15/2025 8:29 AM CDT VERIFICATION BLOOD GROUP Stat 02/15/2025 8:29 AM CDT CBC WITHOUT DIFFERENTIAL Routine 02/15/2025 8:25 AM CDT TYPE AND SCREEN Stat 02/15/2025 8:20 AM CDT PREPARE RED BLOOD CELLS Routine 02/15/2025 7:55 AM CDT PREPARE RED BLOOD CELLS Routine 02/15/2025 7:55 AM CDT PATHOLOGY Pathology 01/06/2025 7:57 AM CDT Acute diverticulitis FL COLSC FLX W/RMVL OF TUMOR POLYP LESION SNARE TQ 01/06/2025 7:40 AM CDT Acute diverticulitis FL COLONOSCOPY W/BIOPSY SINGLE/MULTIPLE 01/06/2025 7:40 AM CDT Acute diverticulitis FL COLONOSCOPY FLX DX W/COLLJ SPEC WHEN PFRMD 01/06/2025 7:40 AM CDT Acute diverticulitis US RENAL AND BLADDER Routine 12/14/2024 9:44 AM CDT Other hydronephrosis Solitary kidney, acquired from Last 3 Months Results * (ABNORMAL) RENAL FUNCTION PANEL (02/19/2025 6:28 AM T) SODIUM 141 136 - 145 mmol/L 02/19/2025 7:23 AM [facility] POTASSIUM 3.9 3.5 - 5.1 mmol/L 02/19/2025 7:23 AM [facility] CHLORIDE 107 98 - 107 mmol/L 02/19/2025 7:23 AM [facility] CO2 19(L) 22 - 29 mmol/L 02/19/2025 7:23 AM [facility] CALCIUM 9.5 8.8 - 10.2 mg/dL 02/19/2025 7:23 AM [facility] BUN 47(H) 8 - 23 mg/dL 02/19/2025 7:23 AM [facility] CREATININE 2.66(H) 0.51 - 0.95 mg/dL 02/19/2025 7:23 AM [facility] Comment:The GFR result is no t clinically significant on patients <18 or >70 years of age. GLUCOSE 132(H) 74 - 99 mg/dL 02/19/2025 7:23 AM [facility] ALBUMIN 3.2(L) 3.5 - 5.2 g/dL 02/19/2025 7:23 AM [facility] PHOSPHORUS 3.3 2.5 - 4.5 mg/dL 02/19/2025 7:23 AM [facility] GFR 19 mL/min/1. 73 sq meter 02/19/2025 7:23 AM [facility] Comment:eGFR calculated with 2020 CKD-EPI equation. Vegetarian diet, extremely high or low muscle mass, and may affect results. Cystatin C with Glomerular Filtration Rate is a suitable alternative for these patients. ANION GAP 15 9 - 20 mmol/L 02/19/2025 7:23 AM [facility] Blood Venipuncture / Unknown 02/19/2025 6:28 AM CDT 02/19/2025 6:42 AM CDT Moisés Ernandez MD CHEMISTRY ORDERABLES Final Result Performing Organization Address [facility] de Phone Number [facility] CLIA # [id number] [address] [address] * (ABNORMAL) POC GLUCOSE (02/18/2025 2:28 PM CDT) Only the most recent of4 resultswithin the time period is included. GLUCOSE POC 157(H) 74 - 99 mg/dL 02/18/2025 2:28 PM CDT [facility] SPECIMEN SOURCE, GLUCOSE POC Capillary 02/18/2025 2:28 PM CDT [facility] Blood, whole 02/18/2025 2:28 PM CDT 02/18/2025 2:39 PM CDT Nurys Pineda DO POINT OF CARE TESTING Final Resu lt Performing Organization Address [facility] Co de Phone Number [facility] CLIA # [id number] [address] [address] * XR FLUORO LESS THAN 1 HOUR (02/18/2025 10:29 AM CDT) Narrative 02/18/2025 10:29 AM CDT Order information only. Exam was auto-finalized. Moisés Ernandez MD DIAGNOSTIC IMAGING O RDERABLES Final Result * FL ANES INSERT ENDOTRACHEAL AIRWAY (02/18/2025 9:58 AM CDT) Narrative Sheba Benjamin CRNA - 02/18/2025 9:58 AM CDT Sheba Benjamin CRNA 02/18/2025 10:13 AM Airway Date/Time: 02/18/2025 9:58 AM Location: OR Plan: routine intubation Patient Identity Confirmed by: Verbally with patient and armband Airway: not difficult Staffing Performed: KUN/CAA Authorized by: Parveen Shane MD Performed by: [...] MD PROCEDURE/MINOR SURGICAL ORDER ERASMO Final Result * (ABNORMAL) URIC ACID (02/18/2025 6:12 AM CDT) URIC ACID 5.8(H) 2.4 - 5.7 mg/dL 02/18/2025 9:22 AM CDT [facility] Blood Venipuncture / Unknown 02/18/2025 6:12 AM CDT 02/18/2025 6:17 AM CDT Génesis Bethea DO CHEMISTRY ORDERABLES Final Resu lt [facility] CLIA # [id number] [address] [place] [address] [place], [place] [id number] * (ABNORMAL) BASIC METABOLIC PANEL (02/18/2025 6:12 AM CDT) Only the most recent of4 resultswithin the time period is included. SODIUM 139 136 - 145 mmol/L 02/18/2025 7:05 AM [facility] POTASSIUM 3.6 3.5 - 5.1 mmol/L 02/18/2025 7:05 AM [facility] CHLORIDE 104 98 - 107 mmol/L 02/18/2025 7:05 AM [facility] CO2 19(L) 22 - 29 mmol/L 02/18/2025 7:05 AM [facility] CALCIUM 9.7 8.8 - 10.2 mg/dL 02/18/2025 7:05 AM [facility] BUN 45(H) 8 - 23 mg/dL 02/18/2025 7:05 AM [facility] CREATININE 3.12(H) 0.51 - 0.95 mg/dL 02/18/2025 7:05 AM [facility] Comment:The GFR result is no t clinically significant on patients <18 or >70 years of age. GLUCOSE 149(H) 74 - 99 mg/dL 02/18/2025 7:05 AM [facility] GFR 15 mL/min/1. 73 sq meter 02/18/2025 7:05 AM [facility] Comment:eGFR calculated with 2020 CKD-EPI equation. Vegetarian diet, extremely high or low muscle mass, and may affect results. Cystatin C with Glomerular Filtration Rate is a suitable alternative for these patients. ANION GAP 16 9 - 20 mmol/L 02/18/2025 7:05 AM [facility] Blood Venipuncture / Unknown 02/18/2025 6:12 AM CDT 02/18/2025 6:17 AM CDT us Nurys Pineda DO CHEMISTRY ORDERABLES Final Resul t [facility] CLIA # [id number] [address] [place] [address] * US RENAL (02/17/2025 2:21 PM CDT) [...] Right kidney is congenitally absent. Tiff Odom CASHIER SUPERVISOR US ORDERABLES Final Res ult * (ABNORMAL) CBC WITH DIFFERENTIAL (02/17/2025 3:37 AM CDT) Only the most recent of2 resultswithin the time period is included. WBC 17.2(H) 4.8 - 10.8 K/uL 02/17/2025 4:00 AM [facility] RBC 2.66(L) 4.20 - 5.40 M/uL 02/17/2025 4:00 AM [facility] HEMOGLOBIN 8.2(L) 12.0 - 16.0 g/dL 02/17/2025 4:00 AM [facility] HEMATOCRIT 24.2(L) 36.0 - 46.0 % 02/17/2025 4:00 AM [facility] MCV 91.0 84.0 - 103.0 fL 02/17/2025 4:00 AM [facility] MCH 30.8 27.0 - 34.0 pg 02/17/2025 4:00 AM [facility] MCHC 33.9 30.0 - 35.0 g/dL 02/17/2025 4:00 AM [facility] PLATELETS 298 140 - 440 K/uL 02/17/2025 4:00 AM [facility] MPV 9.4 8.9 - 12.8 fL 02/17/2025 4:00 AM [facility] RDW 16.0(H) 11.0 - 14.5 % 02/17/2025 4:00 AM [facility] RDW-STDEV 53.1 37.0 - 54.0 fL 02/17/2025 4:00 AM [facility] NEUTROPHILS 89(H) 42 - 75 % 02/17/2025 4:00 AM [facility] LYMPHOCYTES 6(L) 24 - 44 % 02/17/2025 4:00 AM [facility] MONOCYTES 4 2 - 10 % 02/17/2025 4:00 AM [facility] EOSINOPHILS 0 0 - 7 % 02/17/2025 4:00 AM [facility] BASOPHILS 0 0 - 1 % 02/17/2025 4:00 AM [facility] IMMATURE GRANULOCYTES 1 0 - 2 % 02/17/2025 4:00 AM CDT [facility] NEUTROPHIL ABSOLUTE 15.29(H) 2.00 - 8.00 K/uL 02/17/2025 4:00 AM CDT [facility] LYMPHOCYTE ABSOLUTE 1.10(L) 1.20 - 4.00 K/uL 02/17/2025 4:00 AM CDT [facility] MONOCYTE ABSOLUTE 0.62(H) 0.10 - 0.60 K/uL 02/17/2025 4:00 AM CDT [facility] EOSINOPHIL ABSOLUTE 0.00 0.00 - 0.70 K/uL 02/17/2025 4:00 AM CDT [facility] BASOPHILS ABSOLUTE 0.02 0.00 - 0.20 K/uL 02/17/2025 4:00 AM CDT [facility] IMMATURE GRANULOCYTES ABSOLUTE 0.13(H) 0.00 - 0.10 K/uL 02/17/2025 4:00 AM T [facility] SMEAR REVIEWED: NA - Not Applicable 02/17/2025 4:00 AM T [facility] Blood Venipuncture / Unknown 02/17/2025 3:37 AM CDT 02/17/2025 3:54 AM CDT Nurys Pineda DO HEMATOLOGY ORDERABLES Final Resu lt [facility] CLIA # [id number] [address] [place] [id number] * LACTIC ACID (02/15/2025 6:29 PM CDT) LACTIC ACID 1.3 <=2.0 mmol/L 02/15/2025 7:19 PM CDT [facility] Blood Venipuncture / Unknown 02/15/2025 6:29 PM CDT 02/15/2025 6:34 PM CDT Nurys Pineda DO CHEMISTRY ORDERABLES Final Resul t [facility] CLIA # [id number] [address] [place] [address] [place] [address] * (ABNORMAL) CBC WITHOUT DIFFERENTIAL (02/15/2025 4:45 PM CDT) Only the most recent of2 resultswithin the time period is included. WBC 14.2(H) 4.8 - 10.8 K/uL 02/15/2025 5:11 PM CDT [facility] RBC 2.78(L) 4.20 - 5.40 M/uL 02/15/2025 5:11 PM CDT [facility] HEMOGLOBIN 8.6(L) 12.0 - 16.0 g/dL 02/15/2025 5:11 PM CDT [facility] HEMATOCRIT 26.4(L) 36.0 - 46.0 % 02/15/2025 5:11 PM CDT [facility] MCV 95.0 84.0 - 103.0 fL 02/15/2025 5:11 PM CDT [facility] MCH 30.9 27.0 - 34.0 pg 02/15/2025 5:11 PM CDT [facility] MCHC 32.6 30.0 - 35.0 g/dL 02/15/2025 5:11 PM CDT [facility] PLATELETS 303 140 - 440 K/uL 02/15/2025 5:11 PM CDT [facility] MPV 9.0 8.9 - 12.8 fL 02/15/2025 5:11 PM CDT [facility] RDW 15.7(H) 11.0 - 14.5 % 02/15/2025 5:11 PM CDT [facility] RDW-STDEV 55.1(H) 37.0 - 54.0 fL 02/15/2025 5:11 PM CDT [facility] Blood Venipuncture / Unknown 02/15/2025 4:45 PM CDT 02/15/2025 5:01 PM CDT us Lex Morales MD HEMATOLOGY ORDERABLES Final Res ult [facility] CLIA # [id number] [address] [place] [address] * PATHOLOGY (02/15/2025 11:10 AM CDT) Only the most recent of2 resultswithin the time period is included. CASE REPORT Surgical Pathology Report Case: [id number] Authorizing Provider: Nurys Pineda DO Collected: 02/15/2025 11:10 AM Ordering Location: [facility] Received: 02/15/2025 12:37 PM Operating Room Pathologist: Parveen Moura MD Specimen: Sigmoid colon and rectum 1:12 PM CDT [facility] FINAL DIAGNOSIS A. Sigmoid colon and rectum, low anterior resection - perforated diverticulitis with pericolonic abscess - resection margins viable. Parveen Moura MD [id number] 1:12 PM CDT [facility] at 1312 CDT GROSS DESCRIPTION A. [...] anastomotic ring is a single mucosal donut. Software Analyst sections are submitted as follows: A1-proximal margin, en face A2-distal margin, en face A3-mucosal donut P3-B1-kskz-thickness cross-section of perforated abscess, bisected (bisected point inked blue) A6-thickened bowel wall with abscess Grossed by: Zamzam Pino MS, ERIKA (ASCP)CM2 5 1:12 PM CDT [facility] OPERATIVE PROCEDURE 1: SIGMOID COLON RESECTION ROBOTIC XI 2: TRANSVERSUS ABDOMINIS PLANE BLOCK: BILATERAL 3: ILEOSTOMY ROBOTIC XI 4: SIGMOIDOSCOPY FLEXIBLE 5: SPLENIC FLEXURE MOBILIZATION 5 1:12 PM CDT [facility] CLINICAL INFORMATION K57.20-Diverticulitis of large intestine with abscess without bleeding 5 1:12 PM CDT [facility] COMMENT The [employer] voice-activated dictation system may have been used [...] determined by the Diagnostic [facility]ohist[facility] of [facility] in compliance with CLIA'88 regulations. Some of these tests rely on the use of analyte specific reagents and are subject to specific labeling requirements by the FDA. All controls show appropriate reactivity. This testing was developed by the [facility] of [facility]. It has not been cleared or approved by the FDA. The FDA has determined that such clearance or approval is not necessary. 5 1:12 PM CDT [facility] Tissue Collection / Unknown 02/15/2025 11:10 AM CDT 02/15/2025 12:37 PM CDT Comment:OR 6 us Nurys Pineda DO PATHOLOGY/CYTOLOGY ORDERABLES Fi nal Result [id number] [address] [address] * URINE CULTURE (02/15/2025 10:51 AM CDT) CULTURE No growth 02/16/2025 8:21 AM CDT [facility] Urine (Urine, indwelling (Gonzales) catheter) Collection / Unknown 02/15/2025 10:51 AM CDT 02/15/2025 10:58 AM CDT Comment:OR 6 Nurys Pineda DO MICROBIOLOGY - GENERAL ORDERABLE S Final Result [facility] [id number] [address] [address] * FL ANES INSERT ENDOTRACHEAL AIRWAY (02/15/2025 10:00 AM CDT) Narrative Murphy Reynoso CRNA - 02/15/2025 10:00 AM CDT Murphy Reynoso CRNA 02/15/2025 10:17 AM Airway Date/Time: 02/15/2025 10:00 AM Location: OR Plan: routine intubation Patient Identity Confirmed by: Verbally with patient and armband Airway: not difficult Staffing Performed: KUN/CAA Authorized by: Andrew Mancini DO Performed by: Murphy Renyoso CRNA Indications and Patient Condition: Indications for [...] Additional Procedure Information: atraumatic and dentition unchanged us Andrewzoila [place] Scarlettmurray DO PROCEDURE/MINOR SURGICA L ORDERABLES Final Result * EKG 12-LEAD (02/15/2025 8:29 AM CDT) 02/15/2025 8:29 AM CDT Narrative INTERFACE SYSTEM - 02/15/2025 7:11 [place] [address] Test Date: 2025-02-15 Pat Name: VALERIE FERRO Department: 12 Room: PREOP PHAS PREOP PHAS Gender: Female 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: [id number] : 1950 Requested By: Order Number: [id number] Reading MD: Serge Hutchins Measurements Intervals [place] Rate: 75 P: 80 FL: 162 QRS: 13 QRSD: 86 T: 40 QT: 376 QTc: 419 Interpretive Statements Normal sinus rhythm T wave abnormality, consider anterolateral ischemia Abnormal ECG Electronically Signed On 02-15-2025 19:11:02 CDT by Serge Hutchins Procedure Note Serge Hutchins MD - 02/15/2025 [place] [address] Test Date: 2025-02-15 Pat Name: VALERIE FERRO Department: 12 Room: PREOP PHAS PREOP PHAS Gender: Female 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: [id number] : 1950 Requested By: Order Number: [id number] Reading : Serge Hutchins Measurements Intervals [place] Rate: 75 P: 80 FL: 162 QRS: 13 QRSD: 86 T: 40 QT: 376 QTc: 419 Interpretive Statements Normal sinus rhythm T wave abnormality, consider anterolateral ischemia Abnormal ECG Electronically Signed On 02-15-2025 19:11:02 CDT by Serge Hutchins us Nurys Pineda DO ECG ORDERABLES Final Result Performing Organization Address City/[facility]/ZIP Co de Phone Number INTERFACE SYSTEM Refer to clinic/hospital department * VERIFICATION BLOOD GROUP (02/15/2025 8:29 AM CDT) ABO GROUP A 02/15/2025 8:57 AM CDT [facility] [place] RH (D) TYPE Positive 02/15/2025 8:57 AM CDT [facility] [place] Blood Venipuncture / Unknown 02/15/2025 8:29 AM CDT 02/15/2025 8:33 AM CDT Nurys Pineda DO BLOOD BANK ORDERABLES Final Resu lt Performing Organization Address [facility] de Phone Number [facility] [place] CLIA#[id number] [address] [place] [address], * TYPE AND SCREEN (02/15/2025 8:20 AM CDT) ANTIBODY SCREEN Negative 02/15/2025 9:37 AM CDT [facility] [place] ABO GROUP A 02/15/2025 9:37 AM CDT [facility] [place] RH (D) TYPE Positive 02/15/2025 9:37 AM CDT [facility] [place] Blood Venipuncture / Unknown 02/15/2025 8:20 AM CDT 02/15/2025 8:28 AM CDT us Nurys Pineda DO BLOOD BANK ORDERABLES Edited Res ult - Final Performing Organization Address [facility] de Phone Number [facility] [place] CLIA#[id number] [address] [place] [address], * PREPARE RED BLOOD CELLS (02/15/2025 7:55 AM CDT) Only the most recent of2 resultswithin the time period is included. COMPONENT TYPE [id number] [facility] [place] COMPONENT IDENTIFICATION [id number] [facility] [place] UNIT ABO A [facility] [place] UNIT RH POS [facility] [place] CROSSMATCH Compatible [facility] [place] COMPONENT STATUS Returned [facility] [place] COMPONENT EXPIRATION DATE/TIME [id number] [facility] [place] COMPONENT CODING SYSTEM 6[address] [facility] [place] VOLUME, BLOOD PRODUCT 350 [facility] [place] 02/15/2025 7:55 AM CDT us Nurys Pineda DO LAB TRANSFUSION ORDERABLES Edite d Result - Final [facility] [place] CLIA#[id number] [address] [place] [address], * US RENAL AND BLADDER (12/14/2024 9:44 AM CDT) Anatomical Region Laterality Modality Abdomen Ultrasound 12/14/2024 9:44 AM CDT Impressions 12/14/2024 3:37 PM CDT IMPRESSION: 1. Mild left hydroureteronephrosis. 2. Mass along the bladder. Given the findings on the CT scan dated 10/30/2004, this could represent sequela/complication of diverticulitis. Consider further evaluation with contrast-enhanced CT. Narrative 12/14/2024 3:37 PM CDT Exam: Renal and bladder ultrasound. Indication: Solitary kidney, hydronephrosis. Comparison: CT scan dated 10/30/2024 FINDINGS: Absent right kidney. LEFT: Mild left hydroureteronephrosis. Cortical echogenicity and thickness is preserved. The kidney measures 12.61 cm in length. No abnormal renal masses identified. No sonographically evident renal calculi. Bladder: Heterogenous echogenicity mass along the bladder, this could be outside of the bladder. Procedure Note Timmy Deng MD - 06/23/2025 Exam: Renal and bladder ultrasound. Indication: Solitary kidney, hydronephrosis. Comparison: CT scan dated 10/30/2024 FINDINGS: Absent right kidney. LEFT: Mild left hydroureteronephrosis. Cortical echogenicity and thickness is preserved. The kidney measures 12.61 cm in length. No abnormal renal masses identified. No sonographically evident renal calculi. Bladder: Heterogenous echogenicity mass along the bladder, this could be outside of the bladder. IMPRESSION: 1. Mild left hydroureteronephrosis. 2. Mass along the bladder. Given the findings on the CT scan dated 10/30/2004, this could represent sequela/complication of diverticulitis. Consider further evaluation with contrast-enhanced CT. Julieta Roth [facility] ORDERABLES Final Resu lt from Last [address] [place] [id number] [place] [address] RX AETNA Medicare Part D RX INFOCROSSING Medicaid RX AETNA Medicare Part D Advance Directives For more information, please contact: [phone] * Full Code (Latest Code Status on File) Date Activated Date Inactivated Comments 02/15/2025 2:01 PM 02/19/2025 5:18 PM * Full Code Date Activated Date Inactivated Comments 02/15/2025 7:55 AM 02/15/2025 2:01 PM Care Teams Double End Production Grinder Relationship Specialty Start Date End Date Steven Olivo MD [address] [place] [phone] PCP - General Family Practice 11/12/24
--- OUTSIDE RECORDS SUMMARY | 2025-02-20 13:23 | XMS_ITS | Clinical Summary ---
Author Organization [facility] Address [address] [place] [phone] Care Team Providers Care Machine Clothing Replacer Name Role Phone Toribio Davies MD Primary Care Provider [phone] Allergies Active Allergy Reactions Criticality Noted Date Comments Penicillins Other (See Comments) High 01/03/2018 Passed out Medications aspirin (CATHLEEN CHEWABLE) 81 mg Tablet, Chewable Take 81 mg by mouth daily. Active Active Problems Problem Noted Date Diagnosed Date Current every day smoker 01/03/2018 Immunizations Immunization Administration Dates Next Due (SHINGRIX)(50 YRS UP) ZOSTER VACCINE RECOMBINANT, 0.5 ML, IM 08/27/2019,05/14/2019 INFLUENZA VACCINE QUADRIVALENT RECOMB 18 YR UP P F IM 03/31/2020,04/09/2019 Pneumococcal 13-willian Conj Vacc Patient Supplied 1 Social History Tobacco Use Types Packs/Day Years Used Date Smoking Tobacco: Every Day Cigarettes Smokeless Tobacco: Never Tobacco Cessation:Ready to Q uit: No Alcohol Use Standard Drinks/Week Comments No 0 [...] often do you attend chur ch or hinduism services? Never 06/06/2020 Do you belong to any clubs o r organizations such as denominational groups, unions, fraternal or athletic groups, or school groups? Yes 06/06/2020 Attends Club or Organization Meetings Not on marek e 06/06/2020 Marital Status Not on file 06/06/2020 Financial Resource Strain Answer Date R ecorded How hard is it for you to pa y for the very basics like food, housing, medical care, and heating? Not hard at all 06/06/2020 Food Insecurity Answer Date Recorded Within the past 12 months, y ou worried that your food would run out before you got the money to buy more. Never true 06/06/20 20 Within the past 12 months, t he food you bought just didn't last and you didn't have money to get more. Never true 06/06/2020 Transportation Needs Answer Date Record ed In the past 12 months, has l ack of transportation kept you from medical appointments or from getting medications? No 05/24 In the past 12 months, has l ack of transportation kept you from meetings, work, or from getting things needed for daily living? No 06/06/2020 Education Answer Date Recorded What is the highest level of school you have completed or the highest degree you have received? GED or equivalent Comments No Sex and Gender Information Value Date Recorded Sex Assigned at Not on file Legal Sex Female 10:04 AM CDT Gender Identity Not on file Sexual Orientation Not on file Last Filed Vital Signs Vital Sign Reading Time Taken Comments Blood Pressure 140/80 06/06/2020 2:57 PM SPRINKLER INSTALLER Pulse 94 06/06/2020 2:57 PM SPRINKLER INSTALLER Temperature 36.6 C (97.9 F) 06/06/2020 2:57 PM SPRINKLER INSTALLER Respiratory Rate 16 06/06/2020 2:57 PM SPRINKLER INSTALLER Oxygen Saturation 96% 06/06/2020 2:57 PM SPRINKLER INSTALLER Inhaled Oxygen Concentration - - Weight 81.3 kg (179 lb 3.2 oz) 06/06/2020 2:57 P M SPRINKLER INSTALLER Height 157.5 cm (5' 2 ) 06/06/2020 2:57 PM SPRINKLER INSTALLER Body Mass Index 32.78 06/06/2020 2:57 PM SPRINKLER INSTALLER Plan of Treatment Health Maintenance Due Date Last Done Comments DTAP/TDAP/TD VACCINES (1 - Tdap) 1971 BREAST CANCER SCREENING 1992 COLORECTAL SCREENING 1997 Colorectal Cancer Screening 1997 FIT-DNA Q 3 years 1997 FIT/FOBT Q 1 year 1997 Flex Sig/CT Colonography Q 5 years 1997 OSTEOPOROSIS SCREENING 2017 PNEUMOCOCCAL VACCINE 50+ YEA RS (2 of 2 - PPSV23, PCV20, or PCV21) 06/04/2019 04/09/2019 [place] Prev entative Visit/Annual Wellness Visit 06/24/2024 06/06/2020 INFLUENZA VACCINE (#1) 2025 03/31/2020, 2018 RSV VACCINE (60+ or ) (1 - 1-dose 75+ series) 2027 ZOSTER VACCINE Completed 08/27/2019, 05/14/2019 Insurance [place]ID [place] [address] [place] [address] DUAL COMPLETE [facility] HMO OKDSNP Care Teams Machine Clothing Replacer Relationship Specialty Start Date End Date Toribio Davies MD [address] [place] [address] PCP - General Family Practice 01/03/18
--- OUTSIDE RECORDS SUMMARY | 2025-02-20 13:23 | XMS_ITS | Encounter Summary ---
Author Organization [employer] Address [address] [place] [address] Care Team Providers Care Software Technical Lead Name Role Phone Steven Oliov MD Primary Care Provider [phone] Encounter Details Date Type Department Care Team [...] often do you attend chur ch or jew services? 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 [address] Julieta Roth FNP [address] [place] [phone] 03/04/2025 8:00 AM CDT Office Visit [facility] Gen Spec Surg [address] [place] [address] Tiff Odom [address] [place] [address] documented as of this encounter Visit Diagnoses Not on filedocumented in this encounter Care Teams Software Technical Lead Relationship Specialty Start Date End Date Steven Olivo MD [address] [place] [phone] PCP - General Family Practice 11/12/24 documented as of this encounter
[2025-02-20 13:37] LABS: Hematocrit 34.1 % (36-47); Hemoglobin 10.90 g/dL (11.27-16.99); Mean Corpuscular HGB Conc 32.0 g/dL (30-55); Mean Corpuscular Hemoglobin 30.4 pg (27-33); Mean Corpuscular Volume 95.0 fl (85-98); Nucleated Red Blood Cells % 0 %; Platelet Count 506 10^3/cmm (157-399); Red Blood Count 3.59 10^6/uL (3.85-5.65); White Blood Count 21.42 10^3/uL (3.29-11.43)
--- NOTE | 2025-02-20 13:49 | XRR_ITS ---
PROCEDURE INFORMATION: Exam: XR Chest Exam date and time: 02/20/2025 2:02 PM Age: 74 years old Clinical indication: Other: Weak n/v; Prior surgery; Surgery date: 3-7 days post-operative; Surgery type: Colon and kidney; Additional info: N/v, weak PT arrives pov with complaints of weakness and n/v that started yesterday after getting home from the hospital. PT states she had two surgeries this week, one on her colon and another on her kidney. Pts family reports PT has a new colostomy that has been putting out. PT denies urinary symptoms. PT reports ruq abd pain. TECHNIQUE: Imaging protocol: Radiologic exam of the chest. Views: 1 view. COMPARISON: No relevant prior studies available. FINDINGS: Lungs: Unremarkable. No consolidation. Pleural spaces: Unremarkable. No pleural effusion. No pneumothorax. Heart/Mediastinum: Unremarkable. No cardiomegaly. Bones/joints: Unremarkable. XR/XR chest 1V portable [id number] IMPRESSION: No acute findings.
--- NOTE | 2025-02-20 13:49 | ECG_ITS ---
[facility] Test Date: 2025-02-20 Pat Name: Valerie Ferro Department: Room: Gender: Female Internship Coordinator: : 1950 Requested By: Toribio Tracy Order Number: [id number] Magno MD: Samson Orosco M.D. Measurements Intervals [place] Rate: 101 P: 78 CT: 140 QRS: 50 QRSD: 86 T: 69 QT: 322 QTc: 418 Interpretive Statements SINUS TACHYCARDIA WITH FREQUENT SUPRAVENTRICULAR PREMATURE COMPLEXES NONSPECIFIC ST & T-WAVE ABNORMALITY ABNORMAL RHYTHM ECG Compared to ECG 12/28/2017 10:16:30 FREQUENT SUPRAVENTRICULAR PREMATURE COMPLEXES ARE NEW Electronically Signed On 02-22-2025 13:54:40 CDT by Samson Orosco M.D. [email or web address] [email or web address]
--- NOTE | 2025-02-20 13:52 | ED_ITS ---
HPI - Weakness 2 General: Chief complaint: Weakness Stated complaint: Cant keep anything down weak and in pain all over Time Seen by Provider: 02/20/25 13:09 Source: patient and family Mode of arrival: ambulatory Limitations: no limitations History of Present Illness: Patient is a 74-year-old female with a history of diverticulitis and solitary kidney who presents with weakness, intractable nausea, and recurrent bilious vomiting since yesterday. She was discharged home yesterday following hospitalization for episode of colon resection with creation of an ileostomy as well as ureteral stent placement for hydronephrosis of her remaining kidney. She reports 2 episodes of yellow, bile-stained emesis to count, associated with generalized weakness and poor oral intake. She has noted right upper quadrant and left upper quadrant abdominal discomfort but denies chest pain, shortness of breath, or urinary symptoms. She has not been taking her prescribed discharge medication such as Zofran and Titus, as she states that she had a reaction to Zofran and it caused her nausea to worsen. She was not discharged antibiotics. She denies fevers or chills, on arrival she is lethargic but nontoxic-appearing, afebrile but tachycardic to 124 bpm. Normotensive and saturating well on room air. Notable is that she has a functioning ileostomy with appearance of green liquid stool. She states that she was supposed to go home with Gonzales catheter but she denied wanting this. Complaint: generalized weakness Onset (ago): day(s) Duration: constant and progressively worsening Location: generalized Context: recent surgery and other (Recent hospitalization) Associated symptoms: Reports nausea and vomiting; Denies chest pain, chills, diaphoresis, dysuria, fever(s) or headache(s) Related Data Previous Rx's ?Medication ?Instructions ?Recorded metoclopramide HCl 10 mg tablet 10 mg PO Q6H PRN nause a and 02/20/25 vomiting #20 tabs Allergies Allergy/AdvReac Type Severity Reaction Status Date / Time Penicillins Allergy ADR-Faintin Verified 07/18/19 16:44 g Review of Systems 2 General: Reports: 10 or more systems reviewed and unremarkable except in HPI and below Const: Reports: change in appetite, fatigue and malaise; Denies: fever(s), chills or diaphoresis ENMT: Denies: throat pain or hoarseness Card: Denies: chest pain, palpitations or lightheadedness Resp: Denies: dyspnea, productive cough or wheezing GI: Reports: abdominal pain, nausea, vomiting and change in stool character; Denies: hematemesis, coffee ground emesis, diarrhea, constipation, bloating or hematochezia : Denies: flank pain, difficulty voiding, dysuria, urinary frequency or urinary urgency Musc: Denies: neck pain or back pain Skin/Breast: Denies: rash or new lesions Neuro: Denies: headache(s) or dizziness PFSH ED 2 PFSH: Social History Smoking and tobacco/nicotine status: current every day tobacco/nicotine user Physical Exam 2 Const: COMMON NORMALS: average body habitus, patient oriented x3 and alert ORIENTATION/CONSCIOUSNESS: Yes awake OTHER: Lethargic, but nontoxic-appearing HENMT: COMMON NORMALS: normocephalic and atraumatic HEAD & SCALP: n ormocephalic and atraumatic OTHER: Moist oral mucosa Eye: COMMON NORMALS: Equal, round and reactive pupils present and EOMs intact bilaterally PUPIL: Yes Equal, round and reactive pupils present OTHER: My conjunctival pallor, no scleral icterus Neck/C-Spine: COMMON NORMALS: full ROM and no meningeal signs Chest: COMMONS NORMALS: normal inspection of the chest and normal palpation of entire chest wall Resp: COMMON NORMALS: normal respiratory effort, No retractions, No use of accessory muscles and clear to auscultation bilaterally AUSCULTATION: clear to auscultation bilaterally Cardio: COMMON NORMALS: regular rhythm, S1 normal heart sound present and S2 normal heart sound present RATE: tachycardic RHYTHM: regular rhythm H EART SOUNDS: S1 normal heart sound present and S2 normal heart sound present GI: OTHER: Scattered abdominal ecchymosis. Reproducible tenderness to light palpation to the right and left upper quadrants. There is ileostomy present with drainage of soft/liquid green stool, ostomy appears well. : COMMON NORMALS: Yes no CVA tenderness BLADDER/KIDNEY EXAM: Yes no CVA tenderness Back/Pelvis: COMMON NORMALS: no CVA tenderness Extremity: COMMON NORMALS: normal to inspection, full ROM and capillary refill normal Neuro: COMMON NORMALS: patient oriented x3, moves all extremities, no focal motor deficits and no sensory deficits noted SENSORIUM/ORIENTATION: Yes alert MENINGEAL SIGNS: Yes no meningeal signs Course 2 Vital Signs: Vital signs: Vital Signs Temperature 97.4 F L 02/20/25 13:03 Pulse Rate 88 02/20/25 17:00 Respiratory Rate 20 H 02/20/25 17:00 Blood Pressure 144/86 02/20/25 17:00 Pulse Oximetry 96 02/20/25 17:00 Oxygen Delivery Me thod Room Air 02/20/25 17:00 MDM - Weakness Medical Decision Making This patient is a 74-year-old female, post colon resection with ileostomy and ureteral stent placement for hydronephrosis, presenting with intractable bilious vomiting, lethargy, tachycardia, leukocytosis, and DELANO. Labs showed WBC 21.4, 2.7, BUN 59, sodium 135, and lipase 106. CT abdomen and pelvis demonstrating multiple dilated small loops consistent with jejunitis/ileitis, subcutaneous emphysema of the left lateral abdominal wall and bilateral groin, and a well- positioned ureteral stent. I then spoke to patient's colorectal surgeon at [facility] in [place] where she had her procedures performed, with Dr. Mathis, who is stated that this was stable enough for admission to our hospital but that she would happily see the patient for transfer if they were sent to the ER. General surgery was consulted here, Dr. Eastman, and expressed concern for postoperative ileus rather than tyler obstruction or leak, but given her postoperative status, subcutaneous emphysema, leukocytosis, and DELANO, she remains high risk for anastomotic leak or necrotizing soft tissue infection and requires tertiary care with colorectal and urology surgical capabilities. Transfer was recommended to patient and the family; however, the family opted to travel by personal vehicle and not go by ambulance, and will sign an AMA form. Through the patient's ED stay, she had noted significant improvement of her symptoms with IV fluids and IV Reglan, and prior to departure she is stabilized quite a bit. Renally dosed broad-spectrum antibiotics had been initiated, which was vancomycin plus cefepime plus metronidazole. Vitals have corrected and urine output has been monitored closely during transfer as she is discharged with Gonzales catheter in place. Dr. Ayala had been consulted early on and accepted patient to the hospital prior to the patient leaving AGAINST MEDICAL ADVICE. Lab Data 02/20/25 13:26 02/20/25 13:26 Radiology Impressions Chest X-Ray 02/20/25 13:49 IMPRESSION: No acute findings. Chest/Abdomen/Pelvis CT 02/20/25 14:04 IMPRESSION: No acute findings. Calcified granuloma in the lingula Diffuse subcutaneous emphysema in the left-lateral chest wall Coronary artery calcifications IMPRESSION: 1. Double-J ureteral stent left urinary outflow tract in good position 2. Multiple dilated fluid-filled small bowel loops consistent with jejunitis and/or ileitis 3. There is an ostomy present in the anterior wall of the pelvis 4. Schmorl's node superior endplate L4. 5. Diffuse subcutaneous emphysema left lateral abdominal wall and bilateral groin Laboratory Results WBC 21.42 10^3/uL (3.29-11.43) H 02/20/25 13:26 RBC 3.59 10^6/uL (3.85-5.65) L 02/20/25 13:26 Hgb 10.90 g/dL (11.27-16.99) L 02/20/25 13:26 Hct 34.1 % (36-47) L 02/20/25 13:26 MCV 95.0 fl (85-98) 02/20/25 13:26 MCH 30.4 pg (27-33) 02/20/25 13:26 MCHC 32.0 g/dL (30-55) 02/20/25 13:26 RDW 16.1 % (12.1-15.1) H 02/20/25 13:26 Plt Count 506 10^3/cmm (157-399) H 02/20/25 13:26 MPV 9.1 fL (7.4-10.4) 02/20/25 13:26 Neut % (Auto) 81.4 % 02/20/25 13:26 Lymph % (Auto) 7.1 % 02/20/25 13:26 Mclean % (Auto) 6.3 % 02/20/25 13:26 Eos % (Auto) 0.2 % 02/20/25 13:26 Baso % (Auto) 0.4 % 02/20/25 13:26 Neut # (Auto) 17.42 10^3/uL (1.8-7.7) H 02/20/25 13:26 Lymph # (Auto) 1.5 10^3/uL (0.8-4.8) 02/20/25 13:26 Mclean # (Auto) 1.4 10^3/uL (0.2-0.9) H 02/20/25 13:26 Eos # (Auto) 0.1 10^3/uL (0.0-0.8) 02/20/25 13:26 Baso # (Auto) 0.1 10^3/uL (0.0-0.1) 02/20/25 13:26 Nucleated RBC % (auto) 0 % 02/20/25 13:26 Nucleated RBCs # 0.0 /100WBC 02/20/25 13:26 Sodium 135 mmol/L (136-145) L 02/20/25 13:26 Potassium 4.2 mmol/L (3.5-5.1) 02/20/25 13:26 Chloride 99 mmol/L (98-107) 02/20/25 13:26 Carbon Dioxide 19 mmol/L (22-29) L 02/20/25 13:26 Anion Gap 21.2 (5-19) H 02/20/25 13:26 BUN 59 mg/dL (8-23) H 02/20/25 13:26 Creatinine 2.7 mg/dL (0.5-0.9) H 02/20/25 13:26 GFR Calculation Not Reportable 02/20/25 13:26 Glucose 160 mg/dL (65-115) H 02/20/25 13:26 Calculated Osmolality 300 mOsm/kg (285-295) H 02/20/25 13:26 Lactic Acid 1.7 mmol/L (0.5-2.2) 02/20/25 13:26 Calcium 9.8 mg/dL (8.5-10.5) 02/20/25 13:26 Total Bilirubin 0.4 mg/dL (0.15-1.2) 02/20/25 13:26 AST 13 U/L (0-32) 02/20/25 13:26 ALT < 5 U/L (0-33) 02/20/25 13:26 Alkaline Phosphatase 87 U/L (35-105) 02/20/25 13:26 Total Protein 8.6 g/dL (6.6-8.7) 02/20/25 13:26 Albumin 3.4 g/dL (3.5-5.2) L 02/20/25 13:26 Globulin 5.2 g/dL (1.3-4.6) H 02/20/25 13:26 Lipase 106 U/L (13-60) H 02/20/25 13:26 Urine Color Yellow (Yellow) 02/20/25 14:50 Urine Appearance Clear (CLEAR) 02/20/25 14:50 Urine pH 5.5 (5-7) 02/20/25 14:50 Ur Specific Herrick 1.018 (1.005-1.030) 02/20/25 14:50 Urine Protein 2+ (Negative) A 02/20/25 14:50 Urine Glucose (UA) Negative (Normal) 02/20/25 14:50 Urine Ketones Negative (Negative) 02/20/25 14:50 Urine Blood 2+ (Negative) A 02/20/25 14:50 Urine Nitrate Negative (Negative) 02/20/25 14:50 Urine Bilirubin Negative (Negative) 02/20/25 14:50 Urine Urobilinogen 0.2 mg/dL (Negative) 02/20/25 14:50 Ur Leukocyte Esterase Negative (Negative) 02/20/25 14:50 Urine RBC 3-5 /hpf (0-2) 02/20/25 14:50 Urine WBC 0-5 /hpf (0-5) 02/20/25 14:50 Ur Squamous Epith Cells 0-5 /hpf (0-5) 02/20/25 14:50 Amorphous Sediment Not Reportable 02/20/25 14:50 Urine Bacteria None seen /hpf (NONE) 02/20/25 14:50 Hyaline Casts 8.26 /lpf 02/20/25 14:50 Fine Granular Casts 0-4 /lpf H 02/20/25 14:50 Coarse Granular Casts 0-4 /lpf H 02/20/25 14:50 Influenza A (PCR) Negative (Negative) 02/20/25 13:50 Influenza Type B (PCR) Negative (Negative) 02/20/25 13:50 RSV (PCR) Negative (Negative) 02/20/25 13:50 SARS-CoV-2 (PCR) Negative (Negative) 02/20/25 13:50 All radiology interpretation(s) finalized by discharge Discharge Plan Discharge Patient Disposition: Left Against Medical Advice Clinical Impression: Left against medical advice, Dehydration, Leukocytosis, History of bowel resection Condition: Stable Coding Level of Care Code ED Caseworker for Tyesha Crum
[2025-02-20 13:54] LABS: Alanine Aminotransferase < 5 U/L (0-33); Albumin Level 3.4 g/dL (3.5-5.2); Alkaline Phosphatase 87 U/L (35-105); Anion Gap 21.2 (5-19); Aspartate Amino Transferase 13 U/L (0-32); Blood Urea Nitrogen 59 mg/dL (8-23); Calcium 9.8 mg/dL (8.5-10.5); Carbon Dioxide 19 mmol/L (22-29); Chloride 99 mmol/L (98-107); Creatinine Clr Calc Pharmacy 16.8136; Globulin 5.2 g/dL (1.3-4.6); Glucose 160 mg/dL (65-115); Lipase 106 U/L (13-60); Osmolality Calculated 300 mOsm/kg (285-295); Potassium 4.2 mmol/L (3.5-5.1); Sodium 135 mmol/L (136-145); Total Protein 8.6 g/dL (6.6-8.7)
[2025-02-20 13:57] LABS: Lactic Sepsis W/Reflex 1.7 mmol/L (0.5-2.2)
--- NOTE | 2025-02-20 14:04 | CTR_ITS ---
PROCEDURE INFORMATION: Exam: CT Chest Without Contrast; Diagnostic Exam date and time: 02/20/2025 2:21 PM Age: 74 years old Clinical indication: Nausea and vomiting; Dyspnea; Prior surgery; Surgery date: 3-7 days post-operative; Surgery type: Bowel resection 1ft, colostomy; Additional info: Recent colon resection, n/v, sepsis TECHNIQUE: Imaging protocol: Diagnostic computed tomography of the chest without contrast. Radiation optimization: All CT scans at this facility use at least one of these dose optimization techniques: automated exposure control; mA and/or kV adjustment per patient size (includes targeted exams where dose is matched to clinical indication); or iterative reconstruction. COMPARISON: CR (CHEST, ) 02/20/2025 2:02 PM RADIATION DOSE METRICS: Total DLP (mGy-cm): 835.83 FINDINGS: Lungs: Unremarkable. No consolidation. No masses. Calcified granuloma in the lingula Pleural spaces: Unremarkable. No pneumothorax. No pleural effusion. Heart: Coronary artery calcifications are seen. No cardiomegaly. No pericardial effusion. Lymph nodes: Unremarkable. No enlarged lymph nodes. Vasculature: Unremarkable. No aortic aneurysm. Bones/joints: Unremarkable. No acute fracture. Soft tissues: There is diffuse subcutaneous emphysema in the left-lateral chest wall PROCEDURE INFORMATION: Exam: CT Abdomen And Pelvis Without Contrast Exam date and time: 02/20/2025 2:21 PM Age: 74 years old Clinical indication: Nausea and vomiting; Dyspnea; Prior surgery; Surgery date: 3-7 days post-operative; Surgery type: Bowel resection 1ft, colostomy; Additional info: Recent colon resection, n/v, sepsis TECHNIQUE: Imaging protocol: Computed tomography of the abdomen and pelvis without contrast. Radiation optimization: All CT scans at this facility use at least one of these dose optimization techniques: automated exposure control; mA and/or kV adjustment per patient size (includes targeted exams where dose is matched to clinical indication); or iterative reconstruction. COMPARISON: CR (CHEST, ) 02/20/2025 2:02 PM RADIATION DOSE METRICS: Total DLP (mGy-cm): 835.83 FINDINGS: Liver: Normal. No mass. Gallbladder and biliary ducts: Normal. No calcified stones. No ductal dilation. Pancreas: Normal. No ductal dilation. Spleen: Normal. No splenomegaly. Adrenal glands: Normal. No mass. Kidneys and ureters: Normal. No hydronephrosis. Stomach and bowel: There are multiple fluid-filled bowel loops present corresponding to ileitis and/or jejunitis No obstruction. No mucosal thickening. The stomach is filled with fluid. Appendix: No evidence of appendicitis. Intraperitoneal space: Unremarkable. No free air. No significant fluid collection. Vasculature: Unremarkable. No abdominal aortic aneurysm. Lymph nodes: Unremarkable. No enlarged lymph nodes. Urinary bladder: Unremarkable as visualized. Reproductive: Unremarkable as visualized. 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 A Schmorl's node is present superior endplate L4 narrowing and bone spurs L1-L2. Soft tissues: There is a ureteral stent in the left outflow tract in good position. There is diffuse subcutaneous emphysema in the left abdominal wall extending to the bilateral groin. There is an ostomy in the periumbilical tissues in the anterior wall of the pelvis. The orifice is 33.7 mm. This area is filled with small bowel and omental fat. CT/[place] [id number] IMPRESSION: No acute findings. Calcified granuloma in the lingula Diffuse subcutaneous emphysema in the left-lateral chest wall Coronary artery calcifications IMPRESSION: 1. Double-J ureteral stent left urinary outflow tract in good position 2. Multiple dilated fluid-filled small bowel loops consistent with jejunitis and/or ileitis 3. There is an ostomy present in the anterior wall of the pelvis 4. Schmorl's node superior endplate L4. 5. Diffuse subcutaneous emphysema left lateral abdominal wall and bilateral groin
[2025-02-20] MEDS: metoclopramide 5 mg/mL SDV 2 mL 10 MG IVP (14:06)
[2025-02-20] MEDS: cefepime 1,000 mg SDV 1000 MG IVP (14:32)
[2025-02-20] MEDS: metroNIDAZOLE IV 500 MG/100 ML PREMIX 100 MG IV (14:41)
[2025-02-20 14:42] VITALS: BP 139/68; PULSE 105; O2SAT 93
[2025-02-20 14:52] LABS: Respiratory Syncytial Virus Ce NEGATIVE (Negative); SARS-CoV-2 PCR NEGATIVE (Negative)
[2025-02-20 15:00] VITALS: BP 132/52; PULSE 103; O2SAT 96
[2025-02-20 15:01] LABS: Glucose Urine UA Negative (Normal); Nitrate Urine Negative (Negative); Specific Gravity, Urine 1.018 (1.005-1.030)
[2025-02-20 15:06] LABS: Add Urine Microscopic? YES
[2025-02-20 15:18] LABS: UA Slide Review UA Slide Review Perf
[2025-02-20 15:30] VITALS: BP 137/71; PULSE 108; O2SAT 95
[2025-02-20 16:00] VITALS: BP 124/54; PULSE 102; O2SAT 95
[2025-02-20 17:00] VITALS: BP 144/86; PULSE 88; RESP 20; O2SAT 96
--- NOTE | 2025-02-20 17:42 | P.CONIM_ITS ---
Providers/Reason For Consult 2 Consulting Physician/Specialty*: General Surgery Reason for Consult*: Postop nausea and vomiting Attending Physician: Ellen Ayala MD History of Present Illness History of Present Illness Valerie Ferro is a 74 year old female with a history of diverticulitis who had partial colectomy and loop ileostomy on Saturday at outside hospital in [place]. Her postoperative course was complicated with hydronephrosis of the left kidney requiring double-J stent placement. Of note patient only has 1 kidney. She was discharged home yesterday from [facility] and since she has been home she developed abdominal discomfort and several episodes of nausea and vomiting. Ostomy output has been low it was about 150 until yesterday night but no output since today at [address] scan was done in our ER showing evidence of possible jejunitis enteritis with multiple dilated loops of bowel and other postoperative changes. I was consulted for evaluation Review of Systems 2 General: Reports: 10 or more systems reviewed and unremarkable except in HPI and below Medications/Allergies Home Medications ?Medication ?Instructions ?Recorded ?Confirmed ?Last Taken ?Type metoclopramide HCl 10 mg tablet 10 mg PO Q6H PRN nause a and 02/20/25 Unknown Rx vomiting #20 tabs Allergies Allergy/AdvReac Type Severity Reaction Status Date / Time Penicillins Allergy ADR-Faintin Verified 07/18/19 16:44 g PFSH Acute 2 PFSH: Social History Smoking and tobacco/nicotine status: current every day tobacco/nicotine user Vitals/I&O/Wt Last Vital Signs Temp 97.4 F L 02/20/25 13:03 Pulse 88 02/20/25 17:00 Resp 20 H 02/20/25 17:00 BP 144/86 02/20/25 17:00 Pulse Ox 96 02/20/25 17:00 O2 Del Method Room Air 02/20/25 17:00 02/20/25 02/20/25 02/20/25 06:59 14:59 22:59 Intake Total 1350 / 1350 Balance 1350 / 1350 Weight last 48 hrs Weight 146 lb Physical Exam 2 Narrative: Patient is alert and oriented. The abdomen is soft, there is diffuse mild tenderness to palpation there is distention of the abdomen, ostomy bag is decompressed very minimal amount of stool residue in the back. Auscultation of the abdomen showed significantly decreased bowel sounds. Patient burping during my evaluation. Data 02/20/25 13:26 02/20/25 13:26 Micro: Microbiology 02/20/25 13:58 Blood Culture - Preliminary Blood SPECIMEN COLLECTED 02/20/25 14:00 Blood Culture - Preliminary Blood SPECIMEN COLLECTED A&P Assessment and plan 1. History of bowel resection: 2. Dehydration: 3. Leukocytosis: 4. Acute kidney failure: 5. Postoperative ileus: Plan: All This is a 74-year-old female who presents with abdominal pain nausea vomiting in the setting of recent intra-abdominal surgery. After a complete history physical examination review of all available clinical data the following is my assessment. While radiology evaluation of the CT scan show evidence of jejunitis and enteritis after my personal review of imaging I think the picture is more consistent with a postoperative ileus, patient has been having multiple episodes of nausea and vomit and therefore there is no excessive dilation of the GI tract but we still can see a diffuse dilation of the small bowel all the way down to the level of the loop ileostomy. This combined with the fact that the patient has had low ostomy output since this morning is indicative of a possible ileus. She also has a white count of 21 and acute kidney injury. I have had extensive discussion with the patient regarding findings I have explained that my recommendation in this case would be for NG tube decompression IV hydration and close monitoring of symptoms. If there is failed to progress patient may require surgical intervention to evaluate additional possible causes of ileus. We did discuss the possibility of treatment in our facility versus return to [facility] in the [place] for additional management. I have indicated to the patient that the benefit of treatment in higher level of care will be additional expertise by colorectal surgeon as well as firsthand knowledge of surgical anatomy and intraoperative findings from previous operation as they were the main surgeons during that case. Have explained that the stains are facilities and option and if she chooses to do so we will proceed with nonoperative management but in the case of requiring operative management we will likely consult with the colorectal specialist in [place] before proceeding. After extensive discussion with the patient family members they have come to the decision that they will go back to [place] for further management where their primary surgery was done. I have discussed the plan with ER physician and family members who are in agreement. In the interim I did recommend NG tube placement for decompression but patient has refused at this time as she would like to be evaluated by primary surgeon before proceeding PDMP PDMP Reviewed: Not Reviewed Coding Level of Care Code 34758 Diagnoses History of bowel resection Z90.49 Dehydration E86.0 Leukocytosis D72.829 Acute kidney failure N17.9 Postoperative ileus K91.89; K56.7
--- NOTE | 2025-02-20 18:08 | PC.NURSE ---
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 Pt signed AMA form and informed of against medical advice. Pt IV removed with catheter intact, PT did discharge with Gonzales in place. Pt daughter in law in room states If one more doctor comes in here and says something different than the last one I'm going to go off Pt states she is going home and if she feels sick again she will go to [facility].
== END 2025-02-20 18:14 | disposition left against medical advice (07) ==
LOC: ER 16:45 → MEDSURG 17:46
PROVIDERS: Emergency Medicine; Emergency Provider Physician Assistant
DX: Z53.21 Procedure and treatment not carried out due to patient leaving prior to being seen by health care provider (principal); E86.0 Dehydration; D72.829 Elevated white blood cell count, unspecified; Z90.49 Acquired absence of other specified parts of digestive tract; Z11.52 Encounter for screening for COVID-19; Z72.0 Tobacco use
CPT/HCPCS: 36415; 51702; 71045; 71250; 74176; 80053; 81001; 83605; 83690; 85025; 87040; 87637; 93005; 96365; 96367; 96375; 99285; J0692; J2765; J3373; J3490; J7030; J7050